=== PATIENT | female | born 1990 | race Caucasian/White ===

== ENCOUNTER 2023-05-28 11:56 | Outpatient (OUT) | payer OTHER, SELFPAY ==
--- NOTE | 2023-05-28 | XR_ITS ---
The [address] [address] Patient Name: RUI KO MRN: [id number] date: 1990 Sex: F Assigned Patient Location: [facility] Current Patient Location: [facility] Accession/Order Number: [id number] Exam Date: 05/28/2023 09:05 Report Date: 05/28/2023 09:48 At the request of: ASHIA LOGAN Procedure: XR ankle LT min 3V PROCEDURE: XR ankle LT min 3V HISTORY: LEFT ANKLE PAIN , posterior heel pain COMPARISON: XR ankle left 03/27/2021 FINDINGS: BONES:No fracture, acute abnormality, or significant arthropathy. SOFT TISSUES:No visible soft tissue swelling. EFFUSION:None visible. OTHER: Negative. XR/XR ankle LT min 3V IMPRESSION: 1. No suspicious findings to account for patient's symptoms. Electronically authenticated by: ANA QUINONES Date: 05/28/2023 09:48
== END 2023-05-28 11:57 | disposition home or self-care (01) ==
PROVIDERS: PCP Internal Medicine; Visit Provider Podiatrist Foot & Ankle Surgery
DX: M76.62 Achilles tendinitis, left leg (principal)
CPT/HCPCS: 73610

== ENCOUNTER 2023-06-02 07:35 | Outpatient (OUT) | payer OTHER, SELFPAY ==
--- NOTE | 2023-06-02 07:50 | MR_ITS ---
The [place] [id number] Patient Name: RUI KO MRN: [id number] date: 1990 Sex: F Assigned Patient Location: MRI Current Patient Location: MRI Accession/Order Number: [id number] Exam Date: 06/02/2023 08:10 Report Date: 06/02/2023 10:19 At the request of: ASHIA LOGAN Procedure: MR ankle LT wo con MR ankle LT wo con, 06/02/2023 8:10 AM EDT INDICATION: Achilles Tendonitis COMPARISON: X-ray of the left ankle dated 05/28/2023 TECHNIQUE: Multiplanar and multisequential MR images of the left ankle were obtained without contrast . FINDINGS: Muscles and tendons: The flexor and extensor tendons and muscles are unremarkable. No abnormality of the peroneal tendons is noted. Achilles tendon is unremarkable. Bone: There is no bone marrow edema. No osseus lesion is noted. Sinus Tarsi: No abnormality of sinus Tarsi is noted. Plantar fascia: The plantar fascia is unremarkable. Ligaments: The deep and superficial portions of deltoid are unremarkable. The lateral ligaments are unremarkable. The visualized portion of Lisfranc ligament is unremarkable. There is normal intra-articular joint effusion. No soft tissue abnormality is noted. MR/MR ankle LT wo con IMPRESSION: Normal MRI of the left ankle. Electronically authenticated by: MAHAD MORELOS Date: 06/02/2023 10:19
== END 2023-06-02 07:36 | disposition home or self-care (01) ==
PROVIDERS: PCP Internal Medicine; Visit Provider Podiatrist Foot & Ankle Surgery
DX: M76.62 Achilles tendinitis, left leg (principal); M76.822 Posterior tibial tendinitis, left leg
CPT/HCPCS: 73721

== ENCOUNTER 2023-06-10 14:04 | Outpatient (OUT) | payer OTHER, SELFPAY ==
--- NOTE | 2023-06-10 | XR_ITS ---
The [address] [address] Patient Name: RUI KO MRN: [id number] date: 1990 Sex: F Assigned Patient Location: Current Patient Location: MRI Accession/Order Number: [id number] Exam Date: 06/10/2023 13:45 Report Date: 06/16/2023 07:56 At the request of: CLAUDIA LYNN Procedure: XR foot LT min 3V PROCEDURE: XR foot LT min 3V HISTORY: LEFT FOOT PAIN , chronic, bruising to medial side of foot; no known injury COMPARISON: XR ankle left 05/28/2023, XR foot left 11/23/2020 FINDINGS: BONES:No fracture, acute abnormality, or significant arthropathy. SOFT TISSUES:No visible soft tissue swelling. EFFUSION:None visible. OTHER: Negative. XR/XR foot LT min 3V IMPRESSION: 1. Normal examination. Electronically authenticated by: ANA QUINONES Date: 06/16/2023 07:56
== END 2023-06-10 14:05 | disposition home or self-care (01) ==
LOC: RAD 14:04
PROVIDERS: PCP Internal Medicine; Visit Provider Physician Assistant
DX: M79.672 Pain in left foot (principal)
CPT/HCPCS: 73630

== ENCOUNTER 2023-07-14 21:26 | Emergency (ER) | payer OTHER, SELFPAY ==
[2023-07-14 21:31] VITALS: BP 132/86; PULSE 102; RESP 15; TEMP 36.9; O2SAT 99; BMI 26.8
--- NOTE | 2023-07-14 21:42 | ED.GENADUL1 ---
HPI - General Adult General Stated complaint: Wound Check Time Seen by Provider: 07/14/23 21:26 History of Present Illness HPI narrative: This 32-year-old female who had tarsal tunnel release at [facility] last Friday presents for evaluation after she took a shower and got her foot wet. She is concerned that the wet dressing on her foot will cause it to get infected. No additional injuries or complaints. She is taking Percocet for pain. She has not had any recent injury. She has no chest pain shortness of breath or fever. She is scheduled to be seen at [facility] in 2 weeks. Related Data Home Medications Medication Instructions Recorded Confirmed oxycodone-acetaminophen 5 mg-325 1 tab PO Q4H 07/14/23 07/14/23 mg tablet Allergies Allergy/AdvReac Type Severity Reaction Status Date / Time sulfamethoxazole Allergy Intermediate Verified 07/14/23 21:36 [From Bactrim] trimethoprim [From Bactrim] Allergy Intermediate Verified 07/14/23 21:36 clidamycin Allergy Intermediate Uncoded 07/14/23 21:36 zoloft Allergy Mild Uncoded 07/14/23 21:36 Review of Systems ROS Status of ROS 10 or more systems reviewed and unremarkable except as noted in history and below Exam Narrative Exam Narrative: Nurses note and vital signs reviewed and patient is not hypoxic. She is mildly tachycardic with a pulse of 102 General: The patient appears well and in no apparent distress. Patient is resting comfortably on cart. Skin: Warm, dry, no pallor noted. There is no rash noted. Head: Normocephalic, atraumatic Eye: Normal conjunctiva, no drainage, EOMI. PERRL Cardiovascular: Regular Rate and Rhythm Respiratory: Patient is in no distress, no accessory muscle use, lungs are clear to auscultation, no wheezing, rales or rhonchi Back: non-tender, no CVA tenderness bilaterally to percussion. Musculoskeletal: There is a wet Kerlix dressing on the patient's left lower extremity. This was removed by the nursing staff. The incision on the medial aspect of her left lower leg appears well approximated with no sign of infection. There was a usual amount of ecchymosis. Feet are warm and sensate. Dorsalis pedis pulse is brisk. Neurological: A&O x4, normal speech Psychiatric: Cooperative Constitutional Vital Signs, click to edit/add: Last Vital Signs Temp 98.4 F 07/14/23 21:31 Pulse 102 H 07/14/23 21:31 Resp 15 07/14/23 21:31 BP 132/86 07/14/23 21:31 Pulse Ox 99 07/14/23 21:31 O2 Del Method Room Air 07/14/23 21:31 Course Vital Signs Vital signs: Vital Signs Temperature 98.4 F 07/14/23 21:31 Pulse Rate 102 H 07/14/23 21:31 Respiratory Rate 15 07/14/23 21:31 Blood Pressure 132/86 07/14/23 21:31 Pulse Oximetry 99 07/14/23 21:31 Oxygen Delivery Method Room Air 07/14/23 21:31 Temperature 98.4 F 07/14/23 21:31 Pulse Rate 102 H 07/14/23 21:31 Respiratory Rate 15 07/14/23 21:31 Blood Pressure 132/86 07/14/23 21:31 Pulse Oximetry 99 07/14/23 21:31 Oxygen Delivery Method Room Air 07/14/23 21:31 Medical Decision Making MDM Narrative Medical decision making narrative: This 32-year-old female who had a tarsal tunnel release at [facility] last Friday and got her foot wet earlier while taking a shower presents for evaluation. She is concerned that the wet dressing will cause her to get an infection in her incision. The dressing was removed revealing a normally doing incision. A dry dressing was placed by the nursing staff. The patient was encouraged to try to keep her feet out of the shower when she is bathing. Discharge Plan Discharge Chief Complaint: Wound/Laceration Clinical Impression: Encounter for post surgical wound check Patient Disposition: Home, Self-Care Time of Disposition Decision: 21:46 Condition: Good Prescriptions / Home Meds: No Action oxycodone-acetaminophen 5-325 mg tablet 1 tab PO Q4H Stand Alone Forms: Portal Instructions Referrals: JULIA TRACEY [Primary Care Provider] - 1 week
--- NOTE | 2023-07-14 21:45 | PC.NURSE ---
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 Pt concerned for infection to develop in wet dressing. Dressing removed by RN. DPs intact bilaterally. Foot is cold to touch, however dressing that was removed is cold and wet. Pt amble to move toes, good cap refill.
[2023-07-14 22:00] VITALS: BP 135/88; PULSE 78; RESP 15; O2SAT 99
== END 2023-07-14 22:03 | disposition home or self-care (01) ==
PROVIDERS: Emergency Provider Emergency Medicine; PCP Internal Medicine
DX: Z09 Encounter for follow-up examination after completed treatment for conditions other than malignant neoplasm (principal); Z79.899 Other long term (current) drug therapy
CPT/HCPCS: 99282

== ENCOUNTER 2024-05-31 09:15 | Emergency (ER) | payer OTHER, SELFPAY ==
[2024-05-31] VITALS (15 sets, daily range): BP systolic 97–115; BP diastolic 66–78; PULSE 67–82; TEMP 36.6; O2SAT 97–100; BMI 29.3
--- NOTE | 2024-05-31 10:01 | XR_ITS ---
The [address] [address] Patient Name: RUI KO MRN: [id number] date: 1990 Sex: F Assigned Patient Location: ER Current Patient Location: ER Accession/Order Number: [id number] Exam Date: 05/31/2024 10:15 Report Date: 05/31/2024 10:35 At the request of: MONTRELL GARCIA Procedure: XR chest 1V EXAM: XR chest 1V HISTORY: . chest pain . COMPARISON: None. TECHNIQUE: Single view of the chest FINDINGS: Heart and vascularity are unremarkable. Lungs are free of focal infiltrates. EKG leads overlie the chest. XR/XR chest 1V IMPRESSION: No acute heart or lung disease identified. Electronically authenticated by: ROBBIE SNYDER Date: 05/31/2024 10:35
--- NOTE | 2024-05-31 10:01 | ECG_ITS ---
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
--- NOTE | 2024-05-31 10:08 | ED.GENADUL1 ---
HPI HPI - General Adult General Chief complaint: Chest Pain Stated complaint: CHEST PAIN Time Seen by Provider: 05/31/24 09:48 Source: patient Mode of arrival: walk-in Limitations: no limitations History of Present Illness HPI narrative: 33-year-old female to the emergency department chief complaint of chest pain and syncopal episode. Patient reports she has a history of neurocardiogenic syncope. She follows with cardiology in [place] for this. Patient also reports she has occasional chest discomfort. For the last day she has had intermittent chest discomfort. It is a sharp pain radiates through to her back. It is not severe in nature but is occurred several times. She denies any shortness of breath. No history of DVT or PE. She is not currently on any medications. She has an appointment with cardiology tomorrow for this. Patient reports that this morning she got up out of bed after waking up and passed out. She denies any injuries. No neck or back pain. Related Data Home Medications ?Medication ?Instructions ?Recorded ?Confirmed No Known Home Medications 05/31/24 05/31/24 Allergies Allergy/AdvReac Type Severity Reaction Status Date / Time trimethoprim (From Bactrim) Allergy Severe itchy Verified 05/31/24 09:29 sulfamethoxazole (From Allergy Intermediate Hives Verified 05/31/24 09:29 Bactrim) clidamycin Allergy Intermediate icthy Uncoded 05/31/24 09:29 zoloft Allergy Mild icthy Uncoded 05/31/24 09:29 Opioid HPI Opioid Management Most Recent Opioid Data: No Data to Display Review of Systems ROS Status of ROS 10 or more systems reviewed and unremarkable except as noted in history and below PFSH PFS Medical History (Updated 05/31/24 @ 11:57 by Teofilo Phipps MD) Heart murmur ?R01.1 - Cardiac murmur, unspecified (ICD-10) Neurologic cardiac syncope ?R55 - Syncope and collapse (ICD-10) Surgical History (Updated 05/31/24 @ 09:41 by Jose Guadalupe Armenta) Hx of cholecystectomy ?Z90.49 - Acquired absence of other specified parts of digestive tract (ICD-10) Social History Little interest or pleasure in doing things: not at all Feeling down, depressed, or hopeless: not at all Exam Narrative Exam Narrative: VITALS: I have reviewed the triage vital signs. GENERAL: Well developed, well appearing adult female in no acute distress. NEURO: Alert and oriented. Moves all extremities. Face is symmetric and expressive. EYES: PERRL. No scleral icterus or conjunctival injection. No discharge. HENT: Normocephalic, atraumatic. Hearing is grossly intact. Nares grossly patent and without discharge. Mucous membranes moist. NECK: No JVD. Patient moves neck without restriction. No midline cervical tenderness. CARDIO: Rhythm regular. Normal rate. No murmur, rub, or gallop. Pulses equal bilaterally in the upper and lower extremity. No lower extremity edema. PULM: Lungs clear to auscultation in all timmons. No wheezes, rales, or rhonchi. No conversational dyspnea. No splinting, stridor, or accessory muscle use. GI/: Abdomen is soft and non-tender. Normoactive bowel sounds. EXTREMITIES: Symmetric muscle bulk. No joint swelling. No clubbing, cyanosis, or deformity. SKIN: Warm and dry. Normal turgor. No rash or lesions appreciated. PSYCH: Mood, affect, and interaction is appropriate to the setting. Constitutional Vital Signs, click to edit/add: Last Vital Signs Temp 98 F 05/31/24 09:23 Pulse 67 05/31/24 11:30 Resp 17 05/31/24 11:30 BP 112/71 05/31/24 11:30 Pulse Ox 99 05/31/24 11:30 O2 Del Method Room Air 05/31/24 09:23 Course Vital Signs Vital signs: Vital Signs Pulse Oximetry 98 05/31/24 09:21 Temperature 98 F 05/31/24 09:23 Pulse Rate 67 05/31/24 11:30 Respiratory Rate 17 05/31/24 11:30 Blood Pressure 112/71 05/31/24 11:30 Pulse Oximetry 99 05/31/24 11:30 Oxygen Delivery Method Room Air 05/31/24 09:23 Medical Decision Making [facility] Narrative Medical decision making narrative: 33-year-old female to the emergency department chief complaint of chest pain for the last 24 hours as well as a syncopal episode. Vital stable, the patient is afebrile. Her exam is unremarkable. No evidence of traumatic injury. Head and cervical spine are cleared by clinical decision rules. PERC negative effectively ruling out VTE in this low risk patient. Cardiac workup with test is ordered. Patient agrees with this plan. CBC and chemistry are unremarkable. Troponin is negative. test is negative. Chest x-ray is without acute findings. EKG is without evidence of ischemia. She is low risk by heart score. She had no abnormal vitals or telemetry during her ED stay. She feels improved. She has follow-up with cardiology tomorrow which I believe is appropriate. Return precautions were discussed. All questions were answered. The patient was discharged home. Teofilo Phipps DO, FAAEM Heart Score for Major Cardiac Event History: Example factors for history - pattern of chest pain, onset, duration, relation with exercise, stress or cold, localization, concomitant symptoms. reaction to sublingual nitrates, [] Highly suspicious +2 [] Moderately suspicious +1 [x] Slightly suspicious 0 EKG: [] Significant ST-Depression +2 [] Non specific repolarization disturbance +1 [x] Normal 0 Age: [] >= 65 +2 [] 45-65 + 1 [x] <45 0 Risk Factors: (HLD, HTN, DM, Cigarette Smoking, Pos Family Hx, Obesity) [] >3 risk factors or hx of atherosclerotic disease + 2 [] 1-2 risk factors + 1 [x] No risk factors known 0 Troponin: [] >= 3X normal + 2 [] 1-3X normal + 1 [x] <= Normal 0 [x] 0-3 Points 0.9 - 1.7% risk of major adverse cardiac event in 6 weeks [] 4-6 Points 12-16.6% risk of major adverse cardiac event in 6 weeks [] 7-10 Points 50-65% risk of major adverse cardiac event in 6 weeks [] 0-3 Points with 2 sets of negative cardiac markers <1% risk of major adverse cardiac event in 30 days. Medical Records Medical records reviewed: Yes I reviewed the patient's medical records Lab Data Lab results reviewed: Yes I reviewed the patient's lab results Labs: Lab Results 05/31/24 Range/Units 09:36 WBC 7.1 (4.0-11.0) 10^3/uL RBC 4.44 (4.20-5.40) 10^6/uL Hgb 12.6 (12.0-16.0) g/dL Hct 37.7 (36.0-48.0) % MCV 84.9 (81.0-99.0) fL MCH 28.4 (26.7-34.0) pg MCHC 33.4 (29.9-35.2) g/dL RDW 13.3 (11.0-15.0) % Plt Count 278 (150-450) 10^3/uL MPV 10.0 (9.5-13.5) fL Neut % (Auto) 60.8 (43.0-75.0) % Lymph % (Auto) 29.6 (20.5-60.0) % [facility] % (Auto) 8.0 (1.7-12.0) % Eos % (Auto) 0.6 L (0.9-7.0) % Baso % (Auto) 0.6 (0.2-2.0) % Neut # (Auto) 4.3 (1.4-6.5) 10^3/uL Lymph # (Auto) 2.1 (1.2-3.8) 10^3/uL [facility] # (Auto) 0.6 (0.3-0.8) 10^3/uL Eos # (Auto) 0.0 (0.0-0.7) 10^3/uL Baso # (Auto) 0.0 (0.0-0.1) 10^3/uL Abs Immat Gran (auto) 0.03 (0.00-0.03) 10^3/uL Imm/Tot Granulo (auto) 0.4 (0.0-0.5) % Sodium 140 (136-145) mmol/L Potassium 4.0 (3.5-5.1) mmol/L Chloride 105 (98-107) mmol/L Carbon Dioxide 22.7 (21.0-32.0) mmol/L Anion Gap 16.3 BUN 17.0 (7.0-18.0) mg/dL Creatinine 0.84 (0.55-1.02) mg/dL Est GFR ( Amer) >60 (>=60 mL/min/1.73m^2) Est GFR (Non-Af Amer) >60 (>=60 mL/min/1.73m^2) BUN/Creatinine Ratio 20.2 Glucose 104 (74-106) mg/dL Calcium 8.8 (8.5-10.1) mg/dL Troponin I High Sens <4.0 L (4.0-51.3) pg/mL Serum HCG, Qual Negative (NEGATIVE) Imaging Data Chest x-ray: Attestation: I have reviewed the pertinent imaging results. Radiologist's impression: ITS Impressions Chest X-Ray 05/31/24 10:01 IMPRESSION: No acute heart or lung disease identified. Electronically authenticated by: JOSE GUADALUPE SNYDER Date: 05/31/2024 10:35 ECG Data Attestation: I personally reviewed and interpreted this ECG as follows: (Normal sinus rhythm at a rate of 77. No STEMI. Normal QTc.) Discharge Plan Discharge Chief Complaint: Chest Pain Clinical Impression: Chest pain Patient Disposition: Home, Self-Care Time of Disposition Decision: 11:57 Condition: Good Mode of Transportation: Private Vehicle Prescriptions / Home Meds: No Action No Known Home Medications Print Language: Thai Instructions: Chest Pain (ED) Additional Instructions: Call the office of your primary care doctor to arrange for follow-up within the above-stated timeframe. Your ED visit was focused on your acute issue and does not replace primary care. You should review your labs, imaging, and diagnoses from this ED visit with your primary care physician. There may be non-emergent/ incidental findings that need further evaluation. You should review your vital signs including blood pressure with your PCP. If you were prescribed medications you should discuss possible side-effects and drug interactions with your pharmacist. Call 911 or go to the nearest Emergency Department if you develop any new or worsening symptoms. Seek immediate medical attention if you develop: worsening chest pain, new chest pain, nausea, vomiting, weakness, numbness, tingling, excessive sweating, shortness of breath, difficulty breathing, loss of motion in your arms or legs, or any new or worsening symptoms. Keep your appoint with cardiology for tomorrow Referrals: JULIA TRACEY [Primary Care Provider] - 1 week Discharge Date/Time: 05/31/24 12:11
[2024-05-31 10:09] LABS: Basophils Percent Auto 0.6 % (0.2-2.0); Eosinophils Percent Auto 0.6 % (0.9-7.0); Hematocrit 37.7 % (36.0-48.0); Hemoglobin 12.6 g/dL (12.0-16.0); Immature Granulocytes Abs Auto 0.03 10^3/uL (0.00-0.03); Immature Granulocytes Pct Auto 0.4 % (0.0-0.5); Lymphocytes Absolute Auto 2.1 10^3/uL (1.2-3.8); Lymphocytes Percent Auto 29.6 % (20.5-60.0); Mean Corpuscular HGB Conc 33.4 g/dL (29.9-35.2); Mean Corpuscular Hemoglobin 28.4 pg (26.7-34.0); Mean Corpuscular Volume 84.9 fL (81.0-99.0); Monocytes Absolute Auto 0.6 10^3/uL (0.3-0.8); Neutrophils Absolute Auto 4.3 10^3/uL (1.4-6.5); Neutrophils Percent Auto 60.8 % (43.0-75.0); Platelet Count 278 10^3/uL (150-450); Red Blood Count 4.44 10^6/uL (4.20-5.40); Red Cell Distribution Width 13.3 % (11.0-15.0); White Blood Count 7.1 10^3/uL (4.0-11.0)
--- OUTSIDE RECORDS SUMMARY | 2024-05-31 10:13 | XMS_ITS | CCD ---
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 facility-administered medications for this visit. ALLERGIES Allergen Reactions Bactrim [Sulfametho* Hives, Swelling Clindamycin Hives, Itching Zoloft [Sertraline] Itching No family history on file. Social History Tobacco Use Smoking status: Every Day Types: Cigarettes Smokeless tobacco: Never Tobacco comments: Vapes occasionally, 2-3 cigarettes a day Substance Use Topics Alcohol use: Yes Comment: occasionally, social drinking. Drug use: Never Current Opioids Analgesic Opioid Oxycodone Combinations Start End oxyCODONE-acetaminophe n (PERCOCET) 5-325 mg tablet 07/25/2023 -- Sig - Route: Take 1 tablet by mouth every 6 hours as needed for pain. for pain. - ORAL Patient not taking: Reported on 08/08/2023 Earliest Fill Date: 07/25/2023 Analgesic Opioid Oxycodone and Non-Salicylate Combinations Start End oxyCODONE-acetaminophe n (PERCOCET) 5-325 mg tablet 07/25/2023 -- Sig - Route: Take 1 tablet by mouth every 6 hours as needed for pain. for pain. - ORAL Patient not taking: Reported on 08/08/2023 Earliest Fill Date: 07/25/2023 ROSI Modifiable Risk Factors (MoRF) Obesity Unknown Risk High: BMI > 40 Moderate: BMI 30-40 Normal: BMI < 30 Diabetes normal High: A1C > 8 Moderate: A1C 7-8 Normal: A1C < 7 Smoking normal High: Current smoker Normal: Non smoker Anemia normal High: Hgb < 11.5 (women) N/A: Hgb >= 11.5 (women) Nutritional Status normal High: Alb<3.4, or prealb<15, or serum transferrin<200, or total lymphocyte count<1500 Normal: normal labs Narcotics Use normal High:NarxCare >=300 Moderate: 100-299 Normal: 0-99 Obesity: height and/or weight are out of date (There is no height and/or weight reading in the past 365 days, so the below BMI readings may be inaccurate) BMI Readings from Last 3 Encounters: 07/08/23 : 26.89 kg/m? ------- REVIEW OF SYSTEMS: CONSTITUTIONAL: No fevers, chills, nightsweats, unintended weight loss HEENT: Denies frequent or severe headaches, nasal congestion/sinus symptoms, problematic allergy problems. EYES: No diplopia or blurry vision. CARDIOVASCULAR: No chest pain, dyspnea, palpitations, orthopnea, PND. PULM: No dyspnea, unexplained cough. GI: No dysphagia/odynophagia, problematic reflux, constipation, diarrhea, changes in stool habits, hematochezia, melena. : No new urinary complaints, including dysuria, gross hematuria or pyuria. NEURO: No new balance problems, peripheral weakness/paresthesias or numbness of concern. MUSC-SKEL: No new joint pain, swelling, or erythema. PSY: No concerns regarding depression, anxiety or panic. INTEGUMENTARY: Skin changes as noted below. I have confirmed and edited as necessary, the PFSH and ROS obtained by others. OBJECTIVE: Patient is oriented to person, place, and time and is in no acute distress. Vascular Exam: Dorsalis Pedis pulses are palpable bilateral. Posterior Tibial pulses are palpable bilateral. Capillary refill time brisk. Skin temperature of the bilateral lower extremity is warm to cool, proximal to distal. Varicosities are NOT observed bilaterally. Edema NOT noted. No palpable lymph nodes noted. Dermatological: Skin appears diffusely dry Skin is without notable erythema or ecchymosis. Webspaces are clean, dry, and intact bilateral. No open lesions. Incision well healed. No signs of infection left ankle. Neurological: Light touch sensation intact bilaterally. Gross sensation intact bilaterally. Protective sensation present at 5/5 non-callused sites randomly selected and tested bilaterally using a 5.07 SWMF. Musculoskelatal: Muscle strength +5/5 for all pedal muscle groups b (more content not included)... [facility] CNOVon 08-08-2023 CNOV Office Visit ([facility] ) SAVANNAH KO ([id number]) 1990 F Date Time Provider Department 08/08/23 8:00 AM SERAFIN WATERS [facility] During your visit today, we recorded the following information about you: Serafin Waters DPM 08/08/2023 8:13 AM Signed PODIATRIC MEDICINE AND SURGERY OFFICE NOTE Complaint: Left tarsal tunnel syndrome status post tibial nerve release HPI: This 32 year old female presents to the clinic today for a follow-up status post left tarsal tunnel release. Patient is doing much better than the previous week and is in minimal pain now. She does state that she does have occasional nerve symptoms that shoot down her leg and is wondering if there is some medication for that. Patient is also ready for physical therapy. Patient denies any constitutional symptoms. Patient denies any calf or thigh pain. No past medical history on file. PAST SURGICAL HISTORY Procedure Laterality Date LAPAROSCOPIC EXC ENDOMETRIOSIS/CYST 2018 REMOVAL GALLBLADDER 2014 REMOVAL OF OVARIAN CYST(S) Left 2019 No current facility-administered medications for this visit. ALLERGIES Allergen Reactions Bactrim [Sulfametho* Hives, Swelling Clindamycin Hives, Itching Zoloft [Sertraline] Itching No family history on file. Social History Tobacco Use Smoking status: Every Day Types: Cigarettes Smokeless tobacco: Never Tobacco comments: Vapes occasionally, 2-3 cigarettes a day Substance Use Topics Alcohol use: Yes Comment: occasionally, social drinking. Drug use: Never Current Opioids Analgesic Opioid Oxycodone Combinations Start End oxyCODONE-acetaminophe n (PERCOCET) 5-325 mg tablet 07/25/2023 -- Sig - Route: Take 1 tablet by mouth every 6 hours as needed for pain. for pain. - ORAL Patient not taking: Reported on 08/08/2023 Earliest Fill Date: 07/25/2023 Analgesic Opioid Oxycodone and Non-Salicylate Combinations Start End oxyCODONE-acetaminophe n (PERCOCET) 5-325 mg tablet 07/25/2023 -- Sig - Route: Take 1 tablet by mouth every 6 hours as needed for pain. for pain. - ORAL Patient not taking: Reported on 08/08/2023 Earliest Fill Date: 07/25/2023 ROSI Modifiable Risk Factors (MoRF) Obesity Unknown Risk High: BMI > 40 Moderate: BMI 30-40 Normal: BMI < 30 Diabetes normal High: A1C > 8 Moderate: A1C 7-8 Normal: A1C < 7 Smoking normal High: Current smoker Normal: Non smoker Anemia normal High: Hgb < 11.5 (women) N/A: Hgb >= 11.5 (women) Nutritional Status normal High: Alb<3.4, or prealb<15, or serum transferrin<200, or total lymphocyte count<1500 Normal: normal labs Narcotics Use normal High:NarxCare >=300 Moderate: 100-299 Normal: 0-99 Obesity: height and/or weight are out of date (There is no height and/or weight reading in the past 365 days, so the below BMI readings may be inaccurate) BMI Readings from Last 3 Encounters: 07/08/23 : 26.89 kg/m? ------- REVIEW OF SYSTEMS: CONSTITUTIONAL: No fevers, chills, nightsweats, unintended weight loss HEENT: Denies frequent or severe headaches, nasal congestion/sinus symptoms, problematic allergy problems. EYES: No diplopia or blurry vision. CARDIOVASCULAR: No chest pain, dyspnea, palpitations, orthopnea, PND. PULM: No dyspnea, unexplained cough. GI: No dysphagia/odynophagia, problematic reflux, constipation, diarrhea, changes in stool habits, hematochezia, melena. : No new urinary complaints, including dysuria, gross hematuria or pyuria. NEURO: No new balance problems, peripheral weakness/paresthesias or numbness of concern. MUSC-SKEL: No new joint pain, swelling, or erythema. PSY: No concerns regarding depression, anxiety or panic. INTEGUMENTARY: Skin changes as noted below. I have confirmed and edited as necessary, the PFSH and ROS obtained by others. OBJECTIVE: Patient is oriented to person, place, and time and is in no acute distress. Vascular Exam: Dorsalis Pedis pulses are palpable bilateral. Posterior Tibial pulses are palpable bilateral. Capillary refill time brisk. Skin temperature of the bilateral lower extremity is warm to cool, proximal to distal. Varicosities are NOT observed bilaterally. Edema NOT noted. No palpable lymph nodes noted. Dermatological: Skin appears diffusely dry Skin is without notable erythema or ecchymosis. Webspaces are clean, dry, and intact bilateral. No open lesions. Incision well healed. No signs of infection left ankle. Neurological: Light touch sensation intact bilaterally. Gross sensation intact bilaterally. Protective sensation present at 5/5 non-callused sites randomly selected and tested bilaterally using a 5.07 SWMF. Musculoskelatal: Muscle strength +5/5 for all pedal muscle groups bilaterally. No significant symptomatic li (more content not included)... [facility] 07-25-2023 [facility] Office Visit ([facility] ) SAVANNAH KO ([id number]) 1990 F Date Time Provider Department 07/25/23 8:15 AM SERAFIN WATERS [facility] During your visit today, we recorded the following information about you: Serafin Waters DPM 07/25/2023 8:29 AM Signed PODIATRIC MEDICINE AND SURGERY OFFICE NOTE Complaint: Left tarsal tunnel syndrome status post tibial nerve release HPI: This 32 year old female presents to the clinic today for a follow-up status post left tarsal tunnel release. Patient is in controlled pain but is in need of new pain medication. She has been compliant with her nonweightbearing status. She is here today for her suture removal. Patient does state that most of the pain is at night and is very painful when it is undressed. Patient denies any constitutional symptoms. Patient denies any calf or thigh pain. No past medical history on file. PAST SURGICAL HISTORY Procedure Laterality Date LAPAROSCOPIC EXC ENDOMETRIOSIS/CYST 2018 REMOVAL GALLBLADDER 2014 REMOVAL OF OVARIAN CYST(S) Left 2019 No current facility-administered medications for this visit. ALLERGIES Allergen Reactions Bactrim [Sulfametho* Hives, Swelling Clindamycin Hives, Itching Zoloft [Sertraline] Itching No family history on file. Social History Tobacco Use Smoking status: Every Day Types: Cigarettes Smokeless tobacco: Never Tobacco comments: Vapes occasionally, 2-3 cigarettes a day Substance Use Topics Alcohol use: Yes Comment: occasionally, social drinking. Drug use: Never Current Opioids Analgesic Opioid Oxycodone Combinations Start End oxyCODONE-acetaminophe n (PERCOCET) 5-325 mg tablet 07/25/2023 -- Sig - Route: Take 1 tablet by mouth every 6 hours as needed for pain. for pain. - ORAL Earliest Fill Date: 07/25/2023 Analgesic Opioid Oxycodone and Non-Salicylate Combinations Start End oxyCODONE-acetaminophe n (PERCOCET) 5-325 mg tablet 07/25/2023 -- Sig - Route: Take 1 tablet by mouth every 6 hours as needed for pain. for pain. - ORAL Earliest Fill Date: 07/25/2023 ROSI Modifiable Risk Factors (MoRF) Obesity Unknown Risk High: BMI > 40 Moderate: BMI 30-40 Normal: BMI < 30 Diabetes normal High: A1C > 8 Moderate: A1C 7-8 Normal: A1C < 7 Smoking normal High: Current smoker Normal: Non smoker Anemia normal High: Hgb < 11.5 (women) N/A: Hgb >= 11.5 (women) Nutritional Status normal High: Alb<3.4, or prealb<15, or serum transferrin<200, or total lymphocyte count<1500 Normal: normal labs Narcotics Use normal High:NarxCare >=300 Moderate: 100-299 Normal: 0-99 Obesity: height and/or weight are out of date (There is no height and/or weight reading in the past 365 days, so the below BMI readings may be inaccurate) BMI Readings from Last 3 Encounters: 07/08/23 : 26.89 kg/m? ------- REVIEW OF SYSTEMS: CONSTITUTIONAL: No fevers, chills, nightsweats, unintended weight loss HEENT: Denies frequent or severe headaches, nasal congestion/sinus symptoms, problematic allergy problems. EYES: No diplopia or blurry vision. CARDIOVASCULAR: No chest pain, dyspnea, palpitations, orthopnea, PND. PULM: No dyspnea, unexplained cough. GI: No dysphagia/odynophagia, problematic reflux, constipation, diarrhea, changes in stool habits, hematochezia, melena. : No new urinary complaints, including dysuria, gross hematuria or pyuria. NEURO: No new balance problems, peripheral weakness/paresthesias or numbness of concern. MUSC-SKEL: No new joint pain, swelling, or erythema. PSY: No concerns regarding depression, anxiety or panic. INTEGUMENTARY: Skin changes as noted below. I have confirmed and edited as necessary, the PFSH and ROS obtained by others. OBJECTIVE: Patient is oriented to person, place, and time and is in no acute distress. Vascular Exam: Dorsalis Pedis pulses are palpable bilateral. Posterior Tibial pulses are palpable bilateral. Capillary refill time brisk. Skin temperature of the bilateral lower extremity is warm to cool, proximal to distal. Varicosities are NOT observed bilaterally. Edema NOT noted. No palpable lymph nodes noted. Dermatological: Skin appears diffusely dry Skin is without notable erythema or ecchymosis. Webspaces are clean, dry, and intact bilateral. No open lesions. Incision well coapted with sutures in place. No signs of infection or dehiscence left ankle. Neurological: Light touch sensation intact bilaterally. Gross sensation intact bilaterally. Protective sensation present at 5/5 non-callused sites randomly selected and tested bilaterally using a 5.07 SWMF. Musculoskelatal: Muscle strength +5/5 for all pedal muscle groups bilaterally. No significant symptomatic limitations in pedal joint ROM bilaterally. ASSESSMEN (more content not included)... [facility] 07-15-2023 [facility] Telephone ([facility]) SAVANNAH KO ([id number]) 1990 F Date Time Provider Department 07/15/23 [facility] During your visit today, we recorded the following information about you: Laurie Ware 07/15/2023 10:55 AM Signed Patient called having a lot left heel pain like (50 plus)radiating to the ankle. Takes the oxyCODONE-acetaminophe n (PERCOCET) 5-325 mg tablet without much relief to help the pain. Patient went to [facility] yesterday had left ankle covered while taking a shower but the reginaldo and gauze still got wet so she received dressing change there. Laurie Ware 07/16/2023 9:26 AM Signed Spoke to patient per Dr. Waters she needs to take pain medication as directed and not wait until she gets in severe pain. Allergies As of Date: 07/15/2023 Noted Allergy Reaction BACTRIM (SULFAMETHOXAZOLE-TRIM ETH*07/04/2023 4 - Hives 7 - Swelling CLINDAMYCIN 07/04/2023 4 - Hives 9 - Itching ZOLOFT (SERTRALINE) 07/04/2023 9 - Itching Date Reviewed: 07/11/2023 Reviewed by: Eugenia Fairbanks RN - Fully Assessed Prescriptions as of 07/16/2023 - oxyCODONE-acetaminophe n (PERCOCET) 5-325 mg tablet Take 1 tablet by mouth four times a day as needed for pain. - aspirin, enteric coated (ASPIRIN, ENTERIC COATED) 81 mg EC tablet Take 81 mg by mouth once daily. Problem List As Of Date 07/15/2023 Noted Resolved Pre-op evaluation [Z01.818] 07/08/2023 Achilles tendinitis, left leg [M76.62] 05/28/2023 Encounter Status:Closed by LAURIE WARE on 07/16/23 [facility] ANES POSTPROC EVALon 023 ANES POSTPROC EVAL HNO ID: [id number] Author: Kimmy Smiley DO Service: Anesthesiology Author Type: Anesthesiologist Type: Anesthesia Postprocedure Evaluation Filed: 07/11/2023 5:18 PM Note Text: POST ANESTHESIA EVALUATION NOTE : 1990 Procedure Summary Date: 07/11/23 Room / Location: OR / OR Anesthesia Start: 1433 Anesthesia Stop: 1621 Procedure: RELEASE TARSAL TUNNEL (POSTERIOR TIBIAL NERVE DECOMPRESSION) (Left: Foot) Diagnosis: Tarsal tunnel syndrome, left Soft tissue mass (Tarsal tunnel syndrome, left [G57.52]) (Soft tissue mass [M79.89]) Surgeons: Serafin Waters DPM Responsible Provider: Kimmy Smiley DO Anesthesia Type: general ASA Status: 1 Anesthesia Type: general Airway Type: LMA Last Vitals Vitals Value Taken Time BP 108/72 07/11/23 1700 Temp 36.6 ?C (97.9 ?F) 07/11/23 1710 Pulse 72 07/11/23 1711 Resp 10 07/11/231710 SpO2 99 % 07/11/231710 Vitals shown include unvalidated device data. Post Anesthesia Patient Status Patient Evaluation: PACU. PACU/ICU Patient Condition: stable. Anticipated Disposition: phase 2 then home. Neurological Status: aware and responsive. Pulmonary Status: breathing comfortably on supplemental oxygen Airway Control: returned to baseline unsupported. Cardiovascular Status: stable. Pain Management: clinically adequate - multimodal analgesia pain management approach Postoperative Hydration: acceptable. Intraoperative Events: no significant anesthesia events Post Operative Nausea/Vomiting Status: no significant post operative nausea or vomiting Recommendation: continue current plan of care. Anesthesia Observations No Documentation SIGNATURE: Kimmy Smliey DO PATIENT NAME: Savannah Ko DATE: July 11, 2023 TIME: 5:18 PM CSN: [id number] [facility] ANES PRE-OPon 07-11-2023 ANES PRE-OP HNO ID: [id number] Author: Kimmy Smiley DO Service: Anesthesiology Author Type: Anesthesiologist Type: Anesthesia Preprocedure Evaluation Filed: 07/11/2023 1:11 PM Note Text: ANESTHESIOLOGY DAY OF SURGERY NOTE : 1990 Procedure Information Date/Time: 07/11/23 1415 Procedures: RELEASE TARSAL TUNNEL (POSTERIOR TIBIAL NERVE DECOMPRESSION) (Left: Foot) - popliteal block EXCISION SOFT TISSUE TUMOR SUBFASCIAL OF LEG = / > 3CM (Left: Foot) - PLANNED EQUIPMENT: Integra nerve wrap - Anastasia Khan from [employer] [facility] (CC) Location: OR11 / OR Surgeons: Serafin Waters DPM Estimated body mass index is 26.89 kg/m? as calculated from the following: Height as of 07/08/23: 152.4 cm (5'). Weight as of 07/08/23: 62.5 kg (137 lb 11.2 oz). Most recent hematocrit and potassium results: No results found for this basename: HCT,HEMATOCRIT,K,POTAS SIUM Relevant Problems No relevant active problems I - PHYSICAL EVALUATION AIRWAY Patient intubated: No. Tracheostomy tube not present Mallampati: I. TM distance: >3 FB. Neck ROM: full ROM without neurological symptoms. Mouth opening: adequate. Short neck: no. Thick neck: no DENTAL Dental findings: teeth intact. II - ANESTHESIA PLAN ASA Score: 1 Anesthetic Plan: general Airway type: ETT NPO Status: adequate Beta Jose Monitoring Plan Monitoring plan: standard ASA. Post Procedure Analgesic Plan Postoperative analgesic plan: multimodal analgesia, per surgical service and peripheral nerve block. Informed Consent Anesthetic risks, benefits, alternatives, personnel and consent discussed: yes. Patient / Responsible Alliance Party agrees to proceed: yes Patient / Surrogate agrees to blood products: Yes Potential Anesthesia issues that may suggest increased risk of complications or contraindication to planned procedure: none. Vitals Value Taken Time BP Pulse Resp Temp 36.9 ?C (98.4 ?F) 07/11/23 1230 SpO2 Facility-Administered Medications as of 07/11/2023 Medication Dose Route Frequency - midazolam (PF) 1-2 mg injection (VERSED) 1-2 mg INTRAVENOUS ONCE - acetaminophen 1,000 mg tab(s) (TYLENOL) 1,000 mg ORAL ONCE - promethazine 12.5 mg tab(s) (PHENERGAN) 12.5 mg ORAL NOW - [COMPLETED] acetaminophen 1,000 mg tab(s) (TYLENOL) 1,000 mg ORAL Pre-Op Once - [COMPLETED] promethazine 12.5 mg tab(s) (PHENERGAN) 12.5 mg ORAL Pre-Op Once - lactated ringers iv infusion 30 mL/hr INTRAVENOUS CONTINUOUS - scopolamine 1 mg over 3 days 1 Patch (TRANSDERM-SCOP) 1 Patch TRANSDERMAL q 72 HR And - [START ON 07/14/2023] scopolamine - REMOVE PATCH OTHER q 72 HR And - scopolamine - VERIFY patch OTHER q 8 H Outpatient Medications as of 07/11/2023 Medication Sig - aspirin, enteric coated (ASPIRIN, ENTERIC COATED) 81 mg EC tablet Take 81 mg by mouth once daily. I have interviewed and examined the patient. I have reviewed the medical record and/or the pre-anesthesia evaluation, pertinent labs, and test results. This contains updated information obtained within 48 hours of Surgery/Procedure. SIGNATURE: Kimmy Smiley DO PATIENT NAME: Savannah Ko DATE: July 11, 2023 TIME: 1:10 PM CSN: [id number] [facility] BRIEF OP NOTon 07-11-2023 BRIEF OP NOT HNO ID: [id number] Author: Serafin Waters DPM Service: Podiatry Author Type: Physician Type: Brief Op Note Filed: 07/11/2023 3:32 PM Note Text: PODIATRIC SURGERY BRIEF OPERATIVE NOTE LOG ID: [id number] Surgery/Procedure Date: 07/11/2023 Incision/Procedure Start Time: 3:10 PM Incision Close/Procedure End Time: Surgeon(s)/Procedurali st(s) and Case Management Manager(s): Surgeon(s) and Role: * Serafin Waters DPM - Primary * Arti Domingo DPM - Resident - Assisting No Additional Staff Procedure(s): Left ankle Tarsal tunnel release Anesthesia: General Findings: Entrapped nerve from veins and fat, tight retinaculum Estimated Blood Loss: 20 mls Specimens: None Complications: NONE Pre-Op/Pre-Procedure Diagnosis: Left tarsal tunnel syndrome Post-Op/Post-Procedure Diagnosis: SAME SIGNATURE: Serafin Waters DPM PATIENT NAME: Savannah Ko DATE: July 11, 2023 TIME: 3:31 PM PAGER/CONTACT #: [phone] (Pager/Cell) [facility] NURSING PROGon 07-11-2023 NURSING PROG HNO ID: [id number] Author: Raymond Wong RN Service: ? Author Type: Registered Nurse Type: Nursing Progress Note Filed: 07/11/2023 12:15 PM Note Text: PATIENT EDUCATION TOPIC: PROCEDURE / SURGERY: Pre-op Teaching: Logistics Protocols PATIENT NAME: Savannah Ko PATIENT LOCATION: [facility] OR POOL/[facility] OR POOL READINESS TO LEARN COGNITIVE ABILITY: Alert and oriented MOTIVATION TO LEARN: Eager FAMILY SUPPORT: None - Unavailable/disinteres rio INSTRUCTION PROVIDED TO: Patient PATIENT LEARNS BEST BY: Individual Instruction FACTORS AFFECTING LEARNING: None PHYSICAL LIMITATIONS AFFECTING LEARNING: None LEARNING RESPONSE DIAGNOSIS: ADULT: Well Adult PATIENT/FAMILY RESPONSE: Verbalizes understanding of: PRE-OPERATIVE INSTRUCTIONS-Correct action to take to follow pre-operative instructions METHOD OF INSTRUCTION: Individual instruction FOLLOW-UP PLAN: Complete - No need for follow-up INSTRUCTIONAL AIDS USED: NA SUPPLEMENTAL MATERIAL PROVIDED TO PATIENT: None REFERRAL (RECOMMENDATION): None Electronically Signed By: Raymond Wong [facility] OPERATIVE NOon 07-11-2023 OPERATIVE NO HNO ID: [id number] Author: Serafin Waters DPM Service: Podiatry Author Type: Physician Type: Operative Report Filed: 07/14/2023 2:10 PM Note Text: SURGERY OPERATIVE NOTE LOG ID: [id number] Surgery/Procedure Date: 07/11/2023 Incision/Procedure Start Time: 3:10 PM Incision Close/Procedure End Time: 3:54 PM Surgeon(s)/Procedurali st(s) and Case Management Manager(s): Surgeon(s) and Role: * Serafin Waters DPM - Primary * Arti Domingo DPM - Resident - Assisting No Additional Staff PRE-OP/PRE-PROCEDURE DIAGNOSIS: Left tarsal tunnel syndrome POST-OP/POST-PROCEDURE DIAGNOSIS: Same as Pre-Op SURGERY/PROCEDURE(S): Left ankle Tarsal tunnel release ANESTHESIA: General HEMOSTASIS: Maintained on the field with a thigh tourniquet ESTIMATED BLOOD LOSS: 20 mls MATERIALS: Integra nerve wrap INDICATIONS: This 32 year old female presents to the operating room today for the above said procedures. The nature of their condition, post operative recovery, risks and complications including but not limited to numbness, tingling, burning, over and under correction, problems of healing soft tissue or bone, chronic pain and disability, need for further surgery or revision, amputation, loss of limb or life, have all been discussed with the patient in detail. All questions have been answered to the patient's satisfaction, and no promises or guarantees given. SURGERY/PROCEDURE DETAILS: Under mild sedation the patient was brought into the operating room, placed on the operating room table in the supine position. Anesthesia was induced. The patient's leg was confirmed to be the correct limb, was then scrubbed, prepped, and draped in the usual, aseptic manner. Attention was was directed to the operative leg. Using a 15 blade a curvilinear incision was made overlying the medial ankle overlying the tibial nerve. The incision was further down using blunt and sharp dissection the layer of the nerve. There was significant entrapment of nerve both by veins and subcutaneous fat. The retinaculum was also noted to be significantly tightened. Next a incision into the retinaculum was performed in order to release the tarsal tunnel. After this was done the nerve was then released both proximally and distally into the level of the kimberli pedis. The nerve was then wrapped with the synthetic nerve wrap and secured with 6-0 nylon. The incision was then flushed with copious amounts of normal sterile saline and closed in a layered fashion using Monocryl and nylon. The operative area was then dressed with dry, sterile dressings. The patient tolerated the procedure and anesthesia well in apparent satisfactory condition and was transported to the PACU with vital signs stable and vascular status intact to the leg for further monitoring prior to discharge home. SPECIMENS: None VASCULAR ASSESSMENT: Healthy and controlled bleeding to the surgical site FINDINGS: Entrapped nerve that was well released DRAINS: None COMPLICATIONS: None PARTICIPATION IN SURGERY/PROCEDURE: I was present and performed the procedure with assistance. The resident assisted with positioning, retraction; and visualization of the operative field and moreover helped to complete the procedures in a technically safe and efficient manner. --- Dr. Serafin Waters DPM SIGNATURE: Serafin Waters DPM PATIENT NAME: Savannah Ko PAGER/CONTACT #: [phone] (Pager/Cell) [facility] HISTORY PHYSICALon HISTORY PHYSICAL HNO ID: [id number] Author: Ama Lei MD Service: ? Author Type: Resident Type: HANDP Filed: 07/08/2023 11:02 AM Note Text: HISTORY AND PHYSICAL EXAMINATION SERVICE DATE: 07/08/2023 SERVICE TIME: 10:20 AM PRIMARY CARE PHYSICIAN: Julia Tracey MD REASON FOR VISIT: Savannah Ko is a 32 year old female who is scheduled for RELEASE TARSAL TUNNEL (POSTERIOR TIBIAL NERVE DECOMPRESSION) - Left on 07/11/2023 at 2:10 PM at the request of Dr. Waters for pre-operative evaluation. The patient has the following: ACTIVE PROBLEM LIST Pre-Op Evaluation Achilles Tendinitis, Left Leg Subjective CHIEF COMPLAINT: Tarsal Tunnel Syndrome HPI: Savannah Ko is a 32-year-old female with no PMH that presents for pre-operative evaluation for a tarsal tunnel release (posterior tibial nerve decompression) on the left side on 07/11/23. Denies fevers, cough, shortness of breath, history of stroke, history of TN, history of CHF. History reviewed. No pertinent past medical history. PAST SURGICAL HISTORY Procedure Laterality Date LAPAROSCOPIC EXC ENDOMETRIOSIS/CYST 2018 REMOVAL GALLBLADDER 2014 REMOVAL OF OVARIAN CYST(S) Left 2019 No family history on file. SOCIAL HISTORY: Social History Tobacco Use Smoking status: Every Day Types: Cigarettes Smokeless tobacco: Never Tobacco comments: Vapes occasionally, 2-3 cigarettes a day Substance Use Topics Alcohol use: Yes Comment: occasionally, social drinking. Drug use: Never Prior to Admission medications as of 07/04/23 0944 Medication Sig Last Dose Taking aspirin, enteric coated (ASPIRIN, ENTERIC COATED) 81 mg EC tablet Take 81 mg by mouth once daily. No medication comments found. ALLERGIES Allergen Reactions Bactrim [Sulfametho* Hives, Swelling Clindamycin Hives, Itching Zoloft [Sertraline] Itching COVID VACCINATION STATUS: Fully vaccinated REVIEW OF SYSTEMS: PAIN ASSESSMENT: Pain Pain Level: 5 Pain Location: Ankle-Left Description: Stabbing, Aching Duration Units: Years Frequency: Intermittent General: No weight loss, malaise or fevers. 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 No neurological symptoms or problems. Respiratory: No history of current cough or dyspnea, or pneumonia in the past 6 weeks. No history of respiratory/pulmonary symptoms or problems. Cardiovascular: No history of HTN requiring medication, no history of angina, CHF, TN, cardiac surgery or stents. Denies rest pain, gangrene or revascularization/ampu tation for PVD. No history of cardiovascular symptoms or problems. GI: No history of GI symptoms or problems. No history of esophageal varices, recent ascites, or ETOH greater than 2 drinks per day. 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 : Denies, LMP 06/20/2023 Endocrine: No history of diabetes. Has not taken steroids within the past 30 days. No history of endocrinological symptoms or problems. Hematology: No history of bleeding or clotting disorder. Pt is not taking anti-coagulation or platelet medications. No history of hematological symptoms or problems. Oncology: No history of CA metastasis, chemo within 30 days, or radiotherapy within 90 days. Has not lost 10% of body wt in 6 months. No history of oncological symptoms or problems. Psych: Depression, not on any medications. Feels well at this time. Musculoskeletal: Negative for joint pain or swelling, back pain or muscle pain. +Left ankle pain (stabbing, aching, throbbing, sore for 1 month) Skin: Negative for lesions, rash and itching. Objective PHYSICAL EXAM: VITALS: BP 107/67 Pulse 74 Temp (Src) 98.7 (Temporal) Ht 5' 0 (1.52m) Wt 137 lb 11.2 oz (62.5kg) SpO2 98% LMP 06/20/2023 BMI 26.89 kg/(m2). General: Alert and oriented, No acute distress, Healthy appearance Skin: Normal color, no rash, no lesions. HEENT: EOM, pupils equal, round and reactive., No carotid bruits Cardiovascular: Normal S1 AND S2, no rubs, murmurs or gallops. Pulse regular. Lungs: Normal breath sounds, no wheezes or crackles. Abdomen: Soft, non-tender, no rigidity. Extremities: No deformities or swelling. Mild left ankle tenderness and bruising. Neurological: Normal cognition and motor skills. Gait normal. No weakness or sensory deficit. Pulses: Carotid and radial pulses normal +2. Diagnostic tests reviewed for today's visit: Lab Value Units Date High Low HB No results within date range. HCT No results within date range. WBC No results within date range. PLT No results within date range. NA No results within date range. K No results within date range. GLUC No results within date range. BUN No results within date range. CREAT No results within date range. (more content not included)... Normal [facility] 07-07-2023 [facility] Telephone (NEADFV) SAVANNAH KO ([id number]) 1990 F Date Time Provider Department 07/07/23 SERAFIN WATERS During your visit today, we recorded the following information about you: Gaurav Ralph 07/07/2023 11:52 AM Signed Received MRI left ankle report from [facility] dated 06/02/23. Scanned report into [employer]. Allergies As of Date: 07/07/2023 Noted Allergy Reaction BACTRIM (SULFAMETHOXAZOLE-TRIM ETH*07/04/2023 4 - Hives 7 - Swelling CLINDAMYCIN 07/04/2023 4 - Hives 9 - Itching ZOLOFT (SERTRALINE) 07/04/2023 9 - Itching Date Reviewed: 07/04/2023 Reviewed by: Yana Elmore MA - Fully Assessed Reason for Visit: Received Outside Medical Records [[id number]] Cmt: MRI left ankle report Prescriptions as of 07/16/2023 - oxyCODONE-acetaminophe n (PERCOCET) 5-325 mg tablet Take 1 tablet by mouth four times a day as needed for pain. - aspirin, enteric coated (ASPIRIN, ENTERIC COATED) 81 mg EC tablet Take 81 mg by mouth once daily. Problem List As Of Date: 07/07/2023 (None) Encounter Status:Closed by GAURAV RALPH on 07/16/23 [facility] CNCOon 07-04-2023 CNCO Letter Text [facility] CNOVon 07-04-2023 CNOV Office Visit (ORFWHP ) SAVANNAH KO ([id number]) 1990 F Date Time Provider Department 07/04/23 10:00 AM SERAFIN WATERS ORFWHP During your visit today, we recorded the following information about you: Serafin Waters DPM 07/04/2023 10:39 AM Signed PODIATRIC MEDICINE AND SURGERY OFFICE NOTE Complaint: Left tarsal tunnel syndrome HPI: This 32 year old female presents to the clinic today as a referral from Dr. Brownlee from [facility] for a complaint of tarsal tunnel syndrome of the left ankle. The patient did have a remote injury to the left ankle and 2020 but was placed into a boot and healed after that. The patient has had these neurological symptoms over the past 2 years explaining them as sharp when walking and standing and constant numbness. The patient also has throbbing after having rested at the end of the day. The patient has been seen by neurologist and had an EMG which will be reviewed as well. The patient also had an MRI which was uploaded into our system. No past medical history on file. No past surgical history on file. No current facility-administered medications for this visit. ALLERGIES Allergen Reactions Bactrim [Sulfametho* Hives, Swelling Clindamycin Hives, Itching Zoloft [Sertraline] Itching No family history on file. Social History Tobacco Use Smoking status: Former Types: Cigarettes Smokeless tobacco: Never Tobacco comments: Vapes occasionally ROSI Modifiable Risk Factors (MoRF) Obesity Unknown Risk High: BMI > 40 Moderate: BMI 30-40 Normal: BMI < 30 Diabetes normal High: A1C > 8 Moderate: A1C 7-8 Normal: A1C < 7 Smoking normal High: Current smoker Normal: Non smoker Anemia normal High: Hgb < 11.5 (women) N/A: Hgb >= 11.5 (women) Nutritional Status normal High: Alb<3.4, or prealb<15, or serum transferrin<200, or total lymphocyte count<1500 Normal: normal labs Narcotics Use normal High:NarxCare >=300 Moderate: 100-299 Normal: 0-99 Obesity: height and/or weight are out of date (There is no height and/or weight reading in the past 365 days, so the below BMI readings may be inaccurate) BMI Readings from Last 3 Encounters: No data found for BMI ------- REVIEW OF SYSTEMS: CONSTITUTIONAL: No fevers, chills, nightsweats, unintended weight loss HEENT: Denies frequent or severe headaches, nasal congestion/sinus symptoms, problematic allergy problems. EYES: No diplopia or blurry vision. CARDIOVASCULAR: No chest pain, dyspnea, palpitations, orthopnea, PND. PULM: No dyspnea, unexplained cough. GI: No dysphagia/odynophagia, problematic reflux, constipation, diarrhea, changes in stool habits, hematochezia, melena. : No new urinary complaints, including dysuria, gross hematuria or pyuria. NEURO: No new balance problems, peripheral weakness/paresthesias or numbness of concern. MUSC-SKEL: No new joint pain, swelling, or erythema. PSY: No concerns regarding depression, anxiety or panic. INTEGUMENTARY: Skin changes as noted below. I have confirmed and edited as necessary, the PFSH and ROS obtained by others. OBJECTIVE: Patient is oriented to person, place, and time and is in no acute distress. Vascular Exam: Dorsalis Pedis pulses are palpable bilateral. Posterior Tibial pulses are palpable bilateral. Capillary refill time brisk. Skin temperature of the bilateral lower extremity is warm to cool, proximal to distal. Varicosities are NOT observed bilaterally. Edema NOT noted. No palpable lymph nodes noted. Dermatological: Skin appears diffusely dry Skin is without notable erythema or ecchymosis. Webspaces are clean, dry, and intact bilateral. No open lesions. Neurological: Light touch sensation intact bilaterally. Gross sensation intact bilaterally. Protective sensation present at 5/5 non-callused sites randomly selected and tested bilaterally using a 5.07 SWMF. Positive Tinel on percussion of the tibial nerve around the level of the medial malleolus. Elicited numbness and sharp pains when maximally dorsiflexing and everting the rear foot on the left. Musculoskelatal: Muscle strength +5/5 for all pedal muscle groups bilaterally. No significant symptomatic limitations in pedal joint ROM bilaterally. Nerve Block: lower extremity Informed Consent Consent Obtained: Verbal [place] Protocol A moment to CARE was completed. SIGN IN Personnel directly involved with the procedure wore the appropriate PPE. Special Equipment: N/A Patient/Surrogate Stated/Verified: Patient name, Date of , Relevant allergies and Intended procedure TIME OUT Intended patient and procedure match the source document(s). Consent documented and matches the intended procedure. Relevant labs, photos, an (more content not included)... Normal [facility] CBC W MANUAL DIFFon 07-29-20 22 ATYPICAL LYMPH # Normal [facility] Comment on above: Performed By: #### C BCROSEY #### [facility] [address] [address] [address] Silas Ivey ATYPICAL LYMPH % Normal [facility] Comment on above: Performed By: #### C BCMAN #### [facility] [address] [place] [address] Dr. Silas Ivey BAND # 0.0 103/ul Normal 0.0-0.3 [facility] Comment on above: Performed By: #### C BCMAN #### [facility] [address] [place] [address] Dr. Silas Ivey BAND % 0 % Normal 0-5 [facility] Comment on above: Performed By: #### C MAGGY #### [facility] [address] [place] [address] Dr. Silas Ivey BASOM # 0.00 103/ul Normal 0.00-0.10 [facility] Comment on above: Performed By: #### C MAGGY #### [facility] [address] [place] [address] Dr. Silas Ivey BASOM % 0.0 % Critically low 0.2-2.0 [facility] Comment on above: Performed By: #### C MAGGY #### [facility] [address] [place] [address] Dr. Silas Ivey BLAST # Normal [facility] Comment on above: Performed By: #### C MAGGY #### [facility] [address] [place] [address] Dr. Silas Ivey BLAST % Normal [facility] Comment on above: Performed By: #### C MAGGY #### [facility] [address] [place] [address] Dr. Silas Ivey CORRECTED WBC Normal 4.0-11.0 [facility] Comment on above: Performed By: #### C MAGGY #### [facility] [address] [place] [address] Dr. Silas Ivey EOS # 0.00 103/ul Normal 0.00-0.[address] [facility] Comment on above: Performed By: #### C MAGGY #### [facility] [address] [address] [address] Silas Ivey EOS% 0.0 % Critically low 0.9-7.0 [facility] Comment on above: Performed By: #### C MAGGY #### [facility] [address] [address] [address] Silas Ivey HCT 36.7 % Normal 36.0-48.0 [facility] Comment on above: Performed By: #### C MAGGY #### [facility] [address] [address] [address] Silas Ivey HGB 12.1 g/dl Normal 12.0-16.0 [facility] Comment on above: Performed By: #### C MAGGY #### [facility] [address] [address] [address] Silas Ivey LYMPHM # 0.33 103/ul Critically low 1.20-3.80 [facility] Comment on above: Performed By: #### C MAGGY #### [facility] [address] [address] [address] Silas Ivey LYMPHM% 5.0 % Critically low 20.5-60.0 [facility] Comment on above: Performed By: #### C MAGGY #### [facility] [address] [address] [address] Silas Ivey MCH 28.1 pg Normal 26.7-34.0 [facility] Comment on above: Performed By: #### C MAGGY #### [facility] [address] [address] [address] Silas Ivey MCHC 33.0 g/dl Normal 29.9-35.2 [facility] Comment on above: Performed By: #### C MAGGY #### [facility] [address] [address] [address] Silas Ivey MCV 85.2 fL Normal 81.0-99.0 [facility] Comment on above: Performed By: #### C MAGGY #### [facility] [address] [address] [address] Silas Ivey METAMYELOCYTE # Normal [facility] Comment on above: Performed By: #### C IMANIMAN #### [facility] [address] [place] [address] Dr. Silas Ivey METAMYELOCYTE % Normal [facility] Comment on above: Performed By: #### C MAGGY #### [facility] [address] [address] [address] Silas Ivey MONOM# 0.53 103/ul Normal 0.30-0.80 [facility] Comment on above: Performed By: #### C MAGGY #### [facility] [address] [address] [address] Silas Ivey MONOM% 8.0 % Normal 1.7-12.0 [facility] Comment on above: Performed By: #### C MAGGY #### [facility] [address] [place] [address] Dr. Silas Ivey MPV 9.5 fL Normal 9.5-13.5 [facility] Comment on above: Performed By: #### C MAGGY #### [facility] [address] [place] [address] Dr. Silas Ivey MYELOCYTE # Normal [facility] Comment on above: Performed By: #### C MAGGY #### [facility] [address] [place] [address] Dr. Silas Ivey MYELOCYTE % Normal [facility] Comment on above: Performed By: #### C MAGGY #### [facility] [address] [place] [address] Dr. Silas Ivey NRBC Normal [facility] Comment on above: Performed By: #### C BCROSEY #### [facility] [address] [place] [address] Dr. Silas Ivey PLT 252 103/ul Normal 150-450 [facility] Comment on above: Performed By: #### C MAGGY #### [facility] [address] [place] [address] Dr. Silas Ivey RBC 4.31 106/ul Normal 4.20-5.40 [facility] Comment on above: Performed By: #### C IMANIMAN #### [facility] [address] [address] [address] Silas Ivey RDW 13.2 % Normal 11.0-15.0 [facility] Comment on above: Performed By: #### C IMANIMAN #### [facility] [address] [address] [address] Silas Ievy SEG # 5.74 103/ul Normal 1.40-6.50 [facility] Comment on above: Performed By: #### C IMANIMAN #### [facility] [address] [address] [address] Silas Ivey SEG % 87.0 % Critically high 43.0-75.0 [facility] Comment on above: Performed By: #### C MAGGY #### [facility] [address] [place] [address] Dr. Silas Ivey WBC 6.6 103/ul Normal 4.0-11.0 [facility] Comment on above: Performed By: #### C MAGGY #### [facility] [address] [place] [address] Dr. Silas Ivey PROF 14(COMP METB)on 022 Albumin [Mass/Vol] 3.9 g/dL Normal 3.4-5.0 [facility] Comment on above: Performed By: #### C MP #### [facility] [address] [place] [address] Dr. Silas Ivey Albumin/Globulin [Mass ratio] 1.0 {ratio} Normal [facility] Comment on above: Performed By: #### C MP #### [facility] [address] [address] [address] Silas Ivey ALP [Catalytic activity/Vol] 113 U/L Normal 46-[address] [facility] Comment on above: Performed By: #### C MP #### [facility] [address] [address] [address] Silas Ivey ALT [Catalytic activity/Vol] 15 U/L Normal 14-59 [facility] Comment on above: Performed By: #### C MP #### [facility] [address] [address] [address] Silas Ivey Anion gap [Moles/Vol] 9.4 mmol/L Normal [facility] Comment on above: Performed By: #### C MP #### [facility] [address] [address] [address] Silas Ivey AST [Catalytic activity/Vol] 15 U/L Normal 15-37 [facility] Comment on above: Performed By: #### C MP #### [facility] [address] [address] [address] Silas Ivey Bilirubin [Mass/Vol] 0.1 mg/dL Critically low 0.2-1.0 [facility] Comment on above: Performed By: #### C MP #### [facility] [address] [place] [address] Dr. Silas Ivey Calcium [Mass/Vol] 8.9 mg/dL Normal 8.5-10.1 [facility] Comment on above: Performed By: #### C MP #### [facility] [address] [address] [address] Silas Ivey Chloride [Moles/Vol] 103 mmol/L Normal 98-107 [facility] Comment on above: Performed By: #### C MP #### [facility] [address] [place] [address] Dr. Silas Ivey CO2 [Moles/Vol] 25.6 mmol/L Normal 21.0-32.0 [facility] Comment on above: Performed By: #### C MP #### [facility] [address] [place] [address] Dr. Silas Ivey Creatinine [Mass/Vol] 0.81 mg/dL Normal 0.55-1.02 [facility] Comment on above: Performed By: #### C MP #### [facility] [address] [place] [address] Dr. Silas Ivey EGFR-AF P[place]UA [place] >60 Normal >=60 [facility] Comment on above: Performed By: #### C MP #### [facility] [address] [address] [address] Silas Ivey EGFR-NON AF P[place] >60 Normal >=60 [facility] Comment on above: Performed By: #### C MP #### [facility] [address] [address] [address] Silas Ivey Globulin (S) [Mass/Vol] 4.0 g/dL Normal [facility] Comment on above: Performed By: #### C MP #### [facility] [address] [address] [address] Silas Ivey Glucose [Mass/Vol] 101 mg/dL Normal 74-106 [facility] Comment on above: Performed By: #### C MP #### [facility] [address] [address] [address] Silas Ivey Potassium [Moles/Vol] 4.0 mmol/L Normal 3.5-5.1 [facility] Comment on above: Performed By: #### C MP #### [facility] [address] [place] [address] Dr. Silas Ivey Protein [Mass/Vol] 7.9 g/dL Normal 6.4-8.2 [facility] Comment on above: Performed By: #### C MP #### [facility] [address] [address] [address] Silas Ivey Sodium [Moles/Vol] 134 mmol/L Critically low 136-145 [facility] Comment on above: Performed By: #### C MP #### [facility] [address] [address] [address] Silas Ivey Urea nitrogen [Mass/Vol] 19.0 mg/dL Critically high 7.0-18.0 [facility] Comment on above: Performed By: #### C MP #### [facility] [address] [place] [address] Dr. Silas Ivey Urea nitrogen/Creatinin e [Mass ratio] 23.5 mg/mg Normal [facility] Comment on above: Performed By: #### C MP #### [facility] [address] [place] [address] Dr. Silas Ivey XR CHEST 1 Von 07-29-2022 XR CHEST 1 V EXAM: XR CHEST 1 V HISTORY: Fever. COMPARISON: Chest radiograph dated 07/21/2020. TECHNIQUE: One view of the chest was obtained. FINDINGS: The cardiac silhouette is normal in size. The lungs are clear. There is no significant pneumothorax or pleural effusion. No acute osseous abnormality is seen. IMPRESSION: 1. No acute cardiopulmonary abnormality. Electronically authenticated by: Kamari COLE Date: 2022-07-28 22:38 Normal [address] [facility] Covid-19 PCR (CVDTB)on 07-18 SARS-CoV-2 (COVID-19) RNA EFRAIN+probe Ql (Unsp spec) Not detected Normal NOT DETECTED The [facility] Comment on above: Result Comment: This test is not yet approved or cleared by the [place] FDA. When there are no FDA-approved or cleared tests available, and other criteria are met, FDA can make tests available under an emergency access mechanism called an Emergency Use Authorization (EUA). The EUA for this test is supported by the [place] of Health and Human Service's (HHS's) declaration that circumstances exist to justify the emergency use of in vitro diagnostics for the detection and/or diagnosis of the virus that causes COVID-19. This EUA will remain in effect (meaning this test can be used) for the duration of the COVID-19 declaration justifying emergency of IVDs, unless it is terminated or revoked by FDA (after which the test may no longer be used). When diagnostic testing is negative, the possibility of a false negative should be considered in the context of a patient's recent exposures and the presence of clinical signs and symptoms consistent with SARS-CoV-2. Performed By: #### C VDTBH #### [facility] [address] [place] [address] Silas Ivey INFLUENZA A AND B AGon 07-28 INFLUENZA A AG Negative Normal NEGATIVE SEE COMMENT The [facility] Comment on above: Performed By: #### I NFLUAB #### [facility] [address] [place] [address] Silas Ivey INFLUENZA B AG Negative Normal NEGATIVE SEE COMMENT The [facility] Comment on above: Performed By: #### I NFLUAB #### [facility] [address] [address] [address] Silas Ivey INTERNAL CONTROLS Within Normal Limits Normal Wi thin Normal Limits [facility] Comment on above: Performed By: #### I NFLUAB #### [facility] [address] [address] [address] Silas Ivey PAP ACOG PANEL 2: 21 to 29on 05-06-2022 . . Normal [facility] Comment on above: Performed By: #### [id number] ####[facility] [address] [address]DrJames Ivey Age Gdln ACOG Testing - [facility] Comment on above: Performed By: #### [id number] ####[facility] [address] [address]DrJames Ivey DIAGNOSIS: Comment [facility] Comment on above: Result Comment: NEGA TIVE FOR INTRAEPITHELIAL LESION OR MALIGNANCY. Performed By: #### 4 [id number] ####[facility] [address] [place], [place] [address]Dr. Silas Ivey Methodology: Comment [facility] Comment on above: Result Comment: This liquid based ThinPrep(R) pap test was screened with the use of an image guided system. Performed By: #### [id number] ####[facility] [address] [address]DrJames Ivey Note: Comment [facility] Comment on above: Result Comment: The Pap smear is a screening test designed to aid in the detection of premalignant and malignant conditions of the uterine cervix. It is not a diagnostic procedure and should not be used as the sole means of detecting cervical cancer. Both false-positive and false-negative reports do occur. . Performed By: #### 4 [id number] ####[facility] [address] [address]DrJames Ivey Performed by: Comment Normal [facility] Comment on above: Result Comment: Raissa Martinez, Head Of Measurement & Insights (ASCP) Performed By: #### 4 [id number] ####[facility] [address] [place], [place] [address]Ol. Silas Ivey Reflex Criteria: Comment Normal The [facility] Comment on above: Result Comment: The HPV DNA reflex criteria were not met with this specimen result therefore, no HPV testing was performed. . Performed By: #### 4 [id number] ####[facility] [address] [place], [place] [address]Sv. Silas Ivey Specimen adequacy: Comment Normal The [facility] Comment on above: Result Comment: Sati sfactory for evaluation. Endocervical and/or squamous metaplastic cells (endocervical component) are present. Performed By: #### 4 [id number] ####[facility] [address] [id number]. Silas Ivey US PELVIS AND TRANSVAGon US PELVIS AND TRANSVAG EXAMINATION: US PELVIS AND TRANSVAG HISTORY: Pelvic and perineal pain COMPARISON: 04/12/2021 FINDINGS: The uterus is normal in size, contour and myometrial echotexture measuring 7.5 x 4.3 x 3.3 cm. Anteverted. No focal myometrial mass The endometrium measures 9 mm, normal The right ovary is normal in appearance measuring 2.2 x 1.7 x 1.4 cm. Normal color and Doppler flow. Left ovary is normal in appearance measuring 2.7 x 1.6 x 1.6 cm. Normal color and Doppler flow No free fluid IMPRESSION: Normal exam Electronically authenticated by: ROBBIE MONROY Date: 2022-05-03 16:11 [address] [facility]on SARS-CoV-2 (COVID-19) RNA EFRAIN+probe Ql (Unsp spec) Detected Critically abnormal NOT DETECTED The [facility] Comment on above: Result Comment: This test is not yet approved or cleared by the [place] FDA. When there are no FDA-approved or cleared tests available, and other criteria are met, FDA can make tests available under an emergency access mechanism called an Emergency Use Authorization (EUA). The EUA for this test is supported by the [place] of Health and Human Service's declaration that circumstances exist to justify the emergency use of in vitro diagnostics for the detection and/or diagnosis of the virus that causes COVID-19. This EUA will remain in effect for the duration of the COVID-19 declaration justifying emergency of IVDs, unless it is terminated or revoked by the FDA (after which the test may no longer be used). Performed By: #### C VDTBH #### [facility] [address] [place] [address] Dr. Silas Ivey ER URINE PROFILEon 2 Bilirubin Ql (U) Negative Normal NEGATIVE The [facility] Comment on above: Performed By: #### E RUR, PREGU #### [facility] [address] [place] [address] Dr. Silas Ivey Clarity (U) CLEAR Normal CLEAR [facility] Comment on above: Performed By: #### E RUR, PREGU #### [facility] [address] [place] [address] Dr. Silas Ivey Color (U) YELLOW Normal YELLOW [facility] Comment on above: Performed By: #### E RUR, PREGU #### [facility] [address] [place] [address] Dr. Silas LEROY A micrscopic examination will be performed if indicated. Normal The [facility] Comment on above: Performed By: #### E RUR, PREGU #### [facility] [address] [place] [address] Dr. Silas Ivey Glucose Ql (U) Negative Normal NEGATIVE The [facility] Comment on above: Performed By: #### E RUR, PREGU #### [facility] [address] [place] [address] Dr. Silas Ivey Hemoglobin Ql (U) Negative Normal NEGATIVE The [facility] Comment on above: Performed By: #### E RUR, PREGU #### [facility] [address] [place] [address] Dr. Silas Ivey Ketones Ql (U) Negative Normal NEGATIVE The [facility] Comment on above: Performed By: #### E RUR, PREGU #### [facility] [address] [place] [address] Dr. Silas Ivey LEUKOCYTES Negative Normal NEGATIVE [facility] Comment on above: Performed By: #### E RUR, PREGU #### [facility] [address] [place] [address] Dr. Silas Ivey Nitrite Ql (U) Negative Normal NEGATIVE [facility] Comment on above: Performed By: #### E RUR, PREGU #### [facility] [address] [place] [address] Dr. Silas Ivey pH (U) 5.5 [pH] Normal 5-9 [facility] Comment on above: Performed By: #### E RUR, PREGU #### [facility] [address] [place] [address] Dr. Silas Ivey SPEC GRAVITY >=1.030 Abnormal 1.005-<=1.025 [facility] Comment on above: Performed By: #### E RUR, PREGU #### [facility] [address] [place] [address] Dr. Silas Ivey UA PROTEIN Negative Normal NEGATIVE/ TRACE [facility] Comment on above: Performed By: #### E RUR, PREGU #### [facility] [address] [place] [address] Dr. Silas Ivey UR MICRO IND NOT INDICATED Normal The [facility] Comment on above: Performed By: #### E RUR, PREGU #### [facility] [address] [place] [address] Dr. Silas Ivey Urobilinogen Qn (U) 0.2 {[place]'U}/dL Normal 0.2 - 1.0 [facility] Comment on above: Performed By: #### E RUR, PREGU #### [facility] [address] [place] [address] Dr. Silas Ivey URon 01-19-2022 , QUAL Negative Normal NEGATIVE [facility] Comment on above: Performed By: #### E RUR, PREGU #### [facility] [address] [place] [address] Dr. Silas Ivey Covid-19 PCR ([facility])on 12-17 SARS-CoV-2 (COVID-19) RNA EFRAIN+probe Ql (Unsp spec) Not detected Normal NOT DETECTED [facility] Comment on above: Result Comment: When diagnostic testing is negative, the possibility of a false negative should be considered in the context of a patient's recent exposures and the presence of clinical signs and symptoms consistent with SARS-CoV-2. This test is not yet approved or cleared by the [place] FDA. When there are no FDA-approved or cleared tests available, and other criteria are met, FDA can make tests available under an emergency access mechanism called an Emergency Use Authorization (EUA). The EUA for this test is supported by the [place] of Health and Human Service's declaration that circumstances exist to justify the emergency use of in vitro diagnostics for the detection and/or diagnosis of the virus that causes COVID-19. This EUA will remain in effect for the duration of the COVID-19 declaration justifying emergency of IVDs, unless it is terminated or revoked by the FDA (after which the test may no longer be used). Performed By: #### C VDTBH #### [facility] [address] [address] [address] Silas Ivey GROUP A STREP CULTUREon 12-17 S. pyogenes Ag Ql (Unsp spec) Culture Observations: NEGATIVE FOR GROUP A STREPTOCOCCUS. Normal The [facility] Comment on above: Performed By: #### S SCRN GRASTCX ####[facility] [address] [id number]. Silas Ivey INFLUENZA A AND B AGon 01-11 INFLUANE SEE BELOW Normal [facility] Comment on above: Result Comment: Nega tive for Flu A protein angiten. Infection due to Flu A cannot be ruled out. Flu A angiten in the sample may be below the detection limit of the test. Performed By: #### I NFLUAB ####[facility] [address] [address]DrJames Ivey INFLUBNEGH SEE BELOW Normal [facility] Comment on above: Result Comment: Nega tive for Flu B protein antigen. Infection due to Flu B cannot be ruled out. Flu B antigen in the sample may be below the detection limit of the test. Performed By: #### I NFLUAB ####[facility] [address] [place], [place] [address]Gy. Silas Ivey INFLUENZA A AG Negative Normal NEGATIVE SEE COMMENT The [facility] Comment on above: Performed By: #### I NFLUAB ####[facility] [address] [place], [place] [address]Hy. Silas Ivey INFLUENZA B AG Negative Normal NEGATIVE SEE COMMENT [facility] Comment on above: Performed By: #### I NFLUAB ####[facility] [address] [place], [place] [address]Uy. Silas Ivey INTERNAL CONTROLS Within Normal Limits Normal Wi thin Normal Limits [facility] Comment on above: Performed By: #### I NFLUAB ####[facility] [address] [id number]. Silas Uche STREPT SCREENon 01-11-2022 STREP SCREEN A Negative Normal NEGATIVE [facility] Comment on above: Performed By: #### S SCRN, GRASTCX ####[facility] [address] [id number]. Silas Ivey Vital Signs Date Time Vital Sign Value Performing Clinician Faci lity 07-08-2023 10:10-0500 Body height 152.4 cm Pac 7 Work Phone: [facility] 07-08-2023 10:10-0500 Body temperature 98.71 [degF] Pac 7 Work Phone: [facility] 07-08-2023 10:10-0500 Body weight 62.46 kg Pac 7 Work Phone: [facility] 07-08-2023 10:10-0500 Diastolic blood pressure 67 mm[Hg] Pacc 7 Work Phone: [facility] 07-08-2023 10:10-0500 Heart rate 74 /min Pac 7 Work Phone: [facility] 07-08-2023 10:10-0500 SaO2% (BldA) [Mass fraction] 98 % Pac 7 Work Phone: [facility] 07-08-2023 10:10-0500 Systolic blood pressure 107 mm[Hg] Pacc 7 Work Phone: [facility] Encounters Encounter Date Encounter Type Care Provider Facility Start: 05-26-2024 End: 05-26-2024 Refill Canturosey Waters DPM Work Phone: [facility] Comment on above: Refill Request Start: 03-02-2024 End: 03-03-2024 Emergency department patient visit MARQUEZ GILLIAM [facility] Start: 02-02-2024 End: 02-02-2024 Patient encounter procedure Serafin Waters DPM Work Phone: [facility] Comment on above: 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); Lesion of left tibial nerve Start: 02-02-2024 End: 02-02-2024 ambulatory SERAFIN WATERS Facility:[facility] Start: 12-17-2023 End: 01-17-2024 ambulatory CANTU [facility] Start: 11-27-2023 End: 12-17-2023 ambulatory CANTU [facility] Start: 11-18-2023 ambulatory Cantu Jose Margarettebrittadebbie DPM Work Phone: [facility] Comment on above: Pain Management Info Start: 11-18-2023 E-mail encounter fro m caregiver Canturosey Hernandezr Margarettebrittadebbie DPM Work Phone: [facility] Start: 11-03-2023 End: 11-03-2023 Patient encounter procedure Serafin Waters DPM Work Phone: [facility] Comment on above: 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); Lesion of left tibial nerve Start: 11-03-2023 End: 11-03-2023 Subsequent hospital visit by physician [facility] Comment on above: Acute left ankle portia n [M25.572] Start: 11-03-2023 End: 11-03-2023 ambulatory Serafin Waters DPM Work Phone: [facility] Comment on above: Work papers accommod ations Start: 10-17-2023 End: 11-17-2023 ambulatory SERAFIN WATERS [facility] Start: 09-24-2023 Orders Only Serafin Waters DPM Work Phone: [facility] Comment on above: Acute left ankle portia n (Primary Dx) Start: 09-18-2023 End: 10-17-2023 ambulatory CANTUROSEY WATERS [facility] Start: 09-15-2023 ambulatory Serafin Waters DPM Work Phone: [facility] Comment on above: Question about shoes Start: 09-05-2023 End: 09-05-2023 ambulatory [facility] Start: 09-05-2023 End: 09-05-2023 Patient encounter procedure Serafin Waters DPM Work Phone: [facility] Comment on above: 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); Lesion of left tibial nerve Start: 08-18-2023 ambulatory Fouzia Sierra RN NU [employer] [employer] Comment on above: Information Start: 08-08-2023 End: 09-18-2023 ambulatory CANTUROSEY WATERS [facility] Start: 08-08-2023 End: 08-08-2023 [facility] Start: 07-25-2023 End: 07-25-2023 Patient encounter procedure Serafin Waters DPM Work Phone: [facility] Comment on above: 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); Lesion of left tibial nerve Start: 07-25-2023 End: 07-25-2023 ambulatory SERAFIN WATERS Facility:[facility] Start: 07-15-2023 Telephone encounter Serafin Waters DPM Work Phone: [facility] Start: 07-14-2023 ambulatory Maddi Cheatham RN NURSE [employer] DEVELOPER Comment on above: Information Start: 07-11-2023 End: 07-11-2023 ambulatory Tanya Treivno RN [facility] Start: 07-11-2023 Follow-up encounter Tanya Trevino RN NURSE [employer] DEVELOPER Comment on above: Follow Up Start: 07-08-2023 Encounter for other preprocedural examination JULIA TRACEY [facility] Start: 07-08-2023 End: 07-08-2023 Admission to establishment Pacc Main 7 Work Phone: [facility] Start: 07-08-2023 End: 07-09-2023 ambulatory Pac Main 7 Work Phone: Pre Anesthesia Comment on above: Pre-op evaluation; Achilles tendinitis, left leg Start: 07-08-2023 End: 07-08-2023 Preprocedural examination done Pac Main 7 Work Phone: [facility] Work Phone: Start: 07-07-2023 Orders Only Serafin Waters DPM Work Phone: [facility] Comment on above: Tarsal tunnel syndro me, left (Primary Dx); Soft tissue mass Received Outside Med [facility] Records (MRI left ankle report) Start: 07-04-2023 End: 07-04-2023 ambulatory ASHIA BROWNLEE Facility:[facility] Start: 07-28-2022 End: 07-29-[address] MIROSLAVA FITZPATRICK Facility: Start: 05-02-2022 End: 05-03-[address] ADWOA SARAVIA . Facility:[facility] Start: 04-30-2022 End: 04-30-[address] ADWOA SARAVIA . Facility:[facility] Start: 03-26-2022 End: 03-26-2022 ambulatory ANN OCHOA . Facility:[facility] Start: 01-19-2022 End: 01-19-[address] JULIA TRACEY Facility:[facility] Start: 01-11-2022 End: 01-11-[address] JOSH MORRISON . Facility: Procedures Date Procedure Procedure Detail Performing Clinician Start: 11-03-2023 Follow-up visit Follow Up SERAFIN WATERS Plan of Treatment Date Care Activity Detail Author Start: 04-23-2026 Urine microalbumin profile DTaP,Tdap,Td Vaccine (2 - Td or Tdap) [facility] Start: 04-18-2024 Covid-19 Vaccine () Covid-19 Vaccine () [facility] Start: 04-18-2024 Influenza vaccination C [facility] Start: 08-18-2023 Behavioral Health Screening Behavioral Health Screening [facility] Start: 08-18-2023 Depression Assessment Depression Ass essment [facility] Start: 04-18-2023 Covid-19 Vaccine () Covid-19 Vaccine () [facility] Start: 04-18-2023 Influenza vaccination Influenza Vacc ine (#1) [facility] Start: 2022 HPV Testing HPV Testing [facility] Start: 2022 Screening for malign ant neoplasm of cervix HPV Testing [facility] Start: 08-18-2022 [facility] Start: 03-21-2022 Hepatitis B Vaccine (2 of 2 - CpG 2-dose series) Hepatitis B Vaccine (2 of 2 - CpG 2-dose series) [facility] Start: 2013 Pap Testing Pap Testing [facility] Start: 2013 Screening for malign ant neoplasm of cervix [facility] Start: 2010 Anxiety Screening Anxiety Screening [facility] Start: 2010 Depression Screening Depression Scre ening [facility] Start: 2010 Hepatitis C Screening Hepatitis C [facility] Start: 2010 Hepatitis C screening Hepatitis C [facility] Start: 2010 HIV Screening HIV Screening [facility] Start: 2010 HIV screening HIV Screening [facility] Start: 1998 Pneumococcal vaccination [facility] XR Ankle - left AP a nd Lateral and oblique XR ANKLE GENERAL 3V AP/LAT/OBL LEFT Radiology Routine Acute left ankle pain 11/03/2023 2:32 PM EDT [facility] Work Phone: End: 10-23-2024 XR ANKLE GENERAL 3V AP/LAT/OBL LEFT XR ANKLE GENERAL 3V AP/LAT/OBL LEFT Radiology Routine Acute left ankle pain 1 Occurrences starting 09/24/2023 until 10/23/2024 [facility] Work Phone: Comment on above: 1 Occurrences starti ng 09/24/2023 until 10/23/2024 [facility] Immunizations Immunization Date Immunization Notes Care Provider Guerita rahman 06-07-2019 influenza virus vaccine, unspecified formulation Serafin Waters DPRaine Work Phone: [facility] Payers Date Payer Category Payer Unknown [id number] 2023 Medicaid [facility] MEDICAID [id number] 2023-Present [phone] [address] [place] [address] Medicaid [id number] 2023 Medicaid [id number] 1992 Unknown [id number] [id number] 1992 Unknown [id number] 2.16840.1.649863.3.579.2.593 1992 Unknown [id number] 2.16840.1.055457.3.579.2.593 1992 Unknown [id number] 2.16840.1.082877.3.579.2.593 1992 Unknown [id number] 2.16840.1.009724.3.579.2.593 1992 Unknown [id number] 2.16.840.1.925849.3.579.2.593 1992 Unknown [id number] 2.16.840.1.126043.3.579.2.1286 1992 Unknown [id number] 2.16.840.1.587894.3.579.2.1286 1992 Unknown [id number] 2.16.840.1.964610.3.579.2.1286 1992 Unknown [id number] 2.16.840.1.211145.3.579.2.1285 1992 Unknown [id number] 2.16.840.1.889519.3.579.2.1285 1992 Unknown [id number] 2.16.840.1.291842.3.579.2.1285 1992 Unknown [id number] 2.16.840.1.916791.3.579.2.1285 1992 Unknown [id number] 2.16.840.1.983557.3.579.2.1285 1992 Unknown [id number] 2.16.840.1.963672.3.579.2.1285 1992 Unknown [id number] 2.16.840.1.017433.3.579.2.[facility]6 1959 Unknown [id number] 1957 Unknown [id number] Social History Date Type Detail Facility Start: 07-04-2023 Tobacco smoking status NHIS Ex-smoker [facility] History of tobacco use Current smoker [facility] History of tobacco use Cigarette Smoker [facility] Start: 07-04-2023 End: 07-08-2023 Tobacco use and exposure Smokeless tobacco non-user [facility] Start: 07-04-2023 End: 01-26-2024 History of Social function [facility] Start: 07-04-2023 End: 01-26-2024 Tobacco use panel [facility] National Score (1-100), lower number is lower risk 92 [facility] Start: 07-04-2023 Tobacco Comment Vapes occasionally C [facility] Start: 1990 Sex Assigned At Not on file C [facility] Start: 07-08-2023 Tobacco smoking status MDIS Smokes tobacco daily [facility] Work Phone: Start: 07-08-2023 End: 02-02-2024 Alcohol intake Current drinker of alcohol (finding) [facility] Start: 07-08-2023 Tobacco Comment Vapes occasion ally, 2-3 cigarettes a day [facility] Start: 07-08-2023 Alcohol Comment occasionally, social drinking. [facility] Medical Equipment Procedure Code Equipment Code Equipment Origin al Text Equipment Identifier Dates Protector Nrv 7m m 4cm Strl Neurawrap Abs Bcmpt Bvn Clgn Bertha [id number] Start: 07-11-2023 Clinical Notes 07-04-2023 to 02-02-2024 Serafin Waters DPM - 02/02/2024 1:20 PM EDTTelephone Encounter - Jennifer Bailey RN - 11/18/2023 3:29 PM EDTTelephone Encounter - Jennifer Bailey RN - 11/05/2023 8:18 AM EDT Note Date & Type Note Facility 02-02-2024 Note HNO ID: [id number] Author: SERAFIN WATERS DPM Service: ? Author Type: Physician Type: Progress Notes Filed: 02/02/2024 14:15 Note Text: PODIATRIC MEDICINE AND SURGERY OFFICE NOTE Complaint: Left tarsal tunnel syndrome status post tibial nerve release HPI: This 33 year old female presents to the clinic today for a follow-up status post left tarsal tunnel release. Patient doing extremely well and states she only has occasional numbness some days to her toes only. Otherwise the patient is doing extremely well. Patient states she just got back from a trip to [place] and states that she was doing a lot of walking and had only soreness which was bilateral. Otherwise no pain to her previously extremely painful left ankle. Patient is going back to full-time work starting on February 16 and is okay with this. She is also completed her physical therapy. Patient denies any constitutional symptoms. Patient denies any calf or thigh pain. No past medical history on file. PAST SURGICAL HISTORY Procedure Laterality Date LAPAROSCOPIC EXC ENDOMETRIOSIS/CYST 2018 REMOVAL GALLBLADDER 2014 REMOVAL OF OVARIAN CYST(S) Left 2019 No current facility-administered medications for this visit. ALLERGIES Allergen Reactions Bactrim [Sulfametho* Hives, Swelling Clindamycin Hives, Itching Zoloft [Sertraline] Itching No family history on file. Social History Tobacco Use Smoking status: Every Day Types: Cigarettes Smokeless tobacco: Never Tobacco comments: Vapes occasionally, 2-3 cigarettes a day Substance Use Topics Alcohol use: Yes Comment: occasionally, social drinking. Drug use: Never ROSI Modifiable Risk Factors (MoRF) Obesity Unknown Risk High: BMI > 40 Moderate: BMI 30-40 Normal: BMI < 30 Diabetes normal High: A1C > 8 Moderate: A1C 7-8 Normal: A1C < 7 Smoking normal High: Current smoker Normal: Non smoker Anemia normal High: Hgb < 11.5 (women) N/A: Hgb >= 11.5 (women) Nutritional Status normal High: Alb<3.4, or prealb<15, or serum transferrin<200, or total lymphocyte count<1500 Normal: normal labs Narcotics Use normal High:NarxCare >=300 Moderate: 100-299 Normal: 0-99 Obesity: height and/or weight are out of date (There is no height and/or weight reading in the past 365 days, so the below BMI readings may be inaccurate) BMI Readings from Last 3 Encounters: 07/08/23 : 26.89 kg/m? ------ REVIEW OF SYSTEMS: CONSTITUTIONAL: No fevers, chills, nightsweats, unintended weight loss HEENT: Denies frequent or severe headaches, nasal congestion/sinus symptoms, problematic allergy problems. EYES: No diplopia or blurry vision. CARDIOVASCULAR: No chest pain, dyspnea, palpitations, orthopnea, PND. PULM: No dyspnea, unexplained cough. GI: No dysphagia/odynophagia, problematic reflux, constipation, diarrhea, changes in stool habits, hematochezia, melena. : No new urinary complaints, including dysuria, gross hematuria or pyuria. NEURO: No new balance problems, peripheral weakness/paresthesias or numbness of concern. MUSC-SKEL: No new joint pain, swelling, or erythema. PSY: No concerns regarding depression, anxiety or panic. INTEGUMENTARY: Skin changes as noted below. I have confirmed and edited as necessary, the PFSH and ROS obtained by others. OBJECTIVE: Patient is oriented to person, place, and time and is in no acute distress. Vascular Exam: Dorsalis Pedis pulses are palpable bilateral. Posterior Tibial pulses are palpable bilateral. Capillary refill time brisk. Skin temperature of the bilateral lower extremity is warm to cool, proximal to distal. Varicosities are NOT observed bilaterally. Edema NOT noted. No palpable lymph nodes noted. Dermatological: Skin appears diffusely dry Skin is without notable erythema or ecchymosis. Webspaces are clean, dry, and intact bilateral. No open lesions. Incision well healed. Neurological: Light touch sensation intact bilaterally. Gross sensation intact bilaterally. Protective sensation present at 5/5 non-callused sites randomly selected and tested bilaterally using a 5.07 SWMF. Negative Tinel on percussion of the tibial nerve on the left. Musculoskelatal: Muscle strength +5/5 for all pedal muscle groups bilaterally. No significant symptomatic limitations in pedal joint ROM bilaterally. ASSESSMENT AND PLAN: Discussion with the patient today including questions and answers regarding the etiology and treatment options for the current problems. Tarsal tunnel syndrome left ankle - Status post tarsal tunnel release - Patient is doing extremely well. She has completed her physical therapy and she will discontinue this at home any activities that she was doing previously with physical therapy. - Patient is cleared to return to full-time work starting on February 16. Otherwise she will be s (more content not included)... [facility] 02-02-2024 History of Presen t illness Narrative Images from the original note were not included. PODIATRIC MEDICINE & SURGERY OFFICE NOTE Complaint: Left tarsal tunnel syndrome status post tibial nerve release HPI: This 33 year old female presents to the clinic today for a follow-up status post left tarsal tunnel release. Patient doing extremely well and states she only has occasional numbness some days to her toes only. Otherwise the patient is doing extremely well. Patient states she just got back from a trip to [place] and states that she was doing a lot of walking and had only soreness which was bilateral. Otherwise no pain to her previously extremely painful left ankle. Patient is going back to full-time work starting on February 16 and is okay with this. She is also completed her physical therapy. Patient denies any constitutional symptoms. Patient denies any calf or thigh pain. No past medical history on file. PAST SURGICAL HISTORY Procedure Laterality Date LAPAROSCOPIC EXC ENDOMETRIOSIS/CYST 2018 REMOVAL GALLBLADDER 2014 REMOVAL OF OVARIAN CYST(S) Left 2019 No current facility-administered medications for this visit. ALLERGIES Allergen Reactions Bactrim [Sulfametho* Hives, Swelling Clindamycin Hives, Itching Zoloft [Sertraline] Itching No family history on file. Social History Tobacco Use Smoking status: Every Day Types: Cigarettes Smokeless tobacco: Never Tobacco comments: Vapes occasionally, 2-3 cigarettes a day Substance Use Topics Alcohol use: Yes Comment: occasionally, social drinking. Drug use: Never ROSI Modifiable Risk Factors (MoRF) Obesity Unknown Risk High: BMI > 40 Moderate: BMI 30-40 Normal: BMI < 30 Diabetes normal High: A1C > 8 Moderate: A1C 7-8 Normal: A1C < 7 Smoking normal High: Current smoker Normal: Non smoker Anemia normal High: Hgb < 11.5 (women) N/A: Hgb >= 11.5 (women) Nutritional Status normal High: Alb<3.4, or prealb<15, or serum transferrin<200, or total lymphocyte count<1500 Normal: normal labs Narcotics Use normal High:NarxCare >=300 Moderate: 100-299 Normal: 0-99 Obesity: height and/or weight are out of date (There is no height and/or weight reading in the past 365 days, so the below BMI readings may be inaccurate) BMI Readings from Last 3 Encounters: 07/08/23 : 26.89 kg/m REVIEW OF SYSTEMS: CONSTITUTIONAL: No fevers, chills, nightsweats, unintended weight loss HEENT: Denies frequent or severe headaches, nasal congestion/sinus symptoms, problematic allergy problems. EYES: No diplopia or blurry vision. CARDIOVASCULAR: No chest pain, dyspnea, palpitations, orthopnea, PND. PULM: No dyspnea, unexplained cough. GI: No dysphagia/odynophagia, problematic reflux, constipation, diarrhea, changes in stool habits, hematochezia, melena. : No new urinary complaints, including dysuria, gross hematuria or pyuria. NEURO: No new balance problems, peripheral weakness/paresthesias or numbness of concern. MUSC-SKEL: No new joint pain, swelling, or erythema. PSY: No concerns regarding depression, anxiety or panic. INTEGUMENTARY: Skin changes as noted below. I have confirmed and edited as necessary, the PFSH and ROS obtained by others. OBJECTIVE: Patient is oriented to person, place, and time and is in no acute distress. Vascular Exam: Dorsalis Pedis pulses are palpable bilateral. Posterior Tibial pulses are palpable bilateral. Capillary refill time brisk. Skin temperature of the bilateral lower extremity is warm to cool, proximal to distal. Varicosities are NOT observed bilaterally. Edema NOT noted. No palpable lymph nodes noted. Dermatological: Skin appears diffusely dry Skin is without notable erythema or ecchymosis. Webspaces are clean, dry, and intact bilateral. No open lesions. Incision well healed. Neurological: Light touch sensation intact bilaterally. Gross sensation intact bilaterally. Protective sensation present at 5/5 non-callused sites randomly selected and tested bilaterally using a 5.07 SWMF. Negative Tinel on percussion of the tibial nerve on the left. Musculoskelatal: Muscle strength +5/5 for all pedal muscle groups bilaterally. No significant symptomatic limitations in pedal joint ROM bilaterally. ASSESSMENT & PLAN: Discussion with the patient today including questions and answers regarding the etiology and treatment options for the current problems. Tarsal tunnel syndrome left ankle - Status post tarsal tunnel release - Patient is doing extremely well. She has completed her physical therapy and she will discontinue this at home any activities that she was doing previously with physical therapy. - Patient is cleared to return to full-time work starting on February 16. Otherwise she will be seen as needed. All questions answered to the patient's apparent satisfaction. No further questions at this time. Patient to be seen in clinic on an as-needed basis. Dr. Serafin Waters DPM I spent a total of 25 minutes on the date of the service which included preparing to see the patient, [id number] patient care, completing clinical documentation, obtaining and/or reviewing separately obtained history, performing a medically appropriate examination, counseling and educating the patient/family/caregiver, and ordering medications, tests, or procedures. documented in this encounter [facility] 11-18-2023 Miscellaneous Notes 1445: Received a message on my work cell phone requesting information about pain management. 1515: Called and spoke to Dr. Waters prior to calling patient back so as to have the appropriate plan going forward for patient. 1535: Spoke with patient. Explained that she needed to continue with compression as swelling will irritate her condition, and she stated that she would look into getting compression socks. Also to elevate her leg as often as possible. Suggested Acetaminophen With Ibuprofen. Explained the schedule and how to correctly dose. Explained that at this point she is very far out of the postoperative phase and we would not be able to prescribe any narcotic pain medication. Offered to set her up with a pain management referral. Patient stated that she would wait on the pain management referral, but would attempt the compression, and alternating acetaminophen and ibuprofen. Stated that if pain increases to make a f/u appointment with us, and we could also adjust her work restrictions if necessary. Thank you, Jennifer, RN, BSN documented in this encounter [facility] 11-05-2023 Miscellaneous Notes Abilio Sullivan, Here are the completed forms. Can you please print and scan them into her chart. Thank you Jennifer documented in this encounter [facility] 11-03-2023 Note HNO ID: [id number] Author: SERAFIN WATERS DPM Service: ? Author Type: Physician Type: Progress Notes Filed: 11/05/2023 09:24 Note Text: PODIATRIC MEDICINE AND SURGERY OFFICE NOTE Complaint: Left tarsal tunnel syndrome status post tibial nerve release HPI: This 32 year old female presents to the clinic today for a follow-up status post left tarsal tunnel release. Patient is doing extremely well. She is in no pain. She is ready to go back to work as well. Patient is rating her pain a 0 out of 10 on the pain scale. States she is still doing therapy which is continuing to help. Patient denies any constitutional symptoms. Patient denies any calf or thigh pain. No past medical history on file. PAST SURGICAL HISTORY Procedure Laterality Date LAPAROSCOPIC EXC ENDOMETRIOSIS/CYST 2018 REMOVAL GALLBLADDER 2014 REMOVAL OF OVARIAN CYST(S) Left 2018 No current facility-administered medications for this visit. ALLERGIES Allergen Reactions Bactrim [Sulfametho* Hives, Swelling Clindamycin Hives, Itching Zoloft [Sertraline] Itching No family history on file. Social History Tobacco Use Smoking status: Every Day Types: Cigarettes Smokeless tobacco: Never Tobacco comments: Vapes occasionally, 2-3 cigarettes a day Substance Use Topics Alcohol use: Yes Comment: occasionally, social drinking. Drug use: Never Current Opioids Analgesic Opioid Oxycodone Combinations Start End oxyCODONE-acetaminophen (PERCOCET) 5-325 mg tablet 07/25/2023 -- Sig - Route: Take 1 tablet by mouth every 6 hours as needed for pain. for pain. - ORAL Patient not taking: Reported on 08/08/2023 Earliest Fill Date: 07/25/2023 Analgesic Opioid Oxycodone and Non-Salicylate Combinations Start End oxyCODONE-acetaminophen (PERCOCET) 5-325 mg tablet 07/25/2023 -- Sig - Route: Take 1 tablet by mouth every 6 hours as needed for pain. for pain. - ORAL Patient not taking: Reported on 08/08/2023 Earliest Fill Date: 07/25/2023 ROSI Modifiable Risk Factors (MoRF) Obesity Unknown Risk High: BMI > 40 Moderate: BMI 30-40 Normal: BMI < 30 Diabetes normal High: A1C > 8 Moderate: A1C 7-8 Normal: A1C < 7 Smoking normal High: Current smoker Normal: Non smoker Anemia normal High: Hgb < 11.5 (women) N/A: Hgb >= 11.5 (women) Nutritional Status normal High: Alb<3.4, or prealb<15, or serum transferrin<200, or total lymphocyte count<1500 Normal: normal labs Narcotics Use normal High:NarxCare >=300 Moderate: 100-299 Normal: 0-99 Obesity: height and/or weight are out of date (There is no height and/or weight reading in the past 365 days, so the below BMI readings may be inaccurate) BMI Readings from Last 3 Encounters: 07/08/23 : 26.89 kg/m? ------ REVIEW OF SYSTEMS: CONSTITUTIONAL: No fevers, chills, nightsweats, unintended weight loss HEENT: Denies frequent or severe headaches, nasal congestion/sinus symptoms, problematic allergy problems. EYES: No diplopia or blurry vision. CARDIOVASCULAR: No chest pain, dyspnea, palpitations, orthopnea, PND. PULM: No dyspnea, unexplained cough. GI: No dysphagia/odynophagia, problematic reflux, constipation, diarrhea, changes in stool habits, hematochezia, melena. : No new urinary complaints, including dysuria, gross hematuria or pyuria. NEURO: No new balance problems, peripheral weakness/paresthesias or numbness of concern. MUSC-SKEL: No new joint pain, swelling, or erythema. PSY: No concerns regarding depression, anxiety or panic. INTEGUMENTARY: Skin changes as noted below. I have confirmed and edited as necessary, the PFSH and ROS obtained by others. OBJECTIVE: Patient is oriented to person, place, and time and is in no acute distress. Vascular Exam: Dorsalis Pedis pulses are palpable bilateral. Posterior Tibial pulses are palpable bilateral. Capillary refill time brisk. Skin temperature of the bilateral lower extremity is warm to cool, proximal to distal. Varicosities are NOT observed bilaterally. Edema NOT noted. No palpable lymph nodes noted. Dermatological: Skin appears diffusely dry Skin is without notable erythema or ecchymosis. Webspaces are clean, dry, and intact bilateral. No open lesions. Incision well healed. Neurological: Light touch sensation intact bilaterally. Gross sensation intact bilaterally. Protective sensation present at 5/5 non-callused sites randomly selected and tested bilaterally using a 5.07 SWMF. Musculoskelatal: Muscle strength +5/5 for all pedal muscle groups bilaterally. No significant symptomatic limitations in pedal joint ROM bilaterally. ASSESSMENT AND PLAN: Discussion with the patient today including questions and answers regarding the etiology and treatment options for the current problems. Tarsal tunnel syndrome left ankle - Status post tarsal tunnel release - Patient is (more content not included)... [facility] 11-03-2023 History of Presen t illness Narrative Images from the original note were not included. PODIATRIC MEDICINE & SURGERY OFFICE NOTE Complaint: Left tarsal tunnel syndrome status post tibial nerve release HPI: This 32 year old female presents to the clinic today for a follow-up status post left tarsal tunnel release. Patient is doing extremely well. She is in no pain. She is ready to go back to work as well. Patient is rating her pain a 0 out of 10 on the pain scale. States she is still doing therapy which is continuing to help. Patient denies any constitutional symptoms. Patient denies any calf or thigh pain. No past medical history on file. PAST SURGICAL HISTORY Procedure Laterality Date LAPAROSCOPIC EXC ENDOMETRIOSIS/CYST 2018 REMOVAL GALLBLADDER 2014 REMOVAL OF OVARIAN CYST(S) Left 2019 No current facility-administered medications for this visit. ALLERGIES Allergen Reactions Bactrim [Sulfametho* Hives, Swelling Clindamycin Hives, Itching Zoloft [Sertraline] Itching No family history on file. Social History Tobacco Use Smoking status: Every Day Types: Cigarettes Smokeless tobacco: Never Tobacco comments: Vapes occasionally, 2-3 cigarettes a day Substance Use Topics Alcohol use: Yes Comment: occasionally, social drinking. Drug use: Never Current Opioids Analgesic Opioid Oxycodone Combinations Start End oxyCODONE-acetaminophen (PERCOCET) 5-325 mg tablet 07/25/2023 -- Sig - Route: Take 1 tablet by mouth every 6 hours as needed for pain. for pain. - ORAL Patient not taking: Reported on 08/08/2023 Earliest Fill Date: 07/25/2023 Analgesic Opioid Oxycodone and Non-Salicylate Combinations Start End oxyCODONE-acetaminophen (PERCOCET) 5-325 mg tablet 07/25/2023 -- Sig - Route: Take 1 tablet by mouth every 6 hours as needed for pain. for pain. - ORAL Patient not taking: Reported on 08/08/2023 Earliest Fill Date: 07/25/2023 ROSI Modifiable Risk Factors (MoRF) Obesity Unknown Risk High: BMI > 40 Moderate: BMI 30-40 Normal: BMI < 30 Diabetes normal High: A1C > 8 Moderate: A1C 7-8 Normal: A1C < 7 Smoking normal High: Current smoker Normal: Non smoker Anemia normal High: Hgb < 11.5 (women) N/A: Hgb >= 11.5 (women) Nutritional Status normal High: Alb<3.4, or prealb<15, or serum transferrin<200, or total lymphocyte count<1500 Normal: normal labs Narcotics Use normal High:NarxCare >=300 Moderate: 100-299 Normal: 0-99 Obesity: height and/or weight are out of date (There is no height and/or weight reading in the past 365 days, so the below BMI readings may be inaccurate) BMI Readings from Last 3 Encounters: 07/08/23 : 26.89 kg/m REVIEW OF SYSTEMS: CONSTITUTIONAL: No fevers, chills, nightsweats, unintended weight loss HEENT: Denies frequent or severe headaches, nasal congestion/sinus symptoms, problematic allergy problems. EYES: No diplopia or blurry vision. CARDIOVASCULAR: No chest pain, dyspnea, palpitations, orthopnea, PND. PULM: No dyspnea, unexplained cough. GI: No dysphagia/odynophagia, problematic reflux, constipation, diarrhea, changes in stool habits, hematochezia, melena. : No new urinary complaints, including dysuria, gross hematuria or pyuria. NEURO: No new balance problems, peripheral weakness/paresthesias or numbness of concern. MUSC-SKEL: No new joint pain, swelling, or erythema. PSY: No concerns regarding depression, anxiety or panic. INTEGUMENTARY: Skin changes as noted below. I have confirmed and edited as necessary, the PFSH and ROS obtained by others. OBJECTIVE: Patient is oriented to person, place, and time and is in no acute distress. Vascular Exam: Dorsalis Pedis pulses are palpable bilateral. Posterior Tibial pulses are palpable bilateral. Capillary refill time brisk. Skin temperature of the bilateral lower extremity is warm to cool, proximal to distal. Varicosities are NOT observed bilaterally. Edema NOT noted. No palpable lymph nodes noted. Dermatological: Skin appears diffusely dry Skin is without notable erythema or ecchymosis. Webspaces are clean, dry, and intact bilateral. No open lesions. Incision well healed. Neurological: Light touch sensation intact bilaterally. Gross sensation intact bilaterally. Protective sensation present at 5/5 non-callused sites randomly selected and tested bilaterally using a 5.07 SWMF. Musculoskelatal: Muscle strength +5/5 for all pedal muscle groups bilaterally. No significant symptomatic limitations in pedal joint ROM bilaterally. ASSESSMENT & PLAN: Discussion with the patient today including questions and answers regarding the etiology and treatment options for the current problems. Tarsal tunnel syndrome left ankle - Status post tarsal tunnel release - Patient is now in no pain and doing very well. She will finish off her course of gabapentin and once this is completed she no longer is needed to be on this. - Patient is cleared to return to work. Work note was written for her. All questions answered to the patient's apparent satisfaction. No further questions at this time. Patient to be seen in clinic on an as-needed basis. Dr. Serafin Waters, DPM I spent a total of 25 minutes on the date of the service which included preparing to see the patient, [id number] patient care, completing clinical documentation, obtaining and/or reviewing separately obtained history, performing a medically appropriate examination, counseling and educating the patient/family/caregiver, and ordering medications, tests, or procedures. documented in this encounter [facility] 11-03-2023 History of Presen t illness Narrative Radiology Service Progress Note PATIENT NAME: Savannah Ko DATE OF SERVICE: November 03, 2023 TIME: 2:28 PM PATIENT IDENTITY VERIFICATION COMPLETED USING TWO (2) IDENTIFIERS: Name and Date of confirmed by patient verbally and Name and Date of confirmed by identification band. FALL SCREENING: Has the patient had 2 falls in the last year or 1 fall with injury or currently using an Ambulatory Assistive Device (Walker, Cane, Wheelchair, Crutches, etc.)? No PATIENT GENDER DATA: Female. status: : No status: NO. PATIENT RELEVANT IMPLANT DATA REVIEWED: Not Applicable PATIENT PRESENTS WITH AN IMPLANTABLE OR ATTACHED WELT CUTTER: No RADIOLOGY DEPARTMENT: General X-ray: Exam(s) Completed: Lower Extremity X-Ray(s): Ankle, Left PERIPHERAL IV DATA: Not applicable SIGNED BY: RT Kimber(True) November 03, 2023 2:28 PM documented in this encounter [facility] 11-03-2023 Note HNO ID: [id number] Author: SERGEY MCKEE RT(True) Service: Radiology Author Type: Technologist Type: Progress Notes Filed: 11/03/2023 14:28 Note Text: Radiology Service Progress Note PATIENT NAME: Savannah Ko DATE OF SERVICE: November 03, 2023 TIME: 2:28 PM PATIENT IDENTITY VERIFICATION COMPLETED USING TWO (2) IDENTIFIERS: Name and Date of confirmed by patient verbally and Name and Date of confirmed by identification band. FALL SCREENING: Has the patient had 2 falls in the last year or 1 fall with injury or currently using an Ambulatory Assistive Device (Walker, Cane, Wheelchair, Crutches, etc.)? No PATIENT GENDER DATA: Female. status: : No status: NO. PATIENT RELEVANT IMPLANT DATA REVIEWED: Not Applicable PATIENT PRESENTS WITH AN IMPLANTABLE OR ATTACHED WELT CUTTER: No RADIOLOGY DEPARTMENT: General X-ray: Exam(s) Completed: Lower Extremity X-Ray(s): Ankle, Left PERIPHERAL IV DATA: Not applicable SIGNED BY: RT Kimber(R) November 03, 2023 2:28 PM [facility] 09-05-2023 Note HNO ID: [id number] Author: SERAFIN WATERS DPM Service: ? Author Type: Physician Type: Progress Notes Filed: 09/08/2023 21:07 Note Text: PODIATRIC MEDICINE AND SURGERY OFFICE NOTE Complaint: Left tarsal tunnel syndrome status post tibial nerve release HPI: This 32 year old female presents to the clinic today for a follow-up status post left tarsal tunnel release. Patient is doing much better than the previous week. Patient has been doing physical therapy and rates her pain a 2 out of 10 at the worst at therapy. Patient is using a cane at therapy and states this caused a lot of pain so she stopped using it. Overall the patient is doing very well postoperatively. Patient denies any constitutional symptoms. Patient denies any calf or thigh pain. No past medical history on file. PAST SURGICAL HISTORY Procedure Laterality Date LAPAROSCOPIC EXC ENDOMETRIOSIS/CYST 2018 REMOVAL GALLBLADDER 2014 REMOVAL OF OVARIAN CYST(S) Left 2019 No current facility-administered medications for this visit. ALLERGIES Allergen Reactions Bactrim [Sulfametho* Hives, Swelling Clindamycin Hives, Itching Zoloft [Sertraline] Itching No family history on file. Social History Tobacco Use Smoking status: Every Day Types: Cigarettes Smokeless tobacco: Never Tobacco comments: Vapes occasionally, 2-3 cigarettes a day Substance Use Topics Alcohol use: Yes Comment: occasionally, social drinking. Drug use: Never Current Opioids Analgesic Opioid Oxycodone Combinations Start End oxyCODONE-acetaminophen (PERCOCET) 5-325 mg tablet 07/25/2023 -- Sig - Route: Take 1 tablet by mouth every 6 hours as needed for pain. for pain. - ORAL Patient not taking: Reported on 08/08/2023 Earliest Fill Date: 07/25/2023 Analgesic Opioid Oxycodone and Non-Salicylate Combinations Start End oxyCODONE-acetaminophen (PERCOCET) 5-325 mg tablet 07/25/2023 -- Sig - Route: Take 1 tablet by mouth every 6 hours as needed for pain. for pain. - ORAL Patient not taking: Reported on 08/08/2023 Earliest Fill Date: 07/25/2023 ROSI Modifiable Risk Factors (MoRF) Obesity Unknown Risk High: BMI > 40 Moderate: BMI 30-40 Normal: BMI < 30 Diabetes normal High: A1C > 8 Moderate: A1C 7-8 Normal: A1C < 7 Smoking normal High: Current smoker Normal: Non smoker Anemia normal High: Hgb < 11.5 (women) N/A: Hgb >= 11.5 (women) Nutritional Status normal High: Alb<3.4, or prealb<15, or serum transferrin<200, or total lymphocyte count<1500 Normal: normal labs Narcotics Use normal High:NarxCare >=300 Moderate: 100-299 Normal: 0-99 Obesity: height and/or weight are out of date (There is no height and/or weight reading in the past 365 days, so the below BMI readings may be inaccurate) BMI Readings from Last 3 Encounters: 07/08/23 : 26.89 kg/m? ------ REVIEW OF SYSTEMS: CONSTITUTIONAL: No fevers, chills, nightsweats, unintended weight loss HEENT: Denies frequent or severe headaches, nasal congestion/sinus symptoms, problematic allergy problems. EYES: No diplopia or blurry vision. CARDIOVASCULAR: No chest pain, dyspnea, palpitations, orthopnea, PND. PULM: No dyspnea, unexplained cough. GI: No dysphagia/odynophagia, problematic reflux, constipation, diarrhea, changes in stool habits, hematochezia, melena. : No new urinary complaints, including dysuria, gross hematuria or pyuria. NEURO: No new balance problems, peripheral weakness/paresthesias or numbness of concern. MUSC-SKEL: No new joint pain, swelling, or erythema. PSY: No concerns regarding depression, anxiety or panic. INTEGUMENTARY: Skin changes as noted below. I have confirmed and edited as necessary, the PFSH and ROS obtained by others. OBJECTIVE: Patient is oriented to person, place, and time and is in no acute distress. Vascular Exam: Dorsalis Pedis pulses are palpable bilateral. Posterior Tibial pulses are palpable bilateral. Capillary refill time brisk. Skin temperature of the bilateral lower extremity is warm to cool, proximal to distal. Varicosities are NOT observed bilaterally. Edema NOT noted. No palpable lymph nodes noted. Dermatological: Skin appears diffusely dry Skin is without notable erythema or ecchymosis. Webspaces are clean, dry, and intact bilateral. No open lesions. Incision well healed. No signs of infection left ankle. Neurological: Light touch sensation intact bilaterally. Gross sensation intact bilaterally. Protective sensation present at 5/5 non-callused sites randomly selected and tested bilaterally using a 5.07 SWMF. Musculoskelatal: Muscle strength +5/5 for all pedal muscle groups bilaterally. No significant symptomatic limitations in pedal joint ROM bilaterally. ASSESSMENT AND PLAN: Discussion with the patient today including questions and answers regarding the etiology and treatme (more content not included)... [facility] 09-05-2023 History of Presen t illness Narrative Images from the original note were not included. PODIATRIC MEDICINE & SURGERY OFFICE NOTE Complaint: Left tarsal tunnel syndrome status post tibial nerve release HPI: This 32 year old female presents to the clinic today for a follow-up status post left tarsal tunnel release. Patient is doing much better than the previous week. Patient has been doing physical therapy and rates her pain a 2 out of 10 at the worst at therapy. Patient is using a cane at therapy and states this caused a lot of pain so she stopped using it. Overall the patient is doing very well postoperatively. Patient denies any constitutional symptoms. Patient denies any calf or thigh pain. No past medical history on file. PAST SURGICAL HISTORY Procedure Laterality Date LAPAROSCOPIC EXC ENDOMETRIOSIS/CYST 2018 REMOVAL GALLBLADDER 2013 REMOVAL OF OVARIAN CYST(S) Left 2018 No current facility-administered medications for this visit. ALLERGIES Allergen Reactions Bactrim [Sulfametho* Hives, Swelling Clindamycin Hives, Itching Zoloft [Sertraline] Itching No family history on file. Social History Tobacco Use Smoking status: Every Day Types: Cigarettes Smokeless tobacco: Never Tobacco comments: Vapes occasionally, 2-3 cigarettes a day Substance Use Topics Alcohol use: Yes Comment: occasionally, social drinking. Drug use: Never Current Opioids Analgesic Opioid Oxycodone Combinations Start End oxyCODONE-acetaminophen (PERCOCET) 5-325 mg tablet 07/25/2023 -- Sig - Route: Take 1 tablet by mouth every 6 hours as needed for pain. for pain. - ORAL Patient not taking: Reported on 08/08/2023 Earliest Fill Date: 07/25/2023 Analgesic Opioid Oxycodone and Non-Salicylate Combinations Start End oxyCODONE-acetaminophen (PERCOCET) 5-325 mg tablet 07/25/2023 -- Sig - Route: Take 1 tablet by mouth every 6 hours as needed for pain. for pain. - ORAL Patient not taking: Reported on 08/08/2023 Earliest Fill Date: 07/25/2023 ORSI Modifiable Risk Factors (MoRF) Obesity Unknown Risk High: BMI > 40 Moderate: BMI 30-40 Normal: BMI < 30 Diabetes normal High: A1C > 8 Moderate: A1C 7-8 Normal: A1C < 7 Smoking normal High: Current smoker Normal: Non smoker Anemia normal High: Hgb < 11.5 (women) N/A: Hgb >= 11.5 (women) Nutritional Status normal High: Alb<3.4, or prealb<15, or serum transferrin<200, or total lymphocyte count<1500 Normal: normal labs Narcotics Use normal High:NarxCare >=300 Moderate: 100-299 Normal: 0-99 Obesity: height and/or weight are out of date (There is no height and/or weight reading in the past 365 days, so the below BMI readings may be inaccurate) BMI Readings from Last 3 Encounters: 07/08/23 : 26.89 kg/m REVIEW OF SYSTEMS: CONSTITUTIONAL: No fevers, chills, nightsweats, unintended weight loss HEENT: Denies frequent or severe headaches, nasal congestion/sinus symptoms, problematic allergy problems. EYES: No diplopia or blurry vision. CARDIOVASCULAR: No chest pain, dyspnea, palpitations, orthopnea, PND. PULM: No dyspnea, unexplained cough. GI: No dysphagia/odynophagia, problematic reflux, constipation, diarrhea, changes in stool habits, hematochezia, melena. : No new urinary complaints, including dysuria, gross hematuria or pyuria. NEURO: No new balance problems, peripheral weakness/paresthesias or numbness of concern. MUSC-SKEL: No new joint pain, swelling, or erythema. PSY: No concerns regarding depression, anxiety or panic. INTEGUMENTARY: Skin changes as noted below. I have confirmed and edited as necessary, the PFSH and ROS obtained by others. OBJECTIVE: Patient is oriented to person, place, and time and is in no acute distress. Vascular Exam: Dorsalis Pedis pulses are palpable bilateral. Posterior Tibial pulses are palpable bilateral. Capillary refill time brisk. Skin temperature of the bilateral lower extremity is warm to cool, proximal to distal. Varicosities are NOT observed bilaterally. Edema NOT noted. No palpable lymph nodes noted. Dermatological: Skin appears diffusely dry Skin is without notable erythema or ecchymosis. Webspaces are clean, dry, and intact bilateral. No open lesions. Incision well healed. No signs of infection left ankle. Neurological: Light touch sensation intact bilaterally. Gross sensation intact bilaterally. Protective sensation present at 5/5 non-callused sites randomly selected and tested bilaterally using a 5.07 SWMF. Musculoskelatal: Muscle strength +5/5 for all pedal muscle groups bilaterally. No significant symptomatic limitations in pedal joint ROM bilaterally. ASSESSMENT & PLAN: Discussion with the patient today including questions and answers regarding the etiology and treatment options for the current problems. Tarsal tunnel syndrome left ankle - Status post tarsal tunnel release -Patient very pleased with her progress so far. - Gabapentin continued. - Physical therapy continued for the patient. She is to continue with her full weightbearing status. Patient will increase her range of motion and mobilizing exercises to the left extremity. - Patient also will be off of work with paperwork filed for her. All questions answered to the patient's apparent satisfaction. No further questions at this time. Patient to be seen in clinic in 4 weeks, to return to clinic earlier if any problems arise. Dr. Serafin Waters DPM I spent a total of 25 minutes on the date of the service which included preparing to see the patient, [id number] patient care, completing clinical documentation, obtaining and/or reviewing separately obtained history, performing a medically appropriate examination, counseling and educating the patient/family/caregiver, and ordering medications, tests, or procedures. documented in this encounter [facility] 08-27-2023 Note Patient Outreach (NE TNAV) SAVANNAH KO ([id number]) 1990 F Date Time Provider Department 08/27/23 NO PCP NETNAV During your visit today, we recorded the following information about you: Raymond Markham 08/27/2023 10:40 AM Signed POPULATION HEALTH NAVIGATION OUTREACH Action/ANOOP JOHNSON Patient Outreach: Spoke with patient to schedule in Therapy. Patient declined RST Consult at this time. Patient Identified by Name and : YES, via phone Outreach Outcome/Action Spoke to patient / parent / legal guardian: Patient declined. Not interested in scheduling Did you use a PCP flex slot to schedule this appointment? No Reason for Outreach Care Gap or Scheduling/Wellness visits Payer: Payor: [facility] MEDICAID / Plan: [facility] MEDICAID / Product Type: Medicaid / Care Gap Reviewed:: RST Reminder: Reminder note to check Health Maintenance for items below Health Maintenance items due: Pneumococcal Vaccine(1 of 2 - PCV) Never done Hepatitis C Screening Never done HIV Screening Never done Pap Testing Never done Hepatitis B Vaccine(2 of 2 - CpG 2-dose series) due on 03/21/2022 HPV Testing Never done Influenza Vaccine(1) due on 04/18/2023 Covid-19 Vaccine(3 - season) due on 04/18/2023 Depression Assessment Never done Navigation Signature: Raymond Miguel August 27, 2023 10:39 AM Allergies As of Date: 08/27/2023 Noted Allergy Reaction BACTRIM (SULFAMETHOXAZOLE-TRIMETH*2022 4 - Hives 7 - Swelling CLINDAMYCIN 07/04/2023 4 - Hives 9 - Itching ZOLOFT (SERTRALINE) 07/04/2023 9 - Itching Date Reviewed: 08/08/2023 Reviewed by: Jennifer Cardozo Ma - Fully Assessed Prescriptions as of 08/27/2023 - gabapentin (NEURONTIN) 300 mg capsule Take 1 capsule by mouth two times a day for 30 days. - oxyCODONE-acetaminophen (PERCOCET) 5-325 mg tablet Take 1 tablet by mouth every 6 hours as needed for pain. for pain. - aspirin, enteric coated (ASPIRIN, ENTERIC COATED) 81 mg EC tablet Take 81 mg by mouth once daily. Problem List As Of Date 08/27/2023 Noted Resolved Pre-op evaluation [Z01.818] 07/08/2023 Achilles tendinitis, left leg [M76.62] 05/28/2023 Encounter Status:Closed by RAYMOND MARKHAM on 08/27/23 [facility] 08-27-2023 Note HNO ID: [id number] Author: ?, ?, ? Service: ? Author Type: ? Type: Progress Notes Filed: 08/27/2023 10:40 Note Text: POPULATION HEALTH NAVIGATION OUTREACH Action/FYI RP Patient Outreach: Spoke with patient to schedule in Therapy. Patient declined RST Consult at this time. Patient Identified by Name and : YES, via phone Outreach Outcome/Action Spoke to patient / parent / legal guardian: Patient declined. Not interested in scheduling Did you use a PCP flex slot to schedule this appointment? No Reason for Outreach Care Gap or Scheduling/Wellness visits Payer: Payor: [facility] MEDICAID / Plan: [facility] MEDICAID / Product Type: Medicaid / Care Gap Reviewed:: RST Reminder: Reminder note to check Health Maintenance for items below Health Maintenance items due: Pneumococcal Vaccine(1 of 2 - PCV) Never done Hepatitis C Screening Never done HIV Screening Never done Pap Testing Never done Hepatitis B Vaccine(2 of 2 - CpG 2-dose series) due on 03/21/2022 HPV Testing Never done Influenza Vaccine(1) due on 04/18/2023 Covid-19 Vaccine( - season) due on 04/18/2023 Depression Assessment Never done Navigation Signature: Raymond Miguel August 27, 2023 10:39 AM [facility] 08-18-2023 Miscellaneous Notes Patient calling with health information: patient requesting health information about Taking Gabapentin and taking Midol for menstrual symptoms, reviewed information from [employer] , and verbalized understanding of information provided. Patient denies any new or worsening symptoms of which a provider is not aware:Yes . Source:[email or web address]%[email or web address] search%[email or web address] [email or web address]#inte ractions documented in this encounter [facility] 08-08-2023 Note HNO ID: [id number] Author: Serafin Waters DPM Service: ? Author Type: Physician Type: Progress Notes Filed: 08/08/2023 8:13 AM Note Text: PODIATRIC MEDICINE AND SURGERY OFFICE NOTE Complaint: Left tarsal tunnel syndrome status post tibial nerve release HPI: This 32 year old female presents to the clinic today for a follow-up status post left tarsal tunnel release. Patient is doing much better than the previous week and is in minimal pain now. She does state that she does have occasional nerve symptoms that shoot down her leg and is wondering if there is some medication for that. Patient is also ready for physical therapy. Patient denies any constitutional symptoms. Patient denies any calf or thigh pain. No past medical history on file. PAST SURGICAL HISTORY Procedure Laterality Date LAPAROSCOPIC EXC ENDOMETRIOSIS/CYST 2018 REMOVAL GALLBLADDER 2014 REMOVAL OF OVARIAN CYST(S) Left 2019 No current facility-administered medications for this visit. ALLERGIES Allergen Reactions Bactrim [Sulfametho* Hives, Swelling Clindamycin Hives, Itching Zoloft [Sertraline] Itching No family history on file. Social History Tobacco Use Smoking status: Every Day Types: Cigarettes Smokeless tobacco: Never Tobacco comments: Vapes occasionally, 2-3 cigarettes a day Substance Use Topics Alcohol use: Yes Comment: occasionally, social drinking. Drug use: Never Current Opioids Analgesic Opioid Oxycodone Combinations Start End oxyCODONE-acetaminophen (PERCOCET) 5-325 mg tablet 07/25/2023 -- Sig - Route: Take 1 tablet by mouth every 6 hours as needed for pain. for pain. - ORAL Patient not taking: Reported on 08/08/2023 Earliest Fill Date: 07/25/2023 Analgesic Opioid Oxycodone and Non-Salicylate Combinations Start End oxyCODONE-acetaminophen (PERCOCET) 5-325 mg tablet 07/25/2023 -- Sig - Route: Take 1 tablet by mouth every 6 hours as needed for pain. for pain. - ORAL Patient not taking: Reported on 08/08/2023 Earliest Fill Date: 07/25/2023 ROSI Modifiable Risk Factors (MoRF) Obesity Unknown Risk High: BMI > 40 Moderate: BMI 30-40 Normal: BMI < 30 Diabetes normal High: A1C > 8 Moderate: A1C 7-8 Normal: A1C < 7 Smoking normal High: Current smoker Normal: Non smoker Anemia normal High: Hgb < 11.5 (women) N/A: Hgb >= 11.5 (women) Nutritional Status normal High: Alb<3.4, or prealb<15, or serum transferrin<200, or total lymphocyte count<1500 Normal: normal labs Narcotics Use normal High:NarxCare >=300 Moderate: 100-299 Normal: 0-99 Obesity: height and/or weight are out of date (There is no height and/or weight reading in the past 365 days, so the below BMI readings may be inaccurate) BMI Readings from Last 3 Encounters: 07/08/23 : 26.89 kg/m? REVIEW OF SYSTEMS: CONSTITUTIONAL: No fevers, chills, nightsweats, unintended weight loss HEENT: Denies frequent or severe headaches, nasal congestion/sinus symptoms, problematic allergy problems. EYES: No diplopia or blurry vision. CARDIOVASCULAR: No chest pain, dyspnea, palpitations, orthopnea, PND. PULM: No dyspnea, unexplained cough. GI: No dysphagia/odynophagia, problematic reflux, constipation, diarrhea, changes in stool habits, hematochezia, melena. : No new urinary complaints, including dysuria, gross hematuria or pyuria. NEURO: No new balance problems, peripheral weakness/paresthesias or numbness of concern. MUSC-SKEL: No new joint pain, swelling, or erythema. PSY: No concerns regarding depression, anxiety or panic. INTEGUMENTARY: Skin changes as noted below. I have confirmed and edited as necessary, the PFSH and ROS obtained by others. OBJECTIVE: Patient is oriented to person, place, and time and is in no acute distress. Vascular Exam: Dorsalis Pedis pulses are palpable bilateral. Posterior Tibial pulses are palpable bilateral. Capillary refill time brisk. Skin temperature of the bilateral lower extremity is warm to cool, proximal to distal. Varicosities are NOT observed bilaterally. Edema NOT noted. No palpable lymph nodes noted. Dermatological: Skin appears diffusely dry Skin is without notable erythema or ecchymosis. Webspaces are clean, dry, and intact bilateral. No open lesions. Incision well healed. No signs of infection left ankle. Neurological: Light touch sensation intact bilaterally. Gross sensation intact bilaterally. Protective sensation present at 5/5 non-callused sites randomly selected and tested bilaterally using a 5.07 SWMF. Musculoskelatal: Muscle strength +5/5 for all pedal muscle groups bilaterally. No significant symptomatic limitations in pedal joint ROM bilaterally. ASSESSMENT AND PLAN: Discussion with the patient today including questions and answers regarding the etiology and treatment options for the current p (more content not included)... [facility] 07-25-2023 History of Presen t illness Narrative Images from the original note were not included. PODIATRIC MEDICINE & SURGERY OFFICE NOTE Complaint: Left tarsal tunnel syndrome status post tibial nerve release HPI: This 32 year old female presents to the clinic today for a follow-up status post left tarsal tunnel release. Patient is in controlled pain but is in need of new pain medication. She has been compliant with her nonweightbearing status. She is here today for her suture removal. Patient does state that most of the pain is at night and is very painful when it is undressed. Patient denies any constitutional symptoms. Patient denies any calf or thigh pain. No past medical history on file. PAST SURGICAL HISTORY Procedure Laterality Date LAPAROSCOPIC EXC ENDOMETRIOSIS/CYST 2018 REMOVAL GALLBLADDER 2014 REMOVAL OF OVARIAN CYST(S) Left 2019 No current facility-administered medications for this visit. ALLERGIES Allergen Reactions Bactrim [Sulfametho* Hives, Swelling Clindamycin Hives, Itching Zoloft [Sertraline] Itching No family history on file. Social History Tobacco Use Smoking status: Every Day Types: Cigarettes Smokeless tobacco: Never Tobacco comments: Vapes occasionally, 2-3 cigarettes a day Substance Use Topics Alcohol use: Yes Comment: occasionally, social drinking. Drug use: Never Current Opioids Analgesic Opioid Oxycodone Combinations Start End oxyCODONE-acetaminophen (PERCOCET) 5-325 mg tablet 07/25/2023 -- Sig - Route: Take 1 tablet by mouth every 6 hours as needed for pain. for pain. - ORAL Earliest Fill Date: 07/25/2023 Analgesic Opioid Oxycodone and Non-Salicylate Combinations Start End oxyCODONE-acetaminophen (PERCOCET) 5-325 mg tablet 07/25/2023 -- Sig - Route: Take 1 tablet by mouth every 6 hours as needed for pain. for pain. - ORAL Earliest Fill Date: 07/25/2023 ROSI Modifiable Risk Factors (MoRF) Obesity Unknown Risk High: BMI > 40 Moderate: BMI 30-40 Normal: BMI < 30 Diabetes normal High: A1C > 8 Moderate: A1C 7-8 Normal: A1C < 7 Smoking normal High: Current smoker Normal: Non smoker Anemia normal High: Hgb < 11.5 (women) N/A: Hgb >= 11.5 (women) Nutritional Status normal High: Alb<3.4, or prealb<15, or serum transferrin<200, or total lymphocyte count<1500 Normal: normal labs Narcotics Use normal High:NarxCare >=300 Moderate: 100-299 Normal: 0-99 Obesity: height and/or weight are out of date (There is no height and/or weight reading in the past 365 days, so the below BMI readings may be inaccurate) BMI Readings from Last 3 Encounters: 07/08/23 : 26.89 kg/m REVIEW OF SYSTEMS: CONSTITUTIONAL: No fevers, chills, nightsweats, unintended weight loss HEENT: Denies frequent or severe headaches, nasal congestion/sinus symptoms, problematic allergy problems. EYES: No diplopia or blurry vision. CARDIOVASCULAR: No chest pain, dyspnea, palpitations, orthopnea, PND. PULM: No dyspnea, unexplained cough. GI: No dysphagia/odynophagia, problematic reflux, constipation, diarrhea, changes in stool habits, hematochezia, melena. : No new urinary complaints, including dysuria, gross hematuria or pyuria. NEURO: No new balance problems, peripheral weakness/paresthesias or numbness of concern. MUSC-SKEL: No new joint pain, swelling, or erythema. PSY: No concerns regarding depression, anxiety or panic. INTEGUMENTARY: Skin changes as noted below. I have confirmed and edited as necessary, the PFSH and ROS obtained by others. OBJECTIVE: Patient is oriented to person, place, and time and is in no acute distress. Vascular Exam: Dorsalis Pedis pulses are palpable bilateral. Posterior Tibial pulses are palpable bilateral. Capillary refill time brisk. Skin temperature of the bilateral lower extremity is warm to cool, proximal to distal. Varicosities are NOT observed bilaterally. Edema NOT noted. No palpable lymph nodes noted. Dermatological: Skin appears diffusely dry Skin is without notable erythema or ecchymosis. Webspaces are clean, dry, and intact bilateral. No open lesions. Incision well coapted with sutures in place. No signs of infection or dehiscence left ankle. Neurological: Light touch sensation intact bilaterally. Gross sensation intact bilaterally. Protective sensation present at 5/5 non-callused sites randomly selected and tested bilaterally using a 5.07 SWMF. Musculoskelatal: Muscle strength +5/5 for all pedal muscle groups bilaterally. No significant symptomatic limitations in pedal joint ROM bilaterally. ASSESSMENT & PLAN: Discussion with the patient today including questions and answers regarding the etiology and treatment options for the current problems. Tarsal tunnel syndrome left ankle - Status post tarsal tunnel release - Patient doing very well but is not still quite a bit of pain. She understands this is the norm. Patient written for pain medication to control her pain. - Sutures removed today. Steri-Strips applied. - Patient to continue nonweightbearing for the next 2 weeks. Physical therapy will also start at the next visit in 2 weeks. All questions answered to the patient's apparent satisfaction. No further questions at this time. Patient to be seen in clinic in 2 weeks to start physical therapy, to return to clinic earlier if any problems arise. Dr. Serafin Waters, DPM I spent a total of 25 minutes on the date of the service which included preparing to see the patient, [id number] patient care, completing clinical documentation, obtaining and/or reviewing separately obtained history, performing a medically appropriate examination, counseling and educating the patient/family/caregiver, and ordering medications, tests, or procedures. documented in this encounter [facility] 07-25-2023 Note HNO ID: [id number] Author: Serafin Waters DPM Service: ? Author Type: Physician Type: Progress Notes Filed: 07/25/2023 8:29 AM Note Text: PODIATRIC MEDICINE AND SURGERY OFFICE NOTE Complaint: Left tarsal tunnel syndrome status post tibial nerve release HPI: This 32 year old female presents to the clinic today for a follow-up status post left tarsal tunnel release. Patient is in controlled pain but is in need of new pain medication. She has been compliant with her nonweightbearing status. She is here today for her suture removal. Patient does state that most of the pain is at night and is very painful when it is undressed. Patient denies any constitutional symptoms. Patient denies any calf or thigh pain. No past medical history on file. PAST SURGICAL HISTORY Procedure Laterality Date LAPAROSCOPIC EXC ENDOMETRIOSIS/CYST 2018 REMOVAL GALLBLADDER 2014 REMOVAL OF OVARIAN CYST(S) Left 2019 No current facility-administered medications for this visit. ALLERGIES Allergen Reactions Bactrim [Sulfametho* Hives, Swelling Clindamycin Hives, Itching Zoloft [Sertraline] Itching No family history on file. Social History Tobacco Use Smoking status: Every Day Types: Cigarettes Smokeless tobacco: Never Tobacco comments: Vapes occasionally, 2-3 cigarettes a day Substance Use Topics Alcohol use: Yes Comment: occasionally, social drinking. Drug use: Never Current Opioids Analgesic Opioid Oxycodone Combinations Start End oxyCODONE-acetaminophen (PERCOCET) 5-325 mg tablet 07/25/2023 -- Sig - Route: Take 1 tablet by mouth every 6 hours as needed for pain. for pain. - ORAL Earliest Fill Date: 07/25/2023 Analgesic Opioid Oxycodone and Non-Salicylate Combinations Start End oxyCODONE-acetaminophen (PERCOCET) 5-325 mg tablet 07/25/2023 -- Sig - Route: Take 1 tablet by mouth every 6 hours as needed for pain. for pain. - ORAL Earliest Fill Date: 07/25/2023 ROSI Modifiable Risk Factors (MoRF) Obesity Unknown Risk High: BMI > 40 Moderate: BMI 30-40 Normal: BMI < 30 Diabetes normal High: A1C > 8 Moderate: A1C 7-8 Normal: A1C < 7 Smoking normal High: Current smoker Normal: Non smoker Anemia normal High: Hgb < 11.5 (women) N/A: Hgb >= 11.5 (women) Nutritional Status normal High: Alb<3.4, or prealb<15, or serum transferrin<200, or total lymphocyte count<1500 Normal: normal labs Narcotics Use normal High:NarxCare >=300 Moderate: 100-299 Normal: 0-99 Obesity: height and/or weight are out of date (There is no height and/or weight reading in the past 365 days, so the below BMI readings may be inaccurate) BMI Readings from Last 3 Encounters: 07/08/23 : 26.89 kg/m? REVIEW OF SYSTEMS: CONSTITUTIONAL: No fevers, chills, nightsweats, unintended weight loss HEENT: Denies frequent or severe headaches, nasal congestion/sinus symptoms, problematic allergy problems. EYES: No diplopia or blurry vision. CARDIOVASCULAR: No chest pain, dyspnea, palpitations, orthopnea, PND. PULM: No dyspnea, unexplained cough. GI: No dysphagia/odynophagia, problematic reflux, constipation, diarrhea, changes in stool habits, hematochezia, melena. : No new urinary complaints, including dysuria, gross hematuria or pyuria. NEURO: No new balance problems, peripheral weakness/paresthesias or numbness of concern. MUSC-SKEL: No new joint pain, swelling, or erythema. PSY: No concerns regarding depression, anxiety or panic. INTEGUMENTARY: Skin changes as noted below. I have confirmed and edited as necessary, the PFSH and ROS obtained by others. OBJECTIVE: Patient is oriented to person, place, and time and is in no acute distress. Vascular Exam: Dorsalis Pedis pulses are palpable bilateral. Posterior Tibial pulses are palpable bilateral. Capillary refill time brisk. Skin temperature of the bilateral lower extremity is warm to cool, proximal to distal. Varicosities are NOT observed bilaterally. Edema NOT noted. No palpable lymph nodes noted. Dermatological: Skin appears diffusely dry Skin is without notable erythema or ecchymosis. Webspaces are clean, dry, and intact bilateral. No open lesions. Incision well coapted with sutures in place. No signs of infection or dehiscence left ankle. Neurological: Light touch sensation intact bilaterally. Gross sensation intact bilaterally. Protective sensation present at 5/5 non-callused sites randomly selected and tested bilaterally using a 5.07 SWMF. Musculoskelatal: Muscle strength +5/5 for all pedal muscle groups bilaterally. No significant symptomatic limitations in pedal joint ROM bilaterally. ASSESSMENT AND PLAN: Discussion with the patient today including questions and answers regarding the etiology and treatment options for the current problems. Tarsal tunnel syndrome left ankle - Sta (more content not included)... [facility] 07-16-2023 Miscellaneous Notes Spoke to patient per Dr. Waters she needs to take pain medication as directed and not wait until she gets in severe pain. Patient called having a lot left heel pain like (50 plus)radiating to the ankle. Takes the oxyCODONE-acetaminophen (PERCOCET) 5-325 mg tablet without much relief to help the pain. Patient went to [facility] yesterday had left ankle covered while taking a shower but the reginaldo and gauze still got wet so she received dressing change there. documented in this encounter [facility] 07-14-2023 Miscellaneous Notes Patient calling with request for post op questions. Patient denies any new or worsening symptoms of which a provider is not aware: N/A. Conferenced to [facility] to page wildlife conservationist for Podiatry. documented in this encounter [facility] 07-11-2023 Miscellaneous Notes Patient calling regarding not being able to move the left foot or toes of the left foot since having surgery performed to the left foot at [address] Waters. Pt states that she received a nerve block and is wondering if this is normal. Patient denies color change to the foot since hospital discharge and/or pain to the foot or toes. Conferenced to [facility] production recovery operator, Cristo, to speak with provider wildlife conservationist for Dr. Serafin Waters. documented in this encounter [facility] 07-11-2023 Note HNO ID: [id number] Author: Zenon Houston Service: Pharmacy Author Type: ? Type: Plan of Care Filed: 07/14/2023 9:20 AM Note Text: PHARMACY BEDSIDE DELIVERY SERVICE Patient Name: Savannah Ko The marked outpatient medications were filled at [facility] pharmacy and picked up at the pharmacy by the pt boyfriend Brain Medication List START taking these medications oxyCODONE-acetaminophen 5-325 mg tablet Commonly known as: PERCOCET Take 1 tablet by mouth four times a day as needed for pain. CONTINUE taking these medications aspirin, enteric coated 81 mg EC tablet Commonly known as: ASPIRIN, ENTERIC COATED You might also be taking other medications not listed above. If you have questions about any of your other medications, talk to the person who prescribed them or your Primary Care Provider. 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 Reason for block: post-op pain management/at surgeon's request Staffing Anesthesiologist: Kimmy Smiley DO Preparation Sterility Preparation: hand hygiene performed prior to procedure, sterile gloves, drapes, and procedure tray, surgical cap used, mask used, sterile drape used during line insertion, skin prep agent completely dried prior to procedure Site Prep: chlorhexidine Pre-Procedure Neuro Exam Location: LLE Sensory: intact Motor: intact Procedure Details Monitoring: Pulse OX, EKG and NIBP Block Type Lower Extremity: saphenous and distal femoral (adductor canal) Approach: anterior Laterality: left Injection Technique: single-shot Ultrasound Guided: Yes Image in Chart: yes Needle Needle Type: stimulating Needle Gauge: 22 G Needle Length: 100 mm Needle Localization: ultrasound Assessment Injection assessment: negative aspiration, incremental injection and local visualized surrounding nerve on ultrasound Post-Procedure Neuro Exam Expected Regional Anesthesia: Yes Medications Administered Dexamethasone sodium phosphate injection (DECADRON), 4 mg ropivacaine (PF) 5 mg/mL (0.5 %) injection (NAROPIN), 15 mL SIGNATURE: Kimmy Smiley DO PATIENT NAME: Savannah Ko DATE: July 11, 2023 TIME: 5:22 PM CSN: [id number] [facility] 07-11-2023 Note HNO ID: [id number] Author: Kimmy Smiley DO Service: Pain Management Author Type: Anesthesiologist Type: Anesthesia Procedure Notes Filed: 07/11/2023 5:28 PM Note Text: ANESTHESIOLOGY PROCEDURE NOTE Peripheral Nerve Block General Information Procedure Start Time/Medication Administration: 07/11/2023 4:04 PM Procedure End time: 07/11/2023 4:05 PM Patient location during procedure: OR Timeout Performed Pre-procedure: timeout performed Consent Obtained: Yes 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 Reason for block: post-op pain management/at surgeon's request Staffing Anesthesiologist: Kimmy Smiley DO Preparation Sterility Preparation: hand hygiene performed prior to procedure, sterile gloves, drapes, and procedure tray, surgical cap used, mask used, sterile drape used during line insertion, skin prep agent completely dried prior to procedure Site Prep: chlorhexidine Pre-Procedure Neuro Exam Location: LLE Sensory: sensory deficit Motor: pre-existing condition Procedure Details Monitoring: Pulse OX, EKG and NIBP Block Type Lower Extremity: popliteal Approach: lateral Laterality: left Injection Technique: single-shot Ultrasound Guided: Yes Image in Chart: yes Needle Needle Type: stimulating Needle Gauge: 21 G Needle Length: 100 mm Needle Localization: ultrasound and anatomical landmarks Assessment Injection assessment: incremental injection, local visualized surrounding nerve on ultrasound and negative aspiration Post-Procedure Neuro Exam Expected Regional Anesthesia: Yes Medications Administered Ropivacaine (PF) 5 mg/mL (0.5 %) injection (NAROPIN), 15 mL dexamethasone sodium phosphate injection (DECADRON), 4 mg SIGNATURE: Kimmy Smiley DO PATIENT NAME: Savannah Ko DATE: July 11, 2023 TIME: 5:19 PM CSN: [id number] [facility] 07-11-2023 Note HNO ID: [id number] Author: Savannah Donovan APRN.WARE SERVER Service: ? Author Type: Nurse Supervisor [employer] Type: Anesthesia Procedure Notes Filed: 07/11/2023 3:09 PM Note Text: ANESTHESIOLOGY PROCEDURE NOTE Airway General Information Procedure Start Time/Medication Administration: 07/11/2023 2:42 PM Patient location during procedure: OR Patient identity confirmed: arm band Staffing Anesthesiologist: Kimmy Smiley DO WARE SERVER: Savannah Donovan APRN.WARE SERVER Performed by: WARE SERVER Indications and Patient Condition Indications for airway management: anesthesia Preoxygenated: yes anesthesia circuit Patient position: sniffing Method: asleep Difficult Mask: No Final Airway Details Final airway type: supraglottic airway Number of attempts at approach: 1 Final Supraglottic Airway: IGEL Size 3 Seal Adequate: yes Airway not difficult SIGNATURE: Savannah Donovan APRN.CRNA PATIENT NAME: Savannah Ko DATE: July 11, 2023 TIME: 3:08 PM CSN: [id number] [facility] 07-08-2023 Note HNO ID: [id number] Author: Harman Brandon MD Service: ? Author Type: Anesthesiologist Type: Progress Notes Filed: 07/08/2023 3:27 PM Note Text: Attending Note I evaluated the patient and personally participated in the kelly components. I agree with the resident's findings and plan as documented and have discussed the case and management of the patient's care with the resident. Signature: Harman Brandon MD Date: 07/08/2023 Time: 3:26 PM [facility] 07-08-2023 History of Presen t illness Narrative Attending Note I evaluated the patient and personally participated in the kelly components. I agree with the resident's findings and plan as documented and have discussed the case and management of the patient's care with the resident. Signature: Harman Brandon MD Date: 07/08/2023 Time: 3:26 PM documented in this encounter [facility] 07-08-2023 Instructions Ama Lei MD - 07/08/2023 10:37 AM EST PATIENT PREOPERATIVE INSTRUCTIONS No ref. provider found has scheduled you for your procedure at this surgery center: [facility]: [phone] --[id number] [address]. Please check in on the 1st floor at registration desk 6. Please read below carefully for your personalized instructions. Dietary Restrictions: - No solid food after midnight. - You may have 12 ounces of clear liquids (water, clear juices such as apple juice or gatorade, carbonated beverages, clear tea, black coffee, jello) until 2 hours before scheduled arrival at facility. Medications: Unless instructed differently below, stay on all of your medications until your surgery. If you start any new medications after today's visit, please contact your surgeon. No outpatient medications have been marked as taking for the 07/08/23 encounter (PAT) with , [facility]. If you start any new medications after today's visit, please contact the surgeon's office. Blood Thinning Medications: - Stop NSAIDS (Ibuprofen, Advil, Aleve, Motrin, Celebrex, Mobic, etc.) 7 days before surgery, as directed by your surgeon. - Stop Aspirin 7 days before surgery, as directed by your surgeon. - Stop Vitamin E, ALL multi-vitamins, herbals and dietary supplements 7 days before surgery. - You may take Tylenol (Acetaminophen) or any of your pain medications that do not contain aspirin or NSAIDS as needed. Important Reminders: - Candy, mints, and tobacco products are NOT permitted the morning of surgery. - Hearing aids, dentures and glasses may be worn the morning of surgery. - NO jewelry, body piercings, makeup, hairpins or contacts are to be worn the day of surgery. If you develop symptoms such as a fever, cold, or flu, or have other changes to your health within TWO DAYS of scheduled surgery or the morning of surgery, please contact the surgery center above. Personal Belongings: -Please have photo ID and insurance cards. -If you do not have a copy of advance directives on file with us, please bring a copy with you on the day of surgery. - Leave ALL valuables and money at home or with family members. For Outpatient Procedures: - YOU MUST HAVE A RESPONSIBLE TALENT ANALYST TAKE YOU HOME. A FINANCE LEAD OR [employer] BI ADMINISTRATOR CANNOT BE MADE A RESPONSIBLE TALENT ANALYST. - We recommend that a responsible person stays with you overnight to take care of you. - You cannot stay in a hotel alone after outpatient surgery. You will not be permitted to have your surgery, if you do not have someone to take care of you. Arrival Time for Surgery: - The Surgery Center or hospital where you are having surgery will call the afternoon before surgery (or Friday for Friday surgery) with a scheduled arrival time. - If you have not heard by 4 pm, please contact the surgery center above. Please be aware that emergency situations arise, which may delay or change your surgical time. If this happens, we will notify you as soon as possible and regret any inconvenience. If you already have an Advance Directive, please fax a copy to [phone] or email to for it to be added to your chart. If you do not have an Advance Directive, you can find the appropriate form and more information at [email or web address]. We recommend that you complete the Advance Directive form found on the website and bring it with you the day of your surgery. It can be witnessed and scanned into your chart that day. Ama Lei MD documented in this encounter [facility] 07-08-2023 History and physical note HISTORY AND PHYSICAL EXAMINATION SERVICE DATE: 07/08/2023 SERVICE TIME: 10:20 AM PRIMARY CARE PHYSICIAN: Julia Tracey MD REASON FOR VISIT: Savannah Ko is a 32 year old female who is scheduled for RELEASE TARSAL TUNNEL (POSTERIOR TIBIAL NERVE DECOMPRESSION) - Left on 07/11/2023 at 2:10 PM at the request of Dr. Waters for pre-operative evaluation. The patient has the following: ACTIVE PROBLEM LIST Pre-Op Evaluation Achilles Tendinitis, Left Leg Subjective CHIEF COMPLAINT: Tarsal Tunnel Syndrome HPI: Savannah Ko is a 32-year-old female with no PMH that presents for pre-operative evaluation for a tarsal tunnel release (posterior tibial nerve decompression) on the left side on 07/11/23. Denies fevers, cough, shortness of breath, history of stroke, history of TN, history of CHF. History reviewed. No pertinent past medical history. PAST SURGICAL HISTORY Procedure Laterality Date LAPAROSCOPIC EXC ENDOMETRIOSIS/CYST 2018 REMOVAL GALLBLADDER 2014 REMOVAL OF OVARIAN CYST(S) Left 2019 No family history on file. SOCIAL HISTORY: Social History Tobacco Use Smoking status: Every Day Types: Cigarettes Smokeless tobacco: Never Tobacco comments: Vapes occasionally, 2-3 cigarettes a day Substance Use Topics Alcohol use: Yes Comment: occasionally, social drinking. Drug use: Never Prior to Admission medications as of 07/04/23 0944 Medication Sig Last Dose Taking aspirin, enteric coated (ASPIRIN, ENTERIC COATED) 81 mg EC tablet Take 81 mg by mouth once daily. No medication comments found. ALLERGIES Allergen Reactions Bactrim [Sulfametho* Hives, Swelling Clindamycin Hives, Itching Zoloft [Sertraline] Itching COVID VACCINATION STATUS: Fully vaccinated REVIEW OF SYSTEMS: PAIN ASSESSMENT: Pain Pain Level: 5 Pain Location: Ankle-Left Description: Stabbing, Aching Duration Units: Years Frequency: Intermittent General: No weight loss, malaise or fevers. +smoking history, +long term care administrator aspirin use Neuro: No history of TIA's, stroke, BEHAVIORAL HEALTH WORKER tumor, impaired sensorium, hemiplegia, paraplegia or quadraplegia. No neurological symptoms or problems. Respiratory: No history of current cough or dyspnea, or pneumonia in the past 6 weeks. No history of respiratory/pulmonary symptoms or problems. Cardiovascular: No history of HTN requiring medication, no history of angina, CHF, TN, cardiac surgery or stents. Denies rest pain, gangrene or revascularization/amputation for PVD. No history of cardiovascular symptoms or problems. GI: No history of GI symptoms or problems. No history of esophageal varices, recent ascites, or ETOH greater than 2 drinks per day. 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 : Denies, LMP 06/20/2023 Endocrine: No history of diabetes. Has not taken steroids within the past 30 days. No history of endocrinological symptoms or problems. Hematology: No history of bleeding or clotting disorder. Pt is not taking anti-coagulation or platelet medications. No history of hematological symptoms or problems. Oncology: No history of CA metastasis, chemo within 30 days, or radiotherapy within 90 days. Has not lost 10% of body wt in 6 months. No history of oncological symptoms or problems. Psych: Depression, not on any medications. Feels well at this time. Musculoskeletal: Negative for joint pain or swelling, back pain or muscle pain. +Left ankle pain (stabbing, aching, throbbing, sore for 1 month) Skin: Negative for lesions, rash and itching. Objective PHYSICAL EXAM: VITALS: BP 107/67 Pulse 74 Temp (Src) 98.7 (Temporal) Ht 5' 0 (1.52m) Wt 137 lb 11.2 oz (62.5kg) SpO2 98% LMP 06/20/2023 BMI 26.89 kg/(m^2). General: Alert and oriented, No acute distress, Healthy appearance Skin: Normal color, no rash, no lesions. HEENT: EOM, pupils equal, round and reactive., No carotid bruits Cardiovascular: Normal S1 & S2, no rubs, murmurs or gallops. Pulse regular. Lungs: Normal breath sounds, no wheezes or crackles. Abdomen: Soft, non-tender, no rigidity. Extremities: No deformities or swelling. Mild left ankle tenderness and bruising. Neurological: Normal cognition and motor skills. Gait normal. No weakness or sensory deficit. Pulses: Carotid and radial pulses normal +2. Diagnostic tests reviewed for today's visit: Lab Value Units Date High Low HB No results within date range. HCT No results within date range. WBC No results within date range. PLT No results within date range. NA No results within date range. K No results within date range. GLUC No results within date range. BUN No results within date range. CREAT No results within date range. PTSEC No results within date range. INR No results within date range. APTT No results within date range. ALT No results within date range. AST No results within date range. TBILI No results within date range. TSH No results within date range. Lab Value Units Date High Low HCGQT No results within date range. UHCG No results within date range. HCG, BODY* No results within date range. Lab Value Units Date High Low ABORHD No results within date range. ABSCREEN No results within date range. No results found for: HBA1C No new labs or tests No labs or tests ordered by surgeon. Assessment/Plan Achilles tendinitis, left leg -tarsal tunnel release (posterior tibial nerve decompression) on the left side on 07/11/23. Pre-op evaluation -scheduled for surgery 07/11/23 tarsal tunnel release (posterior tibial nerve decompression) on the left side METS: Climb a flight of stairs or walk up a hill (5.50 METs) Participate in strenuous sport, such as swimming, singles tennis, football, basketball, or skiing (7.50 METs) Patient denies any chest pain or undue shortness of breath with the above physical activity. ANESTHESIA FINDINGS: Intubation History: No history of difficult intubation Significant Anesthesia Considerations: None and Mild nausea post-operatively after last surgery Airway Exam: General: Normal appearance Mallampati Score is CLASS I ULBT: Class II - Lower incisors can bite the upper lip below the harlan line Neck: Normal appearance and function, Distance from hyoid to mentum during neck extension is at least 3 finger breaths Mouth: Normal tongue size Dentition: Intact Airway History: No abnormal airway history STOP BANG Score: Criteria: None Score = 0 PLAN This patient is optimally prepared for surgery. CONSULTS: Patient does not require consults for optimization at this time. The Following Tests/Procedures Have Been Initiated: Labs not indicated per [facility] protocol, EKG not indicated per [facility] protocol Planned Anesthetic: Per anesthesia choice Instructions Given to Patient: Instructions located in the after visit summary. Patient given verbal and written preop instructions and voices comprehension and compliance. SIGNATURE: Ama Lei MD PATIENT NAME: Savannah Ko DATE: July 08, 2023 TIME: 8:58 AM documented in this encounter [facility] 07-07-2023 Miscellaneous Notes Received MRI left ankle report from [facility] dated 06/02/23. Scanned report into [employer] documented in this encounter [facility] 07-04-2023 Note HNO ID: [id number] Author: Serafin Waters DPM Service: ? Author Type: Physician Type: Progress Notes Filed: 07/04/2023 10:39 AM Note Text: PODIATRIC MEDICINE AND SURGERY OFFICE NOTE Complaint: Left tarsal tunnel syndrome HPI: This 32 year old female presents to the clinic today as a referral from Dr. Brownlee from [facility] for a complaint of tarsal tunnel syndrome of the left ankle. The patient did have a remote injury to the left ankle and 2020 but was placed into a boot and healed after that. The patient has had these neurological symptoms over the past 2 years explaining them as sharp when walking and standing and constant numbness. The patient also has throbbing after having rested at the end of the day. The patient has been seen by neurologist and had an EMG which will be reviewed as well. The patient also had an MRI which was uploaded into our system. No past medical history on file. No past surgical history on file. No current facility-administered medications for this visit. ALLERGIES Allergen Reactions Bactrim [Sulfametho* Hives, Swelling Clindamycin Hives, Itching Zoloft [Sertraline] Itching No family history on file. Social History Tobacco Use Smoking status: Former Types: Cigarettes Smokeless tobacco: Never Tobacco comments: Vapes occasionally ROSI Modifiable Risk Factors (MoRF) Obesity Unknown Risk High: BMI > 40 Moderate: BMI 30-40 Normal: BMI < 30 Diabetes normal High: A1C > 8 Moderate: A1C 7-8 Normal: A1C < 7 Smoking normal High: Current smoker Normal: Non smoker Anemia normal High: Hgb < 11.5 (women) N/A: Hgb >= 11.5 (women) Nutritional Status normal High: Alb<3.4, or prealb<15, or serum transferrin<200, or total lymphocyte count<1500 Normal: normal labs Narcotics Use normal High:NarxCare >=300 Moderate: 100-299 Normal: 0-99 Obesity: height and/or weight are out of date (There is no height and/or weight reading in the past 365 days, so the below BMI readings may be inaccurate) BMI Readings from Last 3 Encounters: No data found for BMI REVIEW OF SYSTEMS: CONSTITUTIONAL: No fevers, chills, nightsweats, unintended weight loss HEENT: Denies frequent or severe headaches, nasal congestion/sinus symptoms, problematic allergy problems. EYES: No diplopia or blurry vision. CARDIOVASCULAR: No chest pain, dyspnea, palpitations, orthopnea, PND. PULM: No dyspnea, unexplained cough. GI: No dysphagia/odynophagia, problematic reflux, constipation, diarrhea, changes in stool habits, hematochezia, melena. : No new urinary complaints, including dysuria, gross hematuria or pyuria. NEURO: No new balance problems, peripheral weakness/paresthesias or numbness of concern. MUSC-SKEL: No new joint pain, swelling, or erythema. PSY: No concerns regarding depression, anxiety or panic. INTEGUMENTARY: Skin changes as noted below. I have confirmed and edited as necessary, the PFSH and ROS obtained by others. OBJECTIVE: Patient is oriented to person, place, and time and is in no acute distress. Vascular Exam: Dorsalis Pedis pulses are palpable bilateral. Posterior Tibial pulses are palpable bilateral. Capillary refill time brisk. Skin temperature of the bilateral lower extremity is warm to cool, proximal to distal. Varicosities are NOT observed bilaterally. Edema NOT noted. No palpable lymph nodes noted. Dermatological: Skin appears diffusely dry Skin is without notable erythema or ecchymosis. Webspaces are clean, dry, and intact bilateral. No open lesions. Neurological: Light touch sensation intact bilaterally. Gross sensation intact bilaterally. Protective sensation present at 5/5 non-callused sites randomly selected and tested bilaterally using a 5.07 SWMF. Positive Tinel on percussion of the tibial nerve around the level of the medial malleolus. Elicited numbness and sharp pains when maximally dorsiflexing and everting the rear foot on the left. Musculoskelatal: Muscle strength +5/5 for all pedal muscle groups bilaterally. No significant symptomatic limitations in pedal joint ROM bilaterally. Nerve Block: lower extremity Informed Consent Consent Obtained: Verbal [place] Protocol A moment to CARE was completed. SIGN IN Personnel directly involved with the procedure wore the appropriate PPE. Special Equipment: N/A Patient/Surrogate Stated/Verified: Patient name, Date of , Relevant allergies and Intended procedure TIME OUT Intended patient and procedure match the source document(s). Consent documented and matches the intended procedure. Relevant labs, photos, and/or imaging studies have been reviewed. Correct side/site marked and visible. Medications required for procedure verified. Fire risk assessed and interventions discussed. No implant(s) in (more content not included)... [facility] Evaluation note Diagnosis Tarsal tunnel syndrome, left- Primary Soft tissue mass Disorders of soft tissue, unspecified Tarsal tunnel syndrome, left Soft tissue mass Disorders of soft tissue, unspecified [facility] Pre-[facility] evaluation Preoperative examination, unspecified Achilles tendinitis, left leg Tarsal tunnel syndrome, left Soft tissue mass Disorders of soft tissue, unspecified [facility] Tarsal tunnel syndrome of left side- Primary Tarsal tunnel syndrome Lesion of left tibial nerve [facility] Diagnosis Tarsal tunnel syndrome of left side- Primary Tarsal tunnel syndrome Lesion of left tibial nerve [facility] Acute left ankle pain- Primary [facility] Tarsal tunnel syndrome of left side- Primary Tarsal tunnel syndrome Lesion of left tibial nerve documented in this encounter [facility] for referral (narrative)* Diagnostic Procedure Only (Routine) - Authorized Specialty Diagnoses / Procedures Referred By Álvaro malone Referred To Contact XR IMAGING Diagnoses Acute left ankle pain Procedures XR ANKLE GENERAL 3V AP/LAT/OBL LEFT RADEX ANKLE COMPLETE MINIMUM 3 VIEWS Serafin Waters DPM [id number] [place] [address] Referral ID Status Reason Start Date Expiration Date Visits Requested Visits Authorized [id number] Authorized Auto-Generat ed Referral 09/24/2023 10/23/2024 1 1 [facility] for visit Narrative* Diagnostic Procedure Only (Routine) - Closed Specialty Diagnoses / Procedures Referred By Álvaro malone Referred To Contact XR IMAGING Diagnoses Acute left ankle pain Procedures XR ANKLE GENERAL 3V AP/LAT/OBL LEFT RADEX ANKLE COMPLETE MINIMUM 3 VIEWS Serafin Waters DPM [id number] [place] [address] Referral ID Status Reason Start Date Expiration Date V isits Requested Visits Authorized [id number] Closed Auto-Generate d Referral 09/24/2023 10/23/2024 1 1 [facility] Summary Purpose Family History No Family History Records FoundNo Family History Records FoundNo Family History Records FoundNo Family History Records Found Advance Directives No Advanced Directives Records FoundNo Advanced Directives Records FoundNo Advanced Directives Records FoundNo Advanced Directives Records Found Additional Source Comments INFORMATION SOURCE (unrecogn ized section and content) DATE CREATED AUTHOR 10/23/2022 [facility] DATE CREATED AUTHOR AUTHOR'S ORGANIZ ATION 08/28/2023 [facility] DATE CREATED AUTHOR AUTHOR'S ORGANIZ ATION 02/03/2024 [facility] DATE CREATED AUTHOR AUTHOR'S ORGANIZ ATION 03/06/2024 [facility] Source Comments (unrecognize d section and content) In the event this informatio n is protected by the Federal Confidentiality of Alcohol and Drug Abuse Patient Records regulations: The Federal rules restrict any use of the information to criminally investigate or prosecute any alcohol or drug abuse patient.[facility] the event this information is protected by the Federal Confidentiality of Alcohol and Drug Abuse Patient Records regulations: The Federal rules restrict any use of the information to criminally investigate or prosecute any alcohol or drug abuse patient.[facility] the event this information is protected by the Federal Confidentiality of Alcohol and Drug Abuse Patient Records regulations: The Federal rules restrict any use of the information to criminally investigate or prosecute any alcohol or drug abuse patient.[facility] the event this information is protected by the Federal Confidentiality of Alcohol and Drug Abuse Patient Records regulations: The Federal rules restrict any use of the information to criminally investigate or prosecute any alcohol or drug abuse patient.[facility] the event this information is protected by the Federal Confidentiality of Alcohol and Drug Abuse Patient Records regulations: The Federal rules restrict any use of the information to criminally investigate or prosecute any alcohol or drug abuse patient.[facility] the event this information is protected by the Federal Confidentiality of Alcohol and Drug Abuse Patient Records regulations: The Federal rules restrict any use of the information to criminally investigate or prosecute any alcohol or drug abuse patient.[facility] the event this information is protected by the Federal Confidentiality of Alcohol and Drug Abuse Patient Records regulations: The Federal rules restrict any use of the information to criminally investigate or prosecute any alcohol or drug abuse patient.[facility] the event this information is protected by the Federal Confidentiality of Alcohol and Drug Abuse Patient Records regulations: The Federal rules restrict any use of the information to criminally investigate or prosecute any alcohol or drug abuse patient.[facility] the event this information is protected by the Federal Confidentiality of Alcohol and Drug Abuse Patient Records regulations: The Federal rules restrict any use of the information to criminally investigate or prosecute any alcohol or drug abuse patient.[facility] the event this information is protected by the Federal Confidentiality of Alcohol and Drug Abuse Patient Records regulations: The Federal rules restrict any use of the information to criminally investigate or prosecute any alcohol or drug abuse patient.[facility] the event this information is protected by the Federal Confidentiality of Alcohol and Drug Abuse Patient Records regulations: The Federal rules restrict any use of the information to criminally investigate or prosecute any alcohol or drug abuse patient.[facility] the event this information is protected by the Federal Confidentiality of Alcohol and Drug Abuse Patient Records regulations: The Federal rules restrict any use of the information to criminally investigate or prosecute any alcohol or drug abuse patient.[facility] the event this information is protected by the Federal Confidentiality of Alcohol and Drug Abuse Patient Records regulations: The Federal rules restrict any use of the information to criminally investigate or prosecute any alcohol or drug abuse patient.[facility] the event this information is protected by the Federal Confidentiality of Alcohol and Drug Abuse Patient Records regulations: The Federal rules restrict any use of the information to criminally investigate or prosecute any alcohol or drug abuse patient.[facility] Center[facility] the event this information is protected by the Federal Confidentiality of Alcohol and Drug Abuse Patient Records regulations: The Federal rules restrict any use of the information to criminally investigate or prosecute any alcohol or drug abuse patient.[facility] Center[facility] the event this information is protected by the Federal Confidentiality of Alcohol and Drug Abuse Patient Records regulations: The Federal rules restrict any use of the information to criminally investigate or prosecute any alcohol or drug abuse patient.[facility] Center[facility] the event this information is protected by the Federal Confidentiality of Alcohol and Drug Abuse Patient Records regulations: The Federal rules restrict any use of the information to criminally investigate or prosecute any alcohol or drug abuse patient.[facility] Care Teams (unrecognized sec tion and content) Window Trimmer Relationship Specialty Start Date End Date Julia Tracey [address] [place] [address] PCP - General Internal Medicine 07/07/23 Window Trimmer Relationship Specialty Start Date End Date Julia Tracey [address] [place] [address] PCP - General Internal Medicine 07/07/23 Window Trimmer Relationship Specialty Start Date End Date Julia Tracey [address] [place] [address] PCP - General Internal Medicine 07/07/23 Window Trimmer Relationship Specialty Start Date End Date Julia Tracey [address] [place] [address] PCP - General Internal Medicine 07/07/23 Window Trimmer Relationship Specialty Start Date End Date Julia Tracey [address], [place] [address] PCP - General Internal Medicine 07/07/23 Window Trimmer Relationship Specialty Start Date End Date Julia Tracey [address], [place] [address] PCP - General Internal Medicine 07/07/23 Window Trimmer Relationship Specialty Start Date End Date Julia Tracey [address], [place] [address] PCP - General Internal Medicine 07/07/23 Window Trimmer Relationship Specialty Start Date End Date Julia Tracey [address], [place] [address] PCP - General Internal Medicine 07/07/23 Window Trimmer Relationship Specialty Start Date End Date Julia Tracey [address], [place] [address] PCP - General Internal Medicine 07/07/23 Reason for Visit (unrecogniz ed section and content) Reason Comments Follow Up Reason Comments Information Reason Comments Received Outside Medical Records MRI lef t ankle report Reason Comments Post Op Sx: 07/11/2023 Reason Comments Established Patient Follow Up Reason Comments Follow Up Pt states that she i s doing good. Has documentation to return to work with limitations Reason Comments Established Patient Reason Onset Date Comments Refill Request 05/26/2024 FOR RECORDS PERTAINING TO PATIENTS WHO ARE OR HAVE BEEN ENROLLED IN A CHEMICAL DEPENDENCY/SUBSTANCEABUSE PROGRAM, SOME INFORMATION MAY BE OMITTED. This clinical summary was aggregated from multiple sources. Caution should be exercised in using it in the provision of clinical care. This summary normalizes information from multiple sources, and as a consequence, information in this document may materially change the coding, format and clinical context of patient data. In addition, data may be omitted in some cases. CLINICAL DECISIONS SHOULD BE BASED ON THE PRIMARY CLINICAL RECORDS. [facility] [employer] [facility]. provides no warranty or guarantee of the accuracy or completeness of information in this document.
[2024-05-31 10:19] LABS: HCG Qualitative NEGATIVE (NEGATIVE); Internal Control Within Normal Limits
[2024-05-31 10:22] LABS: Anion Gap 16.3; BUN Creatinine Ratio 20.2; Calcium 8.8 mg/dL (8.5-10.1); Carbon Dioxide 22.7 mmol/L (21.0-32.0); Chloride 105 mmol/L (98-107); Estimated GFR (African America >60 (>=60 mL/min/1.73m^2); Estimated GFR (Non-African Ame >60 (>=60 mL/min/1.73m^2); Glucose 104 mg/dL (74-106); Sodium 140 mmol/L (136-145); Troponin I High Sensitivity <4.0 pg/mL (4.0-51.3)
== END 2024-05-31 12:11 | disposition home or self-care (01) ==
PROVIDERS: Emergency Provider Student in an Organized Health Care Education/Training Program; PCP Internal Medicine
DX: R07.9 Chest pain, unspecified (principal)
CPT/HCPCS: 36415; 71045; 80048; 84484; 84703; 85025; 93005; 99285

== ENCOUNTER 2024-06-02 09:49 | Outpatient (OUT) | payer OTHER, SELFPAY ==
--- OUTSIDE RECORDS SUMMARY | 2024-06-02 10:01 | XMS_ITS | CCD ---
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 0.2 {[place]'U}/dL Normal 0.2 - 1.0 [facility] Comment on above: Performed By: #### E RUR, PREGU #### [facility] [address] [place] [address] Dr. Silas Ivey URon 01-19-2022 , QUAL Negative Normal NEGATIVE [facility] Comment on above: Performed By: #### E RUR, PREGU #### [facility] [address] [place] [address] Dr. Silas Ivey Covid-19 PCR ([facility])on 12-17 SARS-CoV-2 (COVID-19) RNA EFRAIN+probe Ql (Unsp spec) Not detected Normal NOT DETECTED The [facility] Comment on above: Result Comment: When [...] for this test is supported by the [employer] In[employer] of Health and Human Service's declaration that [...] used). Performed By: #### C VDTBH #### [facility] [address] [address] [address] Silas Ivey GROUP A STREP CULTUREon 12-17 S. pyogenes Ag Ql (Unsp spec) Culture Observations: NEGATIVE FOR GROUP A STREPTOCOCCUS. Normal The [facility] Comment on above: Performed By: #### S SCRN GRASTCX ####[facility] [address] [place] [id number]. Silas Ivey INFLUENZA A AND B AGon 01-11 INFLUANE SEE BELOW Normal [facility] Comment on above: Result Comment: Nega tive for Flu A protein angiten. Infection due to Flu A cannot be ruled out. Flu A angiten in the sample may be below the detection limit of the test. Performed By: #### I NFLUAB ####[facility] [address] [place] [address]DrJames Ivey INFLUBNEGH SEE BELOW Normal [facility] Comment on above: Result Comment: Nega tive for Flu B protein antigen. Infection due to Flu B cannot be ruled out. Flu B antigen in the sample may be below the detection limit of the test. Performed By: #### I NFLUAB ####[facility] [address] [place], [place] [address]Zb. Silas Ivey INFLUENZA A AG Negative Normal NEGATIVE SEE COMMENT The [facility] Comment on above: Performed By: #### I NFLUAB ####[facility] [address] [place], [place] [address]Ns. Silas Ivey INFLUENZA B AG Negative Normal NEGATIVE SEE COMMENT The [facility] Comment on above: Performed By: #### I NFLUAB ####[facility] [address] [place], [place] [address]Oo. Silas Ivey INTERNAL CONTROLS Within Normal Limits Normal Wi thin Normal Limits The [facility] Comment on above: Performed By: #### I NFLUAB ####[facility] [address] [place] [id number]. Silas Uche STREPT SCREENon 01-11-2022 STREP SCREEN A Negative Normal NEGATIVE The [facility] Comment on above: Performed By: #### S SCRN, GRASTCX ####[facility] [address] [place] [id number]. Silas Ivey Vital Signs Date Time Vital Sign Value Performing Clinician Faci lity 07-08-2023 10:10-0500 Body height 152.4 cm Pac 7 Work Phone: [facility] 07-08-2023 10:10-0500 Body temperature 98.71 [degF] Pac 7 Work Phone: [facility] 07-08-2023 10:10-0500 Body weight 62.46 kg Pac 7 Work Phone: [facility] 07-08-2023 10:10-0500 Diastolic blood pressure 67 mm[Hg] Pacc 7 Work Phone: [facility] 07-08-2023 10:10-0500 Heart rate 74 /min Pac 7 Work Phone: [facility] 07-08-2023 10:10-0500 SaO2% (BldA) [Mass fraction] 98 % Pac 7 Work Phone: [facility] 07-08-2023 10:10-0500 Systolic blood pressure 107 mm[Hg] Pacc 7 Work Phone: [facility] Encounters Encounter Date Encounter Type Care Provider Facility Start: 05-26-2024 End: 05-26-2024 Refill Canturosey Waters DPM Work Phone: [facility] Comment on above: Refill Request Start: 03-02-2024 End: 03-03-2024 Emergency department patient visit MARQUEZ GILLIAM [facility] Start: 02-02-2024 End: 02-02-2024 Patient encounter procedure Serafin Waters DPM Work Phone: [facility] Comment on above: 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); Lesion of left tibial nerve Start: 02-02-2024 End: 02-02-2024 ambulatory SERAFIN WATERS Facility:[facility] Start: 12-17-2023 End: 01-17-2024 ambulatory CANTU [facility] Start: 11-27-2023 End: 12-17-2023 ambulatory CANTU [facility] Start: 11-18-2023 ambulatory Cantu Jose Margarettebrittadebbie DPM Work Phone: [facility] Comment on above: Pain Management Info Start: 11-18-2023 E-mail encounter fro m caregiver Canturosey Hernandezr Margarettebrittadebbie DPM Work Phone: [facility] Start: 11-03-2023 End: 11-03-2023 Patient encounter procedure Serafin Waters DPM Work Phone: [facility] Comment on above: 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); Lesion of left tibial nerve Start: 11-03-2023 End: 11-03-2023 Subsequent hospital visit by physician [facility] Radiology Comment on above: Acute left ankle portia n [M25.572] Start: 11-03-2023 End: 11-03-2023 ambulatory Serafin Waters DPM Work Phone: [facility] Comment on above: Work papers accommod ations Start: 10-17-2023 End: 11-17-2023 ambulatory SERAFIN WATERS [facility] Start: 09-24-2023 Orders Only Serafin Waters DPM Work Phone: [facility] Comment on above: Acute left ankle portia n (Primary Dx) Start: 09-18-2023 End: 10-17-2023 ambulatory CANTUROSEY WATERS [facility] Start: 09-15-2023 ambulatory Serafin Waters DPM Work Phone: [facility] Comment on above: Question about shoes Start: 09-05-2023 End: 09-05-2023 ambulatory [facility] Start: 09-05-2023 End: 09-05-2023 Patient encounter procedure Serafin Waters DPM Work Phone: [facility] Comment on above: 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); Lesion of left tibial nerve Start: 08-18-2023 ambulatory Fouzia Sierra RN [facility] [employer] Comment on above: Information Start: 08-08-2023 End: 09-18-2023 ambulatory CANTUROSEY WATERS [facility] Start: 08-08-2023 End: 08-08-2023 [facility] Start: 07-25-2023 End: 07-25-2023 Patient encounter procedure Serafin Waters DPM Work Phone: [facility] Comment on above: 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); Lesion of left tibial nerve Start: 07-25-2023 End: 07-25-2023 ambulatory SERAFIN WATERS Facility:[facility] Start: 07-15-2023 Telephone encounter Serafin Waters DPM Work Phone: [facility] Start: 07-14-2023 ambulatory Maddi Cheatham RN NURSE [employer]ESS DR[employer]ER Comment on above: Information Start: 07-11-2023 End: 07-11-2023 ambulatory Tanya Trevino RN [facility] Start: 07-11-2023 Follow-up encounter Tanya Trevino RN NURSE [employer]ESS [employer]ER Comment on above: Follow Up Start: 07-08-2023 Encounter for other preprocedural examination JULIA TRACEY [facility] Start: 07-08-2023 End: 07-08-2023 Admission to establishment Pacc Main 7 Work Phone: [facility] Start: 07-08-2023 End: 07-09-2023 ambulatory Pac Main 7 Work Phone: Pre Anesthesia Comment on above: Pre-op evaluation; Achilles tendinitis, left leg Start: 07-08-2023 End: 07-08-2023 Preprocedural examination done Pac Main 7 Work Phone: [facility] Work Phone: Start: 07-07-2023 Orders Only eSrafin Waters DPM Work Phone: [facility] Comment on above: Tarsal tunnel syndro me, left (Primary Dx); Soft tissue mass Received Outside Med [facility] Records (MRI left ankle report) Start: 07-04-2023 End: 07-04-2023 ambulatory ASHIA BROWNLEE Facility:[facility] Start: 07-28-2022 End: 07-29-[address] [...] DTaP,Tdap,Td Vaccine (2 - Td or Tdap) [facility] Start: 04-18-2024 Covid-19 Vaccine () Covid-19 Vaccine () [facility] Start: 04-18-2024 Influenza vaccination C [facility] Start: 08-18-2023 Behavioral Health Screening Behavioral Health Screening [facility] Start: 08-18-2023 Depression Assessment Depression Ass essment [facility] Start: 04-18-2023 Covid-19 Vaccine () Covid-19 Vaccine () [facility] Start: 04-18-2023 Influenza vaccination Influenza Vacc ine (#1) [facility] Start: 2022 HPV Testing HPV Testing [facility] Start: 2022 Screening for malign ant neoplasm of cervix HPV Testing [facility] Start: 08-18-2022 Depression [facility] Start: 03-21-2022 Hepatitis B Vaccine (2 of 2 - CpG 2-dose series) Hepatitis B Vaccine (2 of 2 - CpG 2-dose series) [facility] Start: 2013 Pap Testing Pap Testing [facility] Start: 2013 Screening for malign ant neoplasm of cervix [facility] Start: 2010 Anxiety Screening Anxiety Screening [facility] Start: 2010 Depression Screening Depression Scre ening [facility] Start: 2010 Hepatitis C Screening Hepatitis C [facility] Start: 2010 Hepatitis C screening Hepatitis C [facility] Start: 2010 HIV Screening HIV Screening [facility] Start: 2010 HIV screening HIV Screening [facility] Start: 1998 Pneumococcal vaccination [facility] XR Ankle - left AP a nd Lateral and oblique XR ANKLE GENERAL 3V AP/LAT/OBL LEFT Radiology Routine Acute left ankle pain 11/03/2023 2:32 PM EDT [facility] Work Phone: End: 10-23-2024 XR ANKLE GENERAL 3V AP/LAT/OBL LEFT XR ANKLE GENERAL 3V AP/LAT/OBL LEFT Radiology Routine Acute left ankle pain 1 Occurrences starting 09/24/2023 until 10/23/2024 [facility] Work Phone: Comment on above: 1 Occurrences starti ng 09/24/2023 until 10/23/2024 [facility] Immun[facility] Immunization Date Immunization Notes Care Provider Guerita rahman 06-07-2019 influenza virus vaccine, unspecified formulation Serafin Waters DPRaine Work Phone: [facility] Payers Date Payer Category Payer Unknown [id number] 2023 Medicaid [facility] MEDICAID [id number] 2023-Present [phone] [address] [place] [address] Medicaid [id number] 2023 Medicaid [id number] 1992 Unknown [id number] 1992 Unknown [id number] [id number] 1992 Unknown [id number] [id number] 1992 Unknown [id number] [id number] 1992 Unknown [id number] 2.16840.1.397701.3.579.2.593 1992 Unknown [id number] 2.16.840.1.199064.3.579.2.593 1992 Unknown [id number] 2.16.840.1.738896.3.579.2.1286 1992 Unknown [id number] 2.16.840.1.268896.3.579.2.1286 1992 Unknown [id number] 2.16.840.1.411937.3.579.2.1286 1992 Unknown [id number] 2.16.840.1.000731.3.579.2.1285 1992 Unknown [id number] 2.16.840.1.188039.3.579.2.1285 1992 Unknown [id number] 2.16.840.1.783863.3.579.2.1285 1992 Unknown [id number] 2.16.840.1.992572.3.579.2.1285 1992 Unknown [id number] 2.16.840.1.918863.3.579.2.1285 1992 Unknown [id number] 2.16.840.1.828938.3.579.2.1285 1992 Unknown [id number] 2.16.840.1.859007.3.579.2.[facility] 1957 Unknown [id number] 1957 Unknown [id number] Social History Date Type Detail Facility Start: 07-04-2023 Tobacco smoking status NHIS Ex-smoker [facility] History of tobacco use Current smoker [facility] History of tobacco use Cigarette Smoker [facility] Start: 07-04-2023 End: 07-08-2023 Tobacco use and exposure Smokeless tobacco non-user [facility] Start: 07-04-2023 End: 01-26-2024 History of Social function [facility] Start: 07-04-2023 End: 01-26-2024 Tobacco use panel [facility] National Score (1-100), lower number is lower risk 92 [facility] Start: 07-04-2023 Tobacco Comment Vapes occasionally C [facility] Start: 1990 Sex Assigned At Not on file C [facility] Start: 07-08-2023 Tobacco smoking status MDIS Smokes tobacco daily [facility] Work Phone: Start: 07-08-2023 End: 02-02-2024 Alcohol intake Current drinker of alcohol (finding) [facility] Start: 07-08-2023 Tobacco Comment Vapes occasion ally, 2-3 cigarettes a day [facility] Start: 07-08-2023 Alcohol Comment occasionally, social drinking. [facility] Medical Equipment Procedure Code Equipment [...] Type Note Facility 02-02-2024 Note HNO ID: [id number] Author: SERAFIN WATERS DPM Service: ? Author [...] just got back from a trip to [place] and states that she was doing a [...] will be s (more content not included)... [facility] 02-02-2024 History of Presen t illness [...] just got back from a trip to [place] and states that she was doing a [...] which included preparing to see the patient, uixq-[id number] patient care, completing clinical documentation, obtaining and/or reviewing separately obtained history, performing a medically appropriate examination, counseling and educating the patient/family/caregiver, and ordering medications, tests, or procedures. documented in this encounter [facility] 11-18-2023 Miscellaneous Notes 1445: Received [...] Jennifer, RN, BSN documented in this encounter [facility] 11-05-2023 Miscellaneous Notes Abilio Sullivan, Here are the completed forms. Can you please print and scan them into her chart. Thank you Jennifer documented in this encounter [facility] 11-03-2023 Note HNO ID: [id number] Author: SERAFIN WATERS DPM Service: ? Author [...] - Patient is (more content not included)... [facility] 11-03-2023 History of Presen t illness [...] which included preparing to see the patient, oigv-pb-mncp patient care, completing clinical documentation, obtaining and/or reviewing separately obtained history, performing a medically appropriate examination, counseling and educating the patient/family/caregiver, and ordering medications, tests, or procedures. documented in this encounter [facility] 11-03-2023 History of Presen t [...] PATIENT PRESENTS WITH AN IMPLANTABLE OR ATTACHED LANGUAGE TRANSLATOR: No RADIOLOGY DEPARTMENT: General X-ray: Exam(s) Completed: Lower Extremity X-Ray(s): Ankle, Left PERIPHERAL IV DATA: Not applicable SIGNED BY: RT Kimber(True) November 03, 2023 2:28 PM documented in this encounter [facility] 11-03-2023 Note HNO ID: [id number] Author: SERGEY MCKEE RT(True) Service: Radiology Author [...] PATIENT PRESENTS WITH AN IMPLANTABLE OR ATTACHED LANGUAGE TRANSLATOR: No RADIOLOGY DEPARTMENT: General X-ray: Exam(s) Completed: Lower Extremity X-Ray(s): Ankle, Left PERIPHERAL IV DATA: Not applicable SIGNED BY: RT Kimber(R) November 03, 2023 2:28 PM [facility] 09-05-2023 Note HNO ID: [id number] Author: SERAFIN WATERS DPM Service: ? Author [...] etiology and treatme (more content not included)... [facility] 09-05-2023 History of Presen t illness [...] which included preparing to see the patient, iyvh-po-wuap patient care, completing clinical documentation, obtaining and/or reviewing separately obtained history, performing a medically appropriate examination, counseling and educating the patient/family/caregiver, and ordering medications, tests, or procedures. documented in this encounter [facility] 08-27-2023 Note Patient Outreach (NE TNAV) SAVANNAH KO ([id number]) 1990 F Date Time Provider Department 08/27/23 [...] Care Gap or Scheduling/Wellness visits Payer: Payor: [facility] MEDICAID / Plan: [facility] / Product Type: Medicaid / Care [...] Encounter Status:Closed by RAYMOND MARKHAM on 08/27/23 [facility] 08-27-2023 Note HNO ID: [id number] Author: ?, ?, ? Service: ? Author [...] Care Gap or Scheduling/Wellness visits Payer: Payor: [facility] MEDICAID / Plan: [facility] MEDICAID / Product Type: Medicaid / [...] Raymond Miguel August 27, 2023 10:39 AM [facility] 08-18-2023 Miscellaneous Notes Patient calling with health information: patient requesting health information about Taking Gabapentin and taking Midol for menstrual symptoms, reviewed information from [employer] , and verbalized understanding of information provided. Patient denies any new or worsening symptoms of which a provider is not aware:Yes . Source:[email or web address]/[email or web address]/retrieve/docid/[email or web address]?[email or web address]&searchUrl=%2Flco%2Faction%2F search%3Fq%3Dgabapentin%26t%3Dna me%26acs%3Dtrue%26acq%3Dgab#inte ractions documented in this encounter [facility] 08-08-2023 Note HNO ID: [id number] Author: Serafin Waters DPM Service: ? Author [...] the current p (more content not included)... [facility] 07-25-2023 History of Presen t illness [...] which included preparing to see the patient, eguc-pz-ujny patient care, completing clinical documentation, obtaining and/or reviewing separately obtained history, performing a medically appropriate examination, counseling and educating the patient/family/caregiver, and ordering medications, tests, or procedures. documented in this encounter [facility] 07-25-2023 Note HNO ID: [id number] Author: Serafin Waters DPM Service: ? Author [...] ankle - Sta (more content not included)... [facility] 07-16-2023 Miscellaneous Notes Spoke to patient per Dr. Waters she needs to take pain medication as directed and not wait until she gets in severe pain. Patient called having a lot left heel pain like (50 plus)radiating to the ankle. Takes the oxyCODONE-acetaminophen (PERCOCET) 5-325 mg tablet without much relief to help the pain. Patient went to [facility] yesterday had left ankle covered while taking a shower but the reginaldo and gauze still got wet so she received dressing change there. documented in this encounter [facility] 07-14-2023 Miscellaneous Notes Patient calling with request for post op questions. Patient denies any new or worsening symptoms of which a provider is not aware: N/A. Conferenced to [facility] to page analytical consultant for Podiatry. documented in this encounter [facility] 07-11-2023 Miscellaneous Notes Patient calling [...] to the foot or toes. Conferenced to [facility] facial operator, Cristo, to speak with provider analytical consultant for Dr. Serafin Waters. documented in this encounter [facility] 07-11-2023 Note HNO ID: [id number] Author: Zenon Houston Service: Pharmacy Author Type: ? Type: Plan of Care Filed: 07/14/2023 9:20 AM Note Text: PHARMACY BEDSIDE DELIVERY SERVICE Patient Name: Savannah Ko The marked outpatient medications were filled at [facility] pharmacy and picked up at the [...] your Primary Care Provider. 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 Reason for block: post-op pain management/at surgeon's [...] July 11, 2023 TIME: 5:22 PM CSN: [id number] [facility] 07-11-2023 Note HNO ID: [id number] Author: Kimmy Smiley DO Service: Pain Management Author Type: Anesthesiologist Type: Anesthesia Procedure Notes Filed: 07/11/2023 5:28 PM Note Text: ANESTHESIOLOGY PROCEDURE NOTE Peripheral Nerve Block General Information Procedure Start Time/Medication Administration: 07/11/2023 4:04 PM Procedure End time: 07/11/2023 4:05 PM Patient location during procedure: OR Timeout Performed Pre-procedure: timeout performed Consent Obtained: Yes 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 Author Type: Nurse Incinerator Operator Type: Anesthesia Procedure Notes Filed: 07/11/2023 3:09 PM Note Text: ANESTHESIOLOGY PROCEDURE NOTE Airway General Information Procedure Start Time/Medication Administration: 07/11/2023 2:42 PM Patient location during procedure: OR Patient identity confirmed: arm band Staffing Anesthesiologist: Kimmy Smiley DO NIGHT ORDER SELECTOR: Savannah Donovan APRN.NIGHT ORDER SELECTOR Performed by: NIGHT ORDER SELECTOR Indications and Patient Condition Indications for airway management: anesthesia Preoxygenated: yes anesthesia circuit Patient position: sniffing Method: asleep Difficult Mask: No Final Airway Details Final airway type: supraglottic airway Number of attempts at approach: 1 Final Supraglottic Airway: IGEL Size 3 Seal Adequate: yes Airway not difficult SIGNATURE: Savannah Donovan APRN.CRNA PATIENT NAME: Savannah Ko DATE: July 11, 2023 TIME: 3:08 PM CSN: [id number] [facility] 07-08-2023 Note HNO ID: [id number] Author: Harman Brandon MD Service: ? Author [...] Brandon MD Date: 07/08/2023 Time: 3:26 PM [facility] 07-08-2023 History of Presen t illness Narrative Attending Note I evaluated the patient and personally participated in the kelly components. I agree with the resident's findings and plan as documented and have discussed the case and management of the patient's care with the resident. Signature: Harman Brandon MD Date: 07/08/2023 Time: 3:26 PM documented in this encounter [facility] 07-08-2023 Instructions Ama Lei MD - 07/08/2023 10:37 AM EST PATIENT PREOPERATIVE INSTRUCTIONS No ref. provider found has scheduled you for your procedure at this surgery center: [facility]: [phone] --[id number] [id number]. Please check in on the 1st floor [...] for the 07/08/23 encounter (PAT) with , [facility]. If you start any new [...] Procedures: - YOU MUST HAVE A RESPONSIBLE FLAME CHANNELER TAKE YOU HOME. A LANGUAGE PATH OR RATE EXAMINER CANNOT BE MADE A RESPONSIBLE FLAME CHANNELER. - We recommend that a responsible person [...] Advance Directive, please fax a copy to [phone] or email to for it to be [...] Ama Lei MD documented in this encounter [facility] 07-08-2023 History and physical note [...] of breath, history of stroke, history of [place], history of CHF. History reviewed. No pertinent [...] weight loss, malaise or fevers. 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 No neurological symptoms or problems. Respiratory: No history of current cough or dyspnea, or pneumonia in the past 6 weeks. No history of respiratory/pulmonary symptoms or problems. Cardiovascular: No history of HTN requiring medication, no history of angina, CHF, [place], cardiac surgery or stents. Denies rest pain, gangrene or revascularization/amputation for PVD. No history of cardiovascular symptoms or problems. GI: No history of GI symptoms or problems. No history of esophageal varices, recent ascites, or ETOH greater than 2 drinks per day. : No history of dysuria, frequency or incontinence,, stones or chronic kidney disease STEAM BOX TENDER: Negative for abnormal vaginal bleeding, abnormal vaginal [...] TIME: 8:58 AM documented in this encounter [facility] 07-07-2023 Miscellaneous Notes Received MRI left ankle report from [facility] dated 06/02/23. Scanned report into [employer]. documented in this encounter [facility] 07-04-2023 Note HNO ID: [id number] Author: Serafin Waters DPM Service: ? Author Type: Physician Type: Progress Notes Filed: 07/04/2023 10:39 AM Note Text: PODIATRIC MEDICINE AND SURGERY OFFICE NOTE Complaint: Left tarsal tunnel syndrome HPI: This 32 year old female presents to the clinic today as a referral from Dr. Brownlee from [facility] for a complaint of tarsal tunnel [...] lower extremity Informed Consent Consent Obtained: Verbal [place] Protocol A moment to CARE was completed. [...] No implant(s) in (more content not included)... [facility] Evaluation note Diagnosis Tarsal tunnel syndrome, left- Primary Soft tissue mass Disorders of soft tissue, unspecified Tarsal tunnel syndrome, left Soft tissue mass Disorders of soft tissue, unspecified [facility] Preoperative examination, unspecified Achilles tendinitis, left leg Tarsal tunnel syndrome, left Soft tissue mass Disorders of soft tissue, unspecified [facility] Tarsal tunnel syndrome of [...] left ankle pain [facility] Tarsal tunnel syndrome of left side- Primary Tarsal tunnel syndrome Lesion of left tibial nerve documented in this encounter [facility] for referral (narrative)* Diagnostic Procedure Only (Routine) - Authorized Specialty Diagnoses / Procedures Referred By Álvaro malone Referred To Contact XR IMAGING Diagnoses Acute left ankle pain Procedures XR ANKLE GENERAL 3V AP/LAT/OBL LEFT RADEX ANKLE COMPLETE MINIMUM 3 VIEWS Serafin Waters DPM [id number] [place] [id number] Referral ID Status Reason Start Date Expiration Date Visits Requested Visits Authorized [id number] Authorized Auto-Generat ed Referral 09/24/2023 10/23/2024 1 1 [facility] for visit Narrative* Diagnostic Procedure Only (Routine) - Closed Specialty Diagnoses / Procedures Referred By Álvaro malone Referred To Contact XR IMAGING Diagnoses Acute left ankle pain Procedures XR ANKLE GENERAL 3V AP/LAT/OBL LEFT RADEX ANKLE COMPLETE MINIMUM 3 VIEWS Serafin Waters DPM [id number] [place] [id number] Referral ID Status Reason Start Date Expiration Date V isits Requested Visits Authorized [id number] Closed Auto-Generate d Referral 09/24/2023 10/23/2024 1 1 [facility] Summary Purpose Family History No Family History Records FoundNo Family History Records FoundNo Family History Records FoundNo Family History Records Found Advance Directives No Advanced Directives Records FoundNo Advanced Directives Records FoundNo Advanced Directives Records FoundNo Advanced Directives Records Found Additional Source Comments INFORMATION SOURCE (unrecogn ized section and content) DATE CREATED AUTHOR 10/23/2022 [facility] DATE CREATED AUTHOR AUTHOR'S ORGANIZ ATION 08/28/2023 [facility] DATE CREATED AUTHOR AUTHOR'S ORGANIZ ATION 02/03/2024 [facility] DATE CREATED AUTHOR AUTHOR'S ORGANIZ ATION 03/06/2024 [facility] Source Comments (unrecognize d section and content) In the event this informatio n is protected by the Federal Confidentiality of Alcohol and Drug Abuse Patient Records regulations: The Federal rules restrict any use of the information to criminally investigate or prosecute any alcohol or drug abuse patient.[facility] the event this information is protected by the Federal Confidentiality of Alcohol and Drug Abuse Patient Records regulations: The Federal rules restrict any use of the information to criminally investigate or prosecute any alcohol or drug abuse patient.[facility] the event this information is protected by the Federal Confidentiality of Alcohol and Drug Abuse Patient Records regulations: The Federal rules restrict any use of the information to criminally investigate or prosecute any alcohol or drug abuse patient.[facility] the event this information is protected by the Federal Confidentiality of Alcohol and Drug Abuse Patient Records regulations: The Federal rules restrict any use of the information to criminally investigate or prosecute any alcohol or drug abuse patient.[facility] the event this information is protected by the Federal Confidentiality of Alcohol and Drug Abuse Patient Records regulations: The Federal rules restrict any use of the information to criminally investigate or prosecute any alcohol or drug abuse patient.[facility] the event this information is protected by the Federal Confidentiality of Alcohol and Drug Abuse Patient Records regulations: The Federal rules restrict any use of the information to criminally investigate or prosecute any alcohol or drug abuse patient.[facility] the event this information is protected by the Federal Confidentiality of Alcohol and Drug Abuse Patient Records regulations: The Federal rules restrict any use of the information to criminally investigate or prosecute any alcohol or drug abuse patient.[facility] the event this information is protected by the Federal Confidentiality of Alcohol and Drug Abuse Patient Records regulations: The Federal rules restrict any use of the information to criminally investigate or prosecute any alcohol or drug abuse patient.[facility] Center[facility] the event this information is protected by the Federal Confidentiality of Alcohol and Drug Abuse Patient Records regulations: The Federal rules restrict any use of the information to criminally investigate or prosecute any alcohol or drug abuse patient.[facility] Center[facility] the event this information is protected by the Federal Confidentiality of Alcohol and Drug Abuse Patient Records regulations: The Federal rules restrict any use of the information to criminally investigate or prosecute any alcohol or drug abuse patient.[facility] Center[facility] the event this information is protected by the Federal Confidentiality of Alcohol and Drug Abuse Patient Records regulations: The Federal rules restrict any use of the information to criminally investigate or prosecute any alcohol or drug abuse patient.[facility] Center[facility] the event this information is protected by the Federal Confidentiality of Alcohol and Drug Abuse Patient Records regulations: The Federal rules restrict any use of the information to criminally investigate or prosecute any alcohol or drug abuse patient.[facility] Center[facility] the event this information is protected by the Federal Confidentiality of Alcohol and Drug Abuse Patient Records regulations: The Federal rules restrict any use of the information to criminally investigate or prosecute any alcohol or drug abuse patient.[facility] CenterIn the event this information is protected by the Federal Confidentiality of Alcohol and Drug Abuse Patient Records regulations: The Federal rules restrict any use of the information to criminally investigate or prosecute any alcohol or drug abuse patient.[facility] Center[facility] the event this information is protected by the Federal Confidentiality of Alcohol and Drug Abuse Patient Records regulations: The Federal rules restrict any use of the information to criminally investigate or prosecute any alcohol or drug abuse patient.[facility] Center[facility] the event this information is protected by the Federal Confidentiality of Alcohol and Drug Abuse Patient Records regulations: The Federal rules restrict any use of the information to criminally investigate or prosecute any alcohol or drug abuse patient.[facility] CenterIn the event this information is protected by the Federal Confidentiality of Alcohol and Drug Abuse Patient Records regulations: The Federal rules restrict any use of the information to criminally investigate or prosecute any alcohol or drug abuse patient.[facility] Care Teams (unrecognized sec tion and content) 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 Relationship Specialty Start Date End Date Julia Tracey [address] [place] [place] [address] PCP - General Internal Medicine 07/07/23 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 Relationship Specialty Start Date End Date Julia Tracey [address] [place] [address] PCP - General Internal Medicine 07/07/23 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 Relationship Specialty Start Date End Date Julia Tracey [address] [place] [address] PCP - General Internal Medicine 07/07/23 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 Relationship Specialty Start Date End Date Julia Tracey [address] [place] [address] PCP - General Internal Medicine 07/07/23 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 Relationship Specialty Start Date End Date Julia Tracey [address], [place] [address] PCP - General Internal Medicine 07/07/23 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 Relationship Specialty Start Date End Date Julia Tracey [address], [place] [address] PCP - General Internal Medicine 07/07/23 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 Relationship Specialty Start Date End Date Julia Tracey [address], [place] [address] PCP - General Internal Medicine 07/07/23 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 Relationship Specialty Start Date End Date Julia Tracey [address], [place] [address] PCP - General Internal Medicine 07/07/23 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 Relationship Specialty Start Date End Date Julia Tracey [address], [place] [address] PCP - General Internal Medicine 07/07/23 Reason [...] BE BASED ON THE PRIMARY CLINICAL RECORDS. [facility]. provides no warranty or guarantee of the accuracy or completeness of information in this document.
[2024-06-02 10:39] LABS: Thyroid Stimulating Hormone 1.548 uIU/mL (0.358-3.740)
== END 2024-06-02 09:50 | disposition home or self-care (01) ==
LOC: LAB 09:53
PROVIDERS: PCP Internal Medicine; Visit Provider Internal Medicine Cardiovascular Disease
DX: R55 Syncope and collapse (principal); R00.2 Palpitations
CPT/HCPCS: 36415; 82533; 84443

== ENCOUNTER 2024-07-13 06:46 | Outpatient (OUT) | payer OTHER, SELFPAY ==
--- OUTSIDE RECORDS SUMMARY | 2024-07-13 06:48 | XMS_ITS | CCD ---
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 [facility] Comment on above: Performed By: #### C MAGGY #### [facility] [address] [place] [address] Dr. Silas Ivey PROF 14(COMP METB)on 022 Albumin [Mass/Vol] 3.9 g/dL Normal 3.4-5.0 [facility] Comment on above: Performed By: #### C MP #### [facility] [address] [address] [address] Silas Ivey Albumin/Globulin [Mass ratio] 1.0 {ratio} Normal [facility] Comment on above: Performed By: #### C MP #### [facility] [address] [address] [address] Silas Ivey ALP [Catalytic activity/Vol] 113 U/L Normal 46-116 [facility] Comment on above: Performed By: #### C MP #### [facility] [address] [address] [address] Silas Ivey ALT [Catalytic activity/Vol] 15 U/L Normal 14-59 [facility] Comment on above: Performed By: #### C MP #### [facility] [address] [address] [address] Silas Ivey Anion gap [Moles/Vol] 9.4 mmol/L Normal [facility] Comment on above: Performed By: #### C MP #### [facility] [address] [place] [address] Dr. Silas Ivey AST [Catalytic activity/Vol] 15 U/L Normal 15-37 [facility] Comment on above: Performed By: #### C MP #### [facility] [address] [place] [address] Dr. Silas Ivey Bilirubin [Mass/Vol] 0.1 mg/dL Critically low 0.2-1.0 [facility] Comment on above: Performed By: #### C MP #### [facility] [address] [place] [address] Dr. Silas Ivey Calcium [Mass/Vol] 8.9 mg/dL Normal 8.5-10.1 [facility] Comment on above: Performed By: #### C MP #### [facility] [address] [place] [address] Dr. Silas Ivey Chloride [Moles/Vol] 103 mmol/L Normal 98-107 [facility] Comment on above: Performed By: #### C MP #### [facility] [address] [place] [address] Dr. Silas Ivey CO2 [Moles/Vol] 25.6 mmol/L Normal 21.0-32.0 [facility] Comment on above: Performed By: #### C MP #### [facility] [address] [place] [address] Dr. Silas Ivey Creatinine [Mass/Vol] 0.81 mg/dL Normal 0.55-1.02 [facility] Comment on above: Performed By: #### C MP #### [facility] [address] [address] [address] Silas Ivey EGFR-AF J[place]ICAN >60 Normal >=60 [facility] Comment on above: Performed By: #### C MP #### [facility] [address] [address] [address] Silas Ivey EGFR-NON AF J[place] >60 Normal >=60 [facility] Comment on above: Performed By: #### C MP #### [facility] [address] [address] [address] Silas Ivey Globulin (S) [Mass/Vol] 4.0 g/dL Normal [facility] Comment on above: Performed By: #### C MP #### [facility] [address] [address] [address] Silas Ivey Glucose [Mass/Vol] 101 mg/dL Normal 74-106 [facility] Comment on above: Performed By: #### C MP #### [facility] [address] [address] [address] Silas Ivey Potassium [Moles/Vol] 4.0 mmol/L Normal 3.5-5.1 [facility] Comment on above: Performed By: #### C MP #### [facility] [address] [address] [address] Silas Ivey Protein [Mass/Vol] 7.9 g/dL Normal 6.4-8.2 [facility] Comment on above: Performed By: #### C MP #### [facility] [address] [address] [address] Silas Ivey Sodium [Moles/Vol] 134 mmol/L Critically low 136-145 [facility] Comment on above: Performed By: #### C MP #### [facility] [address] [address] [address] Silas Ivey Urea nitrogen [Mass/Vol] 19.0 mg/dL Critically high 7.0-18.0 [facility] Comment on above: Performed By: #### C MP #### [facility] [address] [place], [place] [address] Dr. Silas Ivey Urea nitrogen/Creatinine [Mass ratio] 23.5 mg/mg Normal [facility] Comment on above: Performed By: #### C MP #### [facility] [address] [place], [place] [address] Dr. Silas Ivey XR CHEST 1 Von [...] Kamari COLE Date: 2022-07-28 22:38 Normal [facility] Covid-19 PCR (CVDTB)on 07-18 SARS-CoV-2 (COVID-19) RNA EFRAIN+probe Ql (Unsp spec) Not detected Normal NOT DETECTED [facility] Comment on above: Result Comment: This test is not yet approved or cleared by the [place] FDA. When there are no FDA-approved or cleared tests available, and other criteria are met, FDA can make tests available under an emergency access mechanism called an Emergency Use Authorization (EUA). The EUA for this test is supported by the Insert Operator of Health and Human Service's (HHS's) declaration [...] SARS-CoV-2. Performed By: #### C VDTBH #### [facility] [address] [address] [address] Silas Ivey INFLUENZA A AND B AGon 07-28 INFLUENZA A AG Negative Normal NEGATIVE SEE COMMENT [facility] Comment on above: Performed By: #### I NFLUAB #### [facility] [address] [address] [address] Silas Ivey INFLUENZA B AG Negative Normal NEGATIVE SEE COMMENT [facility] Comment on above: Performed By: #### I NFLUAB #### [facility] [address] [address] [address] Silas Ivey INTERNAL CONTROLS Within Normal Limits Normal Wi thin Normal Limits [facility] Comment on above: Performed By: #### I NFLUAB #### [facility] [address] [address] [address] Silas Ivey PAP ACOG PANEL 2: 21 to 31on 05-06-2022 . . Normal [facility] Comment on above: Performed By: #### [id number] ####[facility] [address] [address]Dr. Silas Ivey Age Gdln ACOG Testing - Normal [facility] Comment on above: Performed By: #### 4 [id number] ####[facility] [address] [address]Dr. Silas Ivey DIAGNOSIS: Comment Normal [facility] Comment on above: Result Comment: NEGA TIVE FOR INTRAEPITHELIAL LESION OR MALIGNANCY. Performed By: #### [id number] ####[facility] [address] [place], [place] [address]Dr. Silas Ivey Methodology: Comment Normal [facility] Comment on above: Result Comment: This liquid based ThinPrep(R) pap test was screened with the use of an image guided system. Performed By: #### [id number] ####[facility] [id number] [address]Dr. Silas Ivey Note: Comment Normal [facility] Comment on above: Result Comment: The Pap smear is a screening test designed to aid in the detection of premalignant and malignant conditions of the uterine cervix. It is not a diagnostic procedure and should not be used as the sole means of detecting cervical cancer. Both false-positive and false-negative reports do occur. . Performed By: #### [id number] ####[facility] [address] [address]Dr[address] Silas Ivey Performed by: Comment Normal [facility] Comment on above: Result Comment: Raissa Martinez, Filbert Grower (ASCP) Performed By: #### 4 [id number] ####[facility] [address] [place], [place] [address]Dr. Silas Ivey Reflex Criteria: Comment Normal [facility] Comment on above: Result Comment: The HPV DNA reflex criteria were not met with this specimen result therefore, no HPV testing was performed. . Performed By: #### [id number] ####[facility] [address] [place], [place] [address]Dr. Silas Ivey Specimen adequacy: Comment Normal [facility] Comment on above: Result Comment: Sati sfactory for evaluation. Endocervical and/or squamous metaplastic cells (endocervical component) are present. Performed By: #### [id number] ####[facility] [address] [place], [place] [address]Dr. Silas Ivey US PELVIS AND TRANSVAGon US [...] ROBBIE MONROY Date: 2022-05-03 16:11 Normal [facility]on SARS-CoV-2 (COVID-19) RNA EFRAIN+probe Ql (Unsp spec) Detected Critically abnormal NOT DETECTED [facility] Comment on above: Result Comment: This test is not yet approved or cleared by the [place] FDA. When there are no FDA-approved or cleared tests available, and other criteria are met, FDA can make tests available under an emergency access mechanism called an Emergency Use Authorization (EUA). The EUA for this test is supported by the Insert Operator of Health and Human Service's declaration that [...] used). Performed By: #### C VDTBH #### [facility] [address] [place] [address] Dr. Sials Ivey ER URINE PROFILEon 2 Bilirubin Ql (U) Negative Normal NEGATIVE [facility] Comment on above: Performed By: #### E RUR, PREGU #### [facility] [address] [place] [address] Dr. Silas Ivey Clarity (U) CLEAR Normal CLEAR [facility] Comment on above: Performed By: #### E RUR, PREGU #### [facility] [address] [place] [address] Dr. Silas Ivey Color (U) YELLOW Normal YELLOW [facility] Comment on above: Performed By: #### E RUR, PREGU #### [facility] [address] [place] [address] Dr. Silas Ivey ERUAHD A micrscopic examination will be performed if indicated. Normal [facility] Comment on above: Performed By: #### E RUR, PREGU #### [facility] [address] [place] [address] Dr. Silas Ivey Glucose Ql (U) Negative Normal NEGATIVE [facility] Comment on above: Performed By: #### E RUR, PREGU #### [facility] [address] [place] [address] Dr. Silas Ivey Hemoglobin Ql (U) Negative Normal NEGATIVE [facility] Comment on above: Performed By: #### E RUR, PREGU #### [facility] [address] [place] [address] Dr. Silas Ivey Ketones Ql (U) Negative Normal NEGATIVE [facility] Comment on above: Performed By: #### E RUR, PREGU #### [facility] [address] [place] [address] Dr. Silas Ivey LEUKOCYTES Negative Normal NEGATIVE [facility] Comment on above: Performed By: #### E RUR, PREGU #### [facility] [address] [place] [address] Dr. Silas Ivey Nitrite Ql (U) Negative Normal NEGATIVE [facility] Comment on above: Performed By: #### E RUR, PREGU #### [facility] [address] [place] [address] Dr. Silas Ivey pH (U) 5.5 [pH] Normal 5-9 [facility] Comment on above: Performed By: #### E RUR, PREGU #### [facility] [address] [place] [address] Dr. Silas Ivey SPEC GRAVITY >=1.030 Abnormal 1.005-<=1.025 [facility] Comment on above: Performed By: #### E RUR, PREGU #### [facility] [address] [place] [address] Dr. Silas Ivey UA PROTEIN Negative Normal NEGATIVE/ TRACE [facility] Comment on above: Performed By: #### E RUR, PREGU #### [facility] [address] [place] [address] Dr. Silas Ivey UR MICRO IND NOT INDICATED Normal [facility] Comment on above: Performed By: #### E RUR, PREGU #### [facility] [address] [place] [address] Dr. Silas Ivey Urobilinogen Qn (U) 0.2 {[place]'U}/dL Normal 0.2 - 1. 0 [facility] Comment on above: Performed By: #### E RUR, PREGU #### [facility] [address] [address] [address] Silas Ivey URon 01-19-2022 , QUAL Negative Normal NEGATIVE [facility] Comment on above: Performed By: #### E RUR, PREGU #### [facility] [address] [address] [address] Silas Ivey Covid-19 PCR ([facility])on 12-17 SARS-CoV-2 (COVID-19) RNA EFRAIN+probe Ql (Unsp spec) Not detected Normal NOT DETECTED [facility] Comment on above: Result Comment: When [...] for this test is supported by the Insert Operator of Health and Human Service's declaration that [...] used). Performed By: #### C VDTBH #### [facility] [address] [address] [address] Silas Ivey GROUP A STREP CULTUREon 12-17 S. pyogenes Ag Ql (Unsp spec) Culture Observations: NEGATIVE FOR GROUP A STREPTOCOCCUS. Normal [facility] Comment on above: Performed By: #### S SCRN, GRASTCX ####[facility] [address] [place], [place] [address]WeDr. Silas Ivey INFLUENZA A AND B AGon 01-11 INFLUANEGH SEE BELOW Normal [facility] Comment on above: Result Comment: Nega tive for Flu A protein angiten. Infection due to Flu A cannot be ruled out. Flu A angiten in the sample may be below the detection limit of the test. Performed By: #### I NFLUAB ####[facility] [address] [place], [place] [address]Dr. Silas Ivey INFLUBNEGH SEE BELOW Normal [facility] Comment on above: Result Comment: Nega tive for Flu B protein antigen. Infection due to Flu B cannot be ruled out. Flu B antigen in the sample may be below the detection limit of the test. Performed By: #### I NFLUAB ####[facility] [id number] [place], [place] [address]Dr. Silas Ivey INFLUENZA A AG Negative Normal NEGATIVE SEE COMMENT [facility] Comment on above: Performed By: #### I NFLUAB ####[facility] [address] [place], [place] [address]Dr. Silas Ivey INFLUENZA B AG Negative Normal NEGATIVE SEE COMMENT [facility] Comment on above: Performed By: #### I NFLUAB ####[facility] [address] [place], [place] [address]Dr. Silas Ivey INTERNAL CONTROLS Within Normal Limits Normal Wi thin Normal Limits [facility] Comment on above: Performed By: #### I NFLUAB ####[facility] [id number] [place], [place] [address]Dr. Silas Ivey STREPT SCREENon 01-11-2022 STREP SCREEN A Negative Normal NEGATIVE [facility] Comment on above: Performed By: #### S SCRN, GRASTCX ####[facility] [id number] [place], [place] [address]Dr. Silas Uche Vital Signs Date Time Vital Sign Value Performing Clinician Facility 06-10-2024 15:55040 Body height 152.4 cm [facility] 06-10-2024 15:550400 Body mass index (BMI) [Ratio] 29.53 kg/m2 [facility] 06-10-2024 15:55040 Body weight 68.58 kg [facility] 06-10-2024 15:55040 Diastolic blood pressure 78 mm[Hg] [facility] 06-10-2024 15:55-0400 Systolic blood pressure 110 mm[Hg] [facility] Associate [facility] [employer] [facility] 07-08-2023 10:10-0500 Body height 152.4 cm Pacc 7 Work Phone: [facility] 07-08-2023 10:10-0500 Body temperature 98.71 [degF] [facility]acc [employer] Work Phone: [facility] 07-08-2023 10:10-0500 Body weight 62.46 kg Pacc 7 Work Phone: [facility] 07-08-2023 10:10-0500 Diastolic blood pressure 67 mm[Hg] Pacc 7 Work Phone: [facility] 07-08-2023 10:10-0500 Heart rate 74 /min Pacc 7 Work Phone: [facility] 07-08-2023 10:10-0500 SaO2% (BldA) [Mass fraction] 98 % Pacc 7 Work Phone: [facility] 07-08-2023 10:10-0500 Systolic blood pressure 107 mm[Hg] Pacc 7 Work Phone: [facility] Encounters Encounter Date Encounter Type Care Provider Facility Start: 06-25-2024 End: 06-25-2024 ambulatory RICKIE MAGALLANES [facility] Start: 06-21-2024 End: 06-21-2024 Telephone encounter iRckie Magallanes DIRECTOR [facility] Work Phone: [facility] Start: 06-18-2024 End: 06-18-2024 Telephone encounter Rickie Magallanes DIRECTOR [facility] Work Phone: [facility] Start: 06-17-2024 End: 06-17-2024 Orders Only [facility] Comment on above: First trimester preg juju (Primary Dx) Start: 06-15-2024 End: 06-15-2024 Initial care visit Alyssa Huang DIRECTOR [facility] Work Phone: [facility] Comment on above: First trimester preg juju (Primary Dx); Nausea/vomiting in Start: 06-15-2024 End: 06-15-2024 ambulatory [facility] Start: 06-11-2024 End: 06-11-2024 Telephone encounter Rickie Magallanes DIRECTOR [facility] Work Phone: [facility] Start: 06-10-2024 End: 06-10-2024 ambulatory [facility] Start: 06-10-2024 End: 06-10-2024 Office outpatient new 20 minutes [facility] Comment on above: Acute cystitis witho ut hematuria (Primary Dx); First trimester Start: 06-10-2024 End: 06-10-2024 ambulatory [facility] Start: 06-10-2024 End: 06-10-2024 Telephone encounter Nano Candelario [facility] Adilia biswas Comment on above: Medication Problem Start: 06-09-2024 End: 06-09-2024 ambulatory [facility] Start: 06-07-2024 End: 06-07-2024 [facility] DIRECT[facility] ORANGE-TILESETTER Work Phone: [facility] Start: 06-07-2024 End: 06-07-2024 ambulatory DESIREE ARAGON [facility] Start: 06-05-2024 End: 06-05-2024 Emergency department patient visit [facility] Start: 06-01-2024 End: 06-01-2024 ambulatory [facility] Start: 05-26-2024 End: 05-26-2024 Refill Serafin Waters DPM Work Phone: [facility] Adult Comment on above: Refill Request Start: 03-02-2024 End: 03-03-2024 Emergency department patient visit MARQUEZ GILLIAM [facility] Start: 02-02-2024 End: 02-02-2024 Patient encounter procedure Serafin Waters DPM Work Phone: [facility] Comment on above: 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); Lesion of left tibial nerve Start: 02-02-2024 End: 02-02-2024 ambulatory BETANCOURT DOMINGA Facility:[facility] Start: 12-17-2023 End: 01-17-2024 ambulatory SERAFIN WATERS [facility] Start: 11-27-2023 End: 12-17-2023 ambulatory SERAFIN WATERS [facility] Start: 11-18-2023 ambulatory Serafin Waters DPM Work Phone: [facility] Comment on above: Pain Management Info Start: 11-18-2023 E-mail encounter fro m caregiver Serafin Waters DPM Work Phone: [facility] Start: 11-03-2023 End: 11-03-2023 Patient encounter procedure Serafin Waters DPM Work Phone: [facility] Comment on above: 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); Lesion of left tibial nerve Start: 11-03-2023 End: 11-03-2023 Subsequent hospital visit by physician Lyle [facility] Radiology Comment on above: Acute left ankle portia n [M25.572] Start: 11-03-2023 End: 11-03-2023 ambulatory Serafin Waters DPM Work Phone: [facility] Comment on above: Work papers accommod ations Start: 10-17-2023 End: 11-17-2023 ambulatory BETANCOURTROSEY WATERS [facility] Start: 09-24-2023 Orders Only Betancourtrosey Waters DPM Work Phone: [facility] Comment on above: Acute left ankle portia n (Primary Dx) Start: 09-18-2023 End: 10-17-2023 [facility] Start: 09-15-2023 ambulatory Serafin Waters DPM Work Phone: [facility] Comment on above: Question about shoes Start: 09-05-2023 End: 09-05-2023 ambulatory JULIA FATOUMATA ALEXY Facility:[facility] Start: 09-05-2023 End: 09-05-2023 Patient encounter procedure Serafin Waters DPM Work Phone: [facility] Comment on above: 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); Lesion of left tibial nerve Start: 08-18-2023 ambulatory Fouzia Sierra RN NU [employer]GR[employer] PROGRAM TE[employer] Comment on above: Information Start: 08-08-2023 End: 09-18-2023 ambulatory BETANCOURT Joshua LEUNGYESI [facility] Start: 08-08-2023 End: 08-08-2023 ambulatory [facility] Facility:[facility] Start: 07-25-2023 End: 07-25-2023 Patient encounter procedure Serafin Waters DPM Work Phone: [facility] Comment on above: 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); Lesion of left tibial nerve Start: 07-25-2023 End: 07-25-2023 ambulatory BETANCOURT DOMINGA Facility:[facility] Start: 07-15-2023 Telephone encounter Betancourt Clayton Waters DPM Work Phone: [facility] Start: 07-14-2023 ambulatory Maddi Cheatham RN NURSE INTEGRATED PROGRAM TEACHER Comment on above: Information Start: 07-11-2023 End: 07-11-2023 ambulatory Tanya Trevino RN [facility] Start: 07-11-2023 Follow-up encounter Tanya Trevino RN NURSE INTEGRATED PROGRAM TEACHER Comment on above: Follow Up Start: 07-08-2023 Encounter for other preprocedural examination JULIA TRACEY [facility] Start: 07-08-2023 End: 07-08-2023 Admission to [facility] Main 7 Work Phone: [facility] Start: 07-08-2023 End: 07-09-2023 ambulatory Pac Main 7 Work Phone: Pre Anesthesia Comment on above: Pre-op evaluation; Achilles tendinitis, left leg Start: 07-08-2023 End: 07-08-2023 Preprocedural examination done Pac Main 7 Work Phone: [facility] Work Phone: Start: 07-07-2023 Orders Only Serafin Waters DPM Work Phone: [facility] Comment on above: Tarsal tunnel syndro me, left (Primary Dx); Soft tissue mass Received Outside Med [facility] Records (MRI left ankle report) Start: 07-04-2023 End: 07-04-2023 ambulatory ASHIA LOGAN Facility:[facility] Start: 07-28-2022 End: 07-29-[address] MIROSLAVA FITZPATRICK Facility:[facility] Start: 05-02-2022 End: 05-03-[address] ADWOA HUTCHINSON . Facility:[facility] Start: 04-30-2022 End: 04-30-[address] ADWOA HUTCHINSON . Facility:[facility] Start: 03-26-2022 End: 03-26-2022 ambulatory ANN OCHOA . Facility:[facility] Start: 01-19-2022 End: 01-19-[address] JULIA TRACEY Facility:[facility] Start: 01-11-2022 End: 01-11-[address] JOSH MORRISON . Facility: Procedures Date Procedure Procedure Detail Performing Clinician Start: 11-03-2023 Follow-up visit Follow Up SERAFIN WATERS Plan of Treatment Date Care Activity Detail Author Start: 04-23-2026 DTaP,Tdap and Td Vaccines (2 - Td or Tdap) DTaP,Tdap and Td Vaccines (2 - Td or Tdap) [facility] Start: 04-23-2026 Urine microalbumin profile DTaP,Tdap,Td Vaccine (2 - Td or Tdap) [facility] Start: 12-09-2025 Tobacco Counseling Tobacco Counselin g [facility] Start: 06-15-2025 Tobacco Screening Tobacco Screening [facility] Start: 06-10-2025 Adult BMI Screening Adult BMI Screen ing [facility] Start: 06-10-2025 Tobacco Screening Tobacco Screening [facility] Start: 06-05-2025 Adult BMI Screening Adult BMI Screen ing [facility] Start: 06-05-2025 Tobacco Screening Tobacco Screening [facility] Start: 07-06-2024 End: 07-06-2024 ambulatory 07/06/2024 11:15 AM EST Initial [facility] [address] [place] [id number] Veronica Forte DO [address] [place], [place] [id number] [facility] Start: 06-22-2024 End: 06-22-2024 Patient encounter procedure 06/22/2024 8:30 AM EST Appointment [facility] - Ultrasound [address] [place] [phone] Alyssa Huang, DIRECTOR ORANGE-TILESETTER [address] [place], [place] [id number] [facility] - [facility]ound Start: 06-15-2024 End: 06-15-2025 US transvaginal for Ultrasound less than 14 weeks with transvaginal Imaging Routine First trimester Expected: 06/15/2024, Expires: 06/15/2025 [facility] Work Phone: Comment on above: Expected: 06/15/2024 , Expires: 06/15/2025 Start: 06-15-2024 End: 06-15-2024 Telemedicine consultation with patient 06/15/2024 9:15 AM EDT Telemedicine [facility] [address] [place] [phone] Alyssa Huang, DIRECTOR ORANGE-TILESETTER [address] [place], [place] [id number] [facility] Start: 06-10-2024 End: 06-10-2025 Bacteria identified in Urine by Culture Urine Culture Microbiology Routine Acute cystitis without hematuria Expected: 06/10/2024 (Approximate), Expires: 06/10/2025 [facility] Comment on above: Expected: 06/10/2024 (Approximate), Expires: 06/10/2025 Start: 06-10-2024 End: 06-10-2025 Urinalysis Urinalysis Lab Routine Acute cystitis without hematuria Expected: 06/10/2024 (Approximate), Expires: 06/10/2025 [facility] Work Phone: Comment on above: Expected: 06/10/2024 (Approximate), Expires: 06/10/2025 Start: 04-18-2024 COVID-19 Vaccine ( season) COVID-19 Vaccine () [facility] Start: 04-18-2024 Covid-19 Vaccine ( season) Covid-19 Vaccine () [facility] Start: 04-18-2024 Influenza vaccination C [facility] Start: 08-18-2023 Behavioral Health Screening Behavioral Health Screening [facility] Start: 08-18-2023 [facility] Start: 04-18-2023 Covid-19 Vaccine ( season) Covid-19 Vaccine () [facility] Start: 04-18-2023 Influenza vaccination Influenza Vacc ine (#1) [facility] Start: 2022 HPV Testing HPV Testing [facility] Start: 2022 Screening for malign ant neoplasm of cervix HPV Testing [facility] Start: 08-18-2022 Depression Assessment Depression Ass essment [facility] Start: 03-21-2022 Hepatitis B Vaccine (2 of 2 - CpG 2-dose series) Hepatitis B Vaccine (2 of 2 - CpG 2-dose series) [facility] Start: 2013 Pap Testing Pap Testing [facility] Start: 2013 Screening for malign ant neoplasm of cervix [facility] Start: 2010 Adult BMI Follow Up Plan Adult BMI Follow Up Plan [facility] Start: 2010 Anxiety Screening Anxiety Screening [facility] Start: 2010 Depression Screening Depression Scre [facility] Start: 2010 Hepatitis C Screening Hepatitis C [facility] Start: 2010 Hepatitis C screening Hepatitis C [facility] Start: 2010 HIV Screening HIV Screening [facility] Start: 2010 HIV screening HIV Screening [facility] Start: 2004 Depression Screening Depression Scre [facility] Start: 1998 Pneumococcal vaccination [facility] Start: 1992 Tobacco Counseling Tobacco Counselin g [facility] End: 06-15-2025 CBC panel - Blood by Automated count CBC without diff Lab Routine First trimester 1 Occurrences starting 06/15/2024 until 06[facility]15/[facility]: 1 Occurrences starti ng 06/15/2024 until 06/15/2025 Choriogonadotropin.b eta subunit [Units/volume] in Serum or Plasma HCG, Quantitative, Lab Routine First trimester 06/17/2024 2:21 PM EDT [facility] End: 06-10-2025 Drug Screen, Urine Drug Screen, Urine Lab Routine First trimester 1 Occurrences starting 06/10/2024 until 06/10/2025 [facility] Comment on above: 1 Occurrences starti ng 06/10/2024 until 06/10/2025 End: 06-17-2025 hCG, quantitative, hCG, quantitative, Lab Routine First trimester 1 Occurrences starting 06/17/2024 until 06/17/2025 [employer] Work Phone: Comment on above: 1 Occurrences starti ng 06/17/2024 until 06/17/2025 End: 06-18-2025 hCG, quantitative, hCG, quantitative, Lab Routine SAB (spontaneous ) 1 Occurrences starting 06/18/2024 until 06/18/2025 [employer] Work Phone: Comment on above: 1 Occurrences starti ng 06/18/2024 until 06/18/2025 End: 06-15-2025 Hepatitis panel, acute Hepatitis panel, acute Lab Routine First trimester 1 Occurrences starting 06/15/2024 until 06/15/2025 [facility] Comment on above: 1 Occurrences starti ng 06/15/2024 until 06/15/2025 End: 06-15-2025 HIV 1&2 AB/AG Screen (P24 AG) HIV 1&2 AB/AG Screen (P24 AG) Lab Routine First trimester 1 Occurrences starting 06/15/2024 until 06/15/2025 [facility] Comment on above: 1 Occurrences starti ng 06/15/2024 until 06/15/2025 End: 06-15-2025 Rubella IGG immune status Rubella IGG immune status Lab Routine First trimester 1 Occurrences starting 06/15/2024 until 06/15/2025 [facility] Comment on above: 1 Occurrences starti ng 06/15/2024 until 06/15/2025 End: 06-15-2025 Syphilis Total(Unknown Syphilis Status) Syphilis Total(Unknown Syphilis Status) Lab Routine First trimester 1 Occurrences starting 06/15/2024 until 06/15/2025 [facility] Comment on above: 1 Occurrences starti ng 06/15/2024 until 06/15/2025 End: 06-15-2025 Type and screen Type and screen Blood Bank Routine First trimester 1 Occurrences starting 06/15/2024 until 06/15/2025 [facility] Comment on above: 1 Occurrences starti ng 06/15/2024 until 06/15/2025 End: 06-15-2025 Varicella zoster antibody, IgG Varicella zoster antibody, IgG Lab Routine First trimester 1 Occurrences starting 06/15/2024 until 06/15/2025 [facility] Comment on above: 1 Occurrences starti ng 06/15/2024 until 06/15/2025 XR Ankle - left AP a nd Lateral and oblique XR ANKLE GENERAL 3V AP/LAT/OBL LEFT Radiology Routine Acute left ankle pain 11/03/2023 2:32 PM EDT [facility] Work Phone: End: 10-23-2024 XR ANKLE GENERAL 3V AP/LAT/OBL LEFT XR ANKLE GENERAL 3V AP/LAT/OBL LEFT Radiology Routine Acute left ankle pain 1 Occurrences starting 09/24/2023 until 10/23/2024 [facility] Work Phone: Comment on above: 1 Occurrences starti ng 09/24/2023 until 10/23/2024 [facility] Immunization Date Immunization Notes Care Provider Guerita rahman 06-07-2019 influenza virus vaccine, unspecified formulation Serafin Waters DPM Work Phone: [facility] Payers Date Payer Category Payer Unknown [id number] 2023 Medicaid [employer] [id number] 2023-Present [phone] [address] [place] [address] Medicaid [id number] 2023 Medicaid HMO [employer] [id number] 2023 Medicaid [id number] 1992 Unknown [id number] 2..840.1.196541.3.579.2.59 1992 Unknown [id number] 2.16.840.1.494003.3.579.2.59 1992 Unknown [id number] 2.16.840.1.791796.3.579.2.593 1992 Unknown [id number] 2.16.840.1.194025.3.579.2.59 1992 Unknown [id number] 2.16.840.1.891588.3.579.2.593 1992 Unknown [id number] 2.16.840.1.019466.3.579.2.59 1992 Unknown [id number] 2.16.840.1.874672.3.579.2.1285 1992 Unknown [id number] 2.840.1.258523.3.579.2.1285 1992 Unknown [id number] 2.16.840.1.582970.3.579.2.1285 1992 Unknown [id number] 2.840.1.046252.3.579.2.1285 1992 Unknown [id number] 2.840.1.742141.3.579.2.1285 1992 Unknown [id number] 2.840.1.293165.3.579.2.1285 1992 Unknown [id number] 2.840.1.398636.3.579.2.1285 1992 Unknown [id number] 2.840.1.641273.3.579.2.1285 1992 Unknown [id number] 2.840.1.822404.3.579.2.1285 1992 Unknown [id number] 2.840.1.617779.3.579.2.1285 1992 Unknown [id number] 2.840.1.266457.3.579.2.1285 1992 Unknown [id number] 2.840.1.069803.3.579.2.1285 1992 Unknown [id number] 2.840.1.262323.3.579.2.1285 1992 Unknown [id number] 2.840.1.295412.3.579.2.1286 1992 Unknown [id number] 2.16.840.1.060607.3.579.2.1286 1992 Unknown [id number] 2.16.840.1.916747.3.579.2.1286 1992 Unknown [id number] 2.16.840.1.380790.3.579.2.1286 1992 Unknown [id number] 2.16.840.1.321388.3.579.2.1286 1959 Unknown [id number] 1959 Unknown [id number] Social History Date Type Detail Facility Start: 07-04-2023 Tobacco smoking stat NHIS Ex-smoker [facility] History of tobacco use Current smoker [facility] History of tobacco use Cigarette Smoker C [facility] Start: 07-04-2023 End: 06-15-2024 Tobacco use and exposure Smokeless tobacco non-user [facility] Start: 09-28-2020 End: 07-04-2023 History of Social function [facility] Start: 09-28-2020 End: 07-04-2023 Tobacco use panel [facility] National Score (1-10 0), lower number is lower risk 92 [facility] Start: 07-04-2023 Tobacco Comment Vapes occasionally C [facility] Start: 1992 Sex Assigned At Not on file [facility] Start: 07-08-2023 End: 06-10-2024 Tobacco smoking status WYIS Smokes tobacco daily [facility] Work Phone: Start: 07-08-2023 End: 06-05-2024 Alcohol intake Current drinker of alcohol (finding) [facility] Start: 07-08-2023 Tobacco Comment Vapes occasion ally, 2-3 cigarettes a day [facility] Start: 07-08-2023 Alcohol Comment occasionally, social drinking. [facility] History of tobacco use [facility] Start: 03-02-2024 Tobacco Comment EOD [facility] Start: 05-25-2019 Alcohol Comment ocassionally [facility] Start: 1990 Sex assigned at Female [facility] Start: 03-23-2015 Sex Female (finding) [facility] Start: 01-14-2020 Gender identity Identifies as female gender (finding) [facility] Start: 01-14-2020 Sexual orientation Heterosexual (sofya strong) [facility] Start: 06-10-2024 End: 06-15-2024 Alcoholic beverage intake Ex-drinker (finding) [facility] Start: 06-15-2024 Tobacco smoking stat us NHIS Occasional tobacco smoker [facility] Start: 05-18-2024 [facility] Medical Equipment Procedure Code Equipment Code Equipment Origin al Text Equipment Identifier Dates Protector Nrv 7m m 4cm Strl Neurawrap Abs Bcmpt Bvn Clgn Bertha [id number] Start: 07-11-2023 Goals Date Patient Goal Desired Activity /State Personal health goal Clinical Notes 07-04-2023 to 06-21-2024 Telephone Encounter - LAILA Peñaloza - 06/21/2024 11:53 AM ESTTelephone Encounter - LAILA Peñaloza - 06/21/2024 11:53 AM Steven Guillermo RN - 06/17/2024 1:46 PM EDT Note Date & Type Note Facility 06-21-2024 Miscellaneous Notes Discussed w/pt. Advised to wait a week between hCG as we need to trend it to less than 5. Pt. Verbalized understanding. documented in this encounter [facility] 06-21-2024 Telephone encounter Note Discussed w/pt. Advised to wait a week between hCG as we need to trend it to less than 5. Pt. Verbalized understanding. [facility] 06-18-2024 Miscellaneous Notes Call to pt. To discuss hCG level is now 13. She states she'd had bleeding around the and none since. Pt. Advised consistent w/miscarriage. She relates she just got and they have just begun trying to conceive. Emotional support provided. Pt. Denies history of PCOS and infertility. Advised to wait one normal menstrual cycles and she can try again. Discussed need to trend hCG to <5 and to have redraw in a week. Pt. Verbalized understanding. Blood type O+ documented in this encounter [facility] 06-18-2024 Telephone encounter Note Call to pt. To discuss hCG level is now 13. She states she'd had bleeding around the and none since. Pt. Advised consistent w/miscarriage. She relates she just got and they have just begun trying to conceive. Emotional support provided. Pt. Denies history of PCOS and infertility. Advised to wait one normal menstrual cycles and she can try again. Discussed need to trend hCG to <5 and to have redraw in a week. Pt. Verbalized understanding. Blood type O+ [facility] 06-17-2024 History of Presen t illness Narrative Pt called stating that she got the flu vaccine and decided to take a test. She said the test came back negative. I spoke with JUSTINA Connelly CNP, pt was advised to not take any more urine test at this time as the test could be , or faulty. Pt verbalized she understood and Alyssa ordered a beta for the patient to get it drawn. STEVAN Hernandez, RN documented in this encounter [facility] 06-15-2024 History of Presen t illness Narrative [id number]. Planned. Desires genetic testing. Desires FLU VACCINE. Vapes but trying to stop. BMI-29 Last pap was 1 year ago-with Dr Hutchinson-negative. OB Intake Video Visit 33 y.o. at 6w0d contacted through [employer] for OB intake video visit. verified and verbal consent obtained for video visit. Patient and provider both currently located in the [facility]. This was a planned . FOB involved (Konstantin). Patient was having some vaginal bleeding and went to the ED on 07/06/24. She states now it is dark brown spotting. Betas were trending WNL. Patient is having frequent nausea / vomiting. RX sent for unisom / vitamin b-6. Obstetrical, Medical, Surgical, Social & Family history reviewed. Reviewed EDC and that it could change based upon ultrasound. Problem list updated. Negative history of HSV or substance abuse No hx uterine surgeries or LEEP. Risk factors include: primip, vapes, elevated BMI, recent syncope / palpitations, nausea / vomiting. Discussed testing. Pt desires all. The patient reports that there is not domestic violence in her life. Discussed exercise, diet and weight gain. Current BMI 29. Discussed smoking, alcohol use and drug use. Patient trying to quit vaping. Discussed early danger signs and when/how to notify provider. Reviewed CNM / TILESETTER care, collaboration & referral to GRAVEDIGGER as needed. Reviewed course of care. Discussed CDC recommendation for exclusive for the first 6 months. Patient has been covid vaccinated. Discussed recommendations in . Patient is taking a vitamin. All questions answered. Educational materials provided through [employer]. Ultrasound and labs ordered. Appointment scheduled for initial OB visit with provider on 07/06/24. NATALIA Wang 06/15/24 1026 documented in this encounter [facility] 06-11-2024 Miscellaneous Notes Patient is currently & called the office to see what temperature a steak needs to be cooked (medium, medium well, well done) for it to be safe for her to eat. Spoke to Rickie Magallanes CNM (repairer engine production). The beef needs to be cooked to 145 degrees and let sit for 3 minutes. Patient was notified & voiced understanding. documented in this encounter [facility] 06-11-2024 Telephone encounter Note Patient is currently & called the office to see what temperature a steak needs to be cooked (medium, medium well, well done) for it to be safe for her to eat. Spoke to Rickie Magallanes CNM (repairer engine production). The beef needs to be cooked to 145 degrees and let sit for 3 minutes. Patient was notified & voiced understanding. [facility] 06-11-2024 Miscellaneous Notes Pt. Reports she is feeling a little better. Advised urine drug screen and urinalysis are negative. Pt. Encouraged to hydrate. Pt. Reports some nausea for which she came home from work for. Pt. Advised urine culture is pending, but will likely be negative. Pt. Verbalized understanding. documented in this encounter [facility] 06-11-2024 Telephone encounter Note Pt. Reports she is feeling a little better. Advised urine drug screen and urinalysis are negative. Pt. Encouraged to hydrate. Pt. Reports some nausea for which she came home from work for. Pt. Advised urine culture is pending, but will likely be negative. Pt. Verbalized understanding. [facility] 06-10-2024 Miscellaneous Notes Contract: 129 re Vitamin Called Daija Florence CNM cell and Left Messag to call [facility] Daija Santacruz called back Connected Call documented in this encounter [facility] 06-10-2024 Telephone encounter Note Contract: 129 re Vitamin [facility] 06-10-2024 Telephone encounter Note Called Daija Santacruz CNM cell and Left Messag to call [facility] 06-10-2024 Telephone encounter Note Daija Santacruz called back Connected Call [facility] 06-10-2024 History of Presen t illness Narrative Savannah Álvarez is a 33 y.o.female. Patient's last menstrual period was 05/04/2024 (exact date).. She presents with possible UTI. Patient relates the only symptoms she is having is burning prior to and after urination. Patient is currently . Symptoms began yesterday. She has increased water intake and she has been drinking cranberry juice. She denies fever or chills. She is accompanied by her spouse. Pt. Reports occasional nausea and she is scheduled to have a new OB intake soon. She is not taking a vitamin. OB History 1 Para Term AB Living SAB IAB Ectopic Multiple Live Births MEDICAL HX Past Medical History: Diagnosis Date Depression Heart murmur Syncope, cardiogenic SURGICAL HX Past Surgical History: Procedure Laterality Date ANKLE SURGERY Left CHOLECYSTECTOMY EXPLORATORY LAPAROTOMY GALLBLADDER SURGERY 2013 OVARIAN CYST SURGERY FAMILY HX Family History Problem Relation Age of Onset Heart disease Mother Heart attack Mother No Known Problems Father MEDS Current Outpatient Medications Medication Sig Dispense Refill amoxicillin (AMOXIL) 250 mg capsule Take 1 capsule (250 mg total) by mouth 3 (three) times a day. aspirin 81 mg Take 1 tablet (81 mg total) by mouth in the morning. 30 tablet 11 cyclobenzaprine (FLEXERIL) 10 mg tablet Take 1 tablet (10 mg total) by mouth 2 (two) times a day as needed for muscle spasms. 10 tablet 0 ibuprofen (MOTRIN) 800 mg tablet Take 1 tablet (800 mg total) by mouth 3 (three) times a day. 21 tablet 0 nitroglycerin (NITROSTAT) 0.4 MG SL tablet 1 under the tongue as needed for angina, may repeat q5mins for up three doses (Patient not taking: Reported on 03/02/2024) 100 tablet 11 No current facility-administered medications for this visit. ALLERGIES Allergies Allergen Reactions Bactrim [Sulfamethoxazole-Trimethoprim] Clindamycin Sulfa (Sulfonamide Antibiotics) Zoloft [Sertraline] Review of Systems Constitutional: Negative for chills and fever. Gastrointestinal: Positive for nausea and vomiting. Genitourinary: Positive for dysuria. Symptoms began yesterday. As noted in HPI Objective URINE DIp only positive for a trace of blood LMP 05/04/2024 (Exact Date) Component Latest Ref Rng 01/04/2020 06/05/2024 06/07/2024 06/09/2024 Hcg-beta, serum mIU/mL <5 47 111 265 Betas rising appropriately Physical Exam Constitutional: General: She is not in acute distress. Appearance: She is obese. She is not ill-appearing, toxic-appearing or diaphoretic. HENT: Head: Normocephalic and atraumatic. Eyes: General: No scleral icterus. Pulmonary: Effort: Pulmonary effort is normal. Abdominal: Tenderness: There is no right CVA tenderness or left CVA tenderness. Skin: General: Skin is warm and dry. Neurological: General: No focal deficit present. Mental Status: She is alert. Psychiatric: Mood and Affect: Mood normal. Behavior: Behavior normal. Assessment/Plan: Savannah was seen today for urinary tract infection. Diagnoses and all orders for this visit: Acute cystitis without hematuria - Urinalysis; Future - Urine Culture; Future First trimester - Drug Screen, Urine; Future - vit 49-brfo-leyoz-dha ( + DHA) 28 mg iron- 975 mcg-200 mg combo pack; Take 1 tablet by mouth in the morning. Discussed adequate water intake Rx. For PNV Discussed strategies to decrease/prevent nausea, I.e. sipping vs. Gulping water, using ashley, sea bands, sm. Frequent amt. Of protein ingestioon Advised to call if febrile, chills, etc. Await results of U/A C&S prior to tx. Pt. Verbalized understanding DAVON RUSSELL, CRISTEL Magallanes APRN, LAILA Evans 06/10/24 [id number] documented in this encounter [facility] 06-07-2024 Miscellaneous Notes Patient has OBI on 06/15/24 and wanted to make the Office aware that she was seen in the ED over the weekend for vaginal bleeding. Patient states she had Betas drawn in the ED and will have them drawn again today. Please notify patient her beta increased. Discuss warning signs and have her repeat beta Friday. Thank you. Called the patient and informed her of this information. She verbalized she understood. STEVAN Hernandez, RN documented in this encounter [facility] 06-07-2024 Telephone encounter Note Patient has OBI on 06/15/24 and wanted to make the Office aware that she was seen in the ED over the weekend for vaginal bleeding. Patient states she had Betas drawn in the ED and will have them drawn again today. [facility] 06-07-2024 Telephone encounter Note Please notify patient her beta increased. Discuss warning signs and have her repeat beta Friday. Thank you. [facility] Work Phone: 06-07-2024 Telephone encounter Note Called the patient and informed her of this information. She verbalized she understood. STEVAN Hernandez, RN [facility] 06-01-2024 Note [facility] Note Reason for cardiology consult: Syncope Chief Complaint: Syncope and palpitation HPI: Savannah Álvarez is a 33 y.o. female with history of dizziness, rare PACs and short paroxysmal atrial tachycardia noted on event monitor 2019. [facility] She presented to the emergency room on 05/31/2024 because of syncope and chest pain. She states that first syncopal episode was in 2020, she woke up at 7:30 AM went to bathroom and on her way back she had syncope, she does not think that she had any warning. Same thing happened again. Again no warning and no reason to be dehydrated. She states that some days she feels lightheaded in the standing position and sometimes she feels nauseated when she gets up. She reports that she drinks caffeine occasionally probably 1 can of 20 oz pop. She denies any alcohol. She reports drinking a lot of water. She admits palpitations on and off with chest pain she describes it as skipped beats. She reports shortness of breath with exertion and being tired all the time. She denies stopping breathing during the night or snoring. She denies orthopnea or paroxysmal nocturnal dyspnea or legs edema except her ankle where she had surgery. She reports increased weight about 14 pounds since 2021. She smokes 1/4 pack/day for few years. Denies alcohol or illicit drugs. Cardiology ROS: GENERAL: Denies fever, chills, night sweats, weight loss. HEENT: Denies changes in vision, photophobia, changes in hearing, epistaxis, oral bleeding. CARDIOVASCULAR: Symptoms as described above in the history RESPIRATORY: Denies SOB, coughing, wheezing GI: Denies abdominal pain, nausea/vomiting, heartburn, melena/hematochezia. RENAL: Denies dysuria, hematuria, flank pain. MSK: Denies muscle weakness/pain, arthralgias/joint pain. NEUROLOGIC: Denies LOC, weakness, numbness, headaches. SKIN: Denies abnormal rashes or bleeding. PSYCH: Denies significant anxiety, depression, sleep disturbances. Past Medical History She has a past medical history of Heart murmur and Neurocardiogenic syncope. Surgical History She has a past surgical history that includes Cholecystectomy; Abdominal surgery; and Ankle surgery. Social History She reports that she has been smoking cigarettes. She has a 1.25 pack-year smoking history. She has never used smokeless tobacco. She reports that she does not currently use alcohol. She reports that she does not use drugs. Family History Family History Problem Relation Name Age of Onset Heart attack Mother 57 Allergies Clindamycin, Sertraline, Sulfa (sulfonamide antibiotics), and Sulfamethoxazole-trimethoprim Medications No current outpatient medications on file. No current facility-administered medications for this visit. Last Recorded Vitals Visit Vitals BP 110/68 in sitting position 115/70 (BP Location: Right arm, Patient Position: Standing) Pulse 82 in sitting position, 88 in standing position Ht 1.524 m (5') Wt 69.9 kg (154 lb) SpO2 99% BMI 30.08 kg/m??? Smoking Status Former BSA 1.72 m??? Physical Examination: GENERAL: alert and oriented x3, well developed, in no acute distress. HEAD: atraumatic, normocephalic. EYES: RUDOLPH, EOMI. NECK: trachea midline, no JVD present, no carotid bruits present. CARDIAC: S1, S2 present. RRR. No murmur, rubs, or gallops. RESPIRATORY: CTAB, no increased effort of breathing, no rales, rhonchi, or wheezing. ABDOMEN: soft, nontender, nondistended. EXTREMITIES: no lower extremity edema. No rash/skin discoloration present. NEURO: strength/sensation equal and symmetric in bilateral upper and lower extremities. PSYCH: appropriate mood, affect, and judgement. Labs: Labs 05/31/2024 White blood count 7.1, hemoglobin 12.6, hematocrit 37.7, platelets 278 Sodium 140, potassium 4, BUN 17, creatinine 0.84, GFR above 60, glucose 104, calcium 8.8 Troponin high-sensitivity less than 4 Serum HCG negative Last Images: EKG 05/31/2024 showed normal sinus rhythm, normal EKG Treadmill stress test 02/21/2021 at [facility] Treadmill exercise stress test. Danny protocol stress test was performed. The patient reached stage 3 of the protocol after exercising for 6 min 15 sec. Patient achieved a maximal heart rate of 190 bpm (99% of maximum predicted heart rate). Patient achieved 7.42 METS. The patient experienced no angina during the test. T Pt c/o midsternal pulsing chest tightness @3 min 59 sec into recovery. Discomfort non radiating. Pt took own ntg sl x1. Tightness completely resolved @ 5 min post NTG. Normal hemodynamic response to exercise. No significant ECG changes with stress. Calculated Fong treadmill score of +6 represents low risk for cardiovascular events. Limited echo 02/21/2021 at [facility] Left Ventricle: Systolic function is normal with an ejection fraction of 60-65%. The quantitative EF by 2D Lambert biplane is (more content not included)... [facility] 02-02-2024 Note HNO ID: [id number] Author: SERAFIN WATERS DPM Service: ? Author [...] just got back from a trip to [place] and states that she was doing a [...] Comment: occasionally, social drinking. Drug use: Never - ROSI Modifiable Risk Factors (MoRF) Obesity Unknown [...] will be s (more content not included)... [facility] 02-02-2024 History of Presen t illness [...] just got back from a trip to [place] and states that she was doing a [...] Comment: occasionally, social drinking. Drug use: Never - ROSI Modifiable Risk Factors (MoRF) Obesity Unknown [...] which included preparing to see the patient, [id number] patient care, completing clinical documentation, obtaining and/or reviewing separately obtained history, performing a medically appropriate examination, counseling and educating the patient/family/caregiver, and ordering medications, tests, or procedures. documented in this encounter [facility] 11-18-2023 Miscellaneous Notes 1445: Received a message [...] her work restrictions if necessary. Thank you, MINH Rodriguez, BSN documented in this encounter [facility] 11-05-2023 Miscellaneous Notes Abilio Sullivan, Here are the completed forms. Can you please print and scan them into her chart. Thank you Jennifer documented in this encounter [facility] 11-03-2023 Note HNO ID: [id number] Author: SERAFIN WATERS DPM Service: ? Author [...] Comment: occasionally, social drinking. Drug use: Never - Current Opioids Analgesic Opioid Oxycodone Combinations Start [...] Reported on 08/08/2023 Earliest Fill Date: 07/25/2023 [facility] Modifiable Risk Factors (MoRF) Obesity Unknown Risk [...] - Patient is (more content not included)... [facility] 11-03-2023 History of Presen t illness [...] Comment: occasionally, social drinking. Drug use: Never - Current Opioids Analgesic Opioid Oxycodone Combinations Start [...] which included preparing to see the patient, [id number] patient care, completing clinical documentation, obtaining and/or reviewing separately obtained history, performing a medically appropriate examination, counseling and educating the patient/family/caregiver, and ordering medications, tests, or procedures. documented in this encounter [facility] 11-03-2023 History of Presen t illness Narrative Radiology Service Progress Note PATIENT NAME: Savannah Álvarez DATE OF SERVICE: November 03, 2023 TIME: [...] PATIENT PRESENTS WITH AN IMPLANTABLE OR ATTACHED INTERLOCKING TOWER OPERATOR: No RADIOLOGY DEPARTMENT: General X-ray: Exam(s) Completed: Lower Extremity X-Ray(s): Ankle, Left PERIPHERAL IV DATA: Not applicable SIGNED BY: RT Kimber(True) November 03, 2023 2:28 PM documented in this encounter [facility] 11-03-2023 Note HNO ID: [id number] Author: SERGEY MCKEE RT(R) Service: Radiology Author Type: Technologist Type: Progress Notes Filed: 11/03/2023 14:28 Note Text: Radiology Service Progress Note PATIENT NAME: Savannah Álvarez DATE OF SERVICE: November 03, 2023 TIME: [...] PATIENT PRESENTS WITH AN IMPLANTABLE OR ATTACHED INTERLOCKING TOWER OPERATOR: No RADIOLOGY DEPARTMENT: General X-ray: Exam(s) Completed: Lower Extremity X-Ray(s): Ankle, Left PERIPHERAL IV DATA: Not applicable SIGNED BY: RT Kimber(R) November 03, 2023 2:28 PM [facility] 09-05-2023 Note HNO ID: [id number] Author: SERAFIN WATESR DPM Service: ? Author Type: Physician Type: [...] Comment: occasionally, social drinking. Drug use: Never - Current Opioids Analgesic Opioid Oxycodone Combinations Start [...] etiology and treatme (more content not included)... [facility] 09-05-2023 History of Presen t illness [...] Comment: occasionally, social drinking. Drug use: Never - Current Opioids Analgesic Opioid Oxycodone Combinations Start [...] which included preparing to see the patient, [id number] patient care, completing clinical documentation, obtaining and/or reviewing separately obtained history, performing a medically appropriate examination, counseling and educating the patient/family/caregiver, and ordering medications, tests, or procedures. documented in this encounter [facility] 08-27-2023 Note Patient Outreach (MATEUSZ MORALESAV) SAVANNAH ÁLVAREZ ([id number]) 1990 F Date Time Provider Department 08/27/23 NO PCP NETMINALV During your visit today, we recorded the following information about you: Raymond Markham 08/27/2023 10:40 AM Signed POPULATION HEALTH NAVIGATION OUTREACH Action/FYI RP Patient [...] Care Gap or Scheduling/Wellness visits Payer: Payor: [facility] MEDICAID / Plan: [facility] MEDICAID / Product Type: Medicaid / Care [...] of Date: 08/27/2023 Noted Allergy Reaction BACTRIM (SULFAMETHOXAZOLE-TRIMETH*07/04 4 - Hives 7 - Swelling CLINDAMYCIN [...] Encounter Status:Closed by RAYMOND MARKHAM on 08/27/23 [facility] 08-27-2023 Note HNO ID: [id number] Author: ?, ?, ? Service: ? Author [...] Care Gap or Scheduling/Wellness visits Payer: Payor: [facility] MEDICAID / Plan: [facility] MEDICAID / Product Type: Medicaid / Care [...] Influenza Vaccine(1) due on 04/18/2023 Covid-19 Vaccine( season) due on 04/18/2023 Depression Assessment Never done Navigation Signature: Raymond Janice Miguel August 27, 2023 10:39 AM [facility] 08-18-2023 Miscellaneous Notes Patient calling with health information: patient requesting health information about Taking Gabapentin and taking Midol for menstrual symptoms, reviewed information from [employer] , and verbalized understanding of information provided. Patient denies any new or worsening symptoms of which a provider is not aware:Yes . Source:[email or web address].[email or web address]/ lco/action/doc/retrieve/docid/m artindale_f/[email or web address]?[email or web address]&searchUrl=%2Flco%2Factio n%2Fsearch%3Fq%3Dgabapentin%26t %3Dname%26acs%3Dtrue%26acq%3Dga b#interactions documented in this encounter [facility] 08-08-2023 Note HNO ID: [id number] Author: Serafin Waters DPM Service: ? Author [...] Comment: occasionally, social drinking. Drug use: Never - Current Opioids Analgesic Opioid Oxycodone Combinations Start [...] the current p (more content not included)... [facility] 07-25-2023 History of Presen t illness [...] Comment: occasionally, social drinking. Drug use: Never - Current Opioids Analgesic Opioid Oxycodone Combinations Start [...] which included preparing to see the patient, [id number] patient care, completing clinical documentation, obtaining and/or reviewing separately obtained history, performing a medically appropriate examination, counseling and educating the patient/family/caregiver, and ordering medications, tests, or procedures. documented in this encounter [facility] 07-25-2023 Note HNO ID: [id number] Author: Serafin Waters DPM Service: ? Author [...] Comment: occasionally, social drinking. Drug use: Never - Current Opioids Analgesic Opioid Oxycodone Combinations Start [...] pain. - ORAL Earliest Fill Date: 07/25/2023 [facility] Modifiable Risk Factors (MoRF) Obesity Unknown Risk [...] ankle - Sta (more content not included)... [facility] 07-16-2023 Miscellaneous Notes Spoke to patient per Dr. Waters she needs to take pain medication as directed and not wait until she gets in severe pain. Patient called having a lot left heel pain like (50 plus)radiating to the ankle. Takes the oxyCODONE-acetaminophen (PERCOCET) 5-325 mg tablet without much relief to help the pain. Patient went to [facility] yesterday had left ankle covered while taking a shower but the reginaldo and gauze still got wet so she received dressing change there. documented in this encounter [facility] 07-14-2023 Miscellaneous Notes Patient calling with request for post op questions. Patient denies any new or worsening symptoms of which a provider is not aware: N/A. Conferenced to [employer] Manager to page repairer engine production for Podiatry. documented in this encounter [facility] 07-11-2023 Miscellaneous Notes Patient calling regarding not [...] to the foot or toes. Conferenced to [facility] perfect bind machine operator, Cristo to speak with provider repairer engine production for Dr. Serafin Waters. documented in this encounter [facility] 07-11-2023 Note HNO ID: [id number] Author: Zenon Houston Service: Pharmacy Author Type: ? Type: Plan of Care Filed: 07/14/2023 9:20 AM Note Text: PHARMACY BEDSIDE DELIVERY SERVICE Patient Name: Savannah Álvarez The marked outpatient medications were filled at [facility] pharmacy and picked up at the pharmacy by the pt shannon Brain Medication List START taking these medications [...] your Primary Care Provider. 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 Reason for block: post-op pain management/at surgeon's [...] SIGNATURE: Kimmy Smiley DO PATIENT NAME: Savannah Álvarez DATE: July 11, 2023 TIME: 5:22 PM CSN: [id number] [facility] 07-11-2023 Note HNO ID: [id number] Author: Kimmy Smiley DO Service: Pain Management Author Type: Anesthesiologist Type: Anesthesia Procedure Notes Filed: 07/11/2023 5:28 PM Note Text: ANESTHESIOLOGY PROCEDURE NOTE Peripheral Nerve Block General Information Procedure Start Time/Medication Administration: 07/11/2023 4:04 PM Procedure End time: 07/11/2023 4:05 PM Patient location during procedure: OR Timeout Performed Pre-procedure: timeout performed Consent Obtained: Yes 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 Author Type: Nurse Strategic Development Manager Type: Anesthesia Procedure Notes Filed: 07/11/2023 3:09 PM Note Text: ANESTHESIOLOGY PROCEDURE NOTE Airway General Information Procedure Start Time/Medication Administration: 07/11/2023 2:42 PM Patient location during procedure: OR Patient identity confirmed: arm band Staffing Anesthesiologist: Kimmy Smiley DO FOOD TASTER: Savannah Donovan APRN.FOOD TASTER Performed by: TILA Indications and Patient Condition Indications for airway management: anesthesia Preoxygenated: yes anesthesia circuit Patient position: sniffing Method: asleep Difficult Mask: No Final Airway Details Final airway type: supraglottic airway Number of attempts at approach: 1 Final Supraglottic Airway: IGEL Size 3 Seal Adequate: yes Airway not difficult SIGNATURE: Savannah Donovan APRN.FOOD TASTER PATIENT NAME: Savannah Álvarez DATE: July 11, 2023 TIME: 3:08 PM CSN: [id number] [facility] 07-08-2023 Note HNO ID: [id number] Author: Harman Brandon MD Service: ? Author [...] Brandon MD Date: 07/08/2023 Time: 3:26 PM [facility] 07-08-2023 History of Presen t illness Narrative Attending Note I evaluated the patient and personally participated in the kelly components. I agree with the resident's findings and plan as documented and have discussed the case and management of the patient's care with the resident. Signature: Harman Brandon MD Date: 07/08/2023 Time: 3:26 PM documented in this encounter [facility] 07-08-2023 Instructions Ama Lei MD - 07/08/2023 10:37 AM EST PATIENT PREOPERATIVE INSTRUCTIONS No ref. provider found has scheduled you for your procedure at this surgery center: [facility]: [phone] --[phone] [id number]. Please check in on the 1st floor [...] taking for the 07/08/23 encounter (PAT) with 7, [facility]. If you start any new [...] Procedures: - YOU MUST HAVE A RESPONSIBLE MAGNETO SPECIALIST TAKE YOU HOME. A CERAMIC COATER OR SIDE DOOR MAN CANNOT BE MADE A RESPONSIBLE MAGNETO SPECIALIST. - We recommend that a responsible person [...] Advance Directive, please fax a copy to [phone] or email to for it to be [...] Ama Lei MD documented in this encounter [facility] 07-08-2023 History and physical note HISTORY AND PHYSICAL EXAMINATION SERVICE DATE: 07/08/2023 SERVICE TIME: 10:20 AM PRIMARY CARE PHYSICIAN: Julia Tracey MD REASON FOR VISIT: Savannah Álvarez is a 32 year old female who is scheduled for RELEASE TARSAL TUNNEL (POSTERIOR TIBIAL NERVE DECOMPRESSION) - Left on 07/11/2023 at 2:10 PM at the request of Dr. Waters for pre-operative evaluation. The patient has the following: ACTIVE PROBLEM LIST Pre-Op Evaluation Achilles Tendinitis, Left Leg Subjective CHIEF COMPLAINT: Tarsal Tunnel Syndrome HPI: Savannah Álvarez is a 32-year-old female with no PMH that presents for pre-operative evaluation for a tarsal tunnel release (posterior tibial nerve decompression) on the left side on 07/11/23. Denies fevers, cough, shortness of breath, history of stroke, history of TX, history of CHF. History reviewed. No pertinent [...] weight loss, malaise or fevers. +smoking history, +group home aspirin use Neuro: No history of TIA's, stroke, A AND P TECHNICIAN tumor, impaired sensorium, hemiplegia, paraplegia or quadraplegia. No neurological symptoms or problems. Respiratory: No history of current cough or dyspnea, or pneumonia in the past 6 weeks. No history of respiratory/pulmonary symptoms or problems. Cardiovascular: No history of HTN requiring medication, no history of angina, CHF, TX, cardiac surgery or stents. Denies rest pain, gangrene or revascularization/amputation for PVD. No history of cardiovascular symptoms or problems. GI: No history of GI symptoms or problems. No history of esophageal varices, recent ascites, or ETOH greater than 2 drinks per day. : No history of dysuria, frequency or incontinence,, stones or chronic kidney disease SENIOR SYSTEMS ENGINEER: Negative for abnormal vaginal bleeding, abnormal vaginal [...] SIGNATURE: Ama Lei MD PATIENT NAME: Savannah Álvarez DATE: July 08, 2023 TIME: 8:58 AM documented in this encounter [facility] 07-07-2023 Miscellaneous Notes Received MRI left ankle report from [facility] dated 06/02/23. Scanned report into [employer]. documented in this encounter [facility] 07-04-2023 Note HNO ID: [id number] Author: Serafin Waters DPM Service: ? Author Type: Physician Type: Progress Notes Filed: 07/04/2023 10:39 AM Note Text: PODIATRIC MEDICINE AND SURGERY OFFICE NOTE Complaint: Left tarsal tunnel syndrome HPI: This 32 year old female presents to the clinic today as a referral from Dr. Logan from [facility] for a complaint of tarsal tunnel [...] Smokeless tobacco: Never Tobacco comments: Vapes occasionally - ROSI Modifiable Risk Factors (MoRF) Obesity Unknown [...] lower extremity Informed Consent Consent Obtained: Verbal Gore Protocol A moment to CARE was completed. [...] No implant(s) in (more content not included)... [facility] Evaluation note Diagnosis Tarsal tunnel syndrome, left- Primary Soft tissue mass Disorders of soft tissue, unspecified Tarsal tunnel syndrome, left Soft tissue mass Disorders of soft tissue, unspecified [facility] Pre-op evaluation Preoperative examination, unspecified Achilles tendinitis, left leg Tarsal tunnel syndrome, left Soft tissue mass Disorders of soft tissue, unspecified [facility] Tarsal tunnel syndrome of left side- Primary Tarsal tunnel syndrome Lesion of left tibial nerve [facility] Diagnosis Tarsal tunnel syndrome of left side- Primary Tarsal tunnel syndrome Lesion of left tibial nerve documented in this encounter [facility] note* Diagnosis Acute left ankle pain- Primary documented in this encounter [facility] note* Diagnosis Acute left ankle pain documented in this encounter [facility] note* Diagnosis Tarsal tunnel syndrome of left side- Primary Tarsal tunnel syndrome Lesion of left tibial nerve documented in this encounter [facility] note* Diagnosis Acute cystitis without hematuria- Primary First trimester state, incidental [facility] Diagnosis First trimester - Primary state, incidental Nausea/vomiting in Unspecified vomiting of , unspecified as to episode of care [facility] Diagnosis First trimester - Primary state, incidental [facility] Diagnosis SAB (spontaneous )- Primary Unspecified spontaneous without mention of complication Nausea/vomiting in Unspecified vomiting of , unspecified as to episode of care [facility] filedocumented in this encounter [facility] filedocumented in this encounter [facility] on filedocumented in this encounter [facility]Not on filedocumented in this encounter [facility]* Attachments The following attachments cannot be sent through Care Everywhere. * Activity during (Somali) * Healthy Weight Gain During (Somali) * How to Adapt to Physical Changes During (Somali) * care (Somali) documented in [facility] encounter[facility]ructionsNot on file documented [facility] for referral (narrative)* Diagnostic Procedure Only (Routine) - Authorized Specialty Diagnoses / Procedures Referred By Álvaro malone Referred To Contact XR IMAGING Diagnoses Acute left ankle pain Procedures XR ANKLE GENERAL 3V AP/LAT/OBL LEFT RADEX ANKLE COMPLETE MINIMUM 3 VIEWS Serafin Waters DPM [id number] [place] [id number] [place] [address] Referral ID Status Reason Start Date Expiration Date Visits Requested Visits Authorized [id number] Authorized Auto-Generat ed Referral 09/24/2023 10/23/2024 1 1 [facility] for visit Narrative* Diagnostic Procedure Only (Routine) - Closed Specialty Diagnoses / Procedures Referred By Contismael malone Referred To Contact XR IMAGING Diagnoses Acute left ankle pain Procedures XR ANKLE GENERAL 3V AP/LAT/OBL LEFT RADEX ANKLE COMPLETE MINIMUM 3 VIEWS Serafin Waters, PALLAVI [address] [place] [address] [place] [address] Referral ID Status Reason Start Date Expiration Date V isits Requested Visits Authorized [id number] Closed Auto-Generate d Referral 09/24/2023 10/23/2024 1 1 [facility] Summary Purpose Family History No Family History [...] and content) DATE CREATED AUTHOR 10/23/2022 [facility] DATE CREATED AUTHOR AUTHOR'S ORGANIZ ATION 08/28/2023 [facility] DATE CREATED AUTHOR AUTHOR'S ORGANIZ ATION 02/03/2024 [facility] DATE CREATED AUTHOR AUTHOR'S ORGANIZ ATION 06/11/2024 [facility] DATE CREATED AUTHOR AUTHOR'S ORGANIZ ATION 06/12/2024 [facility] DATE CREATED AUTHOR AUTHOR'S ORGANIZ ATION 06/16/2024 [facility] DATE CREATED AUTHOR AUTHOR'S ORGANIZ ATION 06/27/2024 [facility] Source Comments (unrecognize d section and content) In the event this informatio n is protected by the Federal Confidentiality of Alcohol and Drug Abuse Patient Records regulations: The Federal rules restrict any use of the information to criminally investigate or prosecute any alcohol or drug abuse patient.[facility] the event this information is protected by the Federal Confidentiality of Alcohol and Drug Abuse Patient Records regulations: The Federal rules restrict any use of the information to criminally investigate or prosecute any alcohol or drug abuse patient.[facility] the event this information is protected by the Federal Confidentiality of Alcohol and Drug Abuse Patient Records regulations: The Federal rules restrict any use of the information to criminally investigate or prosecute any alcohol or drug abuse patient.[facility] the event this information is protected by the Federal Confidentiality of Alcohol and Drug Abuse Patient Records regulations: The Federal rules restrict any use of the information to criminally investigate or prosecute any alcohol or drug abuse patient.[facility] the event this information is protected by the Federal Confidentiality of Alcohol and Drug Abuse Patient Records regulations: The Federal rules restrict any use of the information to criminally investigate or prosecute any alcohol or drug abuse patient.[facility] the event this information is protected by the Federal Confidentiality of Alcohol and Drug Abuse Patient Records regulations: The Federal rules restrict any use of the information to criminally investigate or prosecute any alcohol or drug abuse patient.[facility] the event this information is protected by the Federal Confidentiality of Alcohol and Drug Abuse Patient Records regulations: The Federal rules restrict any use of the information to criminally investigate or prosecute any alcohol or drug abuse patient.[facility] the event this information is protected by the Federal Confidentiality of Alcohol and Drug Abuse Patient Records regulations: The Federal rules restrict any use of the information to criminally investigate or prosecute any alcohol or drug abuse patient.[facility] the event this information is protected by the Federal Confidentiality of Alcohol and Drug Abuse Patient Records regulations: The Federal rules restrict any use of the information to criminally investigate or prosecute any alcohol or drug abuse patient.[facility] the event this information is protected by the Federal Confidentiality of Alcohol and Drug Abuse Patient Records regulations: The Federal rules restrict any use of the information to criminally investigate or prosecute any alcohol or drug abuse patient.[facility] the event this information is protected by the Federal Confidentiality of Alcohol and Drug Abuse Patient Records regulations: The Federal rules restrict any use of the information to criminally investigate or prosecute any alcohol or drug abuse patient.[facility] the event this information is protected by the Federal Confidentiality of Alcohol and Drug Abuse Patient Records regulations: The Federal rules restrict any use of the information to criminally investigate or prosecute any alcohol or drug abuse patient.[facility] the event this information is protected by the Federal Confidentiality of Alcohol and Drug Abuse Patient Records regulations: The Federal rules restrict any use of the information to criminally investigate or prosecute any alcohol or drug abuse patient.[facility] the event this information is protected by the Federal Confidentiality of Alcohol and Drug Abuse Patient Records regulations: The Federal rules restrict any use of the information to criminally investigate or prosecute any alcohol or drug abuse patient.[facility] the event this information is protected by the Federal Confidentiality of Alcohol and Drug Abuse Patient Records regulations: The Federal rules restrict any use of the information to criminally investigate or prosecute any alcohol or drug abuse patient.[facility] the event this information is protected by the Federal Confidentiality of Alcohol and Drug Abuse Patient Records regulations: The Federal rules restrict any use of the information to criminally investigate or prosecute any alcohol or drug abuse patient.[facility] the event this information is protected by the Federal Confidentiality of Alcohol and Drug Abuse Patient Records regulations: The Federal rules restrict any use of the information to criminally investigate or prosecute any alcohol or drug abuse patient.[facility] Care Teams (unrecognized sec tion and content) Door To Door Salesperson Relationship Specialty Start Date End Date Julia Tracey [address] [address] PCP - General Internal Medicine 07/07/23 Door To Door Salesperson Relationship Specialty Start Date End Date Julia Tracey [address] [place] [address] PCP - General Internal Medicine 07/07/23 Door To Door Salesperson Relationship Specialty Start Date End Date Julia Tracey [address] [place] [address] PCP - General Internal Medicine 07/07/23 Door To Door Salesperson Relationship Specialty Start Date End Date Julia Tracey [address] [place] [address] PCP - General Internal Medicine 07/07/23 Door To Door Salesperson Relationship Specialty Start Date End Date Julia Tracey [address], [place] [address] PCP - General Internal Medicine 07/07/23 Door To Door Salesperson Relationship Specialty Start Date End Date Julia Tracey [address], [place] [address] PCP - General Internal Medicine 07/07/23 Door To Door Salesperson Relationship Specialty Start Date End Date Julia Tracey [address], [place] [address] PCP - General Internal Medicine 07/07/23 Door To Door Salesperson Relationship Specialty Start Date End Date Julia Tracey [address] [place] [address] PCP - General Internal Medicine 07/07/23 Door To Door Salesperson Relationship Specialty Start Date End Date Julia Tracey [address] [place] [address] PCP - General Internal Medicine 07/07/23 Door To Door Salesperson Relationship Specialty Start Date End Date Julia Tracey MD PCP - General Pediatrics 06/05/24 Door To Door Salesperson Relationship Specialty Start Date End Date Julia Tracey MD [address], [place] [address] PCP - General Pediatrics 06/09/24 Door To Door Salesperson Relationship Specialty Start Date End Date Julia Tracey MD [address], [place] [address] PCP - General Pediatrics 06/09/24 Door To Door Salesperson Relationship Specialty Start Date End Date Julia Tracey MD [address] [phone] PCP - General Pediatrics 06/09/24 Door To Door Salesperson Relationship Specialty Start Date End Date Julia Tracey MD [address] [phone] PCP - General Pediatrics 06/09/24 Door To Door Salesperson Relationship Specialty Start Date End Date Julia Tracey MD [address], [place] [phone] PCP - General Pediatrics 06/09/24 Door To Door Salesperson Relationship Specialty Start Date End Date Julia Tracey MD [address], [place] [phone] PCP - General Pediatrics 06/09/24 Door To Door Salesperson Relationship Specialty Start Date End Date Julia Tracey MD [address] [place] [phone] PCP - General Pediatrics 06/09/24 Reason for Visit (unrecogniz ed section and [...] Reason Onset Date Comments Refill Request 05/26/2024 Reason Comments Urinary Tract Infection Reason Onset Date Comments Medication Problem 06/10/2024 Reason Comments Initial Visit OBI FOR RECORDS PERTAINING TO PATIENTS WHO ARE [...] BE BASED ON THE PRIMARY CLINICAL RECORDS. [employer] [facility]. provides no warranty or guarantee of the accuracy or completeness of information in this document.
--- NOTE | 2024-07-13 06:56 | CA_ITS ---
Patient Name: RUI KO MR#: [id number] : 1990 Exam Date: 07/13/2024 Ordering Doctor: DR. LORI CABELLO M.D. ECHOCARDIOGRAM REPORT PROCEDURE: CA ECHO DOPPLER COMPLETE INDICATIONS: Precordial pain, syncope COMPARISON: None. DESCRIPTION: COMPLETE ECHOCARDIOGRAM Real-time transthoracic echocardiography with 2D, M-mode, spectral and color flow Doppler performed. QUALITY: Technical quality was good. LEFT VENTRICLE: Normal chamber size. Normal left ventricular wall thickness. Global left ventricular systolic function is normal. LV EF: Estimated left ventricular ejection fraction is 65%. DIASTOLIC: Normal diastolic function. ATRIAL SEPTUM: LEFT ATRIUM: Normal chamber size. RIGHT ATRIUM: Normal chamber size. RIGHT VENTRICLE: Normal chamber size. Normal right ventricular systolic function. TRICUSPID VALVE: Normal mobility and thickness. No stenosis with No evidence of pulmonary hypertension. RVSP 22 mmHg MITRAL VALVE: Normal mobility and thickness. No evidence of mitral valve stenosis. There is no mitral annular calcification. Trivial mitral regurgitation. AORTIC VALVE: Normal trileaflet appearance. No visible sclerosis. Normal leaflet mobility. No evidence of aortic valve stenosis. No aortic regurgitation. AORTIC ROOT: Normal diameter and appearance. PULMONIC VALVE: Normal thickness and mobility. No stenosis. Trivial regurgitation. PERICARDIUM: No evidence of pericardial effusion. IVC: Collapses with inspirations. Normal size. PLEURA: CONCLUSION: 1. Normal left ventricular size and systolic function. LVEF is estimated at 65%. 2. Normal diastolic function. 3. No significant valvular dysfunction. 4. Normal right-sided pressures. 5. No pericardial effusion. Adult Echocardiography Procedure Report Left Ventricle LVEDD (3.7 - 5.6 cm): 4.41 cm LVESD (2.2 - 4.0 cm): 3.09 cm LVIVS thickness (0.6 - 1.2 cm): 0.68 cm LVPW thickness (0.5 - 1.0 cm): 0.73 cm e': 0.15 m/s E - e': 5.44 LVOT Max Gradient: 2.69 mm[Hg] LVOT Area (cm2): 0.82 m/s Peak Velocity (LVOT): 0.82 m/s Mean Velocity (LVOT): 0.57 m/s LVOT Diameter 1.80 cm Left Ventricular Ejection Fraction: 65 % Left Atrium LA Volume Index (2D A2C): 25.94 ml/m2 Left Atrium Systolic Dimension: 2.53 cm Mitral Valve MV E to A Ratio: 1.43 Mitral Valve A-Wave Peak Velocity: 0.59 m/s Mitral Valve E-Wave Peak Velocity: 0.84 m/s Right Ventricle RV Internal Diastolic Dimension: 3.25 cm Aorta AO Root Diam: 2.36 cm Ascending Ao Diam: 2.22 cm Aortic Valve AoV Area (Peak Abilio): 1.86 cm2, 1.86 cm2 AoV Area (VTI): 1.78 cm2, 1.78 cm2 Peak Velocity(Antegrade Flow): 1.12 m/s Peak Gradient(Antegrade Flow): 5.05 mm[Hg] Mean Velocity(Antegrade Flow): 0.73 m/s Mean Gradient(Antegrade Flow): 2.53 mm[Hg] Velocity Time Integral: 26.01 cm Tricuspid Valve Peak Velocity (Regurgitant Flow): 2.12 m/s, 1.99 m/s, 2.20 m/s Pulmonic Valve Mean Gradient: 2.15 mm[Hg], 2.24 mm[Hg] Mean Velocity: 0.68 m/s, 0.71 m/s Peak Velocity: 0.98 m/s Peak Gradient: 3.98 mm[Hg], 3.75 mm[Hg] Right Atrium Right Atrium Systolic Pressure: 43.21 ml, 43.21 ml Dictated by: Timothy Hines M.D. on 07/13/2024 at 18:35 Approved by: Timothy Hines M.D. on 07/13/2024 at 18:37
--- NOTE | 2024-07-13 08:42 | PC.NURSE ---
Nursing Note Cardiac Stress Test Reviewed: Medication, allergies and patient history reviewed. Stress Test: [x] Patient tolerated stress test well. [ ] Patient unable to tolerate walking on treadmill. Switched to Lexiscan stress test. [ ] No chest pain noted per patient [x ] Chest pain that resolved prior to leaving stress lab. [ ] No dyspnea noted. [ x] Dyspnea that resolved prior to leaving stress lab. [x ] Patient left stress lab asymptomatic and hemodynamically stable. [ ] Patient taken to the Emergency Room due to non-resolving symptoms following stress test. [ x] Patient achieved target heart rate. [ ] Patient unable to achieve target heart rate. [ ] Aminophylline administered as reversal agent to Lexiscan (Regadenoson). [ ] Nitro administered. Nursing Comments:Pt had regular stress test. Tolerated well. Pt had minimal chest pain that went away a minute after resting. Pt states that she has had episodes of chest pain that were much worse then what she had today. Pt left stress lab in no discomfort.
== END 2024-07-13 06:47 | disposition home or self-care (01) ==
LOC: CARD 06:46
PROVIDERS: PCP Internal Medicine; Visit Provider Internal Medicine Cardiovascular Disease
DX: R07.2 Precordial pain (principal); R55 Syncope and collapse
CPT/HCPCS: 93017; 93306

== ENCOUNTER 2024-08-26 07:48 | Outpatient (OUT) | payer BC, SELFPAY ==
--- NOTE | 2024-08-26 08:05 | NM_ITS ---
Patient Name: RUI BRUNER MR#: [id number] : 1990 Exam Date: 08/26/2024 Ordering Doctor: DR. Deisy Flood M.D. RADIOLOGY REPORT PROCEDURE: NM ROBERT PERF SPECT REST STR COMPARISON: None. INDICATIONS: ABNORMAL EKG TECHNIQUE: Exam Description: Stress/Rest two day protocol gated SPECT Rest Imagin.0 mCi Tc-99m Cardiolite IV on 08/26/2024 Stress Imaging 25.9 mCi Tc-99m Cardiolite IV on 08/30/2024 Exercise Protocol: 0.4 mg Lexiscan given IV Heart Rate (bpm): Rest: 96 Max: 169 PMHR: 89 Blood Pressure: Rest: 130/80 Max: 156/88 Exercise Time: Minutes: 4 Seconds: 04 Stage Reached: Stage: 2 Mets 7.0 Symptoms: Rest and peak stress ECG findings were pending and the exercise portion of the study was pending per attending physician Dr. DESAI . For more details please see separate cardiac stress test report. FINDINGS: QUALITY OF STUDY: PERFUSION DEFECT: LOCATION: Basal anterior. Mid-anterior. SIZE: Small (1-2 segments). SEVERITY: Mild. TYPE: Reversible. WALL MOTION: Normal. LV SIZE: Normal. 50 mL. TID / TCD: None; 1.0 LVEF: Normal. Calculated EF 76%. SUMMARY: Myocardial perfusion imaging study has ABNORMAL findings. CONCLUSION: 1. Small area of mildly decreased uptake identified on stress images, this area demonstrates redistribution on rest images and an area of reversible ischemia is suspected, LAD distribution 2. Exercise test results are pending Dictated by: Jose Guadalupe Bassett MD on 08/30/2024 at 14:23 Approved by: Jose Guadalupe Bassett MD on 08/30/2024 at 14:27
== END 2024-08-26 07:49 | disposition home or self-care (01) ==
PROVIDERS: PCP Internal Medicine; Visit Provider Internal Medicine Cardiovascular Disease
DX: R94.31 Abnormal electrocardiogram [ECG] [EKG] (principal)
CPT/HCPCS: 78452; A9500

== ENCOUNTER 2024-08-30 11:44 | Outpatient (OUT) | payer BC, SELFPAY ==
--- NOTE | 2024-08-30 11:44 | PCN_ITS ---
CARDIAC STRESS TEST ? Procedure Date:? 08/30/2024 ? INDICATION FOR THE PROCEDURE:? Abnormal EKG. ? The procedure in details, as well as the risks and benefits discussed with the patient, and she was agreeable to proceed. ? Resting EKG showed normal sinus rhythm, heart rate 83 beats per minute, normal EKG.? Resting blood pressure 130/82 mm/Hg. The patient was exercised according to standard Danny protocol for a total of 4 minute and 4 seconds, achieving max heart rate of 169 beats per minute, which represents 89% of age predicted maximum heart rate, and maximal blood pressure 166/88 mm/Hg.? Exercise was terminated due to achievement of target heart rate and fatigue.? The patient complained of mid substernal chest pain with resolved during recovery.? Patient was monitored for a total of 6 minutes into recovery stage, with heart rate back to 93 beats per minute and blood pressure back to 112/78 mm/Hg.? ? EKG during exercise, at peak exercise, and during recovery phase did not show any significant T or ST changes or any significant arrhythmia. ? CONCLUSION: 1.? Maximal stress test achieving 89% of age predicted maximum heart rate. 2.? Appropriate heart rate and blood pressure response to exercise. 3.? Reduced exercise tolerance. 4.? This EKG stress test is negative for exercise induced ischemic EKG changes or arrhythmias.? The patient had mid substernal chest pain with exercise, resolved in recovery. 5.? The nuclear images result will be reported separately by Radiology. ? ? Deisy Flood M.D., FACC RONY/zoey RIVAS
== END 2024-08-30 11:45 | disposition home or self-care (01) ==
LOC: CARD 11:44
PROVIDERS: PCP Internal Medicine; Visit Provider Internal Medicine Cardiovascular Disease
DX: R94.31 Abnormal electrocardiogram [ECG] [EKG] (principal)
CPT/HCPCS: 93017

== ENCOUNTER 2024-09-26 22:03 | Emergency (ER) | payer BC, SELFPAY ==
--- OUTSIDE RECORDS SUMMARY | 2024-09-26 22:09 | XMS_ITS | CCD ---
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 07/16/2023 [...] Encounter Status:Closed by LAURIE WARE on 07/16/23 [facility] ANES POSTPROC EVALon 023 ANES POSTPROC EVAL HNO ID: [id number] Author: Kimmy Smiley DO Service: Anesthesiology Author [...] July 11, 2023 TIME: 5:18 PM CSN: [id number] [facility] ANES PRE-OPon 07-11-2023 ANES PRE-OP HNO ID: [id number] Author: Kimmy Smiley DO Service: Anesthesiology Author [...] Integra nerve wrap - Anastasia Khan from [employer] [facility] () Location: OR11 / OR Surgeons: [...] July 11, 2023 TIME: 1:10 PM CSN: [id number] [facility] BRIEF OP NOTon 07-11-2023 BRIEF OP NOT HNO ID: [id number] Author: Serafin Waters DPM Service: Podiatry Author Type: Physician Type: Brief Op Note Filed: 07/11/2023 3:32 PM Note Text: PODIATRIC SURGERY BRIEF OPERATIVE NOTE LOG ID: [id number] Surgery/Procedure Date: 07/11/2023 Incision/Procedure Start Time: 3:10 PM Incision Close/Procedure End Time: Surgeon(s)/Procedural ist(s) and Medical Director/Head Team Physician(s): Surgeon(s) and Role: * Serafin Waters DPM [...] 11, 2023 TIME: 3:31 PM PAGER/CONTACT #: [phone] (Pager/Cell) [facility] NURSING PROGon 07-11-2023 NURSING PROG HNO ID: [id number] Author: Raymond Wong RN Service: ? Author [...] (RECOMMENDATION): None Electronically Signed By: Raymond Wong [facility] OPERATIVE NOon 07-11-2023 OPERATIVE NO HNO ID: [id number] Author: Serafin Waters DPM Service: Podiatry Author Type: Physician Type: Operative Report Filed: 07/14/2023 2:10 PM Note Text: SURGERY OPERATIVE NOTE LOG ID: [id number] Surgery/Procedure Date: 07/11/2023 Incision/Procedure Start Time: 3:10 PM Incision Close/Procedure End Time: 3:54 PM Surgeon(s)/Procedural ist(s) and Medical Director/Head Team Physician(s): Surgeon(s) and Role: * Serafin Waters DPM [...] DPM PATIENT NAME: Savannah Álvarez PAGER/CONTACT #: [phone] (Pager/Cell) [facility] HISTORY PHYSICALon HISTORY PHYSICAL HNO ID: [id number] Author: Ama Lei MD Service: ? Author [...] of breath, history of stroke, history of MO, history of CHF. History reviewed. No pertinent [...] weight loss, malaise or fevers. +smoking history, +retirement aspirin use Neuro: No history of TIA's, stroke, INSPECTOR PACKER tumor, impaired sensorium, hemiplegia, paraplegia or quadraplegia. No neurological symptoms or problems. Respiratory: No history of current cough or dyspnea, or pneumonia in the past 6 weeks. No history of respiratory/pulmonary symptoms or problems. Cardiovascular: No history of HTN requiring medication, no history of angina, CHF, MO, cardiac surgery or stents. Denies rest pain, gangrene or revascularization/amp utation for PVD. No history of cardiovascular symptoms or problems. GI: No history of GI symptoms or problems. No history of esophageal varices, recent ascites, or ETOH greater than 2 drinks per day. 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 (more content not included)... Normal [facility] 07-07-2023 [facility] Telephone (NEADFV) SAVANNAH ÁLVAREZ ([id number]) 1990 F Date Time Provider Department 07/07/23 SERAFIN WATERS NENIESHA During your visit today, we recorded the following information about you: Gaurav Ralph 07/07/2023 11:52 AM Signed Received MRI left ankle report from [facility] dated 06/02/23. Scanned report into [employer]. Allergies As of Date: 07/07/2023 Noted Allergy [...] Encounter Status:Closed by GAURAV RALPH on 07/16/23 [facility] CNCOon 07-04-2023 CNCO Letter Text [facility] CNOVon 07-04-2023 CNOV Office Visit (ORFWHP ) SAVANNAH ÁLVAREZ ([id number]) 1990 F Date Time Provider Department 07/04/23 10:00 AM SERAFIN WATERS ORFP During your visit today, we recorded the following information about you: Serafin Waters DPM 07/04/2023 10:39 AM Signed PODIATRIC MEDICINE AND SURGERY OFFICE NOTE Complaint: Left tarsal tunnel syndrome HPI: This 32 year old female presents to the clinic today as a referral from Dr. Logan from [facility] for a complaint of tarsal tunnel syndrome [...] lower extremity Informed Consent Consent Obtained: Verbal Plaza Protocol A moment to CARE was completed. SIGN IN Personnel directly involved with the procedure wore the appropriate PPE. Special Equipment: N/A Patient/Surrogate Stated/Verified: Patient name, Date of , Relevant allergies and Intended procedure TIME OUT Intended patient and procedure match the source document(s). Consent documented and matches the intended procedure. Relevant labs, photos, an (more content not included)... Normal [facility] CBC W MANUAL DIFFon 07-29-20 22 ATYPICAL LYMPH # Normal [facility] Comment on above: Performed By: #### C MAGGY #### [facility] [address] [place] [address] Dr. Silas Ivey ATYPICAL LYMPH % Normal [facility] Comment on above: Performed By: #### C BCMAN #### [facility] [address] [place] [address] Dr. Silas Ivey BAND # 0.0 103/ul Normal 0.0-0.3 [facility] Comment on above: Performed By: #### C BCMAN #### [facility] [address] [place] [address] Dr. Silas Ivey BAND % 0 % Normal 0-5 [facility] Comment on above: Performed By: #### C BCMAN #### [facility] [address] [place] [address] Dr. Silas Ivey BASOM # 0.00 103/ul Normal 0.00-0.10 [facility] Comment on above: Performed By: #### C BCMAN #### [facility] [address] [place] [address] Dr. Silas Ivey BASOM % 0.0 % Critically low 0.2-2.0 [facility] Comment on above: Performed By: #### C BCDARCI #### [facility] [address] [place] [address] Dr. Silas Ivey BLAST # Normal [facility] Comment on above: Performed By: #### C BCDARCI #### [facility] [address] [place] [address] Dr. Silas Ivey BLAST % Normal [facility] Comment on above: Performed By: #### C BCMAN #### [facility] [address] [place] [address] Dr. Silas Ivey CORRECTED WBC Normal 4.0-11.0 [facility] Comment on above: Performed By: #### C BCMAN #### [facility] [address] [place] [address] Dr. Silas Ivey EOS # 0.00 103/ul Normal 0.00-0.70 [facility] Comment on above: Performed By: #### C BCDARCI #### [facility] [address] [place] [address] Dr. Silas Ivey EOS% 0.0 % Critically low 0.9-7.0 [facility] Comment on above: Performed By: #### C MAGGY #### [facility] [address] [place] [address] Dr. Silas Ivey HCT 36.7 % Normal 36.0-48.0 [facility] Comment on above: Performed By: #### C MAGGY #### [facility] [address] [place] [address] Dr. Silas Ivey HGB 12.1 g/dl Normal 12.0-16.0 [facility] Comment on above: Performed By: #### C MAGGY #### [facility] [address] [place] [address] Dr. Silas Ivey LYMPHM # 0.33 103/ul Critically low 1.20-3.80 [facility] Comment on above: Performed By: #### C MAGGY #### [facility] [address] [place] [address] Dr. Silas Ivey LYMPHM% 5.0 % Critically low 20.5-60.0 [facility] Comment on above: Performed By: #### C MAGGY #### [facility] [address] [place] [address] Dr. Silas Ivey MCH 28.1 pg Normal 26.7-34.0 [facility] Comment on above: Performed By: #### C MAGGY #### [facility] [address] [place] [address] Dr. Silas Ivey MCHC 33.0 g/dl Normal 29.9-35.2 [facility] Comment on above: Performed By: #### C MAGGY #### [facility] [address] [place] [address] Dr. Silas Ivey MCV 85.2 fL Normal 81.0-99.0 [facility] Comment on above: Performed By: #### C MAGGY #### [facility] [address] [place] [address] Dr. Silas Ivey METAMYELOCYTE # Normal [facility] Comment on above: Performed By: #### C MAGGY #### [facility] [address] [place] [address] Dr. Silas Ivey METAMYELOCYTE % Normal [facility] Comment on above: Performed By: #### C MAGGY #### [facility] [address] [place] [address] Dr. Silas Ivey MONOM# 0.53 103/ul Normal 0.30-0.80 [facility] Comment on above: Performed By: #### C MAGGY #### [facility] [address] [place] [address] Dr. Silas Ivey MONOM% 8.0 % Normal 1.7-12.0 [facility] Comment on above: Performed By: #### C MAGGY #### [facility] [address] [place] [address] Dr. Silas Ivey MPV 9.5 fL Normal 9.5-13.5 [facility] Comment on above: Performed By: #### C MAGGY #### [facility] [address] [place] [address] Dr. Slias Ivey MYELOCYTE # Normal [facility] Comment on above: Performed By: #### C MAGGY #### [facility] [address] [place] [address] Dr. Silas Ivey MYELOCYTE % Normal [facility] Comment on above: Performed By: #### C MAGGY #### [facility] [address] [place] [address] Dr. Silas Ivey NRBC Normal [facility] Comment on above: Performed By: #### C MAGGY #### [facility] [address] [place] [address] Dr. Silas Ivey PLT 252 103/ul Normal 150-450 [facility] Comment on above: Performed By: #### C MAGGY #### [facility] [address] [place] [address] Dr. Silas Ivey RBC 4.31 106/ul Normal 4.20-5.40 [facility] Comment on above: Performed By: #### C MAGGY #### [facility] [address] [place] [address] Dr. Silas Ievy RDW 13.2 % Normal 11.0-15.0 [facility] Comment on above: Performed By: #### C IMANIMAN #### [facility] [address] [place] [address] Dr. Silas Ivey SEG # 5.74 103/ul Normal 1.40-6.50 [facility] Comment on above: Performed By: #### C IMANIMAN #### [facility] [address] [place] [address] Dr. Silas Ivey SEG % 87.0 % Critically high 43.0-75.0 [facility] Comment on above: Performed By: #### C MAGGY #### [facility] [address] [place] [address] Dr. Silas Ivey WBC 6.6 103/ul Normal 4.0-11.0 [facility] Comment on above: Performed By: #### C MAGGY #### [facility] [address] [place] [address] Dr. Silas Ivey PROF 14(COMP METB)on 022 Albumin [Mass/Vol] 3.9 g/dL Normal 3.4-5.0 [facility] Comment on above: Performed By: #### C MP #### [facility] [address] [place] [address] Dr. Silas Ivey Albumin/Globulin [Mass ratio] 1.0 {ratio} Normal [facility] Comment on above: Performed By: #### C MP #### [facility] [address] [place] [address] Dr. Silas Ivey ALP [Catalytic activity/Vol] 113 U/L Normal 46-116 [facility] Comment on above: Performed By: #### C MP #### [facility] [address] [place] [address] Dr. Silas Ivey ALT [Catalytic activity/Vol] 15 U/L Normal 14-59 [facility] Comment on above: Performed By: #### C MP #### [facility] [address] [place] [address] Dr. Silas Ivey Anion gap [Moles/Vol] 9.4 mmol/L Normal [facility] Comment on above: Performed By: #### C MP #### [facility] [address] [place] [address] Dr. Silas Ivey AST [Catalytic activity/Vol] 15 U/L Normal 15-37 [facility] Comment on above: Performed By: #### C MP #### [facility] [address] [address] [address] Silas Ivey Bilirubin [Mass/Vol] 0.1 mg/dL Critically low 0.2-1.0 [facility] Comment on above: Performed By: #### C MP #### [facility] [address] [place] [address] Dr. Silas Ivey Calcium [Mass/Vol] 8.9 mg/dL Normal 8.5-10.1 [facility] Comment on above: Performed By: #### C MP #### [facility] [address] [place] [address] Dr. Silas Ivey Chloride [Moles/Vol] 103 mmol/L Normal 98-107 [facility] Comment on above: Performed By: #### C MP #### [facility] [address] [place] [address] Dr. Silas Ivey CO2 [Moles/Vol] 25.6 mmol/L Normal 21.0-32.0 [facility] Comment on above: Performed By: #### C MP #### [facility] [address] [place] [address] Dr. Silas Ivey Creatinine [Mass/Vol] 0.81 mg/dL Normal 0.55-1.02 [facility] Comment on above: Performed By: #### C MP #### [facility] [address] [place] [address] Dr. Silas Ivey EGFR-AF IRANIAN >60 Normal >=60 [facility] Comment on above: Performed By: #### C MP #### [facility] [address] [place] [address] Dr. Silas Ivey EGFR-NON AF IRANIAN >60 Normal >=60 [facility] Comment on above: Performed By: #### C MP #### [facility] [address] [address] [address] Silas Ivey Globulin (S) [Mass/Vol] 4.0 g/dL Normal [facility] Comment on above: Performed By: #### C MP #### [facility] [address] [address] [address] Silas Ivey Glucose [Mass/Vol] 101 mg/dL Normal 74-106 [facility] Comment on above: Performed By: #### C MP #### [facility] [address] [address] [address] Silas Ivey Potassium [Moles/Vol] 4.0 mmol/L Normal 3.5-5.1 [facility] Comment on above: Performed By: #### C MP #### [facility] [address] [address] [address] Silas Ivey Protein [Mass/Vol] 7.9 g/dL Normal 6.4-8.2 [facility] Comment on above: Performed By: #### C MP #### [facility] [address] [address] [address] Silas Ivey Sodium [Moles/Vol] 134 mmol/L Critically low 136-145 [facility] Comment on above: Performed By: #### C MP #### [facility] [address] [address] [address] Silas Ivey Urea nitrogen [Mass/Vol] 19.0 mg/dL Critically high 7.0-18.0 [facility] Comment on above: Performed By: #### C MP #### [facility] [address] [address] [address] Silas Ivey Urea nitrogen/Creatinine [Mass ratio] 23.5 mg/mg Normal [facility] Comment on above: Performed By: #### C MP #### [facility] [address] [address] [address] Silas Ivey XR CHEST 1 Von [...] Kamari COLE Date: 2022-07-28 22:38 Normal [facility] Covid-19 PCR (CVDTB)on 07-18 SARS-CoV-2 (COVID-19) RNA EFRAIN+probe Ql (Unsp spec) Not detected Normal NOT DETECTED [facility] Comment on above: Result Comment: This test is not yet approved or cleared by the [place] FDA. When there are no FDA-approved or cleared tests available, and other criteria are met, FDA can make tests available under an emergency access mechanism called an Emergency Use Authorization (EUA). The EUA for this test is supported by the It Sales Representative of Health and Human Service's (HHS's) declaration [...] SARS-CoV-2. Performed By: #### C VDTBH #### [facility] [address] [place] [address] Dr. Silas Ivey INFLUENZA A AND B AGon 07-28 INFLUENZA A AG Negative Normal NEGATIVE SEE COMMENT [facility] Comment on above: Performed By: #### I NFLUAB #### [facility] [address] [place] [address] Dr. Silas Ivey INFLUENZA B AG Negative Normal NEGATIVE SEE COMMENT [facility] Comment on above: Performed By: #### I NFLUAB #### [facility] [address] [place] [address] Dr. Silas Ivey INTERNAL CONTROLS Within Normal Limits Normal Wi thin Normal Limits [facility] Comment on above: Performed By: #### I NFLUAB #### [facility] [address] [address] [address] Silas Ivey PAP ACOG PANEL 2: 21 to 29on 05-06-2022 . . Normal [facility] Comment on above: Performed By: #### 4 [id number] ####[facility] [id number] [id number] Ivey Age Gdln ACOG Testing - Normal [facility] Comment on above: Performed By: #### 4 [id number] ####[facility] [address] [id number] Ivey DIAGNOSIS: Comment [facility] Comment on above: Result Comment: NEGA TIVE FOR INTRAEPITHELIAL LESION OR MALIGNANCY. Performed By: #### 4 [id number] ####[facility] [address] [address]Dr[address] Silas Ivey Methodology: Comment Normal [facility] Comment on above: Result Comment: This liquid based ThinPrep(R) pap test was screened with the use of an image guided system. Performed By: #### 4 [id number] ####[facility] [address] [place], [place] [address]Dr. Silas Ivey Note: Comment [facility] Comment on above: Result Comment: The Pap smear is a screening test designed to aid in the detection of premalignant and malignant conditions of the uterine cervix. It is not a diagnostic procedure and should not be used as the sole means of detecting cervical cancer. Both false-positive and false-negative reports do occur. . Performed By: #### 4 [id number] ####[facility] [address] [id number] Silas Ivey Performed by: Comment Normal [facility] Comment on above: Result Comment: Raissa Martinez, [place] (ASCP) Performed By: #### 4 [id number] ####[facility] [address] [address]DrJames Ivey Reflex Criteria: Comment Normal [facility] Comment on above: Result Comment: The HPV DNA reflex criteria were not met with this specimen result therefore, no HPV testing was performed. . Performed By: #### 4 [id number] ####[facility] [address] [place], [place] [address]Lv. Silas Ivey Specimen adequacy: Comment Normal [facility] Comment on above: Result Comment: Sati sfactory for evaluation. Endocervical and/or squamous metaplastic cells (endocervical component) are present. Performed By: #### 4 [id number] ####[facility] [address] [place], [place] [address]Pv. Silas Ivey US PELVIS AND TRANSVAGon US [...] ROBBIE MONROY Date: 2022-05-03 16:11 Normal [facility] Covid-19 PCR (CVDTB)on SARS-CoV-2 (COVID-19) RNA EFRAIN+probe Ql (Unsp spec) Detected Critically abnormal NOT DETECTED [facility] Comment on above: Result Comment: This test is not yet approved or cleared by the [place] FDA. When there are no FDA-approved or cleared tests available, and other criteria are met, FDA can make tests available under an emergency access mechanism called an Emergency Use Authorization (EUA). The EUA for this test is supported by the [place] of Health and Human Service's declaration that [...] used). Performed By: #### C VDTBH #### [facility] [address] [address] [address] Silas BANUELOS URINE PROFILEon 2 Bilirubin Ql (U) Negative Normal NEGATIVE The [facility] Comment on above: Performed By: #### E RUR, PREGU #### [facility] [address] [place] [address] Dr. Silas Ivey Clarity (U) CLEAR Normal CLEAR [facility] Comment on above: Performed By: #### E RUR, PREGU #### [facility] [address] [place] [address] Dr. Silas Ivey Color (U) YELLOW Normal YELLOW [facility] Comment on above: Performed By: #### E RUR, PREGU #### [facility] [address] [place] [address] Dr. Silas LEROY A micrscopic examination will be performed if indicated. Normal [facility] Comment on above: Performed By: #### E RUR, PREGU #### [facility] [address] [place] [address] Dr. Silas Ivey Glucose Ql (U) Negative Normal NEGATIVE The [facility] Comment on above: Performed By: #### E RUR, PREGU #### [facility] [address] [place] [address] Dr. Silas Ivey Hemoglobin Ql (U) Negative Normal NEGATIVE The [facility] Comment on above: Performed By: #### E RUR, PREGU #### [facility] [address] [place] [address] Dr. Silas Ivey Ketones Ql (U) Negative Normal NEGATIVE The [facility] Comment on above: Performed By: #### E RUR, PREGU #### [facility] [address] [place] [address] Dr. Silas Ivey LEUKOCYTES Negative Normal NEGATIVE [facility] Comment on above: Performed By: #### E RUR, PREGU #### [facility] [address] [place] [address] Dr. Silas Ivey Nitrite Ql (U) Negative Normal NEGATIVE [facility] Comment on above: Performed By: #### E RUR, PREGU #### [facility] [address] [place] [address] Dr. Silas Ivey pH (U) 5.5 [pH] Normal 5-9 [facility] Comment on above: Performed By: #### E RUR, PREGU #### [facility] [address] [place] [address] Dr. Silas Ivey SPEC GRAVITY >=1.030 Abnormal 1.005-<=1.025 The [facility] Comment on above: Performed By: #### E RUR, PREGU #### [facility] [address] [place] [address] Dr. Silas Ivey UA PROTEIN Negative Normal NEGATIVE/ TRACE [facility] Comment on above: Performed By: #### E RUR, PREGU #### [facility] [address] [place] [address] Dr. Silas Ivey UR MICRO IND NOT INDICATED Normal The [facility] Comment on above: Performed By: #### E RUR, PREGU #### [facility] [address] [place] [address] Dr. Silas Ivey Urobilinogen Qn (U) 0.2 {[place]'U}/dL Normal 0.2 - 1. 0 [facility] Comment on above: Performed By: #### E RUR, PREGU #### [facility] [address] [place] [address] Dr. Silas Ivey URon 01-19-2022 , QUAL Negative Normal NEGATIVE The [facility] Comment on above: Performed By: #### E RUR, PREGU #### [facility] [address] [place] [address] Dr. Silas Ivey Covid-19 PCR ([facility])on 12-17 SARS-CoV-2 (COVID-19) RNA EFRAIN+probe Ql (Unsp spec) Not detected Normal NOT DETECTED [facility] Comment on above: Result Comment: When diagnostic [...] for this test is supported by the [place] of Health and Human Service's declaration that [...] used). Performed By: #### C VDTBH #### [facility] [address] [place], [place] [address] Dr. Silas Ivey GROUP A STREP CULTUREon 12-17 S. pyogenes Ag Ql (Unsp spec) Culture Observations: NEGATIVE FOR GROUP A STREPTOCOCCUS. Normal [facility] Comment on above: Performed By: #### S SCRN, GRASTCX ####[facility] [address] [id number] Ivey INFLUENZA A AND B AGon 01-11 INFLUANEGH SEE BELOW Normal [facility] Comment on above: Result Comment: Nega tive for Flu A protein angiten. Infection due to Flu A cannot be ruled out. Flu A angiten in the sample may be below the detection limit of the test. Performed By: #### I NFLUAB ####[facility] [address] [place], [place] [address]XrJames Ivey INFLUBNEGH SEE BELOW Normal [facility] Comment on above: Result Comment: Nega tive for Flu B protein antigen. Infection due to Flu B cannot be ruled out. Flu B antigen in the sample may be below the detection limit of the test. Performed By: #### I NFLUAB ####[facility] [address] [id number] Ivey INFLUENZA A AG Negative Normal NEGATIVE SEE COMMENT [facility] Comment on above: Performed By: #### I NFLUAB ####[facility] [address] [place], [place] [address]Ny. Silas Ivey INFLUENZA B AG Negative Normal NEGATIVE SEE COMMENT [facility] Comment on above: Performed By: #### I NFLUAB ####[facility] [address] [place], [place] [address]Hk. Silas Ivey INTERNAL CONTROLS Within Normal Limits Normal Wi thin Normal Limits [facility] Comment on above: Performed By: #### I NFLUAB ####[facility] [address] [place], [place] [address]Zx. Silas Ivey STREPT SCREENon 01-11-2022 STREP SCREEN A Negative Normal NEGATIVE The [facility] Comment on above: Performed By: #### S SCRN, GRASTCX ####[facility] [address] [place], [place] [address]Kh. Silas Ivey Vital Signs Date Time Vital Sign Value Performing Clinician Facility 06-10-2024 15:55-0400 Body height 152.4 cm [facility] 06-10-2024 15:55-0400 Body mass index (BMI) [Ratio] 29.53 kg/m2 [facility] 06-10-2024 15:55-0400 Body weight 68.58 kg [facility] 06-10-2024 15:55-0400 Diastolic blood pressure 78 mm[Hg] [facility] 06-10-2024 15:55-0400 Systolic blood pressure 110 mm[Hg] [facility] 07-08-2023 10:10-0500 Body height 152.4 cm [facility] Work Phone: [facility] 07-08-2023 10:10-0500 Body temperature 98.71 [degF] [facility] Work Phone: [facility] 07-08-2023 10:10-0500 Body weight 62.46 kg [facility] 7 Work Phone: [facility] 07-08-2023 10:10-0500 Diastolic blood pressure 67 mm[Hg] [facility] Work Phone: [facility] 07-08-2023 10:10-0500 Heart rate 74 /min [facility] Work Phone: [facility] 07-08-2023 10:10-0500 SaO2% (BldA) [Mass fraction] 98 % [facility] Work Phone: [facility] 07-08-2023 10:10-0500 Systolic blood pressure 107 mm[Hg] [facility] Work Phone: [facility] Encounters Encounter Date Encounter Type Care Provider Facility Start: 08-30-2024 End: 08-30-2024 ambulatory [facility] Start: 06-25-2024 End: 06-25-2024 ambulatory RICKIE MAGALLANES [facility] Start: 06-21-2024 End: 06-21-2024 Telephone encounter Rickie Magallanes [employer]GER[employer]CNM Work Phone: [facility] Start: 06-18-2024 End: 06-18-2024 Telephone encounter Rickie Magallanes [employer]CNM Work Phone: [facility] Start: 06-17-2024 End: 06-17-2024 Orders Only Annabel Guillermo RN [facility] Comment on above: First trimester preg juju (Primary Dx) Start: 06-15-2024 End: 06-15-2024 Initial care visit Alyssa Huang [employer] D[employer]GER[employer]AL[employer] SOLUTIONS ASSOCIATE Work Phone: [facility] Comment on above: First trimester preg juju (Primary Dx); Nausea/vomiting in Start: 06-15-2024 End: 06-15-2024 ambulatory ALYSSA HUANG [facility] Start: 06-11-2024 End: 06-11-2024 Telephone encounter Rickie Magallanes [employer]GER[employer]CNM Work Phone: [facility] Start: 06-10-2024 End: 06-10-2024 ambulatory RICKIE MAGALLANES [facility] Start: 06-10-2024 End: 06-10-2024 Office outpatient new 20 minutes [employer] [employer] [facility] Comment on above: Acute cystitis witho ut hematuria (Primary Dx); First trimester Start: 06-10-2024 End: 06-10-2024 ambulatory [facility] Start: 06-10-2024 End: 06-10-2024 Telephone encounter Nano Candelario [facility] Adilia biswas Comment on above: Medication Problem Start: 06-09-2024 End: 06-09-[address] [facility] Start: 06-07-2024 End: 06-07-2024 Telephone encounter Alyssa Huang [employer] ASS[employer]IATE Work Phone: [facility] Start: 06-07-2024 End: 06-07-2024 ambulatory DESIREE ARAGON [facility] Start: 06-05-2024 End: 06-05-2024 Emergency department patient visit [facility] Start: 06-01-2024 End: 06-01-2024 ambulatory [facility] Start: 05-26-2024 End: 05-26-2024 Refill Serafin Waters DPM Work Phone: [facility] Comment on above: Refill Request Start: 03-02-2024 End: 03-03-2024 Emergency department patient visit MARQUEZ GILLIAM [facility] Start: 02-02-2024 End: 02-02-2024 Patient encounter procedure Serafin Waters DPM Work Phone: [facility] [place] Comment on above: 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); Lesion of left tibial nerve Start: 02-02-2024 End: 02-02-2024 ambulatory SERAFIN WATERS Facility:[facility] Start: 12-17-2023 End: 01-17-2024 ambulatory [facility] Start: 11-27-2023 End: 12-17-2023 ambulatory [facility] Start: 11-18-2023 ambulatory Serafin Waters DPM Work Phone: [facility] Comment on above: Pain Management Info Start: 11-18-2023 E-mail encounter fro m caregiver Serafin Waters DPM Work Phone: [facility] Start: 11-03-2023 End: 11-03-2023 Patient encounter procedure Serafin Waters DPM Work Phone: [facility] Comment on above: 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 Comment on above: Acute left ankle portia n [M25.572] Start: 11-03-2023 End: 11-03-2023 ambulatory Serafin Waters DPM Work Phone: [facility] Comment on above: Work papers accommod ations Start: 10-17-2023 End: 11-17-2023 [facility] Start: 09-24-2023 Orders Only Serafin Waters DPM Work Phone: [facility] Comment on above: Acute left ankle portia n (Primary Dx) Start: 09-18-2023 End: 10-17-2023 [facility] Start: 09-15-2023 ambulatory Serafin Waters DPM Work Phone: [facility] Comment on above: Question about shoes Start: 09-05-2023 End: 09-05-2023 ambulatory JULIA TRACEY Facility:[facility] Start: 09-05-2023 End: 09-05-2023 Patient encounter procedure Serafin Waters DPM Work Phone: [facility] Comment on above: 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); Lesion of left tibial nerve Start: 08-18-2023 ambulatory Fouzia Sierra RN [facility]U [employer]SE SENIOR MANAGING DIRECTOR Comment on above: Information Start: 08-08-2023 End: 09-18-2023 ambulatory SERAFIN WATERS [facility] Start: 08-08-2023 End: 08-08-2023 ambulatory JULIA TALBERT ALEXY Facility:[facility] Start: 07-25-2023 End: 07-25-2023 Patient encounter procedure Serafin Waters DPM Work Phone: [facility] Comment on above: 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); Lesion of left tibial nerve Start: 07-25-2023 End: 07-25-2023 ambulatory SERAFIN WATERS Facility:[facility] Start: 07-15-2023 Telephone encounter Serafin Waters DPM Work Phone: [facility] Start: 07-14-2023 ambulatory Maddi Cheatham RN NURSE SENIOR MANAGING DIRECTOR Comment on above: Information Start: 07-11-2023 End: 07-11-2023 ambulatory Tanya Trevino RN [facility] Start: 07-11-2023 Follow-up encounter Tanya Trevino RN NURSE SENIOR MANAGING DIRECTOR Comment on above: Follow Up Start: 07-08-2023 Encounter for other preprocedural examination JULIA TRACEY [facility] Start: 07-08-2023 End: 07-08-2023 Admission to [facility] Work Phone: [facility] Start: 07-08-2023 End: 07-09-2023 ambulatory Pac Main 7 Work Phone: Pre Anesthesia Comment on above: Pre-op evaluation; Achilles tendinitis, left leg Start: 07-08-2023 End: 07-08-2023 Preprocedural examination done Pac Main 7 Work Phone: [facility] Work Phone: Start: 07-07-2023 Orders Only Serafin Waters DPM Work Phone: [facility] [place] Comment on above: Tarsal tunnel syndro me, left (Primary Dx); Soft tissue mass Received Outside Med ical Records (MRI left ankle report) Start: 07-04-2023 End: 07-04-2023 ambulatory ASHIA LOGAN Facility:[facility] Start: 07-28-2022 End: 07-29-[address] MIROSLAVA [...] Td Vaccines (2 - Td or Tdap) [facility] Start: 04-23-2026 Urine microalbumin profile DTaP,Tdap,Td Vaccine (2 - Td or Tdap) [facility] Start: 12-09-2025 Tobacco Counseling Tobacco Counselin g [facility] Start: 06-15-2025 Tobacco Screening Tobacco Screening [facility] Start: 06-10-2025 Adult BMI Screening Adult BMI Screen ing [facility] Start: 06-10-2025 Tobacco Screening Tobacco Screening [facility] Start: 06-05-2025 Adult BMI Screening Adult BMI Screen ing [facility] Start: 06-05-2025 Tobacco Screening Tobacco Screening [facility] Start: 07-06-2024 End: 07-06-2024 ambulatory 07/06/2024 11:15 AM EST Initial [facility] [address] [place] [id number] Veronica Forte DO [address] [place], [place] [id number] [facility] Start: 06-22-2024 End: 06-22-2024 Patient encounter procedure 06/22/2024 8:30 AM EST Appointment [facility] - Ultrasound [address] [place] [id number] Alyssa Huang, SEWER D[employer]GER[employer]SAL[employer] SOLUTIONS ASSOCIATE [address] [place], [place] [id number] [facility] Start: 06-15-2024 End: 06-15-2025 US transvaginal for Ultrasound less than 14 weeks with transvaginal Imaging Routine First trimester Expected: 06/15/2024, Expires: 06/15/2025 [facility] Work Phone: Comment on above: Expected: 06/15/2024 , Expires: 06/15/2025 Start: 06-15-2024 End: 06-15-2024 Telemedicine consultation with patient 06/15/2024 9:15 AM EDT Telemedicine [facility] [address] [facility] [address] [place] [phone] Alyssa Huang, [employer] D[employer]GER[employer]SALES SOLUTIONS ASSOCIATE [address] [place] [address] [facility] Start: 06-10-2024 End: 06-10-2025 Bacteria identified in Urine by Culture Urine Culture Microbiology Routine Acute cystitis without hematuria Expected: 06/10/2024 (Approximate), Expires: 06/10/2025 [facility] Comment on above: Expected: 06/10/2024 (Approximate), Expires: 06/10/2025 Start: 06-10-2024 End: 06-10-2025 Urinalysis Urinalysis Lab Routine Acute cystitis without hematuria Expected: 06/10/2024 (Approximate), Expires: 06/10/2025 [facility] Work Phone: Comment on above: Expected: 06/10/2024 (Approximate), Expires: 06/10/2025 Start: 04-18-2024 COVID-19 Vaccine () COVID-19 Vaccine () [facility] Start: 04-18-2024 Covid-19 Vaccine () Covid-19 Vaccine () [facility] Start: 04-18-2024 Influenza vaccination C [facility] Start: 08-18-2023 Behavioral Health Screening Behavioral Health Screening [facility] Start: 08-18-2023 Depression Assessment Depression Ass [facility] Start: 04-18-2023 Covid-19 Vaccine () Covid-19 Vaccine () [facility] Start: 04-18-2023 Influenza vaccination Influenza Vacc ine (#1) [facility] Start: 2022 HPV Testing HPV Testing [facility] Start: 2022 Screening for malign ant neoplasm of cervix HPV Testing [facility] Start: 08-18-2022 Depression Assessment Depression Ass hind general hospitalment [facility] Start: 03-21-2022 Hepatitis B Vaccine (2 of 2 - CpG 2-dose series) Hepatitis B Vaccine (2 of 2 - CpG 2-dose series) [facility] Start: 2013 Pap Testing Pap Testing [facility] Start: 2013 Screening for malign ant neoplasm of cervix [facility] Start: 2010 Adult BMI Follow Up Plan Adult BMI Follow Up Plan [facility] Start: 2010 Anxiety Screening Anxiety Screening [facility] Start: 2010 Depression Screening Depression Scre [facility] Start: 2010 Hepatitis C Screening Hepatitis C [facility] Start: 2010 Hepatitis C screening Hepatitis C [facility] Start: 2010 HIV Screening HIV Screening [facility] Start: 2010 HIV screening HIV Screening [facility] Start: 2004 Depression Screening Depression Scre ening [facility] Start: 1998 Pneumococcal vaccination [facility] Start: 1992 Tobacco Counseling Tobacco Counselin g [place] End: 06-15-2025 CBC panel - Blood by Automated count CBC without diff Lab Routine First trimester 1 Occurrences starting 06/15/2024 until 06/15/20[facility]: 1 Occurrences starti ng 06/15/2024 until 06/15/2025 Choriogonadotropin.b eta subunit [Units/volume] in Serum or Plasma HCG, Quantitative, Lab Routine First trimester 06/17/2024 2:21 PM EDT [place] End: 06-10-2025 Drug Screen, Urine Drug Screen, Urine Lab Routine First trimester 1 Occurrences starting 06/10/2024 until 06/10/2025 [facility] Comment on above: 1 Occurrences starti ng 06/10/2024 until 06/10/2025 End: 06-17-2025 hCG, quantitative, hCG, quantitative, Lab Routine First trimester 1 Occurrences starting 06/17/2024 until 06/17/2025 [facility] Work Phone: Comment on above: 1 Occurrences starti ng 06/17/2024 until 06/17/2025 End: 06-18-2025 hCG, quantitative, hCG, quantitative, Lab Routine SAB (spontaneous ) 1 Occurrences starting 06/18/2024 until 06/18/2025 [facility] Work Phone: Comment on above: 1 Occurrences starti ng 06/18/2024 until 06/18/2025 End: 06-15-2025 Hepatitis panel, acute Hepatitis panel, acute Lab Routine First trimester 1 Occurrences starting 06/15/2024 until 06/15/2025 [facility] Comment on above: 1 Occurrences starti ng 06/15/2024 until 06/15/2025 End: 06-15-2025 HIV 1&2 AB/AG Screen (P24 AG) HIV 1&2 AB/AG Screen (P24 AG) Lab Routine First trimester 1 Occurrences starting 06/15/2024 until 06/15/2025 [facility] Comment on above: 1 Occurrences starti ng 06/15/2024 until 06/15/2025 End: 06-15-2025 Rubella IGG immune status Rubella IGG immune status Lab Routine First trimester 1 Occurrences starting 06/15/2024 until 06/15/2025 [facility] Comment on above: 1 Occurrences starti ng 06/15/2024 until 06/15/2025 End: 06-15-2025 Syphilis Total(Unknown Syphilis Status) Syphilis Total(Unknown Syphilis Status) Lab Routine First trimester 1 Occurrences starting 06/15/2024 until 06/15/2025 [facility] Comment on above: 1 Occurrences starti ng 06/15/2024 until 06/15/2025 End: 06-15-2025 Type and screen Type and screen Blood Bank Routine First trimester 1 Occurrences starting 06/15/2024 until 06/15/2025 [facility] Comment on above: 1 Occurrences starti ng 06/15/2024 until 06/15/2025 End: 06-15-2025 Varicella zoster antibody, IgG Varicella zoster antibody, IgG Lab Routine First trimester 1 Occurrences starting 06/15/2024 until 06/15/2025 [facility] Comment on above: 1 Occurrences starti ng 06/15/2024 until 06/15/2025 XR Ankle - left AP a nd Lateral and oblique XR ANKLE GENERAL 3V AP/LAT/OBL LEFT Radiology Routine Acute left ankle pain 11/03/2023 2:32 PM EDT [facility] Work Phone: End: 10-23-2024 XR ANKLE GENERAL 3V AP/LAT/OBL LEFT XR ANKLE GENERAL 3V AP/LAT/OBL LEFT Radiology Routine Acute left ankle pain 1 Occurrences starting 09/24/2023 until 10/23/2024 [facility] Work Phone: Comment on above: 1 Occurrences starti ng 09/24/2023 until 10/23/2024 [facility] Immunizations Immunization Date Immunization Notes Care Provider Fa lacey 06-07-2019 influenza virus vaccine, unspecified formulation Serafin Waters DPM Work Phone: [facility] Payers Date Payer Category Payer Unknown [id number] 2024 Unknown [id number] 2023 Medicaid [employer] [id number] 2023-Present [phone] [address] [place] [address] Medicaid [id number] 2023 Medicaid HMO [employer] [id number] 2023 Medicaid [id number] 1992 Unknown [id number] 2.16.840.1.532352.3.579.2.593 1992 Unknown [id number] 2.16.840.1.136850.3.579.2.593 1992 Unknown [id number] 2.16.840.1.831259.3.579.2.593 1992 Unknown [id number] 2.16.840.1.351244.3.579.2.593 1992 Unknown [id number] 2.16.840.1.052726.3.579.2.593 1992 Unknown [id number] 2.16.840.1.160322.3.579.2.593 1992 Unknown [id number] 2.16.840.1.777676.3.579.2.1286 1992 Unknown [id number] 2.16840.1.686373.3.579.2.1285 1992 Unknown [id number] 2.16.840.1.250980.3.579.2.1285 1992 Unknown [id number] 2.16.840.1.080161.3.579.2.1285 1992 Unknown [id number] 2.16.840.1.127790.3.579.2.1285 1992 Unknown [id number] 2.16.840.1.930079.3.579.2.1285 1992 Unknown [id number] 2.840.1.753469.3.579.2.1285 1992 Unknown [id number] 2.840.1.987836.3.579.2.1285 1992 Unknown [id number] 2.840.1.060364.3.579.2.1285 1992 Unknown [id number] 2.840.1.565508.3.579.2.1285 1992 Unknown [id number] 2.840.1.390736.3.579.2.1285 1992 Unknown [id number] 2.840.1.039254.3.579.2.1285 1992 Unknown [id number] 2.840.1.165328.3.579.2.1285 1992 Unknown [id number] 2.840.1.383256.3.579.2.1285 1992 Unknown [id number] 2.840.1.377714.3.579.2.1285 1992 Unknown [id number] 2.16840.1.868722.3.579.2.1285 1992 Unknown [id number] 2.16840.1.236192.3.579.2.1285 1992 Unknown [id number] 2.16.840.1.873960.3.579.2.1286 1959 Unknown [id number] 1959 Unknown [id number] Social History Date Type Detail Facility Start: 07[facility]04-2023 [facility] History of tobacco use Current smoker [facility] History of tobacco use Cigarette Smoker C [facility] Start: 07-04-2023 End: 06-15-2024 Tobacco use and exposure Smokeless tobacco non-user [facility] Start: 09-28-2020 End: 07-04-2023 History of Social function [facility] Start: 09-28-2020 End: 07-04-2023 Tobacco use panel [facility] National Score (1-10 0), lower number is lower risk 92 [facility] Start: 07-04-2023 Tobacco Comment Vapes occasionally C [facility] Start: 1990 Sex Assigned At Not on file [facility] Start: 07-08-2023 End: 06-10-2024 Tobacco smoking status NHIS Smokes tobacco daily [facility] Work Phone: Start: 07-08-2023 End: 06-05-2024 Alcohol intake Current drinker of alcohol (finding) [facility] Start: 07-08-2023 Tobacco Comment Vapes occasion ally, 2-3 cigarettes a day [facility] Start: 07-08-2023 Alcohol Comment occasionally, social drinking. [facility] History of tobacco use [facility] Start: 03-02-2024 Tobacco Comment EOD [facility] Start: 05-25-2019 Alcohol Comment ocassionally [facility] Start: 1990 Sex assigned at Female P [facility] Start: 03-23-2015 Sex Female (finding) [facility] Start: 01-14-2020 Gender identity Identifies as female gender (finding) [facility] Start: 01-14-2020 Sexual orientation Heterosexual (fin ding) [facility] Start: 06-10-2024 End: 06-15-2024 Alcoholic beverage intake Ex-drinker (finding) [facility] Start: 06-15-2024 Tobacco smoking stat us NHIS [facility]as[facility] Start: 05-18-2024 [facility] Procedure Code Equipment Code Equipment Origin al Text Equipment Identifier Dates Protector Nrv 7m m 4cm Strl Neurawrap Abs Bcmpt Bvn Clgn Bertha [id number] Start: 07-11-2023 Goals Date Patient Goal Desired Activity /State Personal health goal Clinical Notes 07-04-2023 to 08-30-2024 Telephone Encounter - LAILA Peñaloza - 06/21/2024 11:53 AM ESTTelephone Encounter - LAILA Peñaloza - 06/21/2024 11:53 AM Steven Guillermo RN - 06/17/2024 1:46 PM EDT Note Date & Type Note Facility 08-30-2024 Note [facility] [facility] Note Reason for cardiology visit: Follow-up on testing Chief Complaint: Dizziness, chest pain and palpitation HPI: 08/30/2024 Patient is here today for follow-up visit. She states that couple weeks ago she had dizziness episode and her blood pressure was in the 90 and she remained dizzy and tired all day long. She still has palpitation particularly with walking. Also she admits occasional chest pain sometimes at rest sometimes with exertion. She underwent treadmill nuclear stress test today and she had chest pain during walking on treadmill. She denies exertional dyspnea or orthopnea or paroxysmal nocturnal dyspnea. She denies syncopal episodes. She denies legs edema legs comfort on exertion The patient states that she does not drink any caffeine and alcohol and she increased her fluid intake. She could not afford the compression stockings but she is going to buy them online 06/01/2024 Savannah Bruner is a 33 y.o. female with history of dizziness, rare PACs and short paroxysmal atrial tachycardia noted on event monitor 2019. She used to follow-up with [facility] cardiology. She presented to the emergency room [...] Denies alcohol or illicit drugs. Cardiology ROS: All systems were reviewed and they were negative except for the positive findings noted above in the history Past Medical History She has a past medical history of Heart murmur and Neurocardiogenic syncope. Surgical History She has a past surgical history that includes Cholecystectomy; Abdominal surgery; and Ankle surgery. Social History She reports that she has been smoking cigarettes. She has a 1.3 pack-year smoking history. She has never used smokeless tobacco. She reports that she does not currently use alcohol. She reports that she does not use drugs. Family History Family History Problem Relation Name Age of Onset Heart attack Mother 57 Allergies Clindamycin, Sertraline, Sulfa (sulfonamide antibiotics), and Sulfamethoxazole-trimethoprim Medications No current outpatient medications on file. Last Recorded Vitals Visit Vitals BP 110/68 [...] PSYCH: appropriate mood, affect, and judgement. Labs: 06/02/2024 TSH 1.548 Cortisol 13.5 Labs 05/31/2024 White blood count 7.1, hemoglobin 12.6, hematocrit 37.7, platelets 278 Sodium 140, potassium 4, BUN 17, creatinine 0.84, GFR above 60, glucose 104, calcium 8.8 Troponin high-sensitivity less than 4 Serum HCG negative Last Images: EKG 05/31/2024 showed normal sinus rhythm, normal EKG Treadmill nuclear stress test 08/30/2024 EKG portion is normal without evidence of EKG changes Patient had chest pain on treadmill Nuclear images showed small area of mildly decreased uptake at the basal anterior and mid anterior segments suspected for reversible ischemia TID 1.0 Ejection fraction 76% Treadmill stress test 07/13/2024 Treadmill stress test 02/21/2021 at [id number] Treadmill exercise stress test. Danny protocol stress test was performed. The patient reached stage 3 of the protocol after exercising for 6 min 15 sec. Patient achieved a maximal he (more content not included)... [facility] 06-21-2024 Miscellaneous Notes Discussed w/pt. Advised to wait a week between hCG as we need to trend it to less than 5. Pt. Verbalized understanding. documented in this encounter [facility] 06-21-2024 Telephone encounter Note Discussed w/pt. Advised to wait a week between hCG as we need to trend it to less than 5. Pt. Verbalized understanding. [facility]18[facility]24 Miscellaneous Notes Call to pt. To [...] Blood type O+ documented in this encounter [facility] 06-18-2024 Telephone encounter Note Call to pt. [...] week. Pt. Verbalized understanding. Blood type O+ [facility] 06-17-2024 History of Presen t illness Narrative Pt called stating that she got the flu vaccine and decided to take a test. She said the test came back negative. I spoke with Alyssa Huang APRN- SALES SOLUTIONS ASSOCIATE, pt was advised to not take any more urine test at this time as the test could be , or faulty. Pt verbalized she understood and Alyssa ordered a beta for the patient to get it drawn. STEVAN Hernandez, RN documented in this encounter [facility] 06-15-2024 History of Presen t illness Narrative [id number]. Planned. Desires genetic testing. Desires FLU VACCINE. Vapes but trying to stop. BMI-29 Last pap was 1 year ago-with Dr Hutchinson-negative. OB Intake Video Visit 33 y.o. at 6w0d contacted through [employer] for OB intake video visit. verified and verbal consent obtained for video visit. Patient and provider both currently located in the [facility]. This was a planned . FOB [...] when/how to notify provider. Reviewed CNM / SALES SOLUTIONS ASSOCIATE care, collaboration & referral to CHENILLE MACHINE OPERATOR as needed. Reviewed course of care. Discussed CDC recommendation for exclusive for the first 6 months. Patient has been covid vaccinated. Discussed recommendations in . Patient is taking a vitamin. All questions answered. Educational materials provided through [employer]. Ultrasound and labs ordered. Appointment scheduled for initial OB visit with provider on 07/06/24. NATALIA Wang 06/15/24 1026 documented in this encounter [facility] 06-11-2024 Miscellaneous Notes Patient is currently & called the office to see what temperature a steak needs to be cooked (medium, medium well, well done) for it to be safe for her to eat. Spoke to Rickie Magallanes CNM (oracle identity management consultant). The beef needs to be cooked to 145 degrees and let sit for 3 minutes. Patient was notified & voiced understanding. documented in this encounter [facility] 06-11-2024 Telephone encounter Note Patient is currently & called the office to see what temperature a steak needs to be cooked (medium, medium well, well done) for it to be safe for her to eat. Spoke to Rickie Magallanes CNM (oracle identity management consultant). The beef needs to be cooked to 145 degrees and let sit for 3 minutes. Patient was notified & voiced understanding. [facility] 06-11-2024 Miscellaneous Notes Pt. Reports she is feeling a little better. Advised urine drug screen and urinalysis are negative. Pt. Encouraged to hydrate. Pt. Reports some nausea for which she came home from work for. Pt. Advised urine culture is pending, but will likely be negative. Pt. Verbalized understanding. documented in this encounter [facility] 06-11-2024 Telephone encounter Note Pt. Reports she is feeling a little better. Advised urine drug screen and urinalysis are negative. Pt. Encouraged to hydrate. Pt. Reports some nausea for which she came home from work for. Pt. Advised urine culture is pending, but will likely be negative. Pt. Verbalized understanding. [facility] 06-10-2024 Miscellaneous Notes Contract: 129 re Vitamin Called Daija Santacruz CNM cell and Left Messag to call [facility] Daija Santacruz called back Connected Call documented in this encounter [facility] 06-10-2024 Telephone encounter Note Contract: 129 re Vitamin [facility] 06-10-2024 Telephone encounter Note Called Daija Santacruz CNM cell and Left Messag to call [facility] 06-10-2024 Telephone encounter Note Daija Santacruz called back Connected Call [facility] 06-10-2024 History of Presen t illness Narrative [...] SURGERY Left CHOLECYSTECTOMY EXPLORATORY LAPAROTOMY GALLBLADDER SURGERY Circumferential 2013 OVARIAN CYST SURGERY FAMILY HX Family [...] - Drug Screen, Urine; Future - vit 88-noio-hublq-dha ( + DHA) 28 mg iron- 975 [...] Verbalized understanding DAVON RUSSELL, CRISTEL Magallanes APRN, CHRISM LAILA Peñaloza 06/10/24 1647 documented in this encounter [facility] 06-07-2024 Miscellaneous Notes Patient has OBI on [...] STEVAN Hernandez, RN documented in this encounter [facility] 06-07-2024 Telephone encounter Note Patient has OBI on 06/15/24 and wanted to make the Office aware that she was seen in the ED over the weekend for vaginal bleeding. Patient states she had Betas drawn in the ED and will have them drawn again today. [facility] 06-07-2024 Telephone encounter Note Please notify patient her beta increased. Discuss warning signs and have her repeat beta Friday. Thank you. [facility] Work Phone: 06-07-2024 Telephone encounter Note Called the patient and informed her of this information. She verbalized she understood. STEVAN Hernandez, RN [facility] 06-01-2024 Note [place] [facility] Note Reason for cardiology consult: Syncope Chief Complaint: Syncope and palpitation HPI: Savannah Álvarez is a 33 y.o. female with history of dizziness, rare PACs and short paroxysmal atrial tachycardia noted on event monitor 2019. She used to follow-up with [facility] cardiology. She presented to the emergency room [...] normal EKG Treadmill stress test 02/21/2021 at [facility] Treadmill exercise stress test. Danny protocol stress [...] for cardiovascular events. Limited echo 02/21/2021 at [facility] Left Ventricle: Systolic function is normal with an ejection fraction of 60-65%. The quantitative EF by 2D Lambert biplane is (more content not included)... [facility] 02-02-2024 Note HNO ID: [id number] Author: SERAFIN WATERS DPM Service: ? Author [...] GALLBLADDER 2013 REMOVAL OF OVARIAN CYST(S) Left 2019 No [...] will be s (more content not included)... [facility] 02-02-2024 History of Presen t illness Narrative [...] which included preparing to see the patient, sqkf-sf-svgg patient care, completing clinical documentation, obtaining and/or reviewing separately obtained history, performing a medically appropriate examination, counseling and educating the patient/family/caregiver, and ordering medications, tests, or procedures. documented in this encounter [facility] 11-18-2023 Miscellaneous Notes 1445: Received a message [...] her work restrictions if necessary. Thank you, Jennifer RN, BSN documented in this encounter [facility] 11-05-2023 Miscellaneous Notes Abilio Laurie, Here are the completed forms. Can you please print and scan them into her chart. Thank you Jennifer documented in this encounter [facility] 11-03-2023 Note HNO ID: [id number] Author: SERAFIN WTAERS DPM Service: ? Author Type: Physician Type: [...] Reported on 08/08/2023 Earliest Fill Date: 07/25/2023 [facility] Modifiable Risk Factors (MoRF) Obesity Unknown [...] - Patient is (more content not included)... [facility] 11-03-2023 History of Presen t illness Narrative [...] which included preparing to see the patient, gfus-wy-xwmc patient care, completing clinical documentation, obtaining and/or reviewing separately obtained history, performing a medically appropriate examination, counseling and educating the patient/family/caregiver, and ordering medications, tests, or procedures. documented in this encounter [facility] 11-03-2023 History of Presen t [...] PATIENT PRESENTS WITH AN IMPLANTABLE OR ATTACHED CIVIL ENGINEERING INTERN: No RADIOLOGY DEPARTMENT: General X-ray: Exam(s) Completed: Lower Extremity X-Ray(s): Ankle, Left PERIPHERAL IV DATA: Not applicable SIGNED BY: RT Kimber(R) November 03, 2023 2:28 PM documented in this encounter [facility] 11-03-2023 Note HNO ID: [id number] Author: SERGEY MCKEE RT(True) Service: Radiology Author [...] PATIENT PRESENTS WITH AN IMPLANTABLE OR ATTACHED CIVIL ENGINEERING INTERN: No RADIOLOGY DEPARTMENT: General X-ray: Exam(s) Completed: Lower Extremity X-Ray(s): Ankle, Left PERIPHERAL IV DATA: Not applicable SIGNED BY: RT Kimber(R) November 03, 2023 2:28 PM [facility] 09-05-2023 Note HNO ID: [id number] Author: SERAFIN WATERS DPM Service: ? Author [...] Reported on 08/08/2023 Earliest Fill Date: 07/25/2023 [facility] Modifiable Risk Factors (MoRF) Obesity Unknown [...] etiology and treatme (more content not included)... [facility] 09-05-2023 History of Presen t illness Narrative [...] which included preparing to see the patient, ogdd-yt-xvfb patient care, completing clinical documentation, obtaining and/or reviewing separately obtained history, performing a medically appropriate examination, counseling and educating the patient/family/caregiver, and ordering medications, tests, or procedures. documented in this encounter [facility] 08-27-2023 Note Patient Outreach (MATEUSZ TNAV) SAVANNAH ÁLVAREZ ([id number]) 1990 F Date Time Provider Department 08/27/23 [...] Care Gap or Scheduling/Wellness visits Payer: Payor: [facility] MEDICAID / Plan: [facility] MEDICAID / Product Type: Medicaid / [...] Encounter Status:Closed by RAYMOND MARKHAM on 08/27/23 [facility] 08-27-2023 Note HNO ID: [id number] Author: ?, ?, ? Service: ? Author [...] Care Gap or Scheduling/Wellness visits Payer: Payor: [facility] MEDICAID / Plan: [facility] MEDICAID / Product Type: Medicaid / [...] done Influenza Vaccine(1) due on 04/18/2023 Covid-19 Vaccine(2022- season) due on 04/18/2023 Depression Assessment Never done Navigation Signature: Raymond Miguel August 27, 2023 10:39 AM [facility] 08-18-2023 Miscellaneous Notes Patient calling with health information: patient requesting health information about Taking Gabapentin and taking Midol for menstrual symptoms, reviewed information from [employer] , and verbalized understanding of information provided. Patient denies any new or worsening symptoms of which a provider is not aware:Yes . Source:https://online.Peerz/ lco/action/doc/retrieve/docid/m art[place]_[email or web address]?cesid=[email or web address]&searchUrl=%2Flco%2Factio n%2Fsearch%3Fq%3Dgabapentin%26t %3Dname%26acs%3Dtrue%26acq%3Dga b#interactions documented in this encounter [facility] 08-08-2023 Note HNO ID: [id number] Author: Serafin Waters DPM Service: ? Author [...] the current p (more content not included)... [facility] 07-25-2023 History of Presen t illness Narrative [...] which included preparing to see the patient, nyhy-dr-kqec patient care, completing clinical documentation, obtaining and/or reviewing separately obtained history, performing a medically appropriate examination, counseling and educating the patient/family/caregiver, and ordering medications, tests, or procedures. documented in this encounter [facility] 07-25-2023 Note HNO ID: [id number] Author: Serafin Waters DPM Service: ? Author [...] ankle - Sta (more content not included)... [facility] 07-16-2023 Miscellaneous Notes Spoke to patient per Dr. Waters she needs to take pain medication as directed and not wait until she gets in severe pain. Patient called having a lot left heel pain like (50 plus)radiating to the ankle. Takes the oxyCODONE-acetaminophen (PERCOCET) 5-325 mg tablet without much relief to help the pain. Patient went to [facility] yesterday had left ankle covered while taking a shower but the reginaldo and gauze still got wet so she received dressing change there. documented in this encounter [facility] 07-14-2023 Miscellaneous Notes Patient calling with request for post op questions. Patient denies any new or worsening symptoms of which a provider is not aware: N/A. Conferenced to [place] Rod Welder to page oracle identity management consultant for Podiatry. documented in this encounter [facility] 07-11-2023 Miscellaneous Notes Patient calling regarding not [...] to the foot or toes. Conferenced to [facility] yardage control operator, Cristo, to speak with provider oracle identity management consultant for Dr. Serafin Waters. documented in this encounter [facility] 07-11-2023 Note HNO ID: [id number] Author: Zenon Houston Service: Pharmacy Author Type: ? Type: Plan of Care Filed: 07/14/2023 9:20 AM Note Text: PHARMACY BEDSIDE DELIVERY SERVICE Patient Name: Savannah Álvarez The marked outpatient medications were filled at [facility] pharmacy and picked up at the [...] your Primary Care Provider. 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 Reason for block: post-op pain management/at surgeon's [...] July 11, 2023 TIME: 5:22 PM CSN: [id number] [facility] 07-11-2023 Note HNO ID: [id number] Author: Kimmy Smiley DO Service: Pain Management Author Type: Anesthesiologist Type: Anesthesia Procedure Notes Filed: 07/11/2023 5:28 PM Note Text: ANESTHESIOLOGY PROCEDURE NOTE Peripheral Nerve Block General Information Procedure Start Time/Medication Administration: 07/11/2023 4:04 PM Procedure End time: 07/11/2023 4:05 PM Patient location during procedure: OR Timeout Performed Pre-procedure: timeout performed Consent Obtained: Yes Patient identity confirmed: 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 Author Type: Nurse Panel Cutter Type: Anesthesia Procedure Notes Filed: 07/11/2023 3:09 PM Note Text: ANESTHESIOLOGY PROCEDURE NOTE Airway General Information Procedure Start Time/Medication Administration: 07/11/2023 2:42 PM Patient location during procedure: OR Patient identity confirmed: arm band Staffing Anesthesiologist: Kimmy Smiley DO HHA: Savannah Donovan APRN.HHA Performed by: HHA Indications and Patient Condition Indications for airway management: anesthesia Preoxygenated: yes anesthesia circuit Patient position: sniffing Method: asleep Difficult Mask: No Final Airway Details Final airway type: supraglottic airway Number of attempts at approach: 1 Final Supraglottic Airway: IGEL Size 3 Seal Adequate: yes Airway not difficult SIGNATURE: Savannah Donovan APRN.CRNA PATIENT NAME: Savannah Lizzie Álvarez DATE: July 11, 2023 TIME: 3:08 PM CSN: [id number] [facility] 07-08-2023 Note HNO ID: [id number] Author: Harman Brandon MD Service: ? Author [...] Brandon MD Date: 07/08/2023 Time: 3:26 PM [facility] 07-08-2023 History of Presen t illness Narrative Attending Note I evaluated the patient and personally participated in the kelly components. I agree with the resident's findings and plan as documented and have discussed the case and management of the patient's care with the resident. Signature: Harman Brandon MD Date: 07/08/2023 Time: 3:26 PM documented in this encounter [facility] 07-08-2023 Instructions Gabriele-Ama Holden MD - 07/08/2023 10:37 AM EST PATIENT PREOPERATIVE INSTRUCTIONS No ref. provider found has scheduled you for your procedure at this surgery center: [facility]: [phone] --[id number] [address]. Please check in on the 1st floor [...] for the 07/08/23 encounter (PAT) with 7, [address]. If you start any new medications [...] Procedures: - YOU MUST HAVE A RESPONSIBLE MOLD CHANGER TAKE YOU HOME. A GLOBAL PROCESS OWNER OR HEATING ELEMENT WINDER CANNOT BE MADE A RESPONSIBLE MOLD CHANGER. - We recommend that a responsible person [...] Advance Directive, please fax a copy to [phone] or email to for it to be [...] Ama Lei MD documented in this encounter [facility] 07-08-2023 History and physical note HISTORY AND [...] of breath, history of stroke, history of MO, history of CHF. History reviewed. No pertinent [...] or fevers. +smoking history, +long term care social worker aspirin use Neuro: No history of TIA's, stroke, INSPECTOR PACKER tumor, impaired sensorium, hemiplegia, paraplegia or quadraplegia. No neurological symptoms or problems. Respiratory: No history of current cough or dyspnea, or pneumonia in the past 6 weeks. No history of respiratory/pulmonary symptoms or problems. Cardiovascular: No history of HTN requiring medication, no history of angina, CHF, MO, cardiac surgery or stents. Denies rest pain, gangrene or revascularization/amputation for PVD. No history of cardiovascular symptoms or problems. GI: No history of GI symptoms or problems. No history of esophageal varices, recent ascites, or ETOH greater than 2 drinks per day. : No history of dysuria, frequency or incontinence,, stones or chronic kidney disease CALENDER LET OFF OPERATOR: Negative for abnormal vaginal bleeding, abnormal vaginal [...] TIME: 8:58 AM documented in this encounter [facility] 07-07-2023 Miscellaneous Notes Received MRI left ankle report from [facility] dated 06/02/23. Scanned report into [employer]. documented in this encounter [facility] 07-04-2023 Note HNO ID: [id number] Author: Serafin Waters DPM Service: ? Author Type: Physician Type: Progress Notes Filed: 07/04/2023 10:39 AM Note Text: PODIATRIC MEDICINE AND SURGERY OFFICE NOTE Complaint: Left tarsal tunnel syndrome HPI: This 32 year old female presents to the clinic today as a referral from Dr. Logan from [facility] for a complaint of tarsal tunnel syndrome [...] lower extremity Informed Consent Consent Obtained: Verbal Plaza Protocol A moment to CARE was completed. [...] No implant(s) in (more content not included)... [facility] Evaluation note Diagnosis Tarsal tunnel syndrome, left- Primary Soft tissue mass Disorders of soft tissue, unspecified Tarsal tunnel syndrome, left Soft tissue mass Disorders of soft tissue, unspecified [facility] Pre-op evaluation Preoperative examination, unspecified Achilles tendinitis, left leg Tarsal tunnel syndrome, left Soft tissue mass Disorders of soft tissue, unspecified [facility] Diagnosis Tarsal tunnel syndrome of left side- Primary Tarsal tunnel syndrome Lesion of left tibial nerve [facility] Diagnosis Tarsal tunnel syndrome of left side- Primary Tarsal tunnel syndrome Lesion of left tibial nerve [facility] Diagnosis Acute left ankle pain- Primary documented in this encounter [facility] note* Diagnosis Acute left ankle pain documented in this encounter [facility] note* Diagnosis Tarsal tunnel syndrome of left side- Primary Tarsal tunnel syndrome Lesion of left tibial nerve documented in this encounter [facility] note* Diagnosis Acute cystitis without hematuria- Primary First trimester state, incidental [facility] Diagnosis First trimester - Primary state, incidental Nausea/vomiting in Unspecified vomiting of , unspecified as to episode of care [facility]* Diagnosis First trimester - Primary state, incidental [facility]* Diagnosis SAB (spontaneous )- Primary [...] sent through Care Everywhere. * Activity during (Venezuelan) * Healthy Weight Gain During (Venezuelan) * How to Adapt to Physical Changes During (Venezuelan) * care (Venezuelan) documented in [facility] System[facility]ructionsNot on file documented in [facility]Pro[facility]Reason for referral (narrative)* Diagnostic Procedure Only (Routine) - Authorized Specialty Diagnoses / Procedures Referred By Álvaro malone Referred To Contact XR IMAGING Diagnoses Acute left ankle pain Procedures XR ANKLE GENERAL 3V AP/LAT/OBL LEFT RADEX ANKLE COMPLETE MINIMUM 3 VIEWS Serafin Waters DPM [id number] [place] [id number] Xr Imaging [facility] Referral ID Status Reason Start Date Expiration Date Visits Requested Visits Authorized [id number] Authorized Auto-Generat ed Referral 09/24/2023 10/23/2024 1 1 [facility] for visit Narrative* Diagnostic Procedure Only (Routine) - Closed Specialty Diagnoses / Procedures Referred By Contac t Referred To Contact XR IMAGING Diagnoses Acute left ankle pain Procedures XR ANKLE GENERAL 3V AP/LAT/OBL LEFT RADEX ANKLE COMPLETE MINIMUM 3 VIEWS Serafin Waters, PALLAVI [address] [place] [address] [place] [address] Referral ID Status Reason Start Date Expiration Date V isits Requested Visits Authorized [id number] Closed Auto-Generate d Referral 09/24/2023 10/23/2024 1 1 [facility] Summary Purpose Family History No Family History [...] and content) DATE CREATED AUTHOR 10/23/2022 [facility] DATE CREATED AUTHOR AUTHOR'S ORGANIZ ATION 08/28/2023 [facility] DATE CREATED AUTHOR AUTHOR'S ORGANIZ ATION 02/03/2024 [facility] DATE CREATED AUTHOR AUTHOR'S ORGANIZ ATION 06/12/2024 [facility] DATE CREATED AUTHOR AUTHOR'S ORGANIZ ATION 06/16/2024 [facility] DATE CREATED AUTHOR AUTHOR'S ORGANIZ ATION 06/27/2024 [facility] DATE CREATED AUTHOR AUTHOR'S ORGANIZ ATION 09/24/2024 [facility] Source Comments (unrecognize d section and content) In the event this informatio n is protected by the Federal Confidentiality of Alcohol and Drug Abuse Patient Records regulations: The Federal rules restrict any use of the information to criminally investigate or prosecute any alcohol or drug abuse patient.[facility] Hospital[facility] the event this information is protected by the Federal Confidentiality of Alcohol and Drug Abuse Patient Records regulations: The Federal rules restrict any use of the information to criminally investigate or prosecute any alcohol or drug abuse patient.[facility] Hospital[facility] the event this information is protected by the Federal Confidentiality of Alcohol and Drug Abuse Patient Records regulations: The Federal rules restrict any use of the information to criminally investigate or prosecute any alcohol or drug abuse patient.[facility] HospitalIn the event this information is protected by the Federal Confidentiality of Alcohol and Drug Abuse Patient Records regulations: The Federal rules restrict any use of the information to criminally investigate or prosecute any alcohol or drug abuse patient.[facility] HospitalIn the event this information is protected by the Federal Confidentiality of Alcohol and Drug Abuse Patient Records regulations: The Federal rules restrict any use of the information to criminally investigate or prosecute any alcohol or drug abuse patient.[facility] HospitalIn the event this information is protected by the Federal Confidentiality of Alcohol and Drug Abuse Patient Records regulations: The Federal rules restrict any use of the information to criminally investigate or prosecute any alcohol or drug abuse patient.[facility] HospitalIn the event this information is protected by the Federal Confidentiality of Alcohol and Drug Abuse Patient Records regulations: The Federal rules restrict any use of the information to criminally investigate or prosecute any alcohol or drug abuse patient.[facility] HospitalIn the event this information is protected by the Federal Confidentiality of Alcohol and Drug Abuse Patient Records regulations: The Federal rules restrict any use of the information to criminally investigate or prosecute any alcohol or drug abuse patient.[facility] HospitalIn the event this information is protected by the Federal Confidentiality of Alcohol and Drug Abuse Patient Records regulations: The Federal rules restrict any use of the information to criminally investigate or prosecute any alcohol or drug abuse patient.[facility] HospitalIn the event this information is protected by the Federal Confidentiality of Alcohol and Drug Abuse Patient Records regulations: The Federal rules restrict any use of the information to criminally investigate or prosecute any alcohol or drug abuse patient.[facility] HospitalIn the event this information is protected by the Federal Confidentiality of Alcohol and Drug Abuse Patient Records regulations: The Federal rules restrict any use of the information to criminally investigate or prosecute any alcohol or drug abuse patient.[facility] HospitalIn the event this information is protected by the Federal Confidentiality of Alcohol and Drug Abuse Patient Records regulations: The Federal rules restrict any use of the information to criminally investigate or prosecute any alcohol or drug abuse patient.[facility] HospitalIn the event this information is protected by the Federal Confidentiality of Alcohol and Drug Abuse Patient Records regulations: The Federal rules restrict any use of the information to criminally investigate or prosecute any alcohol or drug abuse patient.[facility] HospitalIn the event this information is protected by the Federal Confidentiality of Alcohol and Drug Abuse Patient Records regulations: The Federal rules restrict any use of the information to criminally investigate or prosecute any alcohol or drug abuse patient.[facility] HospitalIn the event this information is protected by the Federal Confidentiality of Alcohol and Drug Abuse Patient Records regulations: The Federal rules restrict any use of the information to criminally investigate or prosecute any alcohol or drug abuse patient.[facility] HospitalIn the event this information is protected by the Federal Confidentiality of Alcohol and Drug Abuse Patient Records regulations: The Federal rules restrict any use of the information to criminally investigate or prosecute any alcohol or drug abuse patient.[facility] HospitalIn the event this information is protected by the Federal Confidentiality of Alcohol and Drug Abuse Patient Records regulations: The Federal rules restrict any use of the information to criminally investigate or prosecute any alcohol or drug abuse patient.[facility] Care Teams (unrecognized sec tion and content) Tonnage Compilation Clerk Relationship Specialty Start Date End Date Julia Tracey [address] [place] [address] PCP - General Internal Medicine 07/07/23 Tonnage Compilation Clerk Relationship Specialty Start Date End Date Julia Tracey [address] [place] [address] PCP - General Internal Medicine 07/07/23 Tonnage Compilation Clerk Relationship Specialty Start Date End Date Julia Tracey [address] [place] [address] PCP - General Internal Medicine 07/07/23 Tonnage Compilation Clerk Relationship Specialty Start Date End Date Julia Tracey [address] [place] [address] PCP - General Internal Medicine 07/07/23 Tonnage Compilation Clerk Relationship Specialty Start Date End Date Julia Tracey [address] [place] [address] PCP - General Internal Medicine 07/07/23 Tonnage Compilation Clerk Relationship Specialty Start Date End Date Julia Tracey [address], [place] [address] PCP - General Internal Medicine 07/07/23 Tonnage Compilation Clerk Relationship Specialty Start Date End Date Julia Tracey [address], [place] [address] PCP - General Internal Medicine 07/07/23 Tonnage Compilation Clerk Relationship Specialty Start Date End Date Julia Tracey [address] [address] PCP - General Internal Medicine 07/07/23 Tonnage Compilation Clerk Relationship Specialty Start Date End Date Julia Tracey [address] [place] [address] PCP - General Internal Medicine 07/07/23 Tonnage Compilation Clerk Relationship Specialty Start Date End Date Julia Tracey MD PCP - General Pediatrics 06/05/24 Tonnage Compilation Clerk Relationship Specialty Start Date End Date Julia Tracey MD [address], [place] [id number] PCP - General Pediatrics 06/09/24 Tonnage Compilation Clerk Relationship Specialty Start Date End Date Julia Tracey MD [address] [place] [id number] PCP - General Pediatrics 06/09/24 Tonnage Compilation Clerk Relationship Specialty Start Date End Date Julia Tracey MD [address] [place] [phone] PCP - General Pediatrics 06/09/24 Tonnage Compilation Clerk Relationship Specialty Start Date End Date Julia Tracey MD [address] [place] [phone] PCP - General Pediatrics 06/09/24 Tonnage Compilation Clerk Relationship Specialty Start Date End Date Julia Tracey MD [address] [place] [place] [phone] PCP - General Pediatrics 06/09/24 Tonnage Compilation Clerk Relationship Specialty Start Date End Date Julia Tracey MD [address] [place] [phone] PCP - General Pediatrics 06/09/24 Tonnage Compilation Clerk Relationship Specialty Start Date End Date Julia Tracey MD [address] [place] [phone] PCP - General Pediatrics 06/09/24 Reason for [...] BE BASED ON THE PRIMARY CLINICAL RECORDS. [facility]. provides no warranty or guarantee of the accuracy or completeness of information in this document.
[2024-09-26 22:12] VITALS: BP 129/73; PULSE 93; TEMP 36.9; O2SAT 98; BMI 29.3
--- NOTE | 2024-09-26 22:23 | ECG_ITS ---
[facility] Test Date: 2024-09-26 Pat Name: RUI BRUNER Department: Room: - Gender: Female Psychological Operations Specialist: : 1990 Requested By: 1030 Order Number: [id number] Reading MD: SVETLANA GUTIÉRREZ Measurements Intervals [place] Rate: 102 P: 70 WA: 138 QRS: 52 QRSD: 72 T: 31 QT: 326 QTc: 384 Interpretive Statements 1120 Sinus tachycardia 9140 abnormal rhythm ECG No previous ECG available for comparison Electronically Signed On 09-27-2024 7:09:53 EST by SVETLANA GUTIÉRREZ
--- NOTE | 2024-09-26 22:23 | XR_ITS ---
The [address] [address] Patient Name: RUI BRUNER MRN: [id number] date: 1990 Sex: F Assigned Patient Location: ER Current Patient Location: ER Accession/Order Number: [id number] Exam Date: 09/26/2024 22:36 Report Date: 09/26/2024 23:22 At the request of: LYNETTE GARCIA Procedure: XR chest 1V EXAMINATION: XR chest 1V, , 09/26/2024 7:36 PM PST INDICATION: CP HISTORY: Ordering Provider Reason for Exam: CP Technologist Note: Additional: COMPARISON: None. TECHNIQUE: Chest x-ray: One view. FINDINGS: No pneumothorax, pleural effusion or focal airspace consolidation. Heart is normal in size. Bony thorax is unremarkable. XR/XR chest 1V IMPRESSION: No acute cardiopulmonary process. Electronically authenticated by: JUVE MONTANEZ Date: 09/26/2024 23:22
--- NOTE | 2024-09-26 22:41 | ED.CHESTPAI1 ---
HPI - Chest Pain General Chief Complaint: Chest Pain Stated Complaint: CHEST PAINS Time Seen by Provider: 09/26/24 22:06 Source: patient Mode of arrival: walk-in Limitations: no limitations History of Present Illness HPI narrative: 33-year-old female presents to the emergency department for chest pain. It has been intermittent since yesterday. 2 days prior she had started isosorbide. She had had an abnormal stress test and is scheduled to get a CT of her heart within the next week. She points to the middle part of her sternum to indicate where the pain is and she does not have it now. It does not seem to radiate and she has not had back pain or shortness of breath. Related Data Home Medications ?Medication ?Instructions ?Recorded ?Confirmed aspirin 81 mg tablet,delayed mg 09/26/24 release isosorbide mononitrate 30 mg mg PO 09/26/24 tablet,extended release 24 hr Allergies Allergy/AdvReac Type Severity Reaction Status Date / Time trimethoprim (From Bactrim) Allergy Severe itchy Verified 09/26/24 22:22 sulfamethoxazole (From Allergy Intermediate Hives Verified 09/26/24 22:22 Bactrim) clidamycin Allergy Intermediate icthy Uncoded 05/31/24 09:29 zoloft Allergy Mild icthy Uncoded 05/31/24 09:29 Review of Systems ROS Narrative A ten point review of systems is negative except as noted above. [facility] Medical History (Updated 09/27/24 @ 00:08 by Jd Jean MD) Heart murmur ?R01.1 - Cardiac murmur, unspecified (ICD-10) Neurologic cardiac syncope ?R55 - Syncope and collapse (ICD-10) Surgical History (Updated 05/31/24 @ 09:41 by Jose Guadalupe Armenta) Hx of cholecystectomy ?Z90.49 - Acquired absence of other specified parts of digestive tract (ICD-10) Social History Little interest or pleasure in doing things: not at all Feeling down, depressed, or hopeless: not at all Exam Narrative Exam Narrative: Nurses note and vital signs reviewed and patient is not hypoxic. General: The patient appears well and in no apparent distress. Patient is resting comfortably on cart. Skin: Warm, dry, no pallor noted. There is no rash noted. Head: Normocephalic, atraumatic Eye: Normal conjunctiva, no drainage Ears, Nose, Mouth, and Throat: oral mucosa is moist. Nares patent. Cardiovascular: Regular Rate and Rhythm Respiratory: Patient is in no distress, no accessory muscle use, lungs are clear to auscultation, no wheezing, rales or rhonchi Back: non-tender GI: Soft and nontender Musculoskeletal: The patient has no evidence of calf tenderness, no pitting edema, symmetrical pulses noted bilaterally Neurological: A&O, normal speech Psychiatric: Cooperative Constitutional Vital Signs, click to edit/add: Last Vital Signs Temp 98.4 F 09/26/24 22:12 Pulse 93 H 09/26/24 22:12 Resp 18 09/26/24 22:12 BP 129/73 09/26/24 22:12 Pulse Ox 98 09/26/24 22:12 O2 Del Method Room Air 09/26/24 22:12 Course Vital Signs Vital signs: Vital Signs Temperature 98.4 F 09/26/24 22:12 Pulse Rate 93 H 09/26/24 22:12 Respiratory Rate 18 09/26/24 22:12 Blood Pressure 129/73 09/26/24 22:12 Pulse Oximetry 98 09/26/24 22:12 Oxygen Delivery Method Room Air 09/26/24 22:12 Temperature 98.4 F 09/26/24 22:12 Pulse Rate 93 H 09/26/24 22:12 Respiratory Rate 18 09/26/24 22:12 Blood Pressure 129/73 09/26/24 22:12 Pulse Oximetry 98 09/26/24 22:12 Oxygen Delivery Method Room Air 09/26/24 22:12 MDM - Chest Pain MDM Narrative Medical decision making narrative: Her workup is negative. The possibility that her symptoms are side effect of the new medication, isosorbide, was discussed with the patient. She will contact her hand i tube bender office in the morning for directions. Treatment diagnosis and follow-up were discussed with the patient. Differential Diagnosis Differential diagnosis: Likely pneumothorax, unstable angina pectoris, atypical chest pain, st elevation myocardial infarction, chest pain and other (Medication side effect) Lab Data Attestation: I reviewed the patient's lab results. Labs: Lab Results 09/26/24 Range/Units 22:30 WBC 7.7 (4.0-11.0) 10^3/uL RBC 4.26 (4.20-5.40) 10^6/uL Hgb 11.7 L (12.0-16.0) g/dL Hct 36.0 (36.0-48.0) % MCV 84.5 (81.0-99.0) fL MCH 27.5 (26.7-34.0) pg MCHC 32.5 (29.9-35.2) g/dL RDW 13.4 (11.0-15.0) % Plt Count 281 (150-450) 10^3/uL MPV 10.5 (9.5-13.5) fL Neut % (Auto) 53.3 (43.0-75.0) % Lymph % (Auto) 37.5 (20.5-60.0) % [place] % (Auto) 7.7 (1.7-12.0) % Eos % (Auto) 0.5 L (0.9-7.0) % Baso % (Auto) 0.9 (0.2-2.0) % Neut # (Auto) 4.1 (1.4-6.5) 10^3/uL Lymph # (Auto) 2.9 (1.2-3.8) 10^3/uL [place] # (Auto) 0.6 (0.3-0.8) 10^3/uL Eos # (Auto) 0.0 (0.0-0.7) 10^3/uL Baso # (Auto) 0.1 (0.0-0.1) 10^3/uL Abs Immat Gran (auto) 0.01 (0.00-0.03) 10^3/uL Imm/Tot Granulo (auto) 0.1 (0.0-0.5) % Sodium 140 (136-145) mmol/L Potassium 3.2 L (3.5-5.1) mmol/L Chloride 104 (98-107) mmol/L Carbon Dioxide 25.5 (21.0-32.0) mmol/L Anion Gap 13.7 BUN 14.0 (7.0-18.0) mg/dL Creatinine 0.81 (0.55-1.02) mg/dL Est GFR ( Amer) >60 (>=60 mL/min/1.73m^2) Est GFR (Non-Af Amer) >60 (>=60 mL/min/1.73m^2) BUN/Creatinine Ratio 17.3 Glucose 97 (74-106) mg/dL Calcium 9.0 (8.5-10.1) mg/dL Troponin I High Sens <4.0 L (4.0-51.3) pg/mL Imaging Data Chest x-ray: Radiologist's impression: ITS Impressions Chest X-Ray 09/26/24 22:23 IMPRESSION: No acute cardiopulmonary process. Electronically authenticated by: JUVE MONTANEZ Date: 09/26/2024 23:22 ECG Data Attestation: I personally reviewed and interpreted this ECG as follows: (EKG on my interpretation shows sinus rhythm with a rate of 102 and no acute change.) Heart Score History: Slightly/Non-Suspicious ECG: Normal Age: <45 years Risk Factors: 1 or 2 Risk Factors Troponin: <Normal Limit Total Heart Score Recommendations & Risks:: 1 Discharge Plan Discharge Chief Complaint: Chest Pain Clinical Impression: Chest pain Patient Disposition: Home, Self-Care Time of Disposition Decision: 00:08 Condition: Good Mode of Transportation: Private Vehicle Prescriptions / Home Meds: No Action isosorbide mononitrate 30 mg tablet extended release 24 hr PO aspirin 81 mg tablet,delayed release (DR/EC) Print Language: Nigerian Instructions: Chest Pain (ED) Additional Instructions: Contact 's office in the morning to let them know about your symptoms. Referrals: JULIA TRACEY [Primary Care Provider] - 1 week
[2024-09-26 23:21] LABS: Basophils Absolute Auto 0.1 10^3/uL (0.0-0.1); Basophils Percent Auto 0.9 % (0.2-2.0); Eosinophils Percent Auto 0.5 % (0.9-7.0); Hemoglobin 11.7 g/dL (12.0-16.0); Immature Granulocytes Abs Auto 0.01 10^3/uL (0.00-0.03); Immature Granulocytes Pct Auto 0.1 % (0.0-0.5); Lymphocytes Absolute Auto 2.9 10^3/uL (1.2-3.8); Lymphocytes Percent Auto 37.5 % (20.5-60.0); Mean Corpuscular HGB Conc 32.5 g/dL (29.9-35.2); Mean Corpuscular Hemoglobin 27.5 pg (26.7-34.0); Mean Corpuscular Volume 84.5 fL (81.0-99.0); Mean Platelet Volume 10.5 fL (9.5-13.5); Monocytes Absolute Auto 0.6 10^3/uL (0.3-0.8); Monocytes Percent Auto 7.7 % (1.7-12.0); Neutrophils Absolute Auto 4.1 10^3/uL (1.4-6.5); Neutrophils Percent Auto 53.3 % (43.0-75.0); Platelet Count 281 10^3/uL (150-450); Red Blood Count 4.26 10^6/uL (4.20-5.40); Red Cell Distribution Width 13.4 % (11.0-15.0); White Blood Count 7.7 10^3/uL (4.0-11.0)
[2024-09-26 23:42] LABS: Anion Gap 13.7; BUN Creatinine Ratio 17.3; Carbon Dioxide 25.5 mmol/L (21.0-32.0); Chloride 104 mmol/L (98-107); Estimated GFR (African America >60 (>=60 mL/min/1.73m^2); Estimated GFR (Non-African Ame >60 (>=60 mL/min/1.73m^2); Glucose 97 mg/dL (74-106); Potassium 3.2 mmol/L (3.5-5.1); Sodium 140 mmol/L (136-145)
[2024-09-26 23:44] LABS: Troponin I High Sensitivity <4.0 pg/mL (4.0-51.3)
[2024-09-27 00:21] VITALS: BP 103/80; PULSE 78; O2SAT 100
== END 2024-09-27 00:23 | disposition home or self-care (01) ==
PROVIDERS: Emergency Provider Emergency Medicine; PCP Internal Medicine
DX: R07.9 Chest pain, unspecified (principal); Z90.49 Acquired absence of other specified parts of digestive tract; Z79.899 Other long term (current) drug therapy
CPT/HCPCS: 36415; 71045; 80048; 84484; 85025; 93005; 99285

== ENCOUNTER 2025-06-15 20:09 | Outpatient (REF) | payer BC, SELFPAY ==
--- OUTSIDE RECORDS SUMMARY | 2025-06-15 10:00 | XMS_ITS | Encounter Summary ---
Author Organization [facility] Address [address] [facility] [place] [address] Care Team Providers Care Handkerchief Presser Name Role Phone Unavailable Primary Care Provider Unavailabl e Reason for Visit * ReasonCommentsWell Women Visit Encounter Details DateTypeDepartmentCare Team (Latest Contact Info)Emwtiitmdsm99/29/2025 10:00 AM EDTProcedure Visit [facility] [address] [place] [address] Mirela Rose PA [address] [place], [place] [id number] Well woman exam with routine gynecological exam Social History Tobacco UseTypesPacks/DayYears UsedDateSmoking Tobacco: Never Assessed CommentsUnknownSex and Gender InformationValueDate RecordedSex Assigned at Not on fileLegal KaoQyfvuc06/15/2023 7:08 PM EDTGender IdentityNot on fileSexual OrientationNot on filedocumented as of this encounter Last Filed Vital Signs Vital SignReadingTime TakenCommentsBlood Qtfgpind497/8206/15/2025 10:22 AM EDT Pulse--Temperature--Respiratory Rate--Oxygen Saturation--Inhaled Oxygen Concentration--Lxzwcx65.9 kg (154 lb)06/15/2025 10:22 AM EDTHeight--Body Mass Index29. 12:00 PM ESTdocumented in this encounter Progress Notes * MARIE Garza - 06/15/2025 10:00 AM EDT Reason for Appointment: Patient ID: Savannah Godinez is a 34 y.o. female who presents for Well Women Visit Patient presents today for Annual Exam. MEDICATIONS Current Outpatient Medications Medication Instructions ondansetron (Zofran) 4 MG tablet Every 8 hours PRN pyridostigmine (MESTINON) 60 mg, 3 times daily ALLERGIES Allergies Allergen Reactions Clindamycin Hives, Itching and Unknown Sulfa Antibiotics Other and Unknown Sertraline Itching, Other and Rash PROBLEMS Active Ambulatory Problems Diagnosis Date Noted No Active Ambulatory Problems Resolved Ambulatory Problems Diagnosis Date Noted No Resolved Ambulatory Problems Past Medical History: Diagnosis Date POTS (postural orthostatic tachycardia syndrome) HISTORY PAST MEDICAL HISTORY SOCIAL HISTORY Past Medical History: Diagnosis Date POTS (postural orthostatic tachycardia syndrome) Social History Tobacco Use Smoking status: Not on file Smokeless tobacco: Not on file Substance Use Topics Alcohol use: Not on file Drug use: Not on file FAMILY HISTORY No family history on file. SURGICAL HISTORY No past surgical history on file. REVIEW OF SYSTEMS Review of Systems: Review of Systems Constitutional: Negative. HENT: Negative. Eyes: Negative. Respiratory: Negative. Cardiovascular: Negative. Gastrointestinal: Negative. Genitourinary: Negative. Musculoskeletal: Negative. Skin: Negative. Neurological: Negative. All other systems reviewed and are negative. Hematological: Negative. Endocrine: Negative. Allergic/Immunologic: Negative. OBJECTIVE Objective: Physical Exam Constitutional: Appearance: Normal appearance. She is well-developed and normal weight. Genitourinary: Vulva normal. Right Adnexa: not tender and no mass present. Left Adnexa: not tender and no mass present. No cervical discharge. Breasts: Breasts are soft. Right: Normal. Left: Normal. HENT: Head: Normocephalic. Nose: Nose normal. Mouth/Throat: Mouth: Mucous membranes are moist. Cardiovascular: Rate and Rhythm: Normal rate and regular rhythm. Pulses: Normal pulses. Pulmonary: Effort: Pulmonary effort is normal. Breath sounds: Normal breath sounds. Abdominal: General: Bowel sounds are normal. There is no distension. Palpations: Abdomen is soft. Tenderness: There is no abdominal tenderness. There is no guarding or rebound. Musculoskeletal: General: No swelling. Normal range of motion. Cervical back: Normal range of motion. Right lower leg: No edema. Left lower leg: No edema. Neurological: General: No focal deficit present. Mental Status: She is alert and oriented to person, place, and time. Skin: General: Skin is warm and dry. Psychiatric: Mood and Affect: Mood normal. Behavior: Behavior normal. Thought Content: Thought content normal. Judgment: Judgment normal. Vitals and nursing note reviewed. Exam conducted with a finisher map and chart present. Vitals: Estimated body mass index is 29.1 kg/m?? as calculated from the following: Height as of 18: 5' 1 . Weight as of this encounter: 154 lb. BP: 110/82 Patient's last menstrual period was 06/02/2025. Assessment/Plan ICD-10-CM 1. Well woman exam with routine gynecological exam Z01.419 Pap Smear HPV DNA probe, amplified Annual Exam: Patient presents today for an annual exam. Patient states she is doing well and has no complaints. Pap was obtained without difficulty. Spoke with patient in regards to miscarriage she did have last year. Patient was advised that this is very common and that body not sure what is happening. Patientreassured and she states will start trying but will wait a little bit longer. Orders Placed This Encounter Procedures HPV DNA probe, amplified Follow Up: Patient is to return in one year for annual unless needed otherwise. Documented by Savannah Martinez LPN on behalf of: MARIE Garza documented in this encounter Plan of Treatment DateTypeDepartmentCare Team (Latest Contact Info)Qnucgbsviye44/02/2026 10:00 AM ESTProcedure Visit [facility] [address] [place] [address] Mirela Rose PA [address] [place] [address] NameTypePriorityAssociated DiagnosesOrder SchedulePap SmearPathology and CytologyRoutine Well woman exam with routine gynecological exam Ordered: 06/15/2025HPV DNA probe, amplifiedMicrobiologyRoutine Well woman exam with routine gynecological exam Ordered: 06/15/2025documented as of this encounter Visit Diagnoses Diagnosis Well woman exam with routine gynecological exam Routine gynecological examination documented in this encounter
--- OUTSIDE RECORDS SUMMARY | 2025-06-15 20:13 | XMS_ITS | Clinical Summary ---
Author Organization [facility] Address [address], [address] [place] [address] Care Team Providers Care Skirt Trimmer Name Role Phone Unavailable Primary Care Provider Unavailabl e Social History Tobacco UseTypesPacks/DayYears UsedDateSmoking Tobacco: Never Assessed CommentsUnknownSex and Gender InformationValueDate RecordedSex Assigned at Not on fileLegal NqpGvgvay68/16/2024 10:47 AM EDTGender IdentityNot on file Sexual OrientationNot on file Plan of Treatment Health MaintenanceDue DateLast DoneCommentsDepression Dehhrn3912/29/2004Varicella vaccine (1 of 2 - 13+ 2-dose series)2005HIV sqkxes3312/30/2007Hepatitis C omdvfo5612/29/2010Pap smear2013Hepatitis B vaccine (2 of 2 - CpG 2-dose series)/2Cervical cancer xbuuty9612/29/2022HPV (without or with Pap)2022Flu vaccine (#1)COVID-19 Vaccine ( season)2025DTaP/Tdap/Td vaccine (2 - Td or Tdap)/01/2016HPV vaccine (No Doses Required)CompletedHepatitis A vaccineAged OutNo longer eligible based on patient's age to complete this topicHib vaccineAged OutNo longer eligible based on patient's age to complete this topicMeningococcal (ACWY) vaccineAged OutNo longer eligible based on patient's age to complete this topicMeningococcal B vaccineAged OutNo longer eligible based on patient's age to complete this topicPneumococcal 0-49 years VaccineAged OutNo longer eligible based on patient's age to complete this topicPolio vaccineAged OutNo longer eligible based on patient's age to complete this topic Insurance
--- OUTSIDE RECORDS SUMMARY | 2025-06-15 20:13 | XMS_ITS | Encounter Summary ---
Author Organization [facility] Address [address] [facility] [place] [address] Care Team Providers Care Traffic Engineering Director Name Role Phone Unavailable Primary Care Provider Unavailabl e Encounter Details DateTypeDepartmentCare Team (Latest Contact Info)Txdnporcxbd69/29/2025amboo flowsheet [facility] [address] [place] [address] Mirela Rose, PA [address] [place] [address] [address] [place], [facility] Social History Tobacco UseTypesPacks/DayYears UsedDateSmoking Tobacco: Never Assessed CommentsUnknownSex and Gender InformationValueDate RecordedSex Assigned at Not on fileLegal CilZwxqib01/15/2023 7:08 PM EDTGender IdentityNot on fileSexual OrientationNot on filedocumented as of this encounter Plan of Treatment DateTypeDepartmentCare Team (Latest Contact Info)Jdztsudfoxx27/02/2026 10:00 AM ESTProcedure Visit [facility] [address] [place] [address] Mirela Rose PA [address] [place] [address] documented as of this encounter Visit Diagnoses Not on filedocumented in this encounter
--- OUTSIDE RECORDS SUMMARY | 2025-06-15 20:13 | XMS_ITS | Clinical Summary ---
Author Organization [employer] [facility] Address [id number] [place] [address] Care Team Providers Care Sharepoint Application Architect Name Role Phone Michelle Macedo MD Primary Care Provider + Allergies Active AllergyReactionsCriticalityNoted DateComments Sulfamethoxazole-Ducntofgszuq26/07/0311Ytlozxzznvh52/09/2018Sulfa (Sulfonamide Antibiotics)06/24/20171723Uofkknwzjk26/09/2018 Medications MedicationSigDispense QuantityRefillsLast FilledStart DateEnd DateStatus doxylamine (UNISOM) 25 mg tablet Indications:Nausea/vomiting in pregnancyTake 1 tablet (25 mg total) by mouth nightly as needed for sleep or nausea. 30 tablet ctive pyridoxine, vitamin B6, (B-6) 25 mg tablet Indications:Nausea/vomiting in pregnancyTake 1 tablet (25 mg total) by mouth in the morning and 1 tablet (25 mg total) at noon and 1 tablet(25 mg total) in the evening and 1 tablet (25 mg total) before bedtime. 120 tablet ctive 95-iron iyj-fuwcp-jkt ( + DHA) 28 mg iron-800 mcg-200 mg combo pack Take 1 tablet by mouth in the morning.06/10/2024ctive Active Problems ProblemNoted DateDiagnosed DateSAB (spontaneous )06/18/2024 Overview (06/18/2024): hcG 13 and pt. To repeat in a week Vapes nicotine containing /29/2024Other lgguvfc4206/06/2024hest pain 01/31/2021Obesity affecting krqublvig97/01/2155Xibkdjxkghbz12/23/2019Syncope and ohoktdza56/23/2019 Resolved Problems ProblemNoted DateDiagnosed DateResolved IrgoLapnkwrqxiz24 Nausea/vomiting in jmrtdlull32 Encounters DateTypeDepartmentCare BtaoWujktzmdiuj48/06/2025Lab Requisition [facility] [address] [place] [address] Health, 360 Encounter for pre-employment examinationfrom Last 3 Months Family History Medical HistoryRelationNameCommentscvdFatherHeart attackMotherHeart disease MotherRelationNameStatusCommentsFatherAliveMotherDeceased Social History Tobacco UseTypesPacks/DayYears UsedDateSmoking Tobacco: Some Days Vaping/E-cigarettesSmokeless Tobacco: Never Tobacco Cessation:Ready to Q uit: Not Asked; Counseling Given: Not Answered Comments:EOD Alcohol UseStandard Drinks/WeekCommentsNot Currently0 (1 standard drink = 0.6 oz pure alcohol)ocassionallyAUDIT-CAnswerDate RecordedFrequency of Alcohol ZbbuynehecnBaptu21/11/2018Average Number of DrinksNot on file05/28/2018Frequency of Binge DrinkingNot on file05/28/2018ChildcareAnswerDate RecordedChildcare Wqqzdmi8301/27/2019EmploymentAnswerDate HpyuikofFmxsjtbvgiNprjpsu23/12/2019Hunger ScreeningAnswerDate RecordedWithin the past 12 months we worried whether our food would run out before we got money to buy more.Never True06/15/2024Within the past 12 months the food we bought just didn't last and we didn't have money to get more.Never True4Purpose - LifeAnswerDate RecordedPurpose and direction in zspcCcpozye93/11/2021CommentsNoSex and Gender Information ValueDate RecordedSex Assigned at HvnqcXzqevn91/29/2020 5:46 PM EDTLegal Sex Omevjz6703/23/2015 11:51 AM EDTGender EqjblvknVuchtm63/29/2020 5:46 PM EDTSexual YlqbrcqtlveRvybpewt50/29/2020 5:46 PM EDT Last Filed Vital Signs Vital SignReadingTime TakenCommentsBlood Qvqmscof242/7810 3:55 PM EDT Wtunv846706/05/2024 7:20 PM FLMTuvqkbfjncm25.6 ??C (97.8 ??F)06/05/2024 5:46 PM EDTRespiratory Ulcb7582 7:20 PM EDTOxygen Jacxclgwlu14%06/05/2024 7:20 PM EDTInhaled Oxygen Concentration--Acoxpb89.6 kg (151 lb 3.2 oz)06/10/2024 3:55 PM EEACvarbe501.4 cm (5')06/10/2024 3:55 PM EDTBody Mass Index29.5306/10/2024 3:55 PM EDT Plan of Treatment DateTypeDepartmentCare Team (Latest Contact Info)Iwztmmzjgsy14/11/2025 3:00 PM ESTOffice Visit [facility] [address] [place] [address] Scar Galindo, DO [address] [place] [address] Health MaintenanceDue DateLast DoneCommentsDepression Chatooxgp23/14/2005Adult BMI Follow Up Plan2010Pap Smear2013COVID-19 Vaccine ( season), 06/10/2022Influenza Awrhair93/, 06/07/2019, 06/07/2019, Additional history existsAdult BMI Ykdlluujv50/24/2025 06/10/2024Tobacco Hlelsdiyk07Tobacco Hmaldkxmvh21/24/2026 06/10/2024TaP,Tdap and Td Vaccines (2 - Td or Tdap) Medical Devices Not on file Procedures Procedure NamePriorityDate/TimeAssociated DiagnosisCommentsVARICELLA ZOSTER ANTIBODY, DNOPojhbkq15/06/2025 11:10 AM EDT Encounter for pre-employment examination RUBEOLA IGG AB MEASLES ESITRRMkjcbjr31/06/2025 11:10 AM EDT Encounter for pre-employment examination RUBELLA ANTIBODY, QYSIooystu28/06/2025 11:10 AM EDT Encounter for pre-employment examination [employer] ANTIBODY, QGUIstdilr78/06/2025 11:10 AM EDT Encounter for pre-employment examination HEPATITIS B SURFACE ANTIBODY XXSKUTIKICEUFdrayap92/06/2025 11:10 AM EDT Encounter for pre-employment examination from Last 3 Months Results * Rubeola IgG Ab Measles Screen (03/23/2025 11:10 AM EDT)ComponentValueRef Range Test MethodAnalysis TimePerformed AtPathologist SignatureRubeola Antibody IgG 2.4<1.0 AI03/23/2025 8:20 PM [facility] LABORATORYSpecimen (Source)Anatomical Location / LateralityCollection Method / VolumeCollection TimeReceived TimeBloodVenous blood / Sqvclcg5603/23/2025 11:10 AM EDT03/23/2025 6:23 PM EDT Narrative [facility] - 03/23/2025 8:20 PM EDT POSITIVE: Antibody (IgG) detected. Indicates previous exposure to rubeola and immunity. Authorizing ProviderResult TypeResult [id number] [facility] BLOOD ORDERABLESFinal ResultPerforming OrganizationAddressCity/State/ZIP CodePhone Number [facility] [address] [place] [address], * Rubella antibody, IgG (03/23/2025 11:10 AM EDT)ComponentValueRef RangeTest MethodAnalysis TimePerformed AtPathologist SignatureRUBELLA IGG67<9 IU/mL 03/24/2025 11:41 AM [facility] LABORATORYSpecimen (Source) Anatomical Location / LateralityCollection Method / VolumeCollection Time Received TimeBloodVenous blood / Xfgodwn3103/23/2025 11:10 AM EDT03/23/2025 6:23 PM EDT Narrative [facility] - 03/24/2025 11:41 AM EDT Interpretation < 8 NEGATIVE - considered not immune. 8 - 9 EQUIVOCAL - consider retesting with new specimen. > 9 POSITIVE - considered immune. Authorizing ProviderResult TypeResult [address] [place], [place] [address] BLOOD ORDERABLESFinal ResultPerforming OrganizationAddressCity/State/ZIP CodePhone Number [facility] [address] [place] [address] [place] [address], * Hepatitis B Surface Antibody Quantitation (03/23/2025 11:10 AM EDT)Component ValueRef RangeTest MethodAnalysis TimePerformed AtPathologist SignatureANTI HBS QUANT.>500.0mIU/mL03/23/2025 7:59 PM [facility] LABORATORYSpecimen (Source)Anatomical Location / LateralityCollection Method / VolumeCollection TimeReceived TimeBloodVenous blood / Iuxvwmp0403/23/2025 11:10 AM EDT03/23/2025 6:23 PM EDT [facility] - 03/23/2025 7:59 PM EDT Vaccinated: >=10 mIU/mL, Positive (Immune) Unvaccinated: <10 mIU/mL, Negative (Not Immune) Authorizing ProviderResult TypeResult [id number] [facility] CampusCon[facility] Technologies BLOOD ORDERABLESFinal ResultPerforming OrganizationAddressCity/State/ZIP CodePhone Number [facility] [address] [place] [address] [address] [place] [address], * Varicella zoster antibody, IgG (03/23/2025 11:10 AM EDT)ComponentValueRef RangeTest MethodAnalysis TimePerformed AtPathologist SignatureVARICELLA IGG2.5 <1.0 AI03/23/2025 8:20 PM [facility] LABORATORYSpecimen (Source)Anatomical Location / LateralityCollection Method / VolumeCollection TimeReceived TimeBloodVenous blood / Uuqwycb8903/23/2025 11:10 AM EDT03/23/2025 6:23 PM EDT Narrative [facility] - 03/23/2025 8:20 PM EDT Intepretation < 0.9 Negative 0.9 - 1.0 ??Equivocal > 1.0 Positive Authorizing ProviderResult TypeResult [id number] [facility] BLOOD ORDERABLESFinal ResultPerforming OrganizationAddressCity/State/ZIP CodePhone Number [facility] [address] [place] [address], * Mumps antibody, IgG (03/23/2025 11:10 AM EDT)ComponentValueRef RangeTest MethodAnalysis TimePerformed AtPathologist SignatureMUMPS VIRUS IGG3.7<1.0 AI 03/23/2025 8:20 PM [facility] LABORATORYSpecimen (Source) Anatomical Location / LateralityCollection Method / VolumeCollection Time Received TimeBloodVenous blood / Qoklobb6303/23/2025 11:10 AM EDT03/23/2025 6:23 PM EDT Narrative [facility] - 03/23/2025 8:20 PM EDT Intepretation < 0.9 Negative 0.9 - 1.0 ??Equivocal > 1.0 Positive Authorizing ProviderResult TypeResult [id number] [facility] BLOOD ORDERABLESFinal ResultPerforming OrganizationAddressty/State/ZIP CodePhone Number [facility] [address] [place] [address], [place] [phone] from Last 3 Months Insurance Care Teams Team MemberRelationshipSpecialtyStart DateEnd Michelle Macedo MD [address] [place] [phone] PCP - XfbdoopIfzpdpzyca42/23/24
--- OUTSIDE RECORDS SUMMARY | 2025-06-15 20:13 | XMS_ITS | Clinical Summary ---
Author Organization [facility] Address [address] [place] [address] Care Team Providers Care Surg Rn Name Role Phone Unavailable Primary Care Provider Unavailabl e Allergies Active AllergyReactionsCriticalityNoted DateCommentsClindamycinHives,Itching, Grovkgw9605/26/2018SertralineItching,Other,BznoJyn2605/26/2018Sulfa AntibioticsOther ,Cpypaie0606/24/2017 Medications MedicationSigDispense QuantityRefillsLast FilledStart DateEnd DateStatus pyridostigmine (Mestinon) 60 MG tablet Take 60 mg by mouth in the morning and 60 mg at noon and 60 mg in the evening. ctive ondansetron (Zofran) 4 MG tablet Take by mouth every 8 (eight) hours if needed for nausea or vomitingActive ondansetron ODT (Zofran-ODT) 4 MG disintegrating tablet Indications:NauseaTake 1 tablet (4 mg) by mouth every 6 (six) hours if needed for nausea or vomiting 30 tablet Expired Encounters DateTypeDepartmentCare UtitEkvjdzbkidu10/29/2025 10:00 AM EDTPro[place] [address] Mirela Rose PA Well woman exam with routine gynecological exam06/15/2025amboo [place] [address] Mirela Rose PA 05/04/2025Telephone [facility] [address] [address] Ana Laura García MA from Last 3 Months Social History Tobacco UseTypesPacks/DayYears UsedDateSmoking Tobacco: Never Assessed CommentsUnknownSex and Gender InformationValueDate RecordedSex Assigned at Not on fileLegal NtsGniyuj54/15/2023 7:08 PM EDTGender IdentityNot on fileSexual OrientationNot on file Last Filed Vital Signs Vital SignReadingTime TakenCommentsBlood Txnaemym464/8210/ 10:22 AM EDT Pulse--Temperature--Respiratory Rate--Oxygen Saturation--Inhaled Oxygen Concentration--Kjhnda00.9 kg (154 lb)06/15/2025 10:22 AM RABSkydhc994.9 cm (5' 1 )10/04/2017 12:00 PM ESTBody Mass Index29. 12:00 PM EST Plan of Treatment DateTypeDepartmentCare Team (Latest Contact Info)Fytxgnbxrqr98/02/2026 10:00 AM ESTProcedure Visit [facility] CHAN [address] [place] [address] Mirela Rose PA [address] [place] [address] Health MaintenanceDue DateLast DoneCommentsMMR Vaccines (1 of 1 - Standard series)1993DTaP/Tdap/Td Vaccines (1 - Tdap)12/30/1999Varicella Vaccines (1 of 2 - 13+ 2-dose series)2005Hepatitis B Vaccines (1 of 3 - 19+ 3-dose series)12/30/2011Pap Smear2013HPV Vaccines (1 - 3-dose SCDM series) 12/30/2019Cervical Cancer Sizntcmbf62/14/2023HPV/Hrkkcw933COVID-19 Vaccine (3 - 2024- season)/, 06/10/2022Influenza Vaccine Rzkxnplth05/09/2025, 06/16/2024, 06/07/2019, Additional history existsHIB VaccinesAged OutNo longer eligible based on patient's age to complete this topic Hepatitis A VaccinesAged OutNo longer eligible based on patient's age to complete this topicIPV VaccinesAged OutNo longer eligible based on patient's age to complete this topicMeningococcal B VaccineAged OutNo longer eligible based on patient's age to complete this topicMeningococcal VaccineAged OutNo longer eligible based on patient's age to complete this topicPneumococcal Vaccine: Pediatrics (0 to 5 Years) and At-Risk Patients (6 to 64 Years)Aged OutNo longer eligible based on patient's age to complete this topicRotavirus VaccinesAged Out No longer eligible based on patient's age to complete this topic Insurance
--- OUTSIDE RECORDS SUMMARY | 2025-06-15 20:14 | XMS_ITS | Clinical Summary ---
Author Organization [facility] Address [address] [place] [address] Care Team Providers [facility] Owner Name Role Phone Michelle Macedo MD Primary Care Provider [phone] Allergies Active AllergyReactionsCriticalityNoted DateCommentsClindamycinHives,Itching 05/26/2018SertralineItching,Other05/26/2018Sulfa (Sulfonamide Antibiotics)Other 06/24/2017Sulfamethoxazole-TrimethoprimHives,Itching,Innadbjw12/07/2017 Medications MedicationSigDispense QuantityRefillsLast FilledStart DateEnd DateStatus pyRIDostigmine (Mestinon) 60 mg tablet Indications:Orthostatic hypotensionTake 1 tablet (60 mg) by mouth three times daily. 90 tablet 110502/8Active Active Problems ProblemNoted DateDiagnosed DateCoronary artery disease involving three affiliated coronary artery of three affiliated heart without angina tzbjuydv63/11/2025Acne streaxpv40/07/2025 Unspecified mononeuropathy of left lower limb03/24/2025POTS (postural orthostatic tachycardia syndrome)11/22/2024Orthostatic ksnqwndrruu92/02/2025 Abnormal stress test08/30/2024SAB (spontaneous )06/18/2024 Overview (08/30/2024): hcG 13 and pt. To repeat in a week Vapes nicotine containing ozqxkcvgs05/29/2024Other cjxmooe0406/06/2024re-op jvqmaxhley21/21/2023 Overview (06/01/2024): Last Assessment & Plan: -scheduled for surgery 07/11/23 tarsal tunnel release (posterior tibial nerve decompression) on theleft side Achilles tendinitis, left leg05/28/2023 Overview (06/01/2024): Last Assessment & Plan: -tarsal tunnel release (posterior tibial nerve decompression) on the left side on 07/11/23. Class 1 obesity due to excess calories without serious comorbidity with body mass index (BMI) of 31.0 to 31.9 in adult01/17/2020Precordial pain04/09/2019 Syncope and ocyforvo43/23/2554Qbjnxxyamkwm42/23/2019 Resolved Problems ProblemNoted DateDiagnosed DateResolved PzvhWhbzmf66/16/202102/ Encounters DateTypeDepartmentCare PiilJgoyenafzqp05/07/2025 1:40 PM EDTOffice Visit [facility] [address] [id number] Deisy Flood MD Precordial pain (Primary Dx); Coronary artery disease involving three affiliated coronary artery of three affiliated heart without angina pectoris; Syncope and collapse; POTS (postural orthostatic tachycardia syndrome); Palpitations; Hyperlipidemia, unspecified hyperlipidemia type; Class 1 obesity due to excess calories without serious comorbidity with body mass index (BMI) of 31.0 to 31.9 in adultfrom Last 3 Months Family History Medical HistoryRelationNameCommentsHeart attackMotherRelationNameStatusComments FatherAliveMotherDeceasedSisterAlive Social History Tobacco UseTypesPacks/DayYears UsedDateSmoking Tobacco: Every DayCigarettes0.35 Smokeless Tobacco: Current Tobacco Cessation:Ready to Q uit: Not Asked; Counseling Given: Not Answered Comments:Vapes daily Alcohol UseStandard Drinks/WeekCommentsYes0 (1 standard drink = 0.6 oz pure alcohol)OccasionalCommentsNoSex and Gender InformationValueDate Recorded Sex Assigned at UomypLhifwl56/05/2025 3:47 PM EDTLegal BjqNufmsl72/09/2024 12:01 PM EDTGender FvjkbvgcYuatod79/05/2025 3:47 PM EDTSexual OrientationHeterosexual or Sipllyfu53/05/2025 3:47 PM EDT Last Filed Vital Signs Vital SignReadingTime TakenCommentsBlood Sxrncnoj829/7108 1:46 PM EDT Bqwix736103/24/2025 1:46 PM EDTTemperature--Respiratory Hjxu553409/30/2024 8:55 AM ESTOxygen Pqevbovmeu930%03/24/2025 1:46 PM EDTInhaled Oxygen Concentration-- Pmxfwh37.1 kg (159 lb)03/24/2025 1:46 PM FORBvpuhf682.4 cm (5')03/24/2025 1:46 PM EDTBody Mass Index31.05003/24/2025 1:46 PM EDT Plan of Treatment Health MaintenanceDue DateLast DoneCommentsDepression Gqnpasbtu97/14/2005 Varicella Vaccines (1 of 2 - 13+ 2-dose series)2005Pneumococcal Vaccine: Pediatrics (0 to 5 Years) and At-Risk Patients (6 to 64 Years) (1 of 2 - PCV) 12/30/2011Pap Smear2013HPV Vaccines (1 - 3-dose SCDM series)12/30/2019 Cervical Cancer Biolsirnk97/14/2023HPV/Bszagm463COVID-19 Vaccine ( season)/, 06/10/2022Influenza Vaccine (#1)2025 06/16/2024, 06/07/2019, 04/23/2016Adult Xzgcybr30Zoster Vaccines (1 of 2)2042HIB VaccinesAged OutNo longer eligible based on patient's age to complete this topicIPV VaccinesAged OutNo longer eligible based on patient's age to complete this topicMeningococcal B VaccineAged OutNo longer eligible based on patient's age to complete this topicMeningococcal VaccineAged OutNo longer eligible based on patient's age to complete this topicRotavirus VaccinesAged OutNo longer eligible based on patient's age to complete this topic Insurance Care Teams Team MemberRelationshipSpecialtyStart DateEnd Date Michelle Macedo MD [address] [place] [address] [facility] - Yatqcra77/15/24
--- OUTSIDE RECORDS SUMMARY | 2025-06-15 20:14 | XMS_ITS | CCD ---
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 covered while taking a shower but the reginaldo and gauze still got wet so she received dressing change there. Laurie Ware 07/16/2023 9:26 AM Signed Spoke to patient per Dr. Waters she needs to take pain medication as directed and not wait until she gets in severe pain. Allergies As of Date: 07/15/2023 Noted Allergy Reaction BACTRIM (SULFAMETHOXAZOLE-TRIMETH*07/04/2023 4 - Hives 7 - Swelling CLINDAMYCIN 07/04/2023 4 - Hives 9 - Itching ZOLOFT (SERTRALINE) 07/04/2023 9 - Itching Date Reviewed: 07/11/2023 Reviewed by: Eugenia Fairbanks RN - Fully Assessed Prescriptions as of 07/16/2023 - oxyCODONE-acetaminophen (PERCOCET) 5-325 mg tablet Take 1 tablet by mouth four times a day as needed for pain. - aspirin, enteric coated (ASPIRIN, ENTERIC COATED) 81 mg EC tablet Take 81 mg by mouth once daily. Problem List As Of Date 07/15/2023 Noted Resolved Pre-op evaluation [Z01.818] 07/08/2023 Achilles tendinitis, left leg [M76.62] 05/28/2023 Encounter Status:Closed by LAURIE WARE on 07/16/23[facility] HospitalANES POSTPROC EVALon 45-32-7900FHOP POSTPROC EVALHNO ID: [id number] Author: Kimmy Smiley DO Service: Anesthesiology Author [...] 10 07/11/23 1711 SpO2 99 % 07/11/23 171 Vitals shown include unvalidated device data. Post [...] July 11, 2023 TIME: 5:18 PM CSN: [id number] Memorial Hospital PRE-OPon 63-42-4128NADI PRE-OPHNO ID: [id number] Author: Kimmy Smiley DO Service: Anesthesiology Author [...] Integra nerve wrap - Anastasia Khan from [employer] [facility] (CC) Location: OR11 / [facility] OR Surgeons: Serafin Waters DPM Estimated body mass index is 26.89 kg/m? as calculated from the following: Height as of 07/08/23: 152.4 cm (5'). Weight as of 07/08/23: 62.5 kg (137 lb 11.2 oz). Most recent hematocrit and potassium results: No results found for this basename: HCT,HEMATOCRIT,K,POTASSIUM Relevant Problems No relevant active problems I [...] July 11, 2023 TIME: 1:10 PM CSN: [id number] [facility] Hospital OP NOTon 07-11-2023 BRIEF OP NOTHNO ID: [id number] Author: Serafin Waters DPM Service: Podiatry Author Type: Physician Type: Brief Op Note Filed: 07/11/2023 3:32 PM Note Text: PODIATRIC SURGERY BRIEF OPERATIVE NOTE LOG ID: [id number] Surgery/Procedure Date: 07/11/2023 Incision/Procedure Start Time: 3:10 PM Incision Close/Procedure End Time: Surgeon(s)/Proceduralist(s) and Loss Prevention Analyst(s): Surgeon(s) and Role: * Serafin Waters DPM [...] 11, 2023 TIME: 3:31 PM PAGER/CONTACT #: [phone] (Pager/Cell)[facility] HospitalURSNEW [facility] PROMary [facility] 05-04-5077EBEQGOG [facility] ID: [id number] Author: Raymond Wong RN Service: ? Author Type: Registered Nurse Type: Nursing Progress Note Filed: 07/11/2023 12:15 PM Note Text: PATIENT EDUCATION TOPIC: PROCEDURE / SURGERY: Pre-op Teaching: Logistics Protocols PATIENT NAME: Savannah Álvarez PATIENT LOCATION: [facility] OR POOL/[facility] OR POOL READINESS TO LEARN COGNITIVE ABILITY: Alert and oriented MOTIVATION TO LEARN: Eager FAMILY SUPPORT: None - Unavailable/disinterested INSTRUCTION PROVIDED TO: Patient PATIENT LEARNS BEST [...] REFERRAL (RECOMMENDATION): None Electronically Signed By: Raymond WaldropMurphy Army HospitalOPERATIVE NOon [id number] NOHNO ID: [id number] Author: Serafin Waters DPM Service: Podiatry Author Type: Physician Type: Operative Report Filed: 07/14/2023 2:10 PM Note Text: SURGERY OPERATIVE NOTE LOG ID: [id number] Surgery/Procedure Date: 07/11/2023 Incision/Procedure Start Time: 3:10 PM Incision Close/Procedure End Time: 3:54 PM Surgeon(s)/Proceduralist(s) and Loss Prevention Analyst(s): Surgeon(s) and Role: * Serafin Waters DPM [...] in a technically safe and efficient manner. Dr. Serafin Waters DPM SIGNATURE: Serafin Waters DPM PATIENT NAME: Savannah Álvarez PAGER/CONTACT #: [phone] (Pager/Cell)[facility] HospitalHISTORY PHYSICALon 07-08-2023 HISTORY PHYSICALHNO ID: [id number] Author: Ama Lei MD Service: ? Author [...] of breath, history of stroke, history of [place], history of CHF. History reviewed. No pertinent [...] weight loss, malaise or fevers. 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 No neurological symptoms or problems. Respiratory: No history of current cough or dyspnea, or pneumonia in the past 6 weeks. No history of respiratory/pulmonary symptoms or problems. Cardiovascular: No history of HTN requiring medication, no history of angina, CHF, [place], cardiac surgery or stents. Denies rest pain, gangrene or revascularization/amputation for PVD. No history of cardiovascular symptoms or problems. GI: No history of GI symptoms or problems. No history of esophageal varices, recent ascites, or ETOH greater than 2 drinks per day. : No history of dysuria, frequency or incontinence,, stones or chronic kidney disease SHREDDING SPECIALIST: Negative for abnormal vaginal bleeding, abnormal vaginal [...] results within date range. (more content not included)...Normal [facility] HospitalPNon [id number] (NEADFV) SAVANNAH ÁLVAREZ ([id number]) 1990 F Date Time Provider Department 07/07/23 SERAFIN WATERS NEADFV During your visit today, we recorded the following information about you: Gaurav Ralph 07/07/2023 11:52 AM Signed Received MRI left ankle report from [facility] dated 06/02/23. Scanned report into [employer]. Allergies As of Date: 07/07/2023 Noted Allergy Reaction BACTRIM (SULFAMETHOXAZOLE-TRIMETH*07/04/2023 4 - Hives 7 - Swelling CLINDAMYCIN 07/04/2023 4 - Hives 9 - Itching ZOLOFT (SERTRALINE) 07/04/2023 9 - Itching Date Reviewed: 07/04/2023 Reviewed by: Yana Elmore MA - Fully Assessed Reason for Visit: Received Outside Medical Records [[id number]] Cmt: MRI left ankle report Prescriptions as of 07/16/2023 - oxyCODONE-acetaminophen (PERCOCET) 5-325 mg tablet Take 1 tablet by mouth four times a day as needed for pain. - aspirin, enteric coated (ASPIRIN, ENTERIC COATED) 81 mg EC tablet Take 81 mg by mouth once daily. Problem List As Of Date: 07/07/2023 (None) Encounter Status:Closed by GAURAV RALPH on 07/16/23[facility] [id number] [facility] 76-56-4232EZYW Office Visit (ORFWHP) SAVANNAH ÁLVAREZ ([id number]) 1990 F Date Time Provider Department 07/04/23 10:00 AM SERAFIN WATERS ORFWHP During your visit today, we recorded the following information about you: Serafin Waters DPM 07/04/2023 10:39 AM Signed PODIATRIC MEDICINE AND SURGERY OFFICE NOTE Complaint: Left tarsal tunnel syndrome HPI: This 32 year old female presents to the clinic today as a referral from Dr. Logan from [facility] for a complaint of tarsal tunnel [...] lower extremity Informed Consent Consent Obtained: Verbal [place] Protocol A moment to CARE was completed. SIGN IN Personnel directly involved with the procedure wore the appropriate PPE. Special Equipment: N/A Patient/Surrogate Stated/Verified: Patient name, Date of , Relevant allergies and Intended procedure TIME OUT Intended patient and procedure match the source document(s). Consent documented and matches the intended procedure. Relevant labs, photos, an (more content not included)...[facility] W MANUAL DIFFon [id number] LYMPH #NormalThe [facility] HospitalComment on above:Performed By: #### JOSÉ MIGUEL #### [facility] [address] [place] [address] Dr. Silas ChaparroYPICAL LYMPH %NormalThe [facility] HospitalComment on above: Performed By: #### JOSÉ MIGUEL #### [facility] [address] [place] [address] Dr. Silas Oliver #0.0 103/ulNormal0.0-0.3The [facility] HospitalComment on above:Performed By: #### JOSÉ MIGUEL #### [facility] [address] [place] [address] Dr. Silas Oliver %0 %Normal0-5The [facility] HospitalComment on above:Performed By: #### JOSÉ MIGUEL #### [facility] [address] [place] [address] Dr. Silas Pool #0.00 103/ulNormal0.00-0.10The [facility] HospitalComment on above:Performed By: #### JOSÉ MIGUEL #### [facility] [address] [place] [address] Dr. Silas Pool %0.0 %Critically low0.2-2.0The [facility] HospitalComment on above:Performed By: #### JOSÉ MIGUEL #### [facility] [address] [address] [address] Silas Gatyan #NormalThe [facility] HospitalComment on above:Performed By: #### JOSÉ MIGUEL #### [facility] [address] [place] [address] Dr. Silas IveyBLAST %NormalThe [facility] HospitalComment on above:Performed By: #### JOSÉ MIGUEL #### [facility] [address] [place] [address] Dr. Silas IveyCORRECTED WBCNormal4.0-11.0The [facility] HospitalComment on above: Performed By: #### JOSÉ MIGUEL #### [facility] [address] [place] [address] Dr. Silas Hearn #0.00 103/ulNormal0.00-0.70The [facility] HospitalComment on above:Performed By: #### JOSÉ MIGUEL #### [facility] [address] [place] [address] Dr. Silas Hearn%0.0 %Critically low0.9-7.0The [facility] HospitalComment on above:Performed By: #### JOSÉ MIGUEL #### [facility] [address] [place] [address] Dr. Silas IveyHCT36.7 %Wiouzg65.0-48.0The [facility] HospitalComment on above: Performed By: #### JOSÉ MIGUEL #### [facility] [address] [place] [address] Dr. Silas IveyHGB12.1 g/zrGuhjwn36.0-16.0The [facility] HospitalComment on above: Performed By: #### JOSÉ MIGUEL #### [facility] [address] [place] [address] Dr. Silas Gibbs #0.33 103/ulCritically low1.20-3.80The [facility] on above:Performed By: #### JOSÉ MIGUEL #### [facility] [address] [place] [address] Dr. Silas Gibbs%5.0 %Critically low20.5-60.0The [facility] HospitalComment on above:Performed By: #### JOSÉ MIGUEL #### [facility] [address] [place] [address] Dr. Silas RodriguezH28.1 gqIhthxl32.7-34.0The [facility] HospitalComment on above: Performed By: #### JOSÉ MIGUEL #### [facility] [address] [place] [address] Dr. Silas RodriguezHC33.0 g/ahPfsqzp46.9-35.2The [facility] HospitalComment on above:Performed By: #### JOSÉ MIGUEL #### [facility] [address] [place] [address] Dr. Silas RodriguezV85.2 bTUwwxfc29.0-99.0The [facility] HospitalComment on above: Performed By: #### JOS ÉMIGUEL #### [facility] [address] [place] [address] Dr. Silas CasanovaOCYTE #NormalThe [facility] HospitalComment on above: Performed By: #### JOSÉ MIGUEL #### [facility] [address] [place] [address] Dr. Silas CasanovaOCYTE %NormalThe [facility] HospitalComment on above: Performed By: #### JOSÉ MIGUEL #### [facility] [address] [place] [address] Dr. Silas Sprague#0.53 103/ulNormal0.30-0.80The [facility] HospitalComment on above:Performed By: #### JOSÉ MIGUEL #### [facility] [address] [place] [address] Dr. Silas Sprague%8.0 %Normal1.7-12.0The [facility] HospitalComment on above: Performed By: #### JOSÉ MIGUEL #### [facility] [address] [place] [address] Dr. Silas CochranV9.5 fLNormal9.5-13.5The [facility] HospitalComment on above: Performed By: #### JOSÉ MIGUEL #### [facility] [address] [address] [address] Silas Weathers #NormalOhiohealth Riverside Methodist HospitalComment on above:Performed By: #### CBCROSEY #### [facility] [address] [address] [address] Silas GuallpaOCYTE %NormalThe [facility] HospitalComment on above:Performed By: #### CBCROSEY #### [facility] [address] [address] [address] Silas LuisBCNoalThe [facility] HospitalComment on above:Performed By: #### JOSÉ MIGUEL #### [facility] [address] [address] [address] Silas SantiagoT252 103/yfHgejoq839-465Rvw [facility] HospitalComment on above: Performed By: #### JOSÉ MIGUEL #### [facility] [address] [place] [address] Dr. Silas GreyC4.31 106/ulNormal4.20-5.40The [facility] HospitalComment on above:Performed By: #### JOSÉ MIGUEL #### [facility] [address] [place] [address] Dr. Silas NealW13.2 %Qhdijc78.0-15.0The [facility] HospitalComharbor beach [facility] on above: Performed By: #### JOSÉ MIGUEL #### [facility] [address] [place] [address] Dr. Silas Wells #5.74 103/ulNormal1.40-6.50The [facility] HospitalComment on above:Performed By: #### JOSÉ MIGUEL #### [facility] [address] [place] [address] Dr. Silas Wells %87.0 %Critically high43.0-75.0The [facility] HospitalComharbor beach community hospital on above:Performed By: #### CBCROSEY #### [facility] [address] [place] [address] Dr. Silas CollinsBC6.6 103/ulNormal4.0-11.0The [facility] HospitalComment on above: Performed By: #### CBCMAN #### [facility] [address] [address] [address] Silas IveyPROF 14(COMP METB)on 38-90-9065Vxkyxal [Mass/Vol]3.9 g/dLNormal 3.4-5.0The [facility] HospitalComment on above:Performed By: #### CMP #### [facility] [address] [address] [address] Silas IveyAlbumin/Globulin [Mass ratio]1.0 {ratio}NormalThe [facility] HospitalComment on above:Performed By: #### CMP #### [facility] [address] [place] [address] Dr. Silas DillonP [Catalytic activity/Vol]113 U/MEttbjx81-540Bhb [facility] HospitalComment on above:Performed By: #### CMP #### [facility] [address] [place] [address] Dr. Silas DillonT [Catalytic activity/Vol]15 U/ZZkqqvf28-79Gxw [facility] HospitalComment on above:Performed By: #### CMP #### [facility] [address] [address] [address] Silas Bajwa gap [Moles/Vol]9.4 mmol/LNormalThe [facility] HospitalComment on above:Performed By: #### CMP #### [facility] [address] [place] [address] Dr. Silas IveyAST [Catalytic activity/Vol]15 U/SHqmsga90-21Hai [facility] HospitalComment on above:Performed By: #### CMP #### [facility] [address] [place] [address] Dr. Silas IveyBilirubin [Mass/Vol]0.1 mg/dLCritically low0.2-1.0The [facility] HospitalComment on above:Performed By: #### CMP #### [facility] [address] [place] [address] Dr. Silas IveyCalcium [Mass/Vol]8.9 mg/dLNormal8.5-10.1The [facility] Comment on above:Performed By: #### CMP #### [facility] [address] [address] [address] Silas IveyChloride [Moles/Vol]103 mmol/HApfqmr99-808Acr [facility] Comment on above:Performed By: #### CMP #### [facility] [address] [address] [address] Silas IveyCO2 [Moles/Vol]25.6 mmol/AXtkkpz22.0-32.0The [facility] Comment on above:Performed By: #### CMP #### [facility] [address] [address] [address] Silas IveyCreatinine [Mass/Vol]0.81 mg/dLNormal0.55-1.02The [facility] HospitalComment on above:Performed By: #### CMP #### [facility] [address] [address] [address] Rosen ChangEGFR-AF ITALIAN>60Normal>=60The [facility] HospitalComment on above:Performed By: #### CMP #### [facility] [address] [address] [address] Slias NagelGFR-NON AF ITALIAN>60Normal>=60The [facility] HospitalComment on above:Performed By: #### CMP #### [facility] [address] [address] [address] Silas IveyGlobulin (S) [Mass/Vol]4.0 g/dLNormalThe [facility] HospitalComment on above:Performed By: #### CMP #### [facility] [address] [address] [address] Silas IveyGlucose [Mass/Vol]101 mg/tMSczret71-848Gfo [facility] Comment on above:Performed By: #### CMP #### [facility] [address] [address] [address] Silas IveyPotassium [Moles/Vol]4.0 mmol/LNormal3.5-5.1The [facility] Comment on above:Performed By: #### CMP #### [facility] [address] [address] [address] Silas IveyProtein [Mass/Vol]7.9 g/dLNormal6.4-8.2The [facility] Comment on above:Performed By: #### CMP #### [facility] [address] [address] [address] Silas IveySodium [Moles/Vol]134 mmol/LCritically lsh507-567Yvn [facility] HospitalComment on above:Performed By: #### CMP #### [facility] [address] [address] [address] Silas IveyUrea nitrogen [Mass/Vol]19.0 mg/dLCritically high7.0-18.0The [facility] HospitalComment on above:Performed By: #### CMP #### [facility] [address] [address] [address] Silas Stratton nitrogen/Creatinine [Mass ratio]23.5 mg/mgNoMiami Valley HospitalComment on above:Performed By: #### CMP #### [facility] [address] [address] [address] Silas IveyXR CHEST 1 Von [id number] CHEST 1 VEXAM: XR CHEST 1 V HISTORY: Fever. COMPARISON: Chest radiograph dated 07/21/2020. TECHNIQUE: One view of the chest was obtained. FINDINGS: The cardiac silhouette is normal in size. The lungs are clear. There is no significant pneumothorax or pleural effusion. No acute osseous abnormality is seen. IMPRESSION: 1. No acute cardiopulmonary abnormality. Electronically authenticated by: Kamari COLE Date: 2022-07-28 22:38NoMiami Valley HospitalCovid-19 PCR (CVDTBH)on 86-44-3629VMQM-CoV-2 (COVID-19) RNA EFRAIN+probe Ql (Unsp spec)Not detectedNormalNOT DETECTEDThe [facility] Comment on above:Result Comment: This test is not yet approved or cleared by the [place] FDA. When there are no FDA-approved or cleared tests available, and other criteria are met, FDA can make tests available under an emergency access mechanism called an Emergency Use Authorization (EUA). The EUA for this test is supported by the [place] of Health and Human Service's (HHS's) declaration that circumstances exist to justify the emergency use of in vitro diagnostics for the detection and/or diagnosis of the virus that causes COVID- 19. This EUA will remain in effect (meaning [...] of clinical signs and symptoms consistent with SARS-CoV-2.Performed By: #### CVDTBH #### [facility] [address] [place] [address] Dr. Silas Samuel AND aJcob [facility] 38-10-2043MREXCYXTJ A AGNegativeNormal NEGATIVE SEE COMMENTThe [facility] HospitalComment on above:Performed By: #### INFLUAB #### [facility] [address] [place] [address] Dr. Silas James AGNegativeNormalNEGATIVE SEE COMMENTThe [facility] HospitalComment on above:Performed By: #### INFLUAB #### [facility] [address] [place] [address] Dr. Silas IveyINTERNAL CONTROLSWithin Normal LimitsNormalWithin Normal Limits The [facility] HospitalComment on above:Performed By: #### INFLUAB #### [facility] [address] [place] [address] Dr. Silas Mckee ACOG PANEL 2: 21 to 29on 05-06-2022..NormalThe [facility] HospitalComment on above:Performed By: #### [id number] ####[facility] [address] [address]. Silas Gandhi ACOG Rcdvzae44-62FabgomHviMiami Valley HospitalComment on above:Performed By: #### [id number] ####[facility] [address] [address]Dr. Silas IveyDIAGNOSIS:CommentHenry County Hospital on above:Result Comment: NEGATIVE FOR INTRAEPITHELIAL LESION OR MALIGNANCY. Performed By: #### [id number] ####[address] [address]Dr. Silas IveyMethodology:[facility] on above:Result Comment: This liquid based ThinPrep(R) pap test was screened with the use of an image guided system.Performed By: #### [id number] ####[address] [address]Dr. Silas IveyNote:Comment NormalUniversity Hospitals Portage Medical Center on above:Result Comment: The Pap smear is a screening test designed to aid in the detection of premalignant and malignant conditions of the uterine cervix. It is not a diagnostic procedure and should not be used as the sole means of detecting cervical cancer. Both false-positive and false-negative reports do occur. .Performed By: #### [id number] ####[address] [address]Dr. Silas IveyPerformed by:CommentHenry County Hospital on above:Result Comment: Raymond Martinez Wood Flooring Specialist (ASCP)Performed By: #### [id number] ####[address] [address]Dr. Silas IveyReflex Criteria:[facility] on above:Result Comment: The HPV DNA reflex criteria were not met with this specimen result therefore, no HPV testing was performed. .Performed By: #### [id number] ####[facility] [address] [place], [place] [address]Dr. Silas IveySpecimen adequacy:[facility] on above:Result Comment: Satisfactory for evaluation. Endocervical and/or squamous metaplastic cells (endocervical component) are present.Performed By: #### [id number] ####[place] [address]Dr. Silas IveyUS PELVIS AND TRANSVAGon 41-26-1101BN PELVIS AND TRANSVAGEXAMINATION: US PELVIS AND TRANSVAG HISTORY: Pelvic and [...] Electronically authenticated by: ROBBIE MONROY Date: 2022-05-03 16:11NoMiami Valley HospitalCovid-19 PCR (CVDTBH)on 17-19-0984ABOG-CoV-2 (COVID-19) RNA EFRAIN+probe Ql (Unsp spec)DetectedCritically abnormalNOT DETECTEDThe Parkwood HospitalComment on above:Result Comment: This test is not yet approved or cleared by the [place] FDA. When there are no FDA-approved or cleared tests available, and other criteria are met, FDA can make tests available under an emergency access mechanism called an Emergency Use Authorization (EUA). The EUA for this test is supported by the [place] of Health and Human Service's declaration that circumstances exist to justify the emergency use of in vitro diagnostics for the detection and/or diagnosis of the virusthat causes COVID-19. This EUA will remain in effect for the duration of the COVID-19 declaration ju stifying emergency of IVDs, unless it is terminated or revoked by the FDA (after which the test mayno longer be used).Performed By: #### CVDTBH #### [facility] [address] [address] [address] Silas Li URINE PROFILEon 89-59-2976Efrejavbq Ql (U)NegativeNormal NEGATIVEThe [facility] on above:Performed By: #### ERUR, PREGU #### [facility] [address] [address] [address] Rosen ChangClarity (U)CLEARNormalCLEARThe [facility]wood HospitalComment on above: Performed By: #### ERUR, PREGU #### [facility] [address] [address] [address] Silas Kaylor (U)YELLOWNormalYELLOWOhiohealth Riverside Methodist HospitalComment on above: Performed By: #### ERUR, PREGU #### [facility] [address] [address] [address] Silas Umaña micrscopic examination will be performed if indicated. NormalThe [facility]lington HospitalComment on above:Performed By: #### ERUR, PREGU #### [facility] [address] [place] [address] Dr. Silas IveyGlucose Ql (U)NegativeNormalNEGATIVEOhiohealth Riverside Methodist HospitalComment on above:Performed By: #### ERUR, PREGU #### [facility] [address] [place] [address] Dr. Silas IveyHemoglobin Ql (U)NegativeNormalNEGATIVESouthview Medical Center on above:Performed By: #### ERUR, PREGU #### [facility] [address] [place] [address] Dr. Silas IveyKetones Ql (U)NegativeNormalNEGATIVEOhiohealth Riverside Methodist HospitalComment on above:Performed By: #### ERUR, PREGU #### [facility] [address] [place] [address] Dr. Silas IveyLEUKOCYTESNegativeNormalNEGATIVEOhiohealth Riverside Methodist HospitalComment on above:Performed By: #### ERUR, PREGU #### [facility] [address] [address] [address] Silas IveyNitrite Ql (U)NegativeNormalNEGATIVEOhiohealth Riverside Methodist HospitalComment on above:Performed By: #### ERUR, PREGU #### [facility] [address] [place] [address] Dr. Silas IveypH (U)5.5 [pH]Normal5-9Ohiohealth Riverside Methodist HospitalComment on above: Performed By: #### ERUR, PREGU #### [facility] [address] [place] [address] Dr. Silas IveySPEC GRAVITY>=1.136Ctqsasvt3.005-<=1.025The [facility] Comment on above:Performed By: #### ERUR, PREGU #### [facility] [address] [place] [address] Dr. Silas Sales PROTEINNegativeNormalNEGATIVE/ TRACEThe [facility] Comment on above:Performed By: #### ERUR, PREGU #### [facility] [address] [place] [address] Dr. Silas Bowman MICRO INDNOT INDICATEDNormalThe [facility]wood HospitalComment on above:Performed By: #### ERUR, PREGU #### [facility] [address] [place] [address] Dr. Silas Santiagobilinogen Qn (U)0.2 {[place]'U}/dLNormal0.2 - 1.0Ohiohealth Riverside Methodist HospitalComment on above:Performed By: #### ERUR, PREGU #### [facility] [address] [place] [address] Dr. Silas IveyPREGNANCY URon 77-87-8067KPZLHZCHC, QUALNegativeNormalNEGATIVEThe [facility] HospitalComment on above:Performed By: #### ERUR, PREGU #### [facility] [address] [place] [address] Dr. Silas IveyCovid-19 PCR ([facility])on 85-68-8091GIDS-CoV-2 (COVID-19) RNA EFRAIN+probe Ql (Unsp spec)Not detectedNormalNOT DETECTEDThe [facility] Comment on above:Result Comment: When diagnostic testing is negative, the [...] for this test is supported by the [place] of Health and Human Service's declaration that circumstances exist to justify the emergency use of in vitro diagnostics for the detection and/or diagnosis of the virus that causes COVID-19. This EUA will remain in effect for the duration of the COVID-19 declaration justifying emergency of IVDs, unless it is terminated or revoked by the FDA (after which the test may no longer be used).Performed By: #### CVDTBH #### [facility] [address] [address] [address] Silas IveyGROUP A STREP CULTUREon 01-11-2022. pyogenes Ag Ql (Unsp spec) Culture Observations: NEGATIVE FOR GROUP A STREPTOCOCCUS.NormalOhioHealth Shelby Hospitalment on above: Performed By: #### SSCRN, GRASTCX ####[facility] [address] [place], [place] [address]Dr. Silas IveyINFLUENZA A AND B AGon 01-11-2022 INFLUANEGHSEE [facility] OhioComment on above:Result Comment: Negative for Flu A protein angiten. Infection due to Flu A cannot be ruled out. FluA angiten in the sample may be below the detection limit of the test. Performed By: #### INFLUAB ####[facility] [address] [place], [place] [address]Dr. Silas IveyINFLUBNEGHSEE UC Medical Centerment on above:Result Comment: Negative for Flu B protein antigen. Infection due to Flu B cannot be ruled out. FluB antigen in the sample may be below the detection limit of the test.Performed By: #### INFLUAB ####[facility] [address] [place], [place] [address]DrJames Ivey INFLUENZA A AGNegativeNormalNEGATIVE SEE COMMENTThe [facility]wood HospitalComment on above:Performed By: #### INFLUAB ####[facility] E[address] [place], [place] [address]DrJames IveyINFLUENZA B AGNegativeNormalNEGATIVE SEE COMMENTThe [facility] HospitalComment on above:Performed By: #### INFLUAB ####[facility] [address] [place], [place] [address]DrJames IveyINTERNAL CONTROLSWithin Normal LimitsNormalWithin Normal LimitsThe [facility]wood HospitalComment on above:Performed By: #### INFLUAB ####[facility] [address] [place], [place] [address]Tl. Silas Ivey STREPT SCREENon 97-74-3370OIBRM SCREEN ANegativeNormalNEGATIVEThe [facility] HospitalComment on above:Performed By: #### SSCRN, GRASTCX ####[facility] [address] [place], [place] [address]Us. Silas Ivey Vital Signs Date TimeVital SignValuePerforming SnmdiwlaiAoqsinkh27-63-6914 15:55-0400Body zkssyh428.4 [facility]10-24-2024 15:55-0400Body mass index (BMI) [Ratio]29.53 kg/m2PZanesville City Hospital10-24-2024 15:55-0400Body rgqvie64.58 kgPZanesville City Hospital10-24-2024 15:55-0400Diastolic blood igtgctph71 mm[Hg][facility] 06-10-2024 15:55-0400Systolic blood stdjsekg079 mm[Hg][facility]11-21-2023 10:10-0500Body sqowtr633.4 cmPacc 7 Work Phone: [facility]11-21-2023 10:10-0500Body temperature 98.71 [degF]Pacc 7 Work Phone: [facility]11-21-2023 10:10-0500Body .46 kgPacc 7 Work Phone: [facility]11-21-2023 10:10-0500Diastolic blood eodmexqw54 mm[Hg]Pacc 7 Work Phone: [facility]11-21-2023 10:10-0500Heart rate74 /min Pacc 7 Work Phone: [facility]11-21-2023 10:10-1601TvS2% (BldA) [Mass fraction]98 %Pacc 7 Work Phone: [facility]11-21-2023 10:10-0500Systolic blood edbzsjvu802 mm[Hg]Pacc 7 Work Phone: [facility] Encounters Encounter DateEncounter TypeCare ProviderFacilityStart: 03-24-2025 End: 31-91-9315xpnvrykedqAOQCHSt. Rita's Hospitaltart: 11-18-2024 End: 51-93-1056hbihhpdlalQUEDDSt. Rita's Hospitaltart: 11-01-2024 End: 81-52-4404fiocbvxagqZFGGNMagruder Hospitaltart: 11-01-2024 End: 14-44-0724Mqlnkzukgn hospital visit by Anibal Flood MD Work Phone: [facility] Non-Invasive CardiologyComment on above:Syncope and collapseStart: 10-06-2024 End: 46-40-3458atxhryezvnDWBEDSt. Rita's Hospitaltart: 09-30-2024 End: 16-86-8203lysrayuwwuJOKZWSt. Rita's Hospitaltart: 09-30-2024 End: 41-55-6043lsjsifpdkoSDBOESt. Rita's Hospitaltart: 08-30-2024 End: 36-53-1641pgpytgpwkiXZPMSSt. Rita's Hospitaltart: 06-25-2024 End: 33-92-7879kufcihvwsyCDEAU M SHOLEYMercy Health – The Jewish Hospitaltart: 06-21-2024 End: 54-84-5570Gzyfnnsnv encounterRickie Magallanes APRN-EPHRAIM Work Phone: [facility]etrics/GynecologyStart: 06-18-2024 End: 11-34-7609Buhvlrcbo encounterRickie Magallanes APRN-EPHRAIM Work Phone: [facility]etrics/GynecologyStart: 06-17-2024 End: 23-57-1131tmsanbnlfqAUFJ KROTZERProMedica Health SystemComment on above: First trimester (Primary Dx)Start: 06-15-2024 End: 51-24-1046Slnedze care visitHiralsa Raine Kiddjean carlossimón VIOLIN TUTOR-PLUMBING ASSEMBLER INSTALLER Work Phone: [facility] Obstetrics/GynecologyComment on above:First trimester (Primary Dx); Nausea/vomiting in pregnancyStart: 06-15-2024 End: 87-13-5080tdqzanipkgDNOEAlhambra Hospital [facility] Center Ambulatory PPGStart: 06-11-2024 End: 17-64-1789Zemiuwkwi encounterNtahalia FernandezMedica Physicians Obstetrics/GynecologyStart: 06-10-2024 End: 42-09-2109dqrqnzmxwdYFMRZ M SHOLEYGalion Hospital HospitalStart: 06-10-2024 End: 51-30-0525Yoosim outpatient new 20 minutesPfws Ob MidwifeProMedica Physicians Obstetrics/GynecologyComment on above:Acute cystitis without hematuria (Primary Dx); First trimester pregnancyStart: 06-10-2024 End: 19-71-7659tjwedintfzWWVCN [facility] Ambulatory PPG Start: 06-10-2024 End: 91-78-7055Dibmaozqw encounterDolorwendy CandelarioKindred Hospital Daytonca Potrero CenterComment on above:Medication ProblemStart: 06-09-2024 End: 02-41-6578cqsvakuoexVABPI LTAC[facility] HospitalStart: 06-07-2024 End: 10-53-4169Dgardrtey encounterHiralsa Raine Kiddjean carlossimón VIOLIN TUTOR-PLUMBING ASSEMBLER INSTALLER Work Phone: [facility]etrics/GynecologyStart: 06-07-2024 End: 26-05-3537yuyimikfpfKHFP R. WALKERMercy Health – The Jewish Hospitaltart: 06-05-2024 End: 71-49-7279Cnpamlqqd department patient visitJAIMEE Ni [facility] Hospitaltart: 06-01-2024 End: 70-91-8132qmsbnsfoyfOMVPHSt. Rita's Hospitaltart: 05-26-2024 End: 35-83-7441PvbsluMxefsoa Oliver Clobrittaerty DPM Work Phone: Provider AdultComment on above:Refill RequestStart: 03-02-2024 End: 63-78-0486Lvgxxqmkl department patient visitMATHEW Samy BEAVERNGOZIOhioHealth Grady Memorial Hospital HospitalStart: 02-02-2024 End: 56-45-3666Wxevpga encounter procedureCoayde Waters DPM Work Phone: [facility] ClevelandComment on above:Tarsal tunnel syndrome of left side (Primary Dx); Lesion of left tibial nerveStart: 02-02-2024 End: 15-92-7443nkjrevzhcfPRCUERI CLOUGHERTYFacility:[facility]'start: 12-17-2023 End: 61-03-7663zjbznsezdtLCJCOTN O CLOUGHERTYOhioHealth Grady Memorial Hospital HospitalStart: 11-27-2023 End: 47-42-8096xahfiokapiJVCCTTF O CLOUGHERTYOhioHealth Grady Memorial Hospital HospitalStart: 26-02-0084mhzzcqjubsBwxhagj Jose Pfeifferugherty DPM Work Phone: [facility] ClevelandComment on above:Pain Management InfoStart: 37-40-6440S-mail encounter from caregiverSerafin Waters DPM Work Phone: [facility]ITALStart: 11-03-2023 End: 95-00-3737Qmgxnqz encounter procedureCoayde Pfeifferbrittaerty DPM Work Phone: [facility] ClevelandComment on above:Tarsal tunnel syndrome of left side (Primary Dx); Lesion of left tibial nerveStart: 11-03-2023 End: 39-08-4507Mwqgeppbwi hospital visit by physicianLyle Pratts HospRadiology Comment on above:Acute left ankle pain [M25.572]Start: 11-03-2023 End: 53-92-2208fztlkjtjcgWbexvme Jose Pfeifferugherty DPM Work Phone: [facility] ClevelandComment on above:Work papers accommodationsStart: 10-17-2023 End: 41-96-1850omksysldzrHBREQKB O CLOUGHERTYProMedica Beaverton HospitalStart: 53-53-8955Ushzno OnlyColeman Jose Clougherty DPM Work Phone: [facility] ClevelandComment on above:Acute left ankle pain (Primary Dx)Start: 09-18-2023 End: 34-67-5293slnrmyhfzzYWBZHRF O CLOUGHERTYProMedica Beaverton HospitalStart: 67-71-8645nibgwtilzvQsijfgr Jose Clougherty DPM Work Phone: [facility] ClevelandComment on above:Question about shoesStart: 09-05-2023 End: 73-72-3531abciaunyuhUZSSS MARIE SCHEVINRNFacility:[facility] Start: 09-05-2023 End: 57-71-8570Fqgtnjm encounter procedureColeman Jose Clougherty DPM Work Phone: [facility] ClevelandComment on above:Tarsal tunnel syndrome of left side (Primary Dx); Lesion of left tibial nerveStart: 04-19-9755zjcfaibcvgRkuvwrak Lawrence RNNURSE ON CALLComment on above:InformationStart: 08-08-2023 End: 37-45-5756wuszuzkoxrFWOGDTZ O CLOUGHERTYProMedica El Camino Hospitaltart: 08-08-2023 End: 80-07-5990rocgezxynkYIYRBImani BRISCOENFacility:[facility] Start: 07-25-2023 End: 77-58-0693Azmurul encounter procedureColeman Jose Clougherty DPM Work Phone: [facility] ClevelandComment on above:Tarsal tunnel syndrome of left side (Primary Dx); Lesion of left tibial nerveStart: 07-25-2023 End: 32-51-9315auuhmahiswQWJRGBM MADHUUGHERTYFacility:[facility]'start: 47-48-3647Pavnlxkum encounterColeman Jose Clougherty DPM Work Phone: [facility] ClevelandStart: 20-95-1829pcreibymwp Maddi Cheatham RNNURSE ON CALLComment on above:InformationStart: 07-11-2023 End: 83-94-3417emonejyvpvCvsmfvk Trice RNCCF [facility] MAINStart: 23-33-4293Qsmtsi-up encounterTanya Trevino RNNURSE ON CALLComment on above: Follow UpStart: 95-61-4403Mjevolgag for other preprocedural examinationCLARA AYADKettering Health PrebleStart: 07-08-2023 End: 44-06-7760Zassoacil to [place] [address] Work Phone: [facility] MAINStart: 07-08-2023 End: 62-18-1494kaivfhgsnvSyzj [address] Work Phone: Pre AnesthesiaComment on above:Pre-op evaluation; Achilles tendinitis, left legStart: 07-08-2023 End: 35-43-7814Aqwleqdpffdsm examination [place] [address] Work Phone: [facility] Work Phone: Start: 65-79-9660Ennghf Radha Waters DPM Work Phone: Orthpark [facility] hospitaledics MabelComment on above:Tarsal tunnel syndrome, left (Primary Dx); Soft tissue massReceived Outside Medical Records (MRI left ankle report)Start: 07-04-2023 End: 95-06-7974izfjxmebmjNWMXKKike LOGANFacility:[facility]'start: 07-28-2022 End: 52-63-0260vwbyjyveiwXR MIROSLAVA FITZPATRICKFacility:O9Wzlmx: 05-02-2022 End: 21-53-3952urrnwfnzwaQB ADWOA HUTCHINSON .Facility:J8Suorc: 04-30-2022 End: 40-53-1649umvithklypPU ADWOA HUTCHINSON .Facility:G0Hfsqn: 03-26-2022 End: 97-53-7947ftmdcusoczEMDZIN RODRIGUEZ .Facility:Y7Nyhxy: 01-19-2022 End: 03-76-7233wnlqoxzvfeSD JULIA Ni SCHERMERHORNFacility:Y3Qwuwi: 01-11-2022 End: 84-36-0635vlimowxokpMN JOSH MORRISON .Facility: Procedures DateProcedureProcedure DetailPerforming ClinicianStart: 06-84-4560Ayftyewpwdooui function eval w/tilt table w/mntrLori Flood MD Work Phone: Start: 92-92-9127Cdeufc-up visitFollow UpCOAYDE WATERS Plan of Treatment DateCare ActivityDetailAuthorStart: 07-95-6697ROlW,Tdap and Td Vaccines (2 - Td or Tdap)DTaP,Tdap and Td Vaccines (2 - Td or Tdap)[facility] SystemStart: 10-07-7357ILkF/Tdap/Td vaccine (2 - Td or Tdap)DTaP/Tdap/Td vaccine (2 - Td or Tdap)[facility] SystemStart: 98-87-9502Yiedk microalbumin profile DTaP,Tdap,Td Vaccine (2 - Td or Tdap)[facility] Hospitaltart: 89-35-6807Pajwxse CounselingTobacco CounselingSelect [facility] SystemStart: 19-06-7639Fiajvhx ScreeningTobacco ScreeningSelect [facility] SystemStart: 29-08-0796Isibq BMI ScreeningAdult BMI ScreeningSelect Medical [facility] SystemStart: 93-05-4464Bpktidy ScreeningTobacco ScreeningSelect [facility] SystemStart: 16-02-6409Ikxsj BMI ScreeningAdult BMI ScreeningKindred Hospital Daytonca [facility] SystemStart: 36-69-8596Xjpovzi ScreeningTobacco ScreeningKindred Hospital Daytonca [facility] SystemStart: 07-06-2024 End: 26-68-7672oqyhiosuzt73/19/2024 11:15 AM EST Initial [facility] [address] [place] [address] Veronica Forte DO [address] [place] [place] [address] [facility] Start: 06-22-2024 End: 34-16-0822Swsakzw encounter /05/2024 8:30 AM EST Appointment [facility] - Ultrasound [address] [place] [address] Alyssa Huang, VIOLIN TUTOR-PLUMBING ASSEMBLER INSTALLER [address] [place] [address] [facility] - UltrasoundStart: 06-15-2024 End: 45-29-3256BT transvaginal for pregnancyUltrasound less than 14 weeks with transvaginal Imaging Routine First trimester pregnancyExpected: 06/15/2024, Expires: 06/15/2025[facility] Work Phone: Comment on above:Expected: 06/15/2024, Expires: 06/15/2025Start: 06-15-2024 End: 99-86-3362Unkbqgtruvsx consultation with lgazzqq6506/15/2024 9:15 AM EDT Telemedicine [facility] Obstetrics/Gynecology [address] [place] [id number] Alyssa Huang, VIOLIN TUTOR-PLUMBING ASSEMBLER INSTALLER [address] [place] [address] [facility]stetric[facility]/GynecologyStart: 06-10-2024 End: 00-18-2551Jzfdwcmo identified in Urine by CultureUrine Culture Microbiology Routine Acute cystitis without hematuria Expected: 06/10/2024 (Approximate), Expires: 06/10/2025ProMer[facility] [address] HospitalIS Pharma Health SystemComment on above:Expected: 06/10/2024 (Approximate), Expires: 06/10/2025Start: 06-10-2024 End: 05-91-5992CsslxzjxkpZqqwupuhca Lab Routine Acute cystitis without hematuria Expected: 06/10/2024 (Approximate), Expires: 06/10/2025[facility] Work Phone: Comment on above:Expected: 06/10/2024 (Approximate), Expires: 06/10/2025Start: 18-61-9770FCRPK-19 Vaccine ()COVID- 19 Vaccine ()[facility] SystemStart: 43-56-2021KUWYU-19 Vaccine ()COVID-19 Vaccine ()[facility]ottetart: 15-71-7145Mpmxs-19 Vaccine ()Covid-19 Vaccine ()[facility]tart: 77-73-1261Rluupmsqw vaccinationProMedica Memorial Hospitaltart: 23-47-4991Wogqvasyl vaccinationFlu vaccine (#1)[facility] SystemStart: 11-56-4853Lryapexnoi Health Screening Behavioral Health ScreeningProMedica Memorial Hospitaltart: 52-50-3157Gclwvjkrof AssessmentDepression AssessmentProMedica Memorial Hospitaltart: 76-14-4123Tyypt-19 Vaccine ()Covid-19 Vaccine ()[facility]: 67-25-6168Kbjyqawrl vaccinationInfluenza Vaccine (#1)[facility]: 23-21-9248PCJ TestingHPV TestingProMedica Memorial Hospitaltart: 60-03-4573Ickqhxhse for malignant neoplasm of cervixProMedica Memorial Hospitaltart: 08-95-7509Qvpxmzkkux AssessmentDepression AssessmentProMedica Memorial Hospitaltart: 61-43-1566Wtpvwrizf B Vaccine (2 of 2 - CpG 2-dose series)Hepatitis B Vaccine (2 of 2 - CpG 2-dose series)[facility] Hospitaltart: 06-00-0362Mnv TestingPap TestingPromedica Toledo Hospital Start: 50-81-4266Lblbgpcyc for malignant neoplasm of cervixPromedica Toledo Hospital Start: 94-82-8392Llqxu BMI Follow Up PlanAdult BMI Follow Up PlanSelect Medical [facility] SystemStart: 45-96-2041Purfuag ScreeningAnxiety ScreeningPromedica Toledo Hospital Start: 93-47-6752Llptnalxha ScreeningDepression ScreeningProMedica Memorial Hospitaltart: 43-37-6981Shfvkhift C ScreeningHepatitis C ScreeningProMedica Memorial Hospitaltart: 41-45-4572Nbmhapuwd C screeningProMedica Memorial Hospitaltart: 56-59-2171IZU ScreeningHIV ScreeningProMedica Memorial Hospitaltart: 88-19-2592QGR screeningHIV ScreeningProMedica Memorial Hospitaltart: 76-66-9126BHF screeningHIV screenBon Adena Health Systemart: 27-26-1451Srbxoanhf vaccine (1 of 2 - 13+ 2-dose series)Varicella vaccine (1 of 2 - 13+ 2-dose series)[facility] Systemart: 72-08-0402Seftlkzpwj Screen Depression ScreenBon [facility]: 07-24-5203Rxkaolgrqe Screening Depression ScreeningAtrium Health Carolinas Rehabilitation Charlottetart: 83-08-0682Gjfdxbqzzkvl vaccinationProMedica Memorial Hospitaltart: 16-04-6369Vtfopua CounselingTobacco Counseling [facility] End: 20-46-4819LSG panel - Blood by Automated countCBC without diff Lab Routine First trimester 1 Occurrences starting 06/15/2024 until 06/15/2025 [facility] ToledoComment on above:1 Occurrences starting 06/15/2024 until 06/15/2025horiogonadotropin.beta subunit [Units/volume] in Serum or PlasmaHCG, Quantitative, Lab Routine First trimester 06/17/2024 2:21 PM [facility] End: 40-37-3979Ekqy Screen, UrineDrug Screen, Urine Lab Routine First trimester 1 Occurrences starting 06/10/2024 until 06/10/2025[facility] ToledoComment on above:1 Occurrences starting 06/10/2024 until 06/10/2025 End: 48-89-4170dQY, quantitative, pregnancyhCG, quantitative, Lab Routine SAB (spontaneous ) 1 Occurrences starting 06/18/2024 until 06/18/2025[employer] Work Phone: Comment on above:1 Occurrences starting 06/18/2024 until 06/18/2025 End: 15-72-3114eHX, quantitative, pregnancyhCG, quantitative, Lab Routine First trimester 1 Occurrences starting 06/17/2024 until 06/17/2025[employer] Work Phone: Comment on above:1 Occurrences starting 06/17/2024 until 06/17/2025 End: 10-97-9217Wtltxgawq panel, acuteHepatitis panel, acute Lab Routine First trimester 1 Occurrences starting 06/15/2024 until 06/15/2025[facility] SystemComment on above:1 Occurrences starting 06/15/2024 until 06/15/2025 End: 79-99-9778IWK 1&2 AB/AG Screen (P24 AG)HIV 1&2 AB/AG Screen (P24 AG) Lab Routine First trimester 1 Occurrences starting 06/15/2024 until 06/15/2025[facility] SystemComment on above:1 Occurrences starting 06/15/2024 until 06/15/2025 End: 88-42-3273Jvzohmu IGG immune statusRubella IGG immune status Lab Routine First trimester 1 Occurrences starting 06/15/2024 until 06/15/2025 [facility] SystemComment on above:1 Occurrences starting 06/15/2024 until 06/15/2025 End: 19-74-5221Oyvyyrew Total(Unknown Syphilis Status)Syphilis Total(Unknown Syphilis Status) Lab Routine First trimester 1 Occurrences starting 06/15/2024 until 06/15/2025[facility] SystemComment on above:1 Occurrences starting 06/15/2024 until 06/15/2025 End: 95-25-7094QNFR TABLE REPORTTILT TABLE REPORT Cardiac Services One Time for 1 Occurrences starting 11/03/2024 until 11/03/2024[facility] Comment on above:One Time for 1 Occurrences starting 11/03/2024 until 11/03/2024 End: 80-09-6135Ocbl and screenType and screen Blood Bank Routine First trimester 1 Occurrences starting 06/15/2024 until 06/15/2025[facility] SystemComment on above:1 Occurrences starting 06/15/2024 until 06/15/2025 End: 67-12-3605Qnbrdedpj zoster antibody, IgGVaricella zoster antibody, IgG Lab Routine First trimester 1 Occurrences starting 06/15/2024 until 06/15/2025[facility] SystemComment on above:1 Occurrences starting 06/15/2024 until 06/15/2025XR Ankle - left AP and Lateral and obliqueXR ANKLE GENERAL 3V AP/LAT/OBL LEFT Radiology Routine Acute left ankle pain 11/03/2023 2:32 PM [facility] Work Phone: End: [id number] ANKLE GENERAL 3V AP/LAT/OBL LEFTXR ANKLE GENERAL 3V AP/LAT/OBL LEFT Radiology Routine Acute left ankle pain 1 Occurrences starting 09/24/[address] [place] [address] Work Phone: Comment on above:1 Occurrences starting 09/24/2023 until 10/23/2024[facility] Immunizations Immunization DateImmunizationNotesCare YoblfeexCjysftrc00-32-4800siqcjrmxi virus vaccine, unspecified formulationSerafin Waters DPM Work Phone: [facility] Payers DatePayer CategoryPayerPolicy [id number] [address] [id number] 2023MedicaidCARESOURCE MEDICAID [facility] MEDICAID [id number] 2023- Present [phone] [place] [id number] Medicaid [id number] 2023Medicaid [facility] [id number] 2023Medicaid [id number] 2.840.1.023898.3.579.2.47308-90-8675 [id number] 2.840.1.227034.3.57[id number] 2.840.1.853597.3.57[id number] 2.0.1.115440.3.57[id number] 2.840.1.288489.3.57[id number] 2..1.091374.3.57[id number] 2..1.947223.3.57[id number] 2..1.704921.3.57[id number] 2..1.433223.3.57[id number] 2..1.130843.3.57[id number] 2..1.209586.3.57[id number] 2.0.1.521351.3.57[id number] 2.840.1.056392.3.57[id number] 2.840.1.786164.3.579.[id number] 2.16840.1.080439.3.57[id number] 2.16840.1.325399.3.57[id number] 2.840.1.701093.3.57[id number] 2.840.1.397164.3.57[id number] 2.840.1.149160.3.57[id number] 2.840.1.261469.3.57[id number] 2.840.1.770320.3.57[id number] 2.840.1.589620.3.57[id number] 2.840.1.607053.3.57[id number] 2.0.1.655779.3.57[id number] 2.0.1.297232.3.579.2.[id number] [id number] Social History DateTypeDetailFacilityStart: 22-73-8914Qdghlsd smoking status NHISEx-smoker [facility] Hospitaltory of tobacco useCurrent smokerHarrison Community Hospitaltory of tobacco useCigarette SmokerProMedica Memorial Hospitaltart: 07-04-2023 End: 86-78-2224Iwufiut use and exposureSmokeless tobacco non-userProMedica Memorial Hospitaltart: 09-28-2020 End: 29-82-9998Spvaytm of Social functionProMedica Memorial Hospitaltart: 09-28-2020 End: 07-63-9146Lqwbeht use panelMedina Hospital Score (1-100), lower number is lower uzdm69DgivvcrkdProMedica Memorial Hospitaltart: 68-03-2115Gakefic CommentVapes occasionallyProMedica Memorial Hospitaltart: 75-99-1744Bxe Assigned At BirthNot on file [facility] Hospitaltart: 07-08-2023 End: 46-34-3507Xswnyla smoking status NHISSmokes tobacco dailyPromedica [facility] Hospital Work Phone: Start: 07-08-2023 End: 14-33-4353Iaocnyv intakeCurrent drinker of alcohol (finding)[facility] Hospitaltart: 96-59-3426Dzfmqib CommentVapes occasionally, 2-3 cigarettes a day [facility] Hospitaltart: 70-64-7662Egyppxo Commentoccasionally, social drinking. [facility] HospitalHistory of tobacco useProRegency Hospital Companytart: 03-02-2024 Tobacco CommentEODProRegency Hospital Companytart: 25-41-3032Ofcabzx Comment ocassionallyPSelect [facility] SystemStart: 03-33-7545Xmm assigned at birthFemale [facility] Charlottetart: [facility]-2015 End: 00-32-2136VoxTwdhtr (finding)[facility] Charlottetart: 55-99-3593Ywfdag identityIdentifies as female gender (finding)[facility] SystemStart: 20-48-2320Fzcrei orientationHeterosexual (finding)[facility] SystemStart: 06-10-2024 End: 71-01-5186Vonjacrar beverage intakeEx-drinker (finding)[facility]ottetart: 05-10-9059Gbwoaae smoking status NHISOccasional tobacco smoker [facility] Charlottetart: 04-03-4051BsjcnramaIxdKkynbw Health SystemTobacco smoking status NHISTobacco smoking consumption [facility] Medical Equipment Procedure CodeEquipment CodeEquipment Original TextEquipment IdentifierDates Protector Nrv 7mm 4cm Strl Neurawrap Abs Bcmpt Bvn Clgn [id number]: 07-11-2023 Goals DatePatient GoalDesired Activity/StatePersonal health goal Clinical Notes 07-04-2023 to 03-24-2025 Note Date & ArwjHbumChcamqwl07-44-2328 [facility] HPI: 03/24/2025 Patient reports that she continues to be doing well. She denies dizziness or palpitations. She reports slight headache and feeling tired at times. Also she reports that she has been having occasional vivid dreams and she thinks it is related to the evening dose of pyridostigmine. Otherwise she denies chest pain or shortness of breath at rest or with exertion. She denies orthopnea or paroxysmal nocturnal dyspnea or legs edema. 11/18/2024 Patient is here today for follow-up visit. She reports that she improved after she was started on pyridostigmine and her symptoms are much less. She reports occasional slight infrequent lightheadedness with palpitation. She denies chest pain or shortness of breath or legs edema or legs comfort on exertion She had tilt table test at [facility] which done of pyridostigmine and her symptoms where reproduced with orthostatic position but her heart rate and blood pressure did not show significant hemodynamic changes. Patient reports compliance with avoiding caffeine and alcohol and increasing her fluid intake and she wears compression stockings during the daytime. 10/06/2024 Patient asked to be seen today because she was very concerned about having 20% stenosis on the coronary CT angiogram and because of her symptoms of feeling dizzy with increased heart rate and chest pain while she is up and working has been worsening, also she feels nauseous. Otherwise she denies exertional dyspnea, orthopnea or paroxysmal nocturnal dyspnea or legs edema She reports compliance with avoiding caffeine and alcohol and increasing her fluids intake 09/30/2024 On 09/26/2024 while she was sitting and watching TV around 8 PM she had mid substernal chest discomfort going through to the back and to the shoulders, she reported that she ate only a little bit prior to that and she did not drink any juice or alcohol or caffeine. She went to the emergency room, EKG and cardiac enzymes were normal. She was not given nitroglycerin or GI cocktail. Pain improved spontaneously and when she left the hospital around midnight she still had some pain but much better. She denies soreness to palpation. She denies any associated nausea or vomiting or shortness of breath. Patient had cholecystectomy in the past. She had other milder and shorter episodes, all not related to exertion. She does not smoke cigarettes anymore. She vapes occasionally but she has been cutting down extremely. She reports occasional mild dizziness after standing or walking for a long time. She has been following increased water and salt intake and she has been wearing compression stocking. She thinks it helped. 08/30/2024 Patient is here today for follow-up [...] them online 06/01/2024 Savannah Bruner is a 34 y.o. female with history of dizziness, rare PACs and short paroxysmal atrial tachycardia noted on event monitor 2018. She used to follow-up with [facility] cardiology. She presented to the emergency room [...] in the history Past Medical History She (more content not included)...[facility]04-[facility]20[facility] Note HPI: 11/18/2024 Patient is here today for follow-up visit. She reports that she improved after she was started on pyridostigmine and her symptoms are much less. She reports occasional slight infrequent lightheadedness with palpitation. She denies chest pain or shortness of breath or legs edema or legs comfort on exertion She had tilt table test at [facility] which done of pyridostigmine and her symptoms where reproduced with orthostatic position but her heart rate and blood pressure did not show significant hemodynamic changes. Patient reports compliance with avoiding caffeine and alcohol and increasing her fluid intake and she wears compression stockings during the daytime. 10/06/2024 Patient asked to be seen today because she was very concerned about having 20% stenosis on the coronary CT angiogram and because of her symptoms of feeling dizzy with increased heart rate and chest pain while she is up and working has been worsening, also she feels nauseous. Otherwise she denies exertional dyspnea, orthopnea or paroxysmal nocturnal dyspnea or legs edema She reports compliance with avoiding caffeine and alcohol and increasing her fluids intake 09/30/2024 On 09/26/2024 while she was sitting and watching TV around 8 PM she had mid substernal chest discomfort going through to the back and to the shoulders, she reported that she ate only a little bit prior to that and she did not drink any juice or alcohol or caffeine. She went to the emergency room, EKG and cardiac enzymes were normal. She was not given nitroglycerin or GI cocktail. Pain improved spontaneously and when she left the hospital around midnight she still had some pain but much better. She denies soreness to palpation. She denies any associated nausea or vomiting or shortness of breath. Patient had cholecystectomy in the past. She had other milder and shorter episodes, all not related to exertion. She does not smoke cigarettes anymore. She vapes occasionally but she has been cutting down extremely. She reports occasional mild dizziness after standing or walking for a long time. She has been following increased water and salt intake and she has been wearing compression stocking. She thinks it helped. 08/30/2024 Patient is here today for follow-up [...] paroxysmal atrial tachycardia noted on event monitor 2018. She used to follow-up with [facility] cardiology. She presented to the emergency room [...] has a 1.3 pack-year smoking history. She uses smokeless tobacco. She reports that she does not currently use alcohol. She reports that she does not use drugs. Family History (more content not included)...[facility]03-17-2025 History of Present illness Narrative* Heidi Serrato RN - 11/01/2024 2:30 PM EDT Instructed on objectives and procedure of a tilt study documented in this encounterBon [facility] Note HPI: 10/06/2024 Patient asked to be seen today because she was very concerned about having 20% stenosis on the coronary CT angiogram and because of her symptoms of feeling dizzy with increased heart rate and chest pain while she is up and working has been worsening, also she feels nauseous. Otherwise she denies exertional dyspnea, orthopnea or paroxysmal nocturnal dyspnea or legs edema She reports compliance with avoiding caffeine and alcohol and increasing her fluids intake 09/30/2024 On 09/26/2024 while she was sitting and watching TV around 8 PM she had mid substernal chest discomfort going through to the back and to the shoulders, she reported that she ate only a little bit prior to that and she did not drink any juice or alcohol or caffeine. She went to the emergency room, EKG and cardiac enzymes were normal. She was not given nitroglycerin or GI cocktail. Pain improved spontaneously and when she left the hospital around midnight she still had some pain but much better. She denies soreness to palpation. She denies any associated nausea or vomiting or shortness of breath. Patient had cholecystectomy in the past. She had other milder and shorter episodes, all not related to exertion. She does not smoke cigarettes anymore. She vapes occasionally but she has been cutting down extremely. She reports occasional mild dizziness after standing or walking for a long time. She has been following increased water and salt intake and she has been wearing compression stocking. She thinks it helped. 08/30/2024 Patient is here today for follow-up [...] paroxysmal atrial tachycardia noted on event monitor 2018. She used to follow-up with [facility] cardiology. She presented to the emergency room [...] Sertraline, Sulfa (sulfonamide antibiotics), and Sulfamethoxazole-trimethoprim Medications Current Outpatient Medications: aspirin 81 mg EC tablet, Take 1 tablet (81 mg) by mouth in the morning., Disp: 30 tablet, Rfl: 11 isosorbide mononitrate ER (Imdur) 30 mg 24 hr tablet, Take 1 tablet (30 mg) by mouth once daily as directed. Do not crush or chew., Disp: 30 tablet, Rfl: 2 Last Recorded Vitals Vital provide advised the patient Visit Vitals BP 128/81 (BP Location: Right arm, Patient Position: Sitting) Pulse 103 Ht 1.524 m (5') Wt 71.2 kg (157 lb) (more content not included)...[facility]02-13-2025 [facility] Note This is A/V telehealth visit Date of Telehealth Visit: 09/30/2024 Chief Complaint Patient presents with Chest Pain Had CTA coronaries this morning at [facility]. Says her chest pain isn't as bad. She is taking isosorbide daily, and aspirin every other day. Syncope Palpitations She wasn't able to tolerate metoprolol. Says it made her very depressed and she had to miss work. HPI The visit was conducted bgvi-ep-kzax with the use of audio and video technology using HIPAA approved [employer] between patient and the provider for a virtual visit. Verbal consent to provide and bill this service was obtained on: 09/30/24 Patient Location: Patient Home I spent 30 minutes of total time on the day of the visit. This time was spent preparing for the visit, obtaining and reviewing any outside history/data, taking a history, performing an exam/evaluation, counseling and educating patient/family about the diagnosis and plan, performing medical decision making, referring to and communicating with other health care referrals, independently interpreting results and documenting in the EMR, and coordinating care. Please see the additional documentation in this note for specific details. HPI: 09/30/2024 On 09/26/2024 while she was sitting and watching TV around 8 PM she had mid substernal chest discomfort going through to the back and to the shoulders, she reported that she ate only a little bit prior to that and she did not drink any juice or alcohol or caffeine. She went to the emergency room, EKG and cardiac enzymes were normal. She was not given nitroglycerin or GI cocktail. Pain improved spontaneously and when she left the hospital around midnight she still had some pain but much better. She denies soreness to palpation. She denies any associated nausea or vomiting or shortness of breath. Patient had cholecystectomy in the past. She had other milder and shorter episodes, all not related to exertion. She does not smoke cigarettes anymore. She vapes occasionally but she has been cutting down extremely. She reports occasional mild dizziness after standing or walking for a long time. She has been following increased water and salt intake and she has been wearing compression stocking. She thinks it helped. 08/30/2024 Patient is here today for follow-up [...] monitor 2019. She used to follow-up with [facility] cardiology. She presented to the emergency room [...] she does not currently use alcohol. She r (more content not included)...[facility]01-13-2025 [facility] Reason for cardiology [...] monitor 2019. She used to follow-up with [facility] cardiology. She presented to the emergency room [...] test 07/13/2024 Treadmill stress test 02/21/2021 at [facility] Treadmill exercise stress test. Danny protocol stress test was performed. The patient reached stage 3 of the protocol after exercising for 6 min 15 sec. Patient achieved a maximal he (more content not included)...[facility]11-04-2024 Miscellaneous Notes* Telephone Encounter - LAILA Peñaloza - 06/21/2024 11:53 AM EST Discussed w/pt. Advised to wait a week between hCG as we need to trend it to less than 5. Pt. Verbalized understanding. documented in this encounterRegency Hospital [facility]11-04-2024 Telephone encounter Note* Telephone Encounter - LAILA Peñaloza - 06/21/2024 11:53 AM EST Discussed w/pt. Advised to wait a week between hCG as we need to trend it to less than 5. Pt. Verbalized understanding. [facility]11-01-2024 Miscellaneous Notes* Telephone Encounter - LAILA Peñaloza - 06/18/2024 4:20 PM EDT Call to pt. To discuss hCG level is now 13. She states she'd had bleeding around the 19 th and nonesince. Pt. Advised consistent w/miscarriage. She relates she just got and they have just begun trying to conceive. Emotional support provided. Pt. Denies history of PCOS and infertility. Advised to wait one normal menstrual cycles and she cantry again. Discussed need to trend hCG to <5 and to have redraw in a week. Pt. Verbalized understanding. Blood type O+ documented in this encounterRegency Hospital [facility]edo11-01-2024 Telephone encounter Note* Telephone Encounter - LAILA Peñaloza - 06/18/2024 4:20 PM EDT Call to pt. To discuss hCG level is now 13. She states she'd had bleeding around the 19 th and nonesince. Pt. Advised consistent w/miscarriage. She relates she just got and they have just begun trying to conceive. Emotional support provided. Pt. Denies history of PCOS and infertility. Advised to wait one normal menstrual cycles and she cantry again. Discussed need to trend hCG to <5 and to have redraw in a week. Pt. Verbalized understanding. Blood type O+ [facility]10-31-2024 History of Present illness Narrative* Annabel Guillermo RN - 06/17/2024 1:46 PM EDT Pt called stating that she got the [...] drawn. STEVAN Hernandez, RN documented in this encounterRegency Hospital Toledo10-29-2024 History of Present illness Narrative* Lisa Zhu LPN - 06/15/2024 9:15 AM EDT PAB-JNQ-9-17. Planned. Desires genetic testing. Desires FLU VACCINE. Vapes but trying to stop. BMI-29 Last pap was 1 year ago-with Dr Hutchinson-negative. * NATALIA Wang - 06/15/2024 9:15 AM EDT OB Intake Video Visit 33 y.o. at 6w0d contacted through [employer] for OB intake video visit. verified and verbal consent obtained for video visit. Patient and provider both currently located in the [facility]. This was a planned . FOB involved [...] when/how to notify provider. 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 Reviewed course of care. Discussed CDC recommendation for exclusive for the first 6 months. Patient has been covid vaccinated. Discussed recommendations in . Patient is taking a vitamin. All questions answered. Educational materials provided through [employer]. Ultrasound and labs ordered. Appointment scheduled for initial OB visit with provider on 07/06/24. NATALIA Wang 06/15/24 1026 documented in this encounterRegency Hospital [facility]edo10-25-2024 Miscellaneous Notes* Telephone Encounter - Nathalia Carmen - 06/11/2024 3:36 PM EDT Patient is currently & called the office to see what temperature a steak needs to be cooked (medium, medium well, well done) for it to be safe for her to eat. Spoke to Rickie Magallanes CNM (tank car reconditioner). The beef needs to be cooked to 145 degrees and let sit for 3 minutes. Patient was notified & voiced understanding. documented in this encounterRegency Hospital Toledo10-25-2024 Telephone encounter Note* Telephone Encounter - Nathalia Carmen - 06/11/2024 3:36 PM EDT Patient is currently & called the office to see what temperature a steak needs to be cooked (medium, medium well, well done) for it to be safe for her to eat. Spoke to Rickie Magallanes CNM (tank car reconditioner). The beef needs to be cooked to 145 degrees and let sit for 3 minutes. Patient was notified & voiced understanding. [facility]-25-[facility]24 Miscellaneous Notes* Telephone Encounter - LAILA Peñaloza - 06/11/2024 12:51 PM EDT Pt. Reports she is feeling a little better. Advised urine drug screen and urinalysis are negative. Pt. Encouraged to hydrate. Pt. Reports some nausea for which she came home from work for. Pt. Advised urine culture is pending, but will likely be negative. Pt. Verbalized understanding. documented in this encounterRegency Hospital [facility]edo10-25-2024 Telephone encounter Note* Telephone Encounter - LAILA Peñaloza - 06/11/2024 12:51 PM EDT Pt. Reports she is feeling a little better. Advised urine drug screen and urinalysis are negative. Pt. Encouraged to hydrate. Pt. Reports some nausea for which she came home from work for. Pt. Advised urine culture is pending, but will likely be negative. Pt. Verbalized understanding. [facility]-24-2024 Miscellaneous Notes* Telephone Encounter - Nano Candelario - 06/10/2024 5:21 PM EDT Contract: 129 re Vitamin * Telephone Encounter - Nano Candelario - 06/10/2024 5:21 PM EDT Called Daija Santacruz CNM cell and Left Messag to call [facility] * Telephone Encounter - Nano Candelario - 06/10/2024 5:21 PM EDT Daija Santacruz called back Connected Call documented in this encounterRegency Hospital [facility]edo10-24-2024 Telephone encounter Note* Telephone Encounter - Nanonoel Candelario - 06/10/2024 5:21 PM EDT Contract: 129 re Vitamin [facility]10-24-2024 Telephone encounter Note* Telephone Encounter - Nanonoel Candelario - 06/10/2024 5:21 PM EDT Called Daija Santacruz CNM cell and Left Messag to call [facility]-24-[facility] Telephone encounter Note* Telephone Encounter - Nanonoel Candelario - 06/10/2024 5:21 PM EDT Daija Santacruz called back Connected Call [facility]10-24-2024 History of Present illness Narrative* Rickie Magallanes APRN-EPHRAIM - 06/10/2024 4:00 PM EDT Savannah Álvarez is a 33 y.o.female. Patient's last menstrual period was 05/04/2024 (exact date).. She presents with possible UTI. Patient relates the only symptoms she is having is burning prior to and after urination. Patient is currently . Symptoms began yesterday. She has increased waterintake and she has been drinking cranberry juice. She denies fever or chills. She is accompanied byher spouse. Pt. Reports occasional nausea and she [...] Left CHOLECYSTECTOMY EXPLORATORY LAPAROTOMY GALLBLADDER SURGERY Circumferential 2014 OVARIAN CYST SURGERY FAMILY HX Family History [...] by mouth 2 (two) times a day asneeded for muscle spasms. 10 tablet 0 ibuprofen [...] - Drug Screen, Urine; Future - vit 56-qths-xjnxn-dha ( + DHA) 28 mg iron- 975 [...] to tx. Pt. Verbalized understanding DAVON RUSSELL, EPHRAIM Fox APRN, APRN-CNM 06/10/24 1647 documented in this encounterRegency Hospital [facility]10-21-2024 Miscellaneous Notes* Telephone Encounter - Molly Pineda - 06/07/2024 8:57 AM EDT Patient has OBI on 06/15/24 and wanted to make the Office aware that she was seen in the ED over the weekend for vaginal bleeding. Patient states she had Betas drawn in the ED and will have them drawn again today. * Telephone Encounter - NATALIA Wang - 06/07/2024 8:57 AM EDT Please notify patient her beta increased. Discuss warning signs and have her repeat beta Friday.Thank you. * Telephone Encounter - Annabel Guillermo RN - 06/07/2024 8:57 AM EDT Called the patient and informed her of this information. She verbalized she understood. STEVAN Hernandez, RN documented in this [facility] Telephone encounter Note* Telephone Encounter - Molly Pineda - 06/07/2024 8:57 AM EDT Patient has OBI on 06/15/24 and wanted to make the Office aware that she was seen in the ED over the weekend for vaginal bleeding. Patient states she had Betas drawn in the ED and will have them drawn again today. [facility] Nixle [id number] Telephone encounter Note* Telephone Encounter - NATALIA Wang - 06/07/2024 8:57 AM EDT Please notify patient her beta increased. Discuss warning signs and have her repeat beta Friday.Thank you. [facility] HospitalEn[facility]at[facility] Work Phone: [phone] Telephone encounter Note* Telephone Encounter - Annabel Guillermo RN - 06/07/2024 8:57 AM EDT Called the patient and informed her of this information. She verbalized she understood. STEVAN Hernandez, RN [facility] HospitalSuperpedestrian [id number] [facility] Reason for cardiology consult: Syncope Chief Complaint: Syncope and palpitation HPI: Savannah Álvarez is a 33 y.o. female with history of dizziness, rare PACs and short paroxysmal atrial tachycardia noted on event monitor 2019. [facility]. She presented to the emergency room [...] normal EKG Treadmill stress [facility]read[facility]. Danny protocol stress [...] for cardiovascular events. Limited echo 02/21/2021 at [facility] Left Ventricle: Systolic function is normal with an ejection fraction of 60-65%. The quantitative EF by 2D Lambert biplane is (more content not included)...[facility]06-17-2024 NoteHNO ID: [id number] Author: SERAFIN WATERS DPM Service: ? Author [...] she will be s (more content not included)...[facility] [id number] History of Present illness Narrative* Serafin Waters DPM - 02/02/2024 1:20 PM EDT Images from the original note were not included. 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 Patient doing extremely well and states she only has occasional numbness some days to her toes only. Otherwise the patient is doing extremely well. Patient states she just got back from a trip to [place] and states that she was doing a lot of walking and had only soreness which was bilateral. Otherwise no pain to her previously extremely painfulleft ankle. Patient is going back to full-time [...] no height and/or weight reading in the dblm178 days, so the below BMI readings may be inaccurate) BMI Readings from Last 3 Encounters: 07/08/23 : 26.89 kg/m ------ REVIEW OF SYSTEMS: CONSTITUTIONAL: No fevers, [...] which included preparing to see the patient, tyrw-mr-odhq patient care, completing clinical documentation, obtaining and/or reviewing separately obtained history, performing a medically appropriate examination, counseling and educating the pat ient/family/caregiver, and ordering medications, tests, or procedures. documented in this encounterProm[facility] Hospital04-02-2024 Miscellaneous Notes* Telephone Encounter - Jennifer Bailey RN - 11/18/2023 3:29 PM EDT 1445: Received a message on my work cell phone requesting information about pain management. 1515: Called and spoke to Dr. Waters prior to calling patient back so as to have the appropriate plan going forward for patient. 1535: Spoke with patient. Explained that she needed to continue with compression as swelling will irritate her condition, andshe stated that she would look into getting [...] you, MINH Rodriguez, BSN documented in this encounterPromedica Toledo Hospital03-20-2024 Miscellaneous Notes* Telephone Encounter - Jennifer Bailey RN - 11/05/2023 8:18 AM EDT Abilio Sullivan, Here are the completed forms. Can you please print and scan them into her chart. Thank you Jennifer documented in this encounterPromedica Toledo Hospital03-18-2024 NoteHNO ID: [id number] Author: SERAFIN WATERS DPM Service: ? Author [...] release - Patient is (more content not included)...[facility] [id number] History of Present illness Narrative* Serafin Waters JosePALLAVI - 11/03/2023 3:14 PM EDT Images from the original note were not included. PODIATRIC MEDICINE & SURGERY OFFICE NOTE Complaint: Left tarsal tunnel syndrome status post tibial nerve release HPI: This 32 year old female presents to the clinic today for a follow-up status post left tarsal tunnelrelease. Patient is doing extremely well. She is in no pain. She is ready to go back to work as well. Patient is rating her pain a 0 out of 10 on the pain scale. States she is still doing therapy whichis continuing to help. Patient denies any constitutional [...] no height and/or weight reading in the zaqv058 days, so the below BMI readings may be inaccurate) BMI Readings from Last 3 Encounters: 07/08/23 : 26.89 kg/m ------ REVIEW OF SYSTEMS: CONSTITUTIONAL: No fevers, [...] which included preparing to see the patient, ozvn-ze-ycbb patient care, completing clinical documentation, obtaining and/or reviewing separately obtained history, performing a medically appropriate examination, counseling and educating the pat ient/family/caregiver, and ordering medications, tests, or procedures. documented in this encounterPromedica Toledo Hospital03-18-2024 History of Present illness Narrative* Sergey Mckee RT(R) - 11/03/2023 2:40 PM EDT Radiology Service Progress Note PATIENT NAME: Savannah Álvarez DATE OF SERVICE: November 03, 2023 TIME: 2:28 PM PATIENT IDENTITY VERIFICATION COMPLETED USING TWO (2) IDENTIFIERS: Name and Date of confirmedby patient verbally and Name and Date of [...] PATIENT PRESENTS WITH AN IMPLANTABLE OR ATTACHED LABVIEW PROGRAMMER: No RADIOLOGY DEPARTMENT: General X-ray: Exam(s) Completed: Lower Extremity X- Ray(s): Ankle, Left PERIPHERAL IV DATA: Not applicable SIGNED BY: AARON Quiroga) November 03, 2023 2:28 PM documented in this encounterPromedica Toledo Hospital03-18-2024 NoteHNO ID: [id number] Author: SERGEY MCKEE RT (R) Service: Radiology Author Type: Technologist Type: Progress [...] PATIENT PRESENTS WITH AN IMPLANTABLE OR ATTACHED LABVIEW PROGRAMMER: No RADIOLOGY DEPARTMENT: General X-ray: Exam(s) Completed: Lower Extremity X-Ray(s): Ankle, Left PERIPHERAL IV DATA: Not applicable SIGNED BY: RT Kimber(R) November 03, 2023 2:28 [facility]01-19-2024 NoteHNO ID: [id number] Author: SERAFIN WATERS DPM Service: ? Author [...] the etiology and treatme (more content not included)...[facility] [id number] History of Present illness Narrative* Serafin Waters, PALLAVI - 09/05/2023 9:01 AM EST Images from the original note were not included. PODIATRIC MEDICINE & SURGERY OFFICE NOTE Complaint: Left tarsal tunnel syndrome status post tibial nerve release HPI: This 32 year old female presents to the clinic today for a follow-up status post left tarsal tunnelrelease. Patient is doing much better than the [...] Reported on 08/08/2023 Earliest Fill Date: 07/25/2023 [facility] Modifiable Risk Factors (MoRF) Obesity Unknown [...] no height and/or weight reading in the scxu726 days, so the below BMI readings may be inaccurate) BMI Readings from Last 3 Encounters: 07/08/23 : 26.89 kg/m ------ REVIEW OF SYSTEMS: CONSTITUTIONAL: No fevers, [...] which included preparing to see the patient, razu-xx-lwkz patient care, completing clinical documentation, obtaining and/or reviewing separately obtained history, performing a medically appropriate examination, counseling and educating the pat ient/family/caregiver, and ordering medications, tests, or procedures. documented in this encounterPromedica [facility] Hospital01-10-2024 NotePatient Outreach (NETNAV) SAVANNAH ÁLVAREZ ([id number]) 1990 F Date Time Provider Department 08/27/23 [...] Gap or Scheduling/Wellness visits Payer: Payor: [facility] / Plan: [facility] / Product Type: Medicaid / Care [...] of Date: 08/27/2023 Noted Allergy Reaction BACTRIM (SULFAMETHOXAZOLE-TRIMETH*07/04/2023 4 - Hives 7 - Swelling CLINDAMYCIN [...] 05/28/2023 Encounter Status:Closed by RAYMOND MARKHAM on 08/27/23[facility]01-10-2024 NoteHNO ID: [id number] Author: ?, ?, ? Service: ? Author [...] Gap or Scheduling/Wellness visits Payer: Payor: [facility] MEDICA[facility] / Plan: [facility] / Product Type: Medicaid / Care [...] Signature: Raymond Miguel August 27, 2023 10:39 [facility]01-01-2024 Miscellaneous Notes* Telephone Encounter - Fouzia Sierra RN - 08/18/2023 4:37 PM EST Patient calling with health information: patient requesting health information about Taking Gabapentin and taking Midol for menstrual symptoms, reviewed information from [employer] , and verbalized understanding of information provided. Patient denies any new or worsening symptoms of which a provideris not aware:Yes . Source:[email or web address] amp;searchUrl=%2Flco%2Faction%2Fsearch%3Fq%3Dgabapentin%26t%3Dname%26acs%3Dtrue% 26acq%3Dgab#interactions documented in this encounterPromedica Toledo Hospital12-22-2023 NoteHNO ID: [id number] Author: Serafin Waters DPM Service: ? Author [...] for the current p (more content not included)...[facility] [id number] History of Present illness Narrative* Serafin Waters DPM - 07/25/2023 8:24 AM EST Images from the original note were not included. PODIATRIC MEDICINE & SURGERY OFFICE NOTE Complaint: Left tarsal tunnel syndrome status post tibial nerve release HPI: This 32 year old female presents to the clinic today for a follow-up status post left tarsal tunnelrelease. Patient is in controlled pain but is [...] no height and/or weight reading in the decx565 days, so the below BMI readings may be inaccurate) BMI Readings from Last 3 Encounters: 07/08/23 : 26.89 kg/m ------ REVIEW OF SYSTEMS: CONSTITUTIONAL: No fevers, [...] which included preparing to see the patient, shsz-wg-ifbr patient care, completing clinical documentation, obtaining and/or reviewing separately obtained history, performing a medically appropriate examination, counseling and educating the pat ient/family/caregiver, and ordering medications, tests, or procedures. documented in this encounterPromedica Toledo Hospital12-08-2023 NoteHNO ID: [id number] Author: Serafin Waters DPM Service: ? Author [...] left ankle - Sta (more content not included)...[facility] [id number] Miscellaneous Notes* Telephone Encounter - Laurie Ware - 07/16/2023 9:24 AM EST Spoke to patient per Dr. Waters she needs to take pain medication as directed and not wait until she gets in severe pain. * Telephone Encounter - Laurie Ware - 07/15/2023 10:43 AM EST Patient called having a lot left heel pain like (50 plus)radiating to the ankle. Takes the oxyCODONE-acetaminophen (PERCOCET) 5-325 mg tablet without much relief to help the pain. Patient went to [facility] yesterday had left ankle covered while taking a shower but the reginaldo and gauze still got wet so she received dressing change there. documented in this encounterPromedica Toledo Hospital11-27-2023 Miscellaneous Notes* Telephone Encounter - Maddi Cheatham RN - 07/14/2023 6:36 PM EST Patient calling with request for post op questions. Patient denies any new or worsening symptoms ofwhich a provider is not aware: N/A. Conferenced to [employer] Detail to page tank car reconditioner for Podiatry. documented in this encounterPromedica Toledo Hospital11-24-2023 Miscellaneous Notes* Telephone Encounter - Tanya Trevino RN - 07/11/2023 8:47 PM EST Patient calling regarding not being able to [...] to the foot or toes. Conferenced to [facility] nuclear power reactor operator, Cristo, to speak with provider tank car reconditioner for Dr. Serafin Waters. documented in this encounterPromedica Toledo Hospital11-24-2023 NoteHNO ID: [id number] Author: Zenon Houston Service: Pharmacy Author Type: ? Type: Plan of Care Filed: 07/14/2023 9:20 AM Note Text: PHARMACY BEDSIDE DELIVERY SERVICE Patient Name: Savannah Álvarez The marked outpatient medications were filled at [facility] pharmacy and picked up at the pharmacy [...] your Primary Care Provider. 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 Reason for block: post-op pain management/at surgeon's [...] July 11, 2023 TIME: 5:22 PM CSN: [id number] NoteHNO ID: [id number] Author: Kimmy Smiley DO Service: Pain Management Author Type: Anesthesiologist Type: Anesthesia Procedure Notes Filed: 07/11/2023 5:28 PM Note Text: ANESTHESIOLOGY PROCEDURE NOTE Peripheral Nerve Block General Information Procedure Start Time/Medication Administration: 07/11/2023 4:04 PM Procedure End time: 07/11/2023 4:05 PM Patient location during procedure: OR Timeout Performed Pre-procedure: timeout performed Consent Obtained: Yes 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 Author Type: Nurse Leno Sewer Type: Anesthesia Procedure Notes Filed: 07/11/2023 3:09 PM Note Text: ANESTHESIOLOGY PROCEDURE NOTE Airway General Information Procedure Start Time/Medication Administration: 07/11/2023 2:42 PM Patient location during procedure: OR Patient identity confirmed: arm band Staffing Anesthesiologist: Kimmy Smiley DO LICENSED PROSTHETIST: Savannah Donovan APRN.LICENSED PROSTHETIST Performed by: TILA Indications and Patient Condition Indications for airway management: anesthesia Preoxygenated: yes anesthesia circuit Patient position: sniffing Method: asleep Difficult Mask: No Final Airway Details Final airway type: supraglottic airway Number of attempts at approach: 1 Final Supraglottic Airway: IGEL Size 3 Seal Adequate: yes Airway not difficult SIGNATURE: Savannah Donovan APRN.LICENSED PROSTHETIST PATIENT NAME: Savannah Álvarez DATE: July 11, 2023 TIME: 3:08 PM CSN: [id number] NoteHNO ID: [id number] Author: Harman Brandon MD Service: ? Author Type: Anesthesiologist Type: Progress Notes Filed: 07/08/2023 3:27 PM Note Text: Attending Note I evaluated the patient and personally participated in the kelly components. I agree with the resident's findings and plan as documented and have discussed the case and management of the patient's care with the resident. Signature: Harman Brandon MD Date: 07/08/2023 Time: 3:26 PMCOhioHealth Grant Medical Center11-21-2023 History of Present illness Narrative* Harman Brandon MD - 07/08/2023 3:26 PM EST Attending Note I evaluated the patient and personally participated in the kelly components. I agree with the resident's findings and plan as documented and have discussed the case and management of the patient's carewith the resident. Signature: Harman Brandon MD Date: 07/08/2023 Time: 3:26 PM documented in this encounterPromedica Toledo Hospital11-21-2023 Instructions* Patient Instructions* Ama Lei MD - 07/08/2023 10:37 AM EST PATIENT PREOPERATIVE INSTRUCTIONS No ref. provider found has scheduled you for your procedure at this surgery center: [facility]: [phone] [address]. Please check in on the1st floor at registration desk 6. Please read [...] taking for the 07/08/23 encounter (PAT) with [address] [place] [address]. If you start any new medications after [...] Procedures: - YOU MUST HAVE A RESPONSIBLE COMPLIANCE LEAD TAKE YOU HOME. A WOOD CRAFTER OR DIVISION LEADER CANNOT BE MADE A RESPONSIBLE COMPLIANCE LEAD. - We recommend that a responsible person stays with you overnight to take care of you. - You cannot stay in a hotel alone after outpatient surgery. You will not be permitted to have yoursurgery, if you do not have someone to [...] Advance Directive, please fax a copy to [phone] or email to for it to be added to your chart. If you do not have an Advance Directive, you can find the appropriate form and more information at [email or web address]. We recommend that youcomplete the Advance Directive form found on the website and bring it with you the day of your surgery. It can be witnessed and scanned into your chart that day. Ama Lei MD documented in this encounterPromedica Toledo Hospital11-21-2023 History and physical note * Ama Lei MD - 07/08/2023 10:00 AM EST HISTORY AND PHYSICAL EXAMINATION SERVICE DATE: 07/08/2023 [...] female with no PMH that presents for pre- operative evaluation for a tarsal tunnel release (posterior tibial nerve decompression) on the left side on 07/11/23. Denies fevers, cough, shortness of breath, history of stroke, history of [place], history of CHF. History reviewed. No pertinent [...] weight loss, malaise or fevers. +smoking history, +senior living aspirin use Neuro: No history of TIA's, stroke, FIRE PROTECTION INSPECTOR tumor, impaired sensorium, hemiplegia, paraplegia or quadraplegia. No neurological symptoms or problems. Respiratory: No history of current cough or dyspnea, or pneumonia in the past 6 weeks. No history of respiratory/pulmonary symptoms or problems. Cardiovascular: No history of HTN requiring medication, no history of angina, CHF, [place], cardiac surgery or stents. Denies rest pain, gangrene or revascularization/amputation for PVD. No history of cardiovascular symptoms or problems. GI: No history of GI symptoms or problems. No history of esophageal varices, recent ascites, or ETOH greater than 2 drinks per day. : No history of dysuria, frequency or incontinence,, stones or chronic kidney disease SHREDDING SPECIALIST: Negative for abnormal vaginal bleeding, abnormal vaginal discharge. : Denies, LMP 06/20/2023 Endocrine: No history of diabetes. Has not taken steroids within the past 30 days. No history of endocrinological symptoms or problems. Hematology: No history of bleeding or clotting disorder. Pt is not taking anti- coagulation or platelet medications. No history of hematological [...] (posterior tibial nerve decompression) on theleft side METS: Climb a flight of stairs [...] 2023 TIME: 8:58 AM documented in this encounterPromedica Toledo Hospital11-20-2023 Miscellaneous Notes* Telephone Encounter - Gaurav Ralph - 07/07/2023 11:49 AM EST Received MRI left ankle report from [facility] dated 06/02/23. Scanned report into [employer]. documented in this encounterPromedica Toledo Hospital11-17-2023 NoteHNO ID: [id number] Author: Serafin Waters DPM Service: ? Author Type: Physician Type: Progress Notes Filed: 07/04/2023 10:39 AM Note Text: PODIATRIC MEDICINE AND SURGERY OFFICE NOTE Complaint: Left tarsal tunnel syndrome HPI: This 32 year old female presents to the clinic today as a referral from Dr. Logan from [facility] for a complaint of tarsal tunnel [...] lower extremity Informed Consent Consent Obtained: Verbal [place] Protocol A moment to CARE was completed. [...] discussed. No implant(s) in (more content not included)...[facility] note * Diagnosis Tarsal tunnel syndrome, left- Primary Soft tissue mass Disorders of soft tissue, unspecified Tarsal tunnel syndrome, left Soft tissue mass Disorders of soft tissue, unspecified documented in this encounter [facility] note* Diagnosis Pre-op evaluation Preoperative examination, unspecified Achilles tendinitis, left leg Tarsal tunnel syndrome, left Soft tissue mass Disorders of soft tissue, unspecified documented in this encounter [facility] note* Diagnosis Tarsal tunnel syndrome of left side- Primary Tarsal tunnel syndrome Lesion of left tibial nerve documented in this encounter [facility] note* Diagnosis Tarsal tunnel syndrome of left side- Primary Tarsal tunnel syndrome Lesion of left tibial nerve documented in this encounter [facility] note* Diagnosis Acute left ankle pain- Primary documented in this encounter [facility] note* Diagnosis Acute left ankle pain documented in this encounter [facility] note* Diagnosis Tarsal tunnel syndrome of left side- Primary Tarsal tunnel syndrome Lesion of left tibial nerve documented in this encounter [facility] note* Diagnosis Acute cystitis without hematuria- Primary First trimester state, incidental documented in this encounter [facility]* Diagnosis First trimester - Primary state, incidental Nausea/vomiting in Unspecified vomiting of , unspecified as to episode of care documented in this encounter [facility]* Diagnosis SAB (spontaneous )- Primary Unspecified spontaneous without mention of complication Nausea/vomiting in Unspecified vomiting of , unspecified as to episode of care documented in this encounter [facility]* Diagnosis First trimester - Primary state, incidental documented in this encounter [facility]* Diagnosis Syncope and collapse documented in this encounter [facility] SystemInstructionsNot on filedocumented in this encounter [facility] SystemInstructionsNot on filedocumented in this encounter [facility] SystemInstructionsNot on filedocumented in this encounter [facility] SystemInstructionsNot on filedocumented in this encounter [facility] SystemInstructions* Attachments The following attachments cannot be sent through Care Everywhere. * Activity during (Fijian) * Healthy Weight Gain During (Fijian) * How to Adapt to Physical Changes During (Fijian) * care (Fijian) documented in this encounterProRegency Hospital ToledoInstructionsNot on file documented in this encounterCaroMont Health for referral (narrative)* Diagnostic Procedure Only (Routine) - AuthorizedSpecialtyDiagnoses / ProceduresReferred By ContactReferred To ContactXR IMAGING Diagnoses Acute left ankle pain Procedures XR ANKLE GENERAL 3V AP/LAT/OBL LEFT RADEX ANKLE COMPLETE MINIMUM 3 VIEWS Serafin Waters DPM [address] [place] [address] Xr Imaging [place] [address] Referral IDStatusReasonStmiami DateExpiration DateVisits RequestedVisits [id number] Auto-Generated Referral [facility] for visit Narrative* Diagnostic Procedure Only (Routine) - ClosedSpecialtyDiagnoses / ProceduresReferred By ContactReferred To Contact XR IMAGING Diagnoses Acute left ankle pain Procedures XR ANKLE GENERAL 3V AP/LAT/OBL LEFT RADEX ANKLE COMPLETE MINIMUM 3 VIEWS Serafin Waters DPM [address] [place] [address] X[facility] [address] [place] [address] Referral IDStatusReasonStart DateExpiration DateVisits RequestedVisits [id number] Auto-Generated Referral [facility] for visit Narrative* Outpatient Surgery (Routine) - ClosedSpecialtyDiagnoses / ProceduresReferred By ContactReferred To Contact Cardiology Diagnoses Syncope and collapse Procedures Tilt table [place] CARDIOVASCULAR FUNCTION EVAL W/TILT TABLE W/MNTR Lori Flood MD [address] [facility] [address] [place] [address] Phone: tel: fax: Referral IDStatusReasonStart DateExpiration DateVisits RequestedVisits [id number] [facility] Summary Purpose Family History No Family History [...] section and content) DATE CREATED AUTHOR 10/23/2022 [facility] DATE CREATED AUTHOR AUTHOR'S ORGANIZ ATION 08/28/2023 [facility] DATE CREATED AUTHOR AUTHOR'S ORGANIZ ATION 02/03/2024 [facility] DATE CREATED AUTHOR AUTHOR'S ORGANIZ ATION 06/16/2024 [facility] DATE CREATED AUTHOR AUTHOR'S ORGANIZ ATION 06/27/2024 [facility] DATE CREATED AUTHOR AUTHOR'S ORGANIZ ATION 11/06/2024 [facility] DATE CREATED AUTHOR AUTHOR'S ORGANIZ ATION 03/26/2025 [facility] DATE CREATED AUTHOR AUTHOR'S ORGANIZ ATION 03/30/2025 [facility] Source Comments (unrecognize d section and content) In the event this informatio n is protected by the Federal Confidentiality of Alcohol and Drug Abuse Patient Records regulations: The Federal rules restrict any use of the information to criminally investigate or prosecute any alcohol or drug abuse patient.[facility] the event this information is protected by the Federal Confidentiality of Alcohol and Drug Abuse Patient Records regulations: The Federal rules restrict any use of the information to criminally investigate or prosecute any alcohol or drug abuse patient.[facility] HospitalIn the event this information is protected by the Federal Confidentiality of Alcohol and Drug Abuse Patient Records regulations: The Federal rules restrict any use of the information to criminally investigate or prosecute any alcohol or drug abuse patient.[facility] HospitalIn the event this information is protected by the Federal Confidentiality of Alcohol and Drug Abuse Patient Records regulations: The Federal rules restrict any use of the information to criminally investigate or prosecute any alcohol or drug abuse patient.[facility] HospitalIn the event this information is protected by the Federal Confidentiality of Alcohol and Drug Abuse Patient Records regulations: The Federal rules restrict any use of the information to criminally investigate or prosecute any alcohol or drug abuse patient.[facility] HospitalIn the event this information is protected by the Federal Confidentiality of Alcohol and Drug Abuse Patient Records regulations: The Federal rules restrict any use of the information to criminally investigate or prosecute any alcohol or drug abuse patient.[facility] HospitalIn the event this information is protected by the Federal Confidentiality of Alcohol and Drug Abuse Patient Records regulations: The Federal rules restrict any use of the information to criminally investigate or prosecute any alcohol or drug abuse patient.[facility] HospitalIn the event this information is protected by the Federal Confidentiality of Alcohol and Drug Abuse Patient Records regulations: The Federal rules restrict any use of the information to criminally investigate or prosecute any alcohol or drug abuse patient.[facility] HospitalIn the event this information is protected by the Federal Confidentiality of Alcohol and Drug Abuse Patient Records regulations: The Federal rules restrict any use of the information to criminally investigate or prosecute any alcohol or drug abuse patient.[facility] HospitalIn the event this information is protected by the Federal Confidentiality of Alcohol and Drug Abuse Patient Records regulations: The Federal rules restrict any use of the information to criminally investigate or prosecute any alcohol or drug abuse patient.[facility] HospitalIn the event this information is protected by the Federal Confidentiality of Alcohol and Drug Abuse Patient Records regulations: The Federal rules restrict any use of the information to criminally investigate or prosecute any alcohol or drug abuse patient.[facility] HospitalIn the event this information is protected by the Federal Confidentiality of Alcohol and Drug Abuse Patient Records regulations: The Federal rules restrict any use of the information to criminally investigate or prosecute any alcohol or drug abuse patient.[facility] HospitalIn the event this information is protected by the Federal Confidentiality of Alcohol and Drug Abuse Patient Records regulations: The Federal rules restrict any use of the information to criminally investigate or prosecute any alcohol or drug abuse patient.[facility] HospitalIn the event this information is protected by the Federal Confidentiality of Alcohol and Drug Abuse Patient Records regulations: The Federal rules restrict any use of the information to criminally investigate or prosecute any alcohol or drug abuse patient.[facility] HospitalIn the event this information is protected by the Federal Confidentiality of Alcohol and Drug Abuse Patient Records regulations: The Federal rules restrict any use of the information to criminally investigate or prosecute any alcohol or drug abuse patient.[facility] HospitalIn the event this information is protected by the Federal Confidentiality of Alcohol and Drug Abuse Patient Records regulations: The Federal rules restrict any use of the information to criminally investigate or prosecute any alcohol or drug abuse patient.[facility] HospitalIn the event this information is protected by the Federal Confidentiality of Alcohol and Drug Abuse Patient Records regulations: The Federal rules restrict any use of the information to criminally investigate or prosecute any alcohol or drug abuse patient.[facility] Care Teams (unrecognized sec tion and content) Team MemberRelationshipSpecialtyStart DateEnd Date Alexy, Julia Talbert [address], [place] [address] PCP - GeneralInternal Mpkxhpjs75/20/23Team MemberRelationshipSpecialtyStart Date End Date Aelxy, Julia Talbert [address] [place] [address] PCP - GeneralInternal Maxxowts75/20/23Team MemberRelationshipSpecialtyStart Date End Date Alexy, Julia Talbert [address], [place] [address] PCP - GeneralInternal Kqfqcexd87/20/23Team MemberRelationshipSpecialtyStart Date End Date Alexy, Julia Talbert [address] [place] [address] PCP - GeneralInternal Ekqxajyc44/20/23Team MemberRelationshipSpecialtyStart Date End Date Alexy, Julia Talbert [address] [place] [address] PCP - GeneralInternal Nerxcovn08/20/23Team MemberRelationshipSpecialtyStart Date End Date Alexy, Julia Talbert [address] [place] [address] PCP - GeneralInternal Nsthdhmn83/20/23Team MemberRelationshipSpecialtyStart Date End Date Alexy, Julia Talbert [address] [place] [address] PCP - GeneralInternal Wbataumc78/20/23Team MemberRelationshipSpecialtyStart Date End Date Julia Tracey [address] [place] [address] PCP - GeneralInternal Wlrwxrkj66/20/23Team MemberRelationshipSpecialtyStart Date End Date Julia Tracey [address] [place] [address] PCP - GeneralInternal Ttprgvmq72/20/23Team MemberRelationshipSpecialtyStart Date End Date Julia Tracey MD PCP - KvxnzttMubgmukilm57/1924Team MemberRelationshipSpecialtyStart DateEnd Date Julia Tracey MD [address], [place] [address] PCP - KaawqlsIpwjtjdzff45/23/24Team MemberRelationshipSpecialtyStart DateEnd Date Julia Tracey MD [address], [place] [address] PCP - SkcszacLwzwlehajo20/23/24Team MemberRelationshipSpecialtyStart DateEnd Date Julia Tracey MD [address], [place] [address] PCP - FxkdqpoJhtbmjgygu05/23/24Team MemberRelationshipSpecialtyStart DateEnd Date Julia Tracey MD [address] [place], [place] [address] PCP - TbqrfnvUhxtoeejkb18/24Team MemberRelationshipSpecialtyStart DateEnd Date Julia Tracey MD [address] [place] [address] PCP - DzeyixrDiljnxulle7524Team MemberRelationshipSpecialtyStart DateEnd Date Julia Tracey MD [address] [facility] [place] [address] PCP - [id number] MemberRelationshipSpecialtyStart DateEnd Date Julia Tracey MD [address] [place] [address] PCP - EfktzbeBqllvosqxd37/23/24 Reason for Visit (unrecogniz ed section and content) ReasonCommentsFollow UpReasonCommentsInformationReasonCommentsReceived Outside Medical RecordsMRI left ankle reportReasonCommentsPost OpSx: 07/11/2023Reason CommentsEstablished PatientFollow UpReasonCommentsFollow UpPt states that she is doing good. Has documentation to return to work with limitationsReasonComments Established PatientReasonOnset DateCommentsRefill Ehsuyjo89/09/2024Reason CommentsUrinary Tract InfectionReasonOnset DateCommentsMedication Problem 4ReasonCommentsInitial VisitOBI FOR RECORDS PERTAINING TO PATIENTS WHO ARE [...] BE BASED ON THE PRIMARY CLINICAL RECORDS. [facility] provides no warranty or guarantee of the accuracy or completeness of information in this document.
--- OUTSIDE RECORDS SUMMARY | 2025-06-15 20:14 | XMS_ITS | Patient Health Record ---
Author Organization [facility] [place] Address [address] [place] [address] Care Team Providers Care [employer] Superintendent Name Role Phone None, Unknown or Primary Care Provider Unavailab le Allergies Allergen (clinical drug ingredient) Drug/Non Drug Allergy documented on EMR Reaction Allergy Type Onset Date Status sulfamethoxazole / trimethoprim bactrim (uncoded) Unknown Allergy ActiveclindamycinClindamycin HClUnknownDrug AllergyActive Reason For Referral No Information Medications Medication SIG (Take, Route, Frequency, Duration) Notes Start Date End Date Status Tylenol 325 MG 1 tablet as needed Orally every 4 hrs Active Social History Tobacco Use: Social History Observation Description Date Details (start date - stop date) Former Smoker NA - NA Tobacco Use/Smoking Question Answer Notes Patient is a former smoker Problems Problem Type SNOMED Code ICD Code Onset Dates Problem Status W/U Status Risk Notes Problem Mononeuropathy of lo wer limb (075389385) 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) ActiveconfirmedProblemAcne vulgaris (37193552)Acne vulgaris (L70.0)Active confirmedProblemAchilles bursitis (138327575)Achilles tendinitis, left leg (M76.62)ActiveconfirmedProblemTibialis tendinitis (07693105)Posterior tibial tendinitis, left leg (M76.822)Activeconfirmed Plan Of Treatment No Information Insurance Providers Payer Name Payer Address Payer Phone Subscriber Number Group Number Insured Name Patient Relationship to Insured Coverage Start Date Coverage End Date [employer] [place] [employer] [address] [place] [address] [id number] Henri CarrieSelf - patient is the insured Medical (General) History Medical History History ICD Code Left ankle pain 719.47 Left Achilles tendinitis 726.71 Surgical History Surgery Date(Month/Year) Gallbladder 2014 Ovarian Cyst 2020 Hospitalization History Reason Date(Month/Year) See above
== END 2025-06-15 20:10 | disposition home or self-care (01) ==
LOC: LAB 20:09
PROVIDERS: PCP Internal Medicine; Visit Provider Physician Assistant
DX: Z01.419 Encounter for gynecological examination (general) (routine) without abnormal findings (principal)
CPT/HCPCS: 87624; 88175